=== PATIENT | female | born 1945 | race Asian ===

== ENCOUNTER 2016-12-30 19:46 | Inpatient (IN) | payer MEDICARE, OTHER ==
[~2016-12-30] VITALS: Ht 147.3 cm; Wt 32.0 kg
[~2016-12-30 19:46] MED LIST: AMIT25TA9 PO; DUR100 TD; LORA-444 PO
[2016-12-30] MEDS ORDERED: SOD CHLORIDE 0.9% 1,000 ML IV STA ×2 (19:49→20:47)
[2016-12-30] MEDS ORDERED: DEXTROSE 50% 50 ML SYRINGE ONE (20:06)
[2016-12-30] MEDS ORDERED: DEXTROSE 50% 50 ML SYRINGE IV STA (20:06)
--- NOTE | 2016-12-30 20:06 | ERA ---
ER Documentation Chief Complaint Date/Time DATE: 12/30/16 TIME: 20:02 Chief Complaint HPI This is a 71-year-old female with a trach, TPN who presents to the emergency room with multiple issues. History is provided by the patient's niece. It appears the patient was discharged from [facility] yesterday. She was admitted to rule out sepsis. The patient was discharged around 11 AM yesterday. Since she has been home she has not been acting herself. The niece is explaining that the patient is in and out of consciousness, she normally talks and has not been talking. She denies any fevers or chills. She usually gets morphine for pain but has not received any morphine since discharge from [place] yesterday. Additionally, the patient's Accu-Cheks have been in the 60s and 70s. ROS All systems reviewed and are negative except as per history of present illness. Medications Home Meds Reported Medications Morphine Sulfate* (Morphine* Liq) 10 Mg/5 Ml Solution, 20 MG PO Q2H Y for NEEDED FOR PAIN, ML OR 25MG Q2H FOR MODERATE PAIN OR 30MG Q2H FOR SEVERE PAIN 12/30/16 Sodium/K+/Mag/Ca/Chlor/Acetate (Tpn Electrolytes Vial) Unknown Strength Vial, ML IV DAILY, VIAL 12/30/16 Methocarbamol* (Robaxin*) 100 Mg/Ml Soln, 500 MG IJ DAILY, VIAL 12/30/16 Lorazepam* (Lorazepam*) 0.5 Mg Tablet, 1.5 MG PO HS Y for INSOMN, TAB 12/30/16 Lidocaine (Lidocaine) 1 Each Adh..patch, 1 EACH TP Q12H 12/30/16 Ipratropium-Albuterol (Ipratropium-Albuterol) 0.5-3 Mg/3 Ml Ampul.neb, 2.5 ML INHALATION Q6 Y for NEEDED, #30 VIAL 12/30/16 Fentanyl (Duragesic) 1 Each Patch.td72, 1 EACH TD EVERY THREE DAYS 50 MCG 12/30/16 Fat Emulsions* IV (Intralipid* 20%) 500 Ml Emulsion, 200 ML IV DAILY, BOTTLE 12/30/16 Diphenhydramine Hcl* (Diphenhydramine Hcl*) 25 Mg Capsule, 25 MG PO QHS Y for ITCHING, CAP NEEDED FOR SLEEP 12/30/16 Chlorhexidine Gluconate (Peridex) 473 Ml Mouthwash, 10 ML MM BID, BOTTLE 12/30/16 Albuterol Sulfate* (Albuterol Sulfate* Neb) 20 Ml Nebu, 2.5 MG INHALATION Q6H Y for NEEDED, #1 BOTTLE 12/30/16 Discontinued Reported Medications Fentanyl Patch* (Duragesic Patch*) 100 Mcg/Hr Transdermal Patch, 1 PATCH TD Q72H , PATCH 02/28/16 Lorazepam* (Ativan*) 2 Mg Tablet, 2 MG PO HS Y for SLEEP, #30 TAB 02/28/16 Amitriptyline Hcl* (Amitriptyline Hcl*) 25 Mg Tablet, 25 MG PO QHS, #30 TAB 02/28/16 Allergies Allergies: Coded Allergies: ampicillin (Verified Allergy, Intermediate, chestpain, 12/30/16) PMhx/Soc History of Surgery: Yes (HYSTERECTOMY, SPLEENECTOMY, TUMMY TUCK, UMBILICAL; HERNIA REPAIR) Anesthesia Reaction: No Hx Neurological Disorder: No Hx Respiratory Disorders: No Hx Cardiac Disorders: No Hx Psychiatric Problems: No Hx Miscellaneous Medical Probl: Yes (SLEEP PROBLEM, HIGH CHOLESTEROL, HTN) Hx Alcohol Use: No Hx Substance Use: No Hx Tobacco Use: No FmHx Family History: No diabetes Physical Exam Vitals Vital Signs Date Time Temp Pulse Resp B/P Pulse Ox O2 Delivery O2 Flow Rate FiO2 12/30/16 22:00 87 16 154/75 98 Room Air 12/30/16 20:51 97.5 95 19 102/52 100 12/30/16 20:00 99 22 128/86 99 Room Air Physical Exam General: Thin, cachectic, nonverbal Head: Normocephalic, atraumatic. Eyes: Pupils equally reactive, EOM intact ENT: Dry mucous membranes Neck: Supple, no lymphadenopathy Respiratory: Lungs clear bilaterally, no distress Cardiovascular: Slight tachycardia, no murmurs, rubs, or gallops Abdominal: Soft, non-tender, non-distended, no peritoneal signs, left lower quadrant KATHERIN drain is intact but appears to be a urostomy bag is also draining : Deferred MSK: No edema, no unilateral swelling, generalized weakness diffusely, limited movement of all extremities Neurologic: Alert and oriented but nonverbal, limited movement of all extremities limited exam Skin: No rash Psych: Normal mood Result Diagram: 12/30/16195512/30/161955 Results 24 hrs Laboratory Tests Test 12/30/16 19:49 12/30/16 19:56 12/30/16 20:01 12/30/16 20:31 Blood Gas Specimen Source Blood arterial Arterial Blood Date Drawn 12/30/2016 8:25:11 PM Arterial Blood pH (Temp corrected) 7.386 Arterial Blood pCO2 (Temp correct) 28.6mmhg Arterial Blood pO2 (Temp corrected) 72.7mmHG Arterial Blood HCO3 16.8mmol/L Arterial Blood Base Excess -7.1mmol/L Arterial Blood Oxygen Saturation 94.5mmHG Obed Test ACCEPTAB Arterial Blood Gas Puncture Site Right Radial Arterial Blood Carboxyhemoglobin 0.3% Arterial Blood Methemoglobin 0.3% Blood Gas A-a O2 Differential 42.8mmHg Oxyhemoglobin Percent 93.9% Total Hemoglobin 10.7g/dl Blood Gas Temperature 37.0C Blood Gas Modality ROOM AIR FiO2 21.0% Blood Gas Notified Whom [place] Blood Gas Notified Time 12/30/2016 8:31:58 PM White Blood Count 12.810^3/ul Red Blood Count 3.4010^6/ul Hemoglobin 10.6g/dl Hematocrit 33.0% Mean Corpuscular Volume 97.1fl Mean Corpuscular Hemoglobin 31.2pg Mean Corpuscular Hemoglobin Concent 32.1g/dl Red Cell Distribution Width 14.2% Platelet Count 48211^3/UL Mean Platelet Volume 12.0fl Neutrophils % 81.7% Lymphocytes % 8.5% Monocytes % 6.7% Eosinophils % 0.1% Basophils % 0.3% Nucleated Red Blood Cells % 1.2/100WBC Neutrophils # (Manual) 1010^3/ul Lymphocytes # 1.110^3/ul Monocytes # 0.910^3/ul Eosinophils # 0.010^3/ul Basophils # 0.010^3/ul Nucleated Red Blood Cells # 0.210^3/ul Prothrombin Time 16.6Sec Prothrombin Time Ratio 1.3 INR International Normalized Ratio 1.33 Activated Partial Thromboplast Time 44.6Sec Sodium Level 146mmol/L Potassium Level 4.2mmol/L Chloride Level 112mmol/L Carbon Dioxide Level 20mmol/L Anion Gap 18 Blood Urea Nitrogen 65mg/dl Creatinine 0.52mg/dl Glucose Level 66mg/dl Lactic Acid Level 2.3mmol/L Calcium Level 8.8mg/dl Total Bilirubin 0.3mg/dl Direct Bilirubin 0.00mg/dl Indirect Bilirubin 0.3mg/dl Aspartate Amino Transf (AST/SGOT) 40IU/L Alanine Aminotransferase (ALT/SGPT) 64IU/L Alkaline Phosphatase 180IU/L Troponin I 0.071ng/ml Total Protein 6.7g/dl Albumin 2.4g/dl Globulin 4.30g/dl Albumin/Globulin Ratio 0.55 Free Thyroxine Index 2.21ug/ml Thyroxine (T4) 3.4ug/dl Triiodothyronine (T3) Uptake > 65.0% Bedside Glucose 65mg/dL 194mg/dL Test 12/30/16 21:00 12/30/16 21:40 12/30/16 21:45 Urine Color YELLOW Urine Clarity CLOUDY Urine pH 5.0 Urine Specific [place] 1.012 Urine Ketones NEGATIVEmg/dL Urine Nitrite NEGATIVEmg/dL Urine Bilirubin NEGATIVEmg/dL Urine Urobilinogen NEGATIVEmg/dL Urine Leukocyte Esterase NEGATIVELeu/ul Urine Microscopic RBC 2/HPF Urine Microscopic WBC 0/HPF Urine Amorphous Crystals FEW/HPF Urine Hemoglobin 2+mg/dL Urine Glucose NEGATIVEmg/dL Urine Total Protein NEGATIVEmg/dl Lactic Acid Level 2.1mmol/L Bedside Glucose 119mg/dL Current Medications Medications (Trade) Dose Ordered Sig/Candido Route PRN Reason Start Time Stop Time Status Last Admin Dose Admin Sodium Chloride (NS) 1,000 ml @ 1,000 mls/hr Q1H STAT IV 12/30/16 19:49 12/30/16 20:48 DC 12/30/16 20:11 Dextrose (D50w Syringe) 50 ml ONCE STAT IV 12/30/16 20:06 12/30/16 20:07 DC 12/30/16 20:11 Dextrose 50 ml 50 ml STK-MED ONCE .ROUTE 12/30/16 20:06 12/30/16 20:07 DC Sodium Chloride 1,000 ml @ 1,000 mls/hr Q1H STAT IV 12/30/16 20:47 12/30/16 21:46 DC 12/30/16 21:25 Vancomycin HCl 250 ml @ 125 mls/hr ONCE ONCE IVPB 12/30/16 21:00 8/21/17 22:59 DC 12/30/16 21:26 Levofloxacin/ Dextrose 150 ml @ 100 mls/hr ONCE ONCE IVPB 12/30/16 21:00 12/30/16 22:29 DC 12/30/16 21:26 Aztreonam (Azactam 1gm/NS (Pmx)) 50 ml @ 100 mls/hr ONCE ONCE IVPB 12/30/16 21:00 12/30/16 21:29 DC IV Flush 10 ml 10 ml STK-MED ONCE .ROUTE 12/30/16 21:10 12/30/16 21:11 DC 12/30/16 21:59 Sodium Chloride (NS) 100 ml @ ud STK-MED ONCE .ROUTE 12/30/16 21:10 12/30/16 21:11 DC 12/30/16 21:59 Iohexol (Omnipaque 300mg/ ml) 150 ml STK-MED ONCE .ROUTE 12/30/16 21:10 12/30/16 21:11 DC 12/30/16 21:59 Procedures/MDM EKG, MONITORS, & DIAGNOSTIC IMAGING: EKG: I reviewed and interpreted a 12-lead EKG. Rhythm: Normal sinus rhythm Ectopy: None Intervals: No abnormalities ST segments: No elevations or depressions T waves: No contiguous inversions Chest x-ray: I reviewed and interpreted a 1 view of the chest Mediastinum: No enlargement Cardiac silhouette: No cardiomegaly Airspace: Clear lung green bilaterally without evidence of pneumothorax Bones: No evidence of fracture CT brain: No evidence of acute intracranial process per radiology IMPRESSION: 1. No evidence of acute hemorrhage, infarcts, or acute intracranial pathology. 2. Subacute to chronic right occipital lobe and basal ganglia infarcts. Recommend brain MRI to further evaluate with diffusion. 3. Mild chronic microvascular ischemic disease and diffuse volume loss. 4. Mild atherosclerotic vascular disease CT abdomen and pelvis with IV contrast: Pending at the time of signout LAB INTERPRETATION: Very slight leukocytosis of 12, lactic acid of 2.3. Slight hypoglycemia responsive to dextrose MEDICAL DECISION MAKING: The patient presents with altered mental status. The patient has an extremely broad differential given her age and comorbidities. This includes intracranial hemorrhage, intra-abdominal process such as abscess and bowel obstruction, urinary tract infection, hypothyroidism among others. An extremely broad workup will be initiated including diagnostic imaging, sepsis screening and resuscitation as needed. To be clear, the patient could possibly be having a stroke but she does not meet any criteria for stroke code activation or TPA given the risks dramatically outweighing the benefits given the waxing and waning symptoms and symptoms starting yesterday midday. ER COURSE: The patient does have slight leukocytosis and lactic acid elevation. No clear source at this time but the patient was given 30 cc/kg of saline. The patient was additionally given vancomycin, Levaquin and aztreonam given penicillin allergy. Patient CT of the abdomen and pelvis is pending at this time. The patient did have surgery in outside hospital but unclear when she had the surgery. The patient does have multiple drains in place and it is unclear if she is actively following with her surgeon. The patient will benefit from inpatient hospitalization for further monitoring, culture monitoring. The patient continues to be nonverbal. CT brain is negative. I kept the patient and/or family informed of laboratory and diagnostic imaging results throughout the emergency room course. DISPOSITION PLAN: Telemetry admission for management of altered mental status CONSULTATION: Accepting care team and consultations: I discussed the current laboratory data, diagnostic imaging and emergency care provided. Admitting team: Dr. Butterfield Admitting team indication: Insurance directed CT results signed out to Dr. Vaz for follow-up. Departure Diagnosis: Primary Impression: Altered level of consciousness Additional Impressions: SIRS (systemic inflammatory response syndrome) Hypoglycemia Condition: Stable LOLA CARLOS MD Dec 30, 2016 20:06
[2016-12-30 20:20] LABS: BASOPHILS % 0.3 % (0.0-2.0); EOSINOPHILS % 0.1 % (0.0-7.0); HEMOGLOBIN 10.6 g/dl (12.0-16.0); LYMPHOCYTES # 1.1 10^3/ul (0.8-2.9); LYMPHOCYTES % 8.5 % (15.0-51.0); MEAN CORPUSCULAR HEMOGLOBIN 31.2 pg (29.0-33.0); MEAN CORPUSCULAR HGB CONC 32.1 g/dl (32.0-37.0); MEAN CORPUSCULAR VOLUME 97.1 fl (82.0-101.0); MONOCYTE # 0.9 10^3/ul (0.3-0.9); MONOCYTES % 6.7 % (0.0-11.0); NEUTROPHILS % 81.7 % (39.0-77.0); NUCLEATED RED BLOOD CELLS # 0.2 10^3/ul (0.0-0.0); NUCLEATED RED BLOOD CELLS% 1.2 /100WBC (0.0-0.0); PLATELET COUNT 216 10^3/UL (140-415); RED CELL DISTRIBUTION WIDTH 14.2 % (11.5-14.5); WHITE BLOOD COUNT 12.8 10^3/ul (4.8-10.8)
[2016-12-30 20:32] LABS: AADO2 Arterial 42.8 mmHg (7.0-24.0); Allen Test ACCEPTAB; Arterial Base Excess -7.1 mmol/L (-3.0-3); Arterial COHb 0.3 % (0.0-3.0); Arterial Fraction of Oxyhgb 93.9 % (93.0-99.0); Arterial HCO3 16.8 mmol/L (22.0-26.0); Arterial MetHb 0.3 % (0.0-1.5); Arterial Total Hemglobin 10.7 g/dl (12.0-18.0); MODE ROOM AIR
[2016-12-30 20:43] LABS: ALANINE AMINOTRANSFERASE 64 IU/L (13-69); ALBUMIN 2.4 g/dl (3.3-4.9); ALBUMIN/GLOBULIN RATIO 0.55; ALKALINE PHOSPHATASE 180 IU/L (42-121); ANION GAP 18 (8-16); ASPARTATE AMINO TRANSFERASE 40 IU/L (15-46); BILIRUBIN,INDIRECT 0.3 mg/dl (0-1.1); BILIRUBIN,TOTAL 0.3 mg/dl (0.2-1.3); BLOOD UREA NITROGEN 65 mg/dl (7-20); CALCIUM 8.8 mg/dl (8.4-10.2); CARBON DIOXIDE 20 mmol/L (21-31); CHLORIDE 112 mmol/L (97-110); CREATININE 0.52 mg/dl (0.44-1.00); GLUCOSE 66 mg/dl (70-220); POTASSIUM 4.2 mmol/L (3.5-5.1); SODIUM 146 mmol/L (135-144); TOTAL PROTEIN 6.7 g/dl (6.1-8.1)
[2016-12-30 20:45] LABS: INR 1.33; PROTIME 16.6 Sec (12.2-14.2); PT RATIO 1.3
[2016-12-30 20:46] LABS: PARTIAL THROMBOPLASTIN TIME 44.6 Sec (25.0-35.0)
[2016-12-30 20:53] LABS: TROPONIN-I 0.071 ng/ml (0.00-0.12)
[2016-12-30] MEDS ORDERED: VANCOMYCIN 1 GM (PMX) 250 ML IVPB ONE (21:00)
[2016-12-30] MEDS ORDERED: LEVOFLOXACIN 750MG/D5W (PMX) 150 ML IVPB ONE (21:00)
[2016-12-30] MEDS ORDERED: AZTREONAM 1 GM/NS (PMX) 50 ML IVPB ONE (21:00)
[2016-12-30 21:06] LABS: T3 UPTAKE > 65.0 % (23.5-40.5)
[2016-12-30] MEDS ORDERED: IOHEXOL 300MG/ML 150 ML BTL ONE (21:10)
[2016-12-30] MEDS ORDERED: SOD CHLORIDE 0.9% 100 ML ONE (21:10)
[2016-12-30] MEDS ORDERED: ALB.5NB20 INHALATION (21:13)
[2016-12-30] MEDS ORDERED: CHLO473M4 MM (21:15)
[2016-12-30] MEDS ORDERED: DIPH25CA6 PO (21:18)
[2016-12-30] MEDS ORDERED: [UNRECOGNIZED DRUG - CODE] IV (21:20)
[2016-12-30] MEDS ORDERED: FENT1PAT TD (21:24)
[2016-12-30 21:26] LABS: ADD UMIC YES; UR AMORPHOUS CRYSTAL FEW /HPF (NONE SEEN); UR ASCORBIC ACID NEGATIVE (NEGATIVE); UR BILIRUBIN (Dip) NEGATIVE (NEGATIVE); UR BLOOD (Dip) 2+ mg/dL (NEGATIVE); UR CLARITY CLOUDY (CLEAR); UR COLOR YELLOW (YELLOW); UR GLUCOSE (Dip) NEGATIVE (NEGATIVE); UR KETONES (Dip) NEGATIVE (NEGATIVE); UR LEUKOCYTE ESTERASE (Dip) NEGATIVE Leu/ul (NEGATIVE); UR NITRITE (Dip) NEGATIVE (NEGATIVE); UR RBC 2 /HPF (0-5); UR SPECIFIC GRAVITY (Dip) 1.012 (1.003-1.030); UR TOTAL PROTEIN (Dip) NEGATIVE (NEGATIVE); UR UROBILINOGEN (Dip) NEGATIVE (NEGATIVE)
[2016-12-30] MEDS ORDERED: IPRA3AMP INHALATION (21:30)
[2016-12-30] MEDS ORDERED: LIDO700A45 TP (21:32)
[2016-12-30] MEDS ORDERED: LORA0.5T PO (21:34)
[2016-12-30] MEDS ORDERED: MET1I IJ (21:35)
[2016-12-30] MEDS ORDERED: SODI20VI3 IV (21:43)
[2016-12-30] MEDS ORDERED: MORP10SO4 PO (21:52)
--- NOTE | 2016-12-30 22:47 | RADRPT ---
PROCEDURE: XR Chest. CLINICAL INDICATION: Sepsis TECHNIQUE: Single AP portable chest. COMPARISON: 05/17/2016 Chest x-ray FINDINGS: Cardiomegaly and marked vascular congestion with large bilateral pleural effusions. Dialysis cathet er and tracheostomy tube in place. Atherosclerotic calcification of the aorta. No pneumothorax. T he osseous structures and soft tissues are unremarkable. IMPRESSION: 1. Marked vascular congestion and bilateral pleural effusions most compatible with CHF. Superimpose d pneumonia cannot be excluded. Support devices in place as detailed above. 2. Cardiomegaly. . RPTAT:AAJJ Physician Jim Date Time Electronically viewed and signed by Physician Jim on 12/30/2016 22:47 KATHERIN/
--- NOTE | 2016-12-30 22:50 | RADRPT ---
PROCEDURE: CT Brain without contrast. CLINICAL INDICATION: Headaches and possible sepsis TECHNIQUE: A CT of the brain was performed on a [employer] 64-slice CT scanner utilizing axial imaging from the skull base through the vertex without IV contrast. Multiplanar reformatted images were made. Images were reviewed on a PACS workstation. The CTDIvol is 40.38 mGy and the DLP is 822 .07 mGycm. One of the following 3 dose reduction techniques were used: Automated exposure control; adjustment of the mA and/or kV according to patient size; or use of iterative reconstruction technique. COMPARISON: None FINDINGS: There is no intracranial hemorrhage, mass effect, or midline shift. No extra-axial fluid collection is seen. The ventricles and sulci are age appropriate. Mild diffuse volume loss is present. Decre ased attenuation is present in the bilateral centrum semiovale and periventricular white matter comp atible with mild chronic microvascular ischemic disease. Wedge shaped areas of decreased attenuatio n are noted in the right occipital lobe and the right basal ganglia compatible with subacute to ribber milly infarcts. Moderate vascular calcifications are present of the bilateral intracranial internal c arotid arteries. The visualized scalp and calvarium are normal. The bilateral orbits demonstrate prior lens replacem ent. The bilateral paranasal sinuses, mastoid air cells and middle ear cavities are clear. IMPRESSION: 1. No evidence of acute hemorrhage, infarcts, or acute intracranial pathology. 2. Subacute to chronic right occipital lobe and basal ganglia infarcts. Recommend brain MRI to fur ther evaluate with diffusion. 3. Mild chronic microvascular ischemic disease and diffuse volume loss. 4. Mild atherosclerotic vascular disease RPTAT: HD .Rosana Crowley MD, MD Date Time Electronically viewed and signed by .Rosana Crowley MD, MD on 12/30/2016 22:50 .C/
--- NOTE | 2016-12-30 23:15 | RADRPT ---
PROCEDURE: CT abdomen and pelvis with contrast. CLINICAL INDICATION: Pain and possible sepsis TECHNIQUE: CT scan of the abdomen and pelvis without contrast [facility] imaging from the lung bases through the pubis symphysis. The patient was scanned after the uneventful intravenous administration of 55 cc of Omnipaque-300. Sagittal and coronal re formatted images were made. CTDI vol 7.52 mGy and DLP 342.83 mGy-cm One of the following 3 dose reduction techniques were used during this CT examination: automated exp osure control; adjustment of the mA and /or kV according to patient size; or use of iterative recons truction technique. COMPARISON: CT abdomen pelvis 05/16/2016 FINDINGS: CT abdomen: Again noted are moderate bilateral pleural effusions with bibasilar atelectasis or consolidation. M ild cardiomegaly is present. Vascular calcifications are present of the aorta. No pericardial effu aubree is present. The visualized liver is mildly and diffusely fatty infiltrated with several 2-3 mm hypodense foci in the right lobe of the liver. The visualized spleen and is normal. Linear radio densities are note d in the region of the spleen compatible with postsurgical changes. The visualized pancreas is norm al. The patient is status post cholecystectomy changes. No evidence for intrahepatic or extrahepat ic ductal dilatation is noted. The bilateral adrenal glands are normal. The bilateral kidneys demonstrate no evidence for hydroure teronephrosis or nephroureterolithiasis. The 0.7 cm cyst in the left mid pole of the kidney is less optimally imaged on this study. The aorta demonstrates vascular calcifications without evidence for aneurysmal dilatation. No evide nce for retroperitoneal lymphadenopathy or masses are noted. A large pigtail catheter is present in the right upper quadrant and gallbladder fossa. An anastomot ic sutures are noted in the left anterior mid abdomen. A left lower quadrant pigtail catheter is not ed. Again noted are subcutaneous diffuse edema compatible with anasarca as well as a midline vertica l surgical wound with postsurgical changes present. No drainable fluid collection is present. The visualized bowel again demonstrates diffuse edema with diffuse bowel wall thickening which appea rs improved from prior study. Diffuse mesenteric edema is again noted which has decreased from prio r study. No evidence for pneumoperitoneum is present. CT pelvis: No evidence for bowel obstruction is present. Mild amount of contrast is noted in the right mariam co christiano. The urinary bladder is moderately distended. No definite evidence for masses or pathologic ly mphadenopathy is noted. The surrounding osseous structures are remarkable for generalized osteopenia and degenerative spondy losis. Grade 1 spondylolisthesis without spondylolysis is noted of L4 on L5. No evidence for acute fractures, osteolytic or blastic lesions are noted.. IMPRESSION: 1. No significant interval change in the moderate bilateral pleural effusions and bibasilar consoli dation. 2. Status post cholecystectomy changes. 3. Ventral incision with residual subcutaneous emphysematous changes and no evidence for fluid caren ections. 4. Right and left pigtail catheters as described above which in the right upper quadrant and the le ft mid abdomen. 5. An anastomotic sutures are noted in the bowel in the left mid abdomen without evidence for bowel obstruction. 6. Previously noted fluid collection concerning for abscess is opacified with contrast represents t he cecum. No evidence for fluid collections or abscesses noted. 7. Diffuse anasarca 8. Interval decrease in bowel wall thickening and mesenteric edema. 9. Degenerative changes of the imaged spine as noted above RPTAT: HDC .Rosana Crowley MD, Date Time Electronically viewed and signed by .Rosana Crowley MD, on 12/30/2016 23:14 .C/
[2016-12-30] MEDS ORDERED: ONDANSETRON 4 MG INJ IV PRN (23:30)
[2016-12-30] MEDS ORDERED: ACETAMINOPHEN 325 MG TAB PO PRN (23:30)
[2016-12-31] MEDS ORDERED: VANCOMYCIN IV PER PHARMACY XX SCH
[2016-12-31] MEDS ORDERED: LIDOCAINE 5% PATCH TRANSDERM SCH
[2016-12-31] MEDS ORDERED: ALBUTEROL/IPRATROPIUM (NEB) 3 ML AMP INH SCH
[2016-12-31 01:04] LABS: CK-MB 6.99 ng/ml (0.0-2.4); TROPONIN-I 0.065 ng/ml (0.00-0.12)
--- NOTE | 2016-12-31 05:12 | HP ---
Date/Time of Note Date/Time of Note DATE: 12/30/16 TIME: 23:39 Assessment/Plan VTE Prophylaxis VTE Prophylaxis Intervention: SCD's (recent bleeding) Assessment/Plan Assessment/Plan Unfortunate 71 yo F with extensive med hx and multiple medical problems managed for the following 1. Acute alteration in mental status likely secondary to subacute CVA 2. Acute respiratory distress superimposed on chronic respiratory failure 3. Bilateral pleural effusion with underlying pneumonia and CHF 4. Sepsis with lactic acidosis secondary to #3 5. History of gastric cancer in the past status post gastrectomy as well as chemotherapy 6. Chronic muscle wasting and cachexia 7. 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 Reported history of hypertension 9. Penicillin allergy PLAN: This patient is quite ill and has a poor long-term prognosis. She is going to require close monitoring and telemetry management. Will also have a low threshold for intensive care unit transfer. * Blood cultures / empiric abx / ID consult / IVF hydration / TPN on hold for now * Concurrent Gentle diuresis / echo / ACS r/o / Possible cardio consult * Bilateral thoracentesis and fluid cultures / pulmunology consult / bronchodilator therapy / Supplemental O2 for comfort * Trend lactic acid levels / serial labs / close monitoring and supportive care * Further interventions per clinical course, plan of care has been discussed extensively with niece/ primary caregiver * Patient remains full code Prophylaxis: PPI / SCDs HPI/ROS Admit Date/Time Admit Date/Time 12/30/16 Hx of Present Illness 71-year-old female with a history of gastric cancer back in 2011 for which she underwent extensive resection as well as chemotherapy after which she was told that she was in remission. However back in March 2006 patient developed abdominal pain again and had a prolonged hospitalization at [facility]. Then she became TPN dependent, had to get a tracheostomy which is maintained at room air and has been to multiple hospitals, long-term acute care centers, and nursing homes, until finally she was discharged home to her family with home health. Her primary caregiver is her niece who is providing the history. However a few days ago family noticed that she had some bloody drainage from a KATHERIN drain which is located in her left inguinal area. She was admitted for workup of this in [facility] and the workup did not find much. However bleeding resolved and patient was just discharged home yesterday however post discharge and the patient's family notices that her mentation had worsened. Please note that prior to this patient had suffered multiple strokes in the past , she is also status post colostomy. However she was usually alert and oriented , follow commands consistently, and even though she had extensive muscle wasting did not have any evidence of hemiparesis or hemiplegia. However yesterday post discharge, family notices that patient was going in and out of consciousness, they attributed this to medication versus hypoglycemia which she sometimes had, but symptoms did not improve. Eventually patient was reevaluated by her home health nurse who recommended transfer to the emergency room. She was seen in the emergency room here where a CAT scan of her abdomen and pelvis is concerning for significant bilateral pleural effusions and possible underlying pneumonia, her blood picture is suggestive of sepsis, and a CT of the brain is showing a subacute stroke which may be new. Physical examination is also consistent with a left upper extremity paresis and patient is being admitted for further workup and management. She is also having some respiratory distress. Patient remains a full code per family. ROS 12 point review if systems was done and pertinent findings are as noted. PMH/Family/Social Past Medical History * Chronic respiratory failure tracheostomy to room air * hx of gastric cancer s/p extensive resection * Chronic TPN therapy 2/2 multiple GI strictures and recurrent bowel obstruction * s/p Colostomy * HTN * Dyslipidemia * Chronic Msc wasting and malnutrition * Previous multiple strokes * Right upper quadrant large pigtail catheter and Left lower quadrant pigtail catheter both of which are actively draining. Past Surgical History * EXTENSIVE GASTRECTOMY PER FAMILY , FULL DETAILS UNKNOWN * HYSTERECTOMY * SPLENECTOMY * CHOLECYSTECTOMY * TUMMY TUCK * UMBILICAL HERNIA REPAIR Social History PCP: [facility] [phone] Alcohol Use: none Smoking Status: Unknown if ever smoked Exam/Review of Systems Vital Signs Vitals Vital Signs Date Time Temp Pulse Resp B/P Pulse Ox O2 Delivery O2 Flow Rate FiO2 12/30/16 23:21 89 16 136/93 99 Room Air 12/30/16 20:51 97.5 Exam Exam General: Thin, cachectic, nonverbal, patient in moderate respiratory distress Head: Normocephalic, atraumatic. Eyes: Pupils equally reactive, R pupil medially deviated ENT: Dry mucous membranes Neck: Supple, no lymphadenopathy Respiratory: Patient is having diffuse crackles, coarse rhonchi and wheezing. Very loud respirations suggestive of aspiration and fluid overload Cardiovascular: Slight tachycardia, Cardiac murmur Abdominal: Soft, non-tender, non-distended, no peritoneal signs, left lower quadrant KATHERIN drain is intact, R groin KATHERIN drain ?source (?urostomy) also draining , mid line colostomy also draining : mild vulval edema MSK: chronic msc wasting Neurologic: L UE paresis? Skin: Anasarca Gastrointestinal: other (Right and left pigtail catheters as described above which in the right upper quadrant and the left mid abdomen.) Labs Result Diagram: 12/30/16195512/30/161955 Procedures Procedures Laboratory Tests Test 12/30/16 19:49 12/30/16 19:56 12/30/16 20:01 12/30/16 20:31 Blood Gas Specimen Source Blood arterial Arterial Blood Date Drawn 12/30/2016 8:25:11 PM Arterial Blood pH (Temp corrected) 7.386 Arterial Blood pCO2 (Temp correct) 28.6mmhg Arterial Blood pO2 (Temp corrected) 72.7mmHG Arterial Blood HCO3 16.8mmol/L Arterial Blood Base Excess -7.1mmol/L Arterial Blood Oxygen Saturation 94.5mmHG Obed Test ACCEPTAB Arterial Blood Gas Puncture Site Right Radial Arterial Blood Carboxyhemoglobin 0.3% Arterial Blood Methemoglobin 0.3% Blood Gas A-a O2 Differential 42.8mmHg Oxyhemoglobin Percent 93.9% Total Hemoglobin 10.7g/dl Blood Gas Temperature 37.0C Blood Gas Modality ROOM AIR FiO2 21.0% Blood Gas Notified Whom NZ Blood Gas Notified Time 12/30/2016 8:31:58 PM White Blood Count 12.810^3/ul Red Blood Count 3.4010^6/ul Hemoglobin 10.6g/dl Hematocrit 33.0% Mean Corpuscular Volume 97.1fl Mean Corpuscular Hemoglobin 31.2pg Mean Corpuscular Hemoglobin Concent 32.1g/dl Red Cell Distribution Width 14.2% Platelet Count 31153^3/UL Mean Platelet Volume 12.0fl Neutrophils % 81.7% Lymphocytes % 8.5% Monocytes % 6.7% Eosinophils % 0.1% Basophils % 0.3% Nucleated Red Blood Cells % 1.2/100WBC Neutrophils # (Manual) 1010^3/ul Lymphocytes # 1.110^3/ul Monocytes # 0.910^3/ul Eosinophils # 0.010^3/ul Basophils # 0.010^3/ul Nucleated Red Blood Cells # 0.210^3/ul Prothrombin Time 16.6Sec Prothrombin Time Ratio 1.3 INR International Normalized Ratio 1.33 Activated Partial Thromboplast Time 44.6Sec Sodium Level 146mmol/L Potassium Level 4.2mmol/L Chloride Level 112mmol/L Carbon Dioxide Level 20mmol/L Anion Gap 18 Blood Urea Nitrogen 65mg/dl Creatinine 0.52mg/dl Glucose Level 66mg/dl Lactic Acid Level 2.3mmol/L Calcium Level 8.8mg/dl Total Bilirubin 0.3mg/dl Direct Bilirubin 0.00mg/dl Indirect Bilirubin 0.3mg/dl Aspartate Amino Transf (AST/SGOT) 40IU/L Alanine Aminotransferase (ALT/SGPT) 64IU/L Alkaline Phosphatase 180IU/L Troponin I 0.071ng/ml Total Protein 6.7g/dl Albumin 2.4g/dl Globulin 4.30g/dl Albumin/Globulin Ratio 0.55 Free Thyroxine Index 2.21ug/ml Thyroxine (T4) 3.4ug/dl Triiodothyronine (T3) Uptake > 65.0% Bedside Glucose 65mg/dL 194mg/dL Test 12/30/16 21:00 12/30/16 21:40 12/30/16 21:45 Urine Color YELLOW Urine Clarity CLOUDY Urine pH 5.0 Urine Specific [place] 1.012 Urine Ketones NEGATIVEmg/dL Urine Nitrite NEGATIVEmg/dL Urine Bilirubin NEGATIVEmg/dL Urine Urobilinogen NEGATIVEmg/dL Urine Leukocyte Esterase NEGATIVELeu/ul Urine Microscopic RBC 2/HPF Urine Microscopic WBC 0/HPF Urine Amorphous Crystals FEW/HPF Urine Hemoglobin 2+mg/dL Urine Glucose NEGATIVEmg/dL Urine Total Protein NEGATIVEmg/dl Lactic Acid Level 2.1mmol/L Bedside Glucose 119mg/dL Current Medications Medications (Trade) Dose Ordered Sig/Candido Route PRN Reason Start Time Stop Time Status Last Admin Dose Admin Sodium Chloride (NS) 1,000 ml @ 1,000 mls/hr Q1H STAT IV 12/30/16 19:49 12/30/16 20:48 DC 12/30/16 20:11 1,000 MLS/HR Dextrose (D50w Syringe) 50 ml ONCE STAT IV 12/30/16 20:06 12/30/16 20:07 DC 12/30/16 20:11 50 ML Dextrose 50 ml 50 ml STK-MED ONCE .ROUTE 12/30/16 20:06 12/30/16 20:07 DC Sodium Chloride 1,000 ml @ 1,000 mls/hr Q1H STAT IV 12/30/16 20:47 12/30/16 21:46 DC 12/30/16 21:25 1,000 MLS/HR Vancomycin HCl 250 ml @ 125 mls/hr ONCE ONCE IVPB 12/30/16 21:00 12/30/16 22:59 DC 12/30/16 21:26 125 MLS/HR Levofloxacin/ Dextrose 150 ml @ 100 mls/hr ONCE ONCE IVPB 12/30/16 21:00 12/30/16 22:29 DC 12/30/16 21:26 100 MLS/HR Aztreonam (Azactam 1gm/NS (Pmx)) 50 ml @ 100 mls/hr ONCE ONCE IVPB 12/30/16 21:00 12/30/16 21:29 DC 12/30/16 23:20 100 MLS/HR IV Flush 10 ml 10 ml STK-MED ONCE .ROUTE 12/30/16 21:10 12/30/16 21:11 DC 12/30/16 21:59 10 ML Sodium Chloride (NS) 100 ml @ ud STK-MED ONCE .ROUTE 12/30/16 21:10 12/30/16 21:11 DC 12/30/16 21:59 15 ML/8 S Iohexol (Omnipaque 300mg/ ml) 150 ml STK-MED ONCE .ROUTE 12/30/16 21:10 12/30/16 21:11 DC 12/30/16 21:59 150 ML Ondansetron HCl (Zofran Inj) 4 mg ER BRIDGE PRN IV NAUSEA AND/OR VOMITING 12/30/16 23:30 12/31/16 23:29 Acetaminophen (Tylenol Tab) 650 mg ER BRIDGE PRN PO MILD PAIN/FEVER 12/30/16 23:30 12/31/16 23:29 PROCEDURE: CT abdomen and pelvis with contrast. CLINICAL INDICATION: Pain and possible sepsis TECHNIQUE: CT scan of the abdomen and pelvis without contrast was performed on a 64-slice CT scanner utilizing axial imaging from the lung bases through the pubis symphysis. The patient was scanned after the uneventful intravenous administration of 55 cc of Omnipaque-300. Sagittal and coronal reformatted images were made. CTDI vol 7.52 mGy and DLP 342.83 mGy-cm One of the following 3 dose reduction techniques were used during this CT examination: automated exposure control; adjustment of the mA and /or kV according to patient size; or use of iterative reconstruction technique. COMPARISON: CT abdomen pelvis 05/16/2016 FINDINGS: CT abdomen: Again noted are moderate bilateral pleural effusions with bibasilar atelectasis or consolidation. Mild cardiomegaly is present. Vascular calcifications are present of the aorta. No pericardial effusion is present. The visualized liver is mildly and diffusely fatty infiltrated with several 2-3 mm hypodense foci in the right lobe of the liver. The visualized spleen and is normal. Linear radio densities are noted in the region of the spleen compatible with postsurgical changes. The visualized pancreas is normal. The patient is status post cholecystectomy changes. No evidence for intrahepatic or extrahepatic ductal dilatation is noted. The bilateral adrenal glands are normal. The bilateral kidneys demonstrate no evidence for hydroureteronephrosis or nephroureterolithiasis. The 0.7 cm cyst in the left mid pole of the kidney is less optimally imaged on this study. The aorta demonstrates vascular calcifications without evidence for aneurysmal dilatation. No evidence for retroperitoneal lymphadenopathy or masses are noted. A large pigtail catheter is present in the right upper quadrant and gallbladder fossa. An anastomotic sutures are noted in the left anterior mid abdomen. A left lower quadrant pigtail catheter is noted. Again noted are subcutaneous diffuse edema compatible with anasarca as well as a midline vertical surgical wound with postsurgical changes present. No drainable fluid collection is present. The visualized bowel again demonstrates diffuse edema with diffuse bowel wall thickening which appears improved from prior study. Diffuse mesenteric edema is again noted which has decreased from prior study. No evidence for pneumoperitoneum is present. CT pelvis: No evidence for bowel obstruction is present. Mild amount of contrast is noted in the right mariam colon. The urinary bladder is moderately distended. No definite evidence for masses or pathologic lymphadenopathy is noted. The surrounding osseous structures are remarkable for generalized osteopenia and degenerative spondylosis. Grade 1 spondylolisthesis without spondylolysis is noted of L4 on L5. No evidence for acute fractures, osteolytic or blastic lesions are noted.. IMPRESSION: 1. No significant interval change in the moderate bilateral pleural effusions and bibasilar consolidation. 2. Status post cholecystectomy changes. 3. Ventral incision with residual subcutaneous emphysematous changes and no evidence for fluid collections. 4. Right and left pigtail catheters as described above which in the right upper quadrant and the left mid abdomen. 5. An anastomotic sutures are noted in the bowel in the left mid abdomen without evidence for bowel obstruction. 6. Previously noted fluid collection concerning for abscess is opacified with contrast represents the cecum. No evidence for fluid collections or abscesses noted. 7. Diffuse anasarca 8. Interval decrease in bowel wall thickening and mesenteric edema. 9. Degenerative changes of the imaged spine as noted above RPTAT: HDC .Rosana Crowley MD, MD Date Time Electronically viewed and signed by .Rosana Crowley MD, MD on 12/30/2016 23: 14 .C/ CC: LOLA CARLOS MD PROCEDURE: CT Brain without contrast. CLINICAL INDICATION: Headaches and possible sepsis TECHNIQUE: A CT of the brain was performed on a GE [employer] 64-slice CT scanner utilizing axial imaging from the skull base through the vertex without IV contrast. Multiplanar reformatted images were made. Images were reviewed on a PACS workstation. The CTDIvol is 40.38 mGy and the DLP is 822.07 mGycm. One of the following 3 dose reduction techniques were used: Automated exposure control; adjustment of the mA and/or kV according to patient size; or use of iterative reconstruction technique. COMPARISON: None FINDINGS: There is no intracranial hemorrhage, mass effect, or midline shift. No extra- axial fluid collection is seen. The ventricles and sulci are age appropriate. Mild diffuse volume loss is present. Decreased attenuation is present in the bilateral centrum semiovale and periventricular white matter compatible with mild chronic microvascular ischemic disease. Wedge shaped areas of decreased attenuation are noted in the right occipital lobe and the right basal ganglia compatible with subacute to chronic infarcts. Moderate vascular calcifications are present of the bilateral intracranial internal carotid arteries. The visualized scalp and calvarium are normal. The bilateral orbits demonstrate prior lens replacement. The bilateral paranasal sinuses, mastoid air cells and middle ear cavities are clear. IMPRESSION: 1. No evidence of acute hemorrhage, infarcts, or acute intracranial pathology. 2. Subacute to chronic right occipital lobe and basal ganglia infarcts. Recommend brain MRI to further evaluate with diffusion. 3. Mild chronic microvascular ischemic disease and diffuse volume loss. 4. Mild atherosclerotic vascular disease RPTAT: HDC .Rosana Crowley MD, MD Date Time Electronically viewed and signed by .Rosana Crowley MD, MD on 12/30/2016 22: 50 .C/ CC: LOLA CARLOS MD PROCEDURE: XR Chest. CLINICAL INDICATION: Sepsis TECHNIQUE: Single AP portable chest. COMPARISON: 05/17/2016 Chest x-ray FINDINGS: Cardiomegaly and marked vascular congestion with large bilateral pleural effusions. Dialysis catheter and tracheostomy tube in place. Atherosclerotic calcification of the aorta. No pneumothorax. The osseous structures and soft tissues are unremarkable. IMPRESSION: 1. Marked vascular congestion and bilateral pleural effusions most compatible with CHF. Superimposed pneumonia cannot be excluded. Support devices in place as detailed above. 2. Cardiomegaly. . RPTAT:AAJJ Israel Jamil Physician Date Time Electronically viewed and signed by Israel Jamil Physician on 12/30/2016 22:47 KATHERIN/ CC: LOLA CARLOS MD ABE, BOLATITO M. Dec 30, 2016 23:50
[2016-12-31] MEDS: DEXTROSE 5%-0.45% NACL 1,000 ML IV SCH ×2 (05:54→07:18)
[2016-12-31 06:24] LABS: INR 1.32; PROTIME 16.5 Sec (12.2-14.2); PT RATIO 1.3
[2016-12-31 06:25] LABS: PARTIAL THROMBOPLASTIN TIME 39.5 Sec (25.0-35.0)
[2016-12-31 06:42] LABS: CK-MB 7.91 ng/ml (0.0-2.4); TROPONIN-I 0.077 ng/ml (0.00-0.12)
[2016-12-31 07:04] LABS: THYROID STIMULATING HORMONE 2.55 MIU/L (0.465-4.680)
[2016-12-31] MEDS ORDERED: FUROSEMIDE 40 MG INJ IV STA (07:07)
[2016-12-31] MEDS ORDERED: LIDOCAINE 1% (MPF) 5 ML VIAL ONE (08:57)
[2016-12-31] MEDS: CHLORHEXIDINE GLUCONATE 15 ML UD CUP MM SCH ×2 (09:00→20:54)
--- NOTE | 2016-12-31 10:01 | RADRPT ---
PROCEDURE: US guided right thoracentesis. CLINICAL INDICATION: Shortness of breath. Right pleural effusion. TECHNIQUE: Prior to the procedure, informed consent was obtained. The risks, benefits, and alternatives were e xplained to the patient or the patient's family, including but not limited to bleeding, infection, p ain, visceral or vascular damage, shock, pneumothorax, chest tube placement, air embolism, and . The patient or the patient's family understood the risks and the alternatives and wished to proce ed with the study. Informed written consent was obtained. A procedural pause was performed. The patient's name, date of , and procedure to be performed were verified. Ultrasound of the right hemithorax was performed in the axial and sagittal planes. A right pleural e ffusion is noted. Utilizing ultrasound guidance, optimal location for entry to the pleural cavity wa s ascertained. The overlying skin was prepped and draped in the usual sterile fashion. Approximate ly 10 ml of 1% Xylocaine was injected locally for pain control. Using ultrasound guidance, a 5-Fren Yueh catheter was introduced into the right pleural space without difficulty. Fluid was aspirated . COMPARISON: None. FINDINGS: Initial ultrasound demonstrates fluid in the right pleural space. Approximately 0.750 liters of ser ous fluid was aspirated and sent to the laboratory. IMPRESSION: 1. Satisfactory ultrasound-guided right thoracentesis. RPTAT: QQ .Dandre Franco MD, Date Time Electronically viewed and signed by .Dandre Franco MD, on 12/31/2016 10:01 .R/
--- NOTE | 2016-12-31 10:07 | CONS ---
Date/Time of Note Date/Time of Note DATE: 12/31/16 TIME: 09:57 Assessment/Plan Assessment/Plan Chief Complaint/Hosp Course 71 year old female with extensive medical hx including gastric CA s/p chemo and gastrectomy, gastric surgery in Mar 2016 c/b CVA , respiratory failure admitted with sepsis, lactic acidosis, bilateral pleural effusion pneumonia and CHF. Head CT suggestive of sub-acute to chronic Right [employer] infarct and basal ganglia. Suspect mental status is secondary to metabolic encephalopathy and sepsis unlikely from CVA. Recommend: MRI Brain w/o contrast MRA Head/Neck without contrast if no contraindication aspirin 81 mg or plavix 75 mg per niece not taking antiplatelets at home ECHO with a bubble study optimize risk factors for secondary stroke prevention check FLP HBA1C maintain euglycemia, maintain normotensive and afebrile minimize overly sedating meds DVT ppx Full Code tele monitoring for afib given prior cortical embolic appearing infarcts will follow Problems: Consultation Date/Type/Reason Admit Date/Time 12/30/16 Date of Consultation: Dec 30, 2016 Type of Consultation: Neurology Reason for Consultation CVA Referring Provider: ANA PAULINO Hx of Present Illness 71 year old female with history of gastric CA 2012 underwent extensive resection s/p chemotherapy was in remission and back in March 2016 developed abdominal pain requiring cholecystectomy complicated by CVA was at multiple hospitals from March to this past December s/p tracheostomy for respiratory failure and TPN dependent. A few days ago family noted blood drainage from KATHERIN drain in her inguinal region admitted at [place] and [place], bleeding was resolving and in the past day her niece noticed worsening right sided weakness lethargy and worsening mental status, not speaking. At baseline she is alert and oriented and able to communicate with valve over tracheostomy. Yesterday family also noted hypoglycemia to 56, per niece TPN was recently changed. On arrival to ER, CT abdomen/pelvis concerning for bilateral pleural effusion, pneumonia. CTH with subacute/chronic right occipital lobe infarct and basal ganglia. Subjective hx not possible: pt non-verbal, pt critical Social History Alcohol Use: none Smoking Status: Unknown if ever smoked Exam/Review of Systems Vital Signs Vitals Vital Signs Date Time Temp Pulse Resp B/P Pulse Ox O2 Delivery O2 Flow Rate FiO2 12/31/16 09:19 91 16 96/62 100 5.0 12/31/16 07:15 99.1 12/31/16 06:02 Aerosol 28 T Tube Exam difficult to arouse unable to maintain eyes open tracheostomy in place, non verbal not following commands CN: 1 mm bilaterally, slight right facial asymmetry dolls intact Motor: right arm and leg flaccid, absent withdrawal localizes to pain in right arm and leg, left arm and leg tone with mild withdrawal Reflexes brisk with left toe upgoing Results Result Diagram: 12/30/16195512/30/161955 Results 24 hrs Laboratory Tests Test 12/30/16 19:49 12/30/16 19:56 12/30/16 20:01 12/30/16 20:31 Blood Gas Specimen Source Blood arterial Arterial Blood Date Drawn 12/30/2016 8:25:11 PM Arterial Blood pH (Temp corrected) 7.386 Arterial Blood pCO2 (Temp correct) 28.6 L Arterial Blood pO2 (Temp corrected) 72.7 L Arterial Blood HCO3 16.8 L Arterial Blood Base Excess -7.1 L Arterial Blood Oxygen Saturation 94.5 L Obed Test ACCEPTAB Arterial Blood Gas Puncture Site Right Radial Arterial Blood Carboxyhemoglobin 0.3 Arterial Blood Methemoglobin 0.3 Blood Gas A-a O2 Differential 42.8 H Oxyhemoglobin Percent 93.9 Total Hemoglobin 10.7 L Blood Gas Temperature 37.0 Blood Gas Modality ROOM AIR FiO2 21.0 Blood Gas Notified Whom [place] Blood Gas Notified Time 12/30/2016 8:31:58 PM White Blood Count 12.8 #H Red Blood Count 3.40 #L Hemoglobin 10.6 #L Hematocrit 33.0 #L Mean Corpuscular Volume 97.1 Mean Corpuscular Hemoglobin 31.2 Mean Corpuscular Hemoglobin Concent 32.1 Red Cell Distribution Width 14.2 Platelet Count 216 Mean Platelet Volume 12.0 #H Neutrophils % 81.7 H Lymphocytes % 8.5 L Monocytes % 6.7 Eosinophils % 0.1 Basophils % 0.3 Nucleated Red Blood Cells % 1.2 H Neutrophils # (Manual) 10 H Lymphocytes # 1.1 Monocytes # 0.9 Eosinophils # 0.0 Basophils # 0.0 Nucleated Red Blood Cells # 0.2 H Prothrombin Time 16.6 H Prothrombin Time Ratio 1.3 INR International Normalized Ratio 1.33 Activated Partial Thromboplast Time 44.6 H Sodium Level 146 H Potassium Level 4.2 Chloride Level 112 H Carbon Dioxide Level 20 L Anion Gap 18 H Blood Urea Nitrogen 65 H Creatinine 0.52 Glucose Level 66 L Lactic Acid Level 2.3 *H Calcium Level 8.8 Total Bilirubin 0.3 Direct Bilirubin 0.00 Indirect Bilirubin 0.3 Aspartate Amino Transf (AST/SGOT) 40 Alanine Aminotransferase (ALT/SGPT) 64 Alkaline Phosphatase 180 H Troponin I 0.071 Total Protein 6.7 Albumin 2.4 L Globulin 4.30 H Albumin/Globulin Ratio 0.55 Free Thyroxine Index 2.21 Thyroxine (T4) 3.4 L Triiodothyronine (T3) Uptake > 65.0 H Bedside Glucose 65 L 194 Test 12/30/16 21:00 12/30/16 21:40 12/30/16 21:45 12/30/16 23:50 Urine Color YELLOW Urine Clarity CLOUDY A Urine pH 5.0 Urine Specific [place] 1.012 Urine Ketones NEGATIVE Urine Nitrite NEGATIVE Urine Bilirubin NEGATIVE Urine Urobilinogen NEGATIVE Urine Leukocyte Esterase NEGATIVE Urine Microscopic RBC 2 Urine Microscopic WBC 0 Urine Amorphous Crystals FEW A Urine Hemoglobin 2+ H Urine Glucose NEGATIVE Urine Total Protein NEGATIVE Lactic Acid Level 2.1 H 2.0 Bedside Glucose 119 Test 12/30/16 23:55 12/31/16 05:34 12/31/16 07:29 Creatine Kinase 41 39 Creatine Kinase Index 17.0 20.3 Creatinine Kinase MB (Mass) 6.99 H 7.91 H Troponin I 0.065 0.077 Prothrombin Time 16.5 H Prothrombin Time Ratio 1.3 INR International Normalized Ratio 1.32 Activated Partial Thromboplast Time 39.5 H Hemoglobin A1c 5.3 Magnesium Level 2.0 Thyroid Stimulating Hormone (TSH) 2.550 Bedside Glucose 79 Medications Medications Current Medications Dextrose/Sodium Chloride 1,000 ml @ 125 mls/hr Q8H IV Last administered on t 05:54; Admin Dose 125 MLS/HR; Start 12/31/16 at 00:00; Stop 12/31/16 at 11:59 Levofloxacin/ Dextrose (Levaquin 750 Mg/ D5W 150 ml (Pmx)) 150 ml @ 100 mls/hr Q24H IVPB ; Start 12/31/16 at 21:00 Chlorhexidine Gluconate (Peridex) 10 ml BID MM ; Start 12/31/16 at 09:00 Lidocaine 1 patch 1 patch NOTE TRANSDERM ; Start 12/31/16 at 00:00 Vancomycin HCl (Vancocin) 100 ml @ 100 mls/hr Q24H IVPB ; Start 12/31/16 at 23: 00 COLLIN ERICKSON MD Dec 31, 2016 10:07
[2016-12-31 10:40] LABS: FLD MN% 63.4 %; FLD PMN% 36.6 %; FLD RBC 1 /uL
[2016-12-31 10:41] LABS: FLD CLARITY HAZY; FLD COLOR YELLOW; FLD TYPE THORACENTHESIS
[2016-12-31 10:42] LABS: PATH REVIEW? YES
[2016-12-31 10:43] LABS: FLD WBC 145000 /cmm
--- NOTE | 2016-12-31 10:44 | RADRPT ---
PROCEDURE: XR Chest. CLINICAL INDICATION: Shortness of breath. Post right thoracentesis. TECHNIQUE: Single frontal view. COMPARISON: 12/30/2016. FINDINGS: The tracheostomy tube and right internal jugular vein catheter remain in satisfactory position. The re is marked improved aeration of the right lung. Left mid and lower lung zone atelectasis are unch anged. The heart is enlarged. There is calcification in the aorta consistent with atherosclerosis. Previously noted right pleural effusion is no longer present. There is a moderate left pleural effu aubree. There is no pneumothorax. Surgical clips are present in the upper abdomen. IMPRESSION: 1. Improved aeration of the right lung and right pleural effusion no longer present. 2. No pneumothorax following right thoracentesis. RPTAT: QQ .Dandre Franco MD, Date Time Electronically viewed and signed by .Dandre Franco MD, on 12/31/2016 10:43 .R/
[2016-12-31] MEDS: ALBUTEROL/IPRATROPIUM (NEB) 3 ML AMP INH SCH ×4 (10:50→20:17)
--- NOTE | 2016-12-31 11:41 | CONS ---
Date/Time of Note Date/Time of Note DATE: 12/31/16 TIME: 11:40 Consultation Date/Type/Reason Admit Date/Time 12/30/16 Date of Consultation: Dec 31, 2016 Type of Consultation: ID Reason for Consultation Antibiotic management Social History Alcohol Use: none Smoking Status: Unknown if ever smoked Exam/Review of Systems Vital Signs Vitals Vital Signs Date Time Temp Pulse Resp B/P Pulse Ox O2 Delivery O2 Flow Rate FiO2 12/31/16 10:52 98 23 100 T Tube 5.0 28 12/31/16 10:21 94/48 12/31/16 07:15 99.1 Results Result Diagram: 12/30/16195512/30/161955 Results 24 hrs Laboratory Tests Test 12/30/16 19:49 12/30/16 19:56 12/30/16 20:01 12/30/16 20:31 Blood Gas Specimen Source Blood arterial Arterial Blood Date Drawn 12/30/2016 8:25:11 PM Arterial Blood pH (Temp corrected) 7.386 Arterial Blood pCO2 (Temp correct) 28.6 L Arterial Blood pO2 (Temp corrected) 72.7 L Arterial Blood HCO3 16.8 L Arterial Blood Base Excess -7.1 L Arterial Blood Oxygen Saturation 94.5 L Obed Test ACCEPTAB Arterial Blood Gas Puncture Site Right Radial Arterial Blood Carboxyhemoglobin 0.3 Arterial Blood Methemoglobin 0.3 Blood Gas A-a O2 Differential 42.8 H Oxyhemoglobin Percent 93.9 Total Hemoglobin 10.7 L Blood Gas Temperature 37.0 Blood Gas Modality ROOM AIR FiO2 21.0 Blood Gas Notified Whom NZ Blood Gas Notified Time 12/30/2016 8:31:58 PM White Blood Count 12.8 #H Red Blood Count 3.40 #L Hemoglobin 10.6 #L Hematocrit 33.0 #L Mean Corpuscular Volume 97.1 Mean Corpuscular Hemoglobin 31.2 Mean Corpuscular Hemoglobin Concent 32.1 Red Cell Distribution Width 14.2 Platelet Count 216 Mean Platelet Volume 12.0 #H Neutrophils % 81.7 H Lymphocytes % 8.5 L Monocytes % 6.7 Eosinophils % 0.1 Basophils % 0.3 Nucleated Red Blood Cells % 1.2 H Neutrophils # (Manual) 10 H Lymphocytes # 1.1 Monocytes # 0.9 Eosinophils # 0.0 Basophils # 0.0 Nucleated Red Blood Cells # 0.2 H Prothrombin Time 16.6 H Prothrombin Time Ratio 1.3 INR International Normalized Ratio 1.33 Activated Partial Thromboplast Time 44.6 H Sodium Level 146 H Potassium Level 4.2 Chloride Level 112 H Carbon Dioxide Level 20 L Anion Gap 18 H Blood Urea Nitrogen 65 H Creatinine 0.52 Glucose Level 66 L Lactic Acid Level 2.3 *H Calcium Level 8.8 Total Bilirubin 0.3 Direct Bilirubin 0.00 Indirect Bilirubin 0.3 Aspartate Amino Transf (AST/SGOT) 40 Alanine Aminotransferase (ALT/SGPT) 64 Alkaline Phosphatase 180 H Troponin I 0.071 Total Protein 6.7 Albumin 2.4 L Globulin 4.30 H Albumin/Globulin Ratio 0.55 Free Thyroxine Index 2.21 Thyroxine (T4) 3.4 L Triiodothyronine (T3) Uptake > 65.0 H Bedside Glucose 65 L 194 Test 12/30/16 21:00 12/30/16 21:40 12/30/16 21:45 12/30/16 23:50 Urine Color YELLOW Urine Clarity CLOUDY A Urine pH 5.0 Urine Specific [place] 1.012 Urine Ketones NEGATIVE Urine Nitrite NEGATIVE Urine Bilirubin NEGATIVE Urine Urobilinogen NEGATIVE Urine Leukocyte Esterase NEGATIVE Urine Microscopic RBC 2 Urine Microscopic WBC 0 Urine Amorphous Crystals FEW A Urine Hemoglobin 2+ H Urine Glucose NEGATIVE Urine Total Protein NEGATIVE Lactic Acid Level 2.1 H 2.0 Bedside Glucose 119 Test 12/30/16 23:55 12/31/16 05:34 12/31/16 07:29 12/31/16 08:45 Creatine Kinase 41 39 Creatine Kinase Index 17.0 20.3 Creatinine Kinase MB (Mass) 6.99 H 7.91 H Troponin I 0.065 0.077 Prothrombin Time 16.5 H Prothrombin Time Ratio 1.3 INR International Normalized Ratio 1.32 Activated Partial Thromboplast Time 39.5 H Hemoglobin A1c 5.3 Magnesium Level 2.0 Thyroid Stimulating Hormone (TSH) 2.550 Bedside Glucose 79 Pathologist Review (Hematology) YES Body Fluid Type THORACENTHESIS Body Fluid Volume 750.0 Body Fluid Color YELLOW Body Fluid Appearance HAZY Body Fluid WBC 950638 Body Fluid RBC (Auto) 1 Body Fluid Polynuclear WBCs (%) 36.6 Body Fluid Mononuclear Cells % Auto 63.4 Test 12/31/16 10:34 Lactic Acid Level 2.6 *H Medications Medications Current Medications Dextrose/Sodium Chloride 1,000 ml @ 125 mls/hr Q8H IV Last administered on t 05:54; Admin Dose 125 MLS/HR; Start 12/31/16 at 00:00; Stop 12/31/16 at 11:59 Levofloxacin/ Dextrose (Levaquin 750 Mg/ D5W 150 ml (Pmx)) 150 ml @ 100 mls/hr Q24H IVPB ; Start 12/31/16 at 21:00 Chlorhexidine Gluconate (Peridex) 10 ml BID MM ; Start 12/31/16 at 09:00 Lidocaine 1 patch 1 patch NOTE TRANSDERM ; Start 12/31/16 at 00:00 Vancomycin HCl (Vancocin) 100 ml @ 100 mls/hr Q24H IVPB ; Start 12/31/16 at 23: 00 LUIS DAVIS MD Dec 31, 2016 11:41
--- NOTE | 2016-12-31 12:12 | CONS ---
DATE OF ADMISSION: 12/30/2016 DATE OF CONSULTATION: 12/31/2016 REASON FOR CONSULTATION: Antibiotic management. HISTORY OF PRESENT ILLNESS: Amita Khan is a 71-year-old female with extensive medical history and multiple medical problems, who comes in with recent bleeding. Her past problems include: 1. History of gastric cancer in 2011, for which she underwent extensive resection, as well as chemotherapy. She again developed abdominal pain and had a prolonged hospitalization at [facility]. 2. Status post gastrectomy, as well as chemotherapy. 3. Chronic muscle wasting and cachexia. 4. Multiple esophageal strictures and bowel obstructions for which patient is now on TPN. 5. Hypertension. 6. Allergy to penicillin. 7. Status post tracheostomy, which is maintained at room air. A few days ago, the family noticed that she had some bloody discharge from a KATHERIN drain, which is located in her left inguinal area. She was admitted for workup at [place]. The bleeding resolved. The patient was discharged home. However, post discharge, the family noted that she had acute alteration in mental status, very likely secondary to subacute CVA. As noted, she has acute respiratory distress, superimposed on chronic respiratory failure. Workup shows bilateral pleural effusion with underlying pneumonia and CHF. The patient has suffered multiple strokes in the past and she also is status post colostomy. Yesterday, post discharge, the family noticed that she had altered level of consciousness and brought her to the emergency room. CAT scan of her abdomen and pelvis is significant for bilateral pleural effusions and possible underlying pneumonia. CT scan of the brain is showing subacute stroke, which may be new. She also has consistent left upper extremity paresis and she is being admitted for further workup and management. She is currently in the emergency room. On admission, white count 12.8, H and H of 10.6 and 33, platelet count 216,000. BUN and creatinine 65/0.52. Her glucose random was 66. PAST MEDICAL HISTORY: Essentially as outlined. PAST SURGICAL HISTORY: She has a right upper quadrant large pigtail catheter and left lower quadrant pigtail catheter, both of which are actively draining. She has extensive gastrectomy, hysterectomy, splenectomy, cholecystectomy, tummy tuck, and umbilical hernia repair. Patient is on chronic TPN secondary to multiple GI strictures and recurrent bowel obstruction. PHYSICAL EXAMINATION: GENERAL APPEARANCE: She is a very thin, cachectic, nonverbal patient, who is in moderate respiratory distress. VITAL SIGNS: Stable. Temperature 97.5. SKIN: She has anasarca. HEENT: She has some temporal wasting. NECK: She has a tracheostomy in place. Lymph nodes nonpalpable. CHEST: Decreased breath sounds at the bases with diffuse crackles, rhonchi, or wheezing. HEART: Tachycardic without murmur or gallop. ABDOMEN: Soft, nontender. She has a left lower quadrant KATHERIN drain, right groin KATHERIN drain also. She has a midline colostomy. She has mild vulvar edema. Chronic muscle wasting. EXTREMITIES: Without cyanosis, clubbing, or edema. Muscle wasting is noted. RECTAL AND GENITAL: Vulvar edema. Rectal deferred. NEUROLOGICAL: Left upper extremity paresis. IMPRESSION AND PLAN: This is an extremely ill female. She was started on Levaquin, aztreonam, and vancomycin. For the time being, we will continue her on this regimen. I do not have a problem with putting her on meropenem as well or instead of Levaquin and azithromycin even with a penicillin allergy. Chest x-ray shows improved aeration of the right lung and right pleural effusion no longer present. I will dictate my findings to the hospitalist. Dictated By: Dustin Walkre MD JD/prachi/dot /Document#: [id number]
[2016-12-31 15:42] VITALS: TEMP 98.7
[2016-12-31 16:05] VITALS: BP 110/61; PULSE 85; RESP 18
[2016-12-31 16:33] VITALS: PULSE 95
[2016-12-31 17:03] VITALS: Ht 147.3 cm; Wt 32.0 kg
--- NOTE | 2016-12-31 18:13 | PN ---
Date/Time of Note Date/Time of Note DATE: 12/31/16 TIME: 18:12 Assessment/Plan VTE Prophylaxis VTE Prophylaxis Intervention: SCD's Assessment/Plan Assessment/Plan 71 yo F with previous h/o gastric ca sp treatment, h/o multiple esophageal strictures and bowel obstructions which have rendered the patient TPN dependent , chronic respiratory failure sp trach placement admitted for decreased mental status, suspect either from CVA (less likely as not read as acute on imaging) v toxic/metabolic encephalopathy from pneumonia. sp thora earlier today PLAN #PNA: continue broad spectrum abx, ID on consult blood and thora fluid cultures in process #CVA: neuro on consult, cont tele, await TTE result, MRI pending #TPN dependence: RD cs #chronic pain meds: hold pain meds given AMS Subjective 24 Hr Interval Summary Free Text/Dictation Pt seen in the early evening after transfer from ER to floor. Granddaughter at bedside. Pt has been on TPN for a very long time usually on RA through trach Exam/Review of Systems Vital Signs Vitals Vital Signs Date Time Temp Pulse Resp B/P Pulse Ox O2 Delivery O2 Flow Rate FiO2 12/31/16 17:36 5.0 12/31/16 17:35 88 16 95 Aerosol 28 12/31/16 15:42 98.7 104/60 Exam trach site c/d/i coarse breath sounds no mrg abd soft no rashes labs and imaging reviewed Results Result Diagram: 12/30/16195512/30/161955 Results 24 hrs Laboratory Tests Test 12/30/16 19:49 12/30/16 19:56 12/30/16 20:01 12/30/16 20:31 Blood Gas Specimen Source Blood arterial Arterial Blood Date Drawn 12/30/2016 8:25:11 PM Arterial Blood pH (Temp corrected) 7.386 Arterial Blood pCO2 (Temp correct) 28.6 L Arterial Blood pO2 (Temp corrected) 72.7 L Arterial Blood HCO3 16.8 L Arterial Blood Base Excess -7.1 L Arterial Blood Oxygen Saturation 94.5 L Obed Test ACCEPTAB Arterial Blood Gas Puncture Site Right Radial Arterial Blood Carboxyhemoglobin 0.3 Arterial Blood Methemoglobin 0.3 Blood Gas A-a O2 Differential 42.8 H Oxyhemoglobin Percent 93.9 Total Hemoglobin 10.7 L Blood Gas Temperature 37.0 Blood Gas Modality ROOM AIR FiO2 21.0 Blood Gas Notified Whom NZ Blood Gas Notified Time 12/30/2016 8:31:58 PM White Blood Count 12.8 #H Red Blood Count 3.40 #L Hemoglobin 10.6 #L Hematocrit 33.0 #L Mean Corpuscular Volume 97.1 Mean Corpuscular Hemoglobin 31.2 Mean Corpuscular Hemoglobin Concent 32.1 Red Cell Distribution Width 14.2 Platelet Count 216 Mean Platelet Volume 12.0 #H Neutrophils % 81.7 H Lymphocytes % 8.5 L Monocytes % 6.7 Eosinophils % 0.1 Basophils % 0.3 Nucleated Red Blood Cells % 1.2 H Neutrophils # (Manual) 10 H Lymphocytes # 1.1 Monocytes # 0.9 Eosinophils # 0.0 Basophils # 0.0 Nucleated Red Blood Cells # 0.2 H Prothrombin Time 16.6 H Prothrombin Time Ratio 1.3 INR International Normalized Ratio 1.33 Activated Partial Thromboplast Time 44.6 H Sodium Level 146 H Potassium Level 4.2 Chloride Level 112 H Carbon Dioxide Level 20 L Anion Gap 18 H Blood Urea Nitrogen 65 H Creatinine 0.52 Glucose Level 66 L Lactic Acid Level 2.3 *H Calcium Level 8.8 Total Bilirubin 0.3 Direct Bilirubin 0.00 Indirect Bilirubin 0.3 Aspartate Amino Transf (AST/SGOT) 40 Alanine Aminotransferase (ALT/SGPT) 64 Alkaline Phosphatase 180 H Troponin I 0.071 Total Protein 6.7 Albumin 2.4 L Globulin 4.30 H Albumin/Globulin Ratio 0.55 Free Thyroxine Index 2.21 Thyroxine (T4) 3.4 L Triiodothyronine (T3) Uptake > 65.0 H Bedside Glucose 65 L 194 Test 12/30/16 21:00 12/30/16 21:40 12/30/16 21:45 12/30/16 23:50 Urine Color YELLOW Urine Clarity CLOUDY A Urine pH 5.0 Urine Specific [place] 1.012 Urine Ketones NEGATIVE Urine Nitrite NEGATIVE Urine Bilirubin NEGATIVE Urine Urobilinogen NEGATIVE Urine Leukocyte Esterase NEGATIVE Urine Microscopic RBC 2 Urine Microscopic WBC 0 Urine Amorphous Crystals FEW A Urine Hemoglobin 2+ H Urine Glucose NEGATIVE Urine Total Protein NEGATIVE Lactic Acid Level 2.1 H 2.0 Bedside Glucose 119 Test 12/30/16 23:55 12/31/16 05:34 12/31/16 07:29 12/31/16 08:45 Creatine Kinase 41 39 Creatine Kinase Index 17.0 20.3 Creatinine Kinase MB (Mass) 6.99 H 7.91 H Troponin I 0.065 0.077 Prothrombin Time 16.5 H Prothrombin Time Ratio 1.3 INR International Normalized Ratio 1.32 Activated Partial Thromboplast Time 39.5 H Hemoglobin A1c 5.3 Magnesium Level 2.0 Thyroid Stimulating Hormone (TSH) 2.550 Bedside Glucose 79 Pathologist Review (Hematology) YES Body Fluid Type THORACENTHESIS Body Fluid Volume 750.0 Body Fluid Color YELLOW Body Fluid Appearance HAZY Body Fluid WBC 219845 Body Fluid RBC (Auto) 1 Body Fluid Polynuclear WBCs (%) 36.6 Body Fluid Mononuclear Cells % Auto 63.4 Test 12/31/16 10:34 12/31/16 15:27 Lactic Acid Level 2.6 *H Magnesium Level 2.0 Bedside Glucose 104 Medications Medications Current Medications Levofloxacin/ Dextrose (Levaquin 750 Mg/ D5W 150 ml (Pmx)) 150 ml @ 100 mls/hr Q24H IVPB ; Start 12/31/16 at 21:00 Chlorhexidine Gluconate (Peridex) 10 ml BID MM ; Start 12/31/16 at 09:00 Lidocaine 1 patch 1 patch NOTE TRANSDERM ; Start 12/31/16 at 00:00 Vancomycin HCl (Vancocin) 100 ml @ 100 mls/hr Q24H IVPB ; Start 12/31/16 at 23: 00 MODESTO SANDHU MD Dec 31, 2016 18:13
[2016-12-31] MEDS ORDERED: GLUCOSE GEL 15 GRAM TUBE PO PRN ×2 (18:30)
[2016-12-31] MEDS ORDERED: GLUCAGON 1 MG INJ IM PRN (18:30)
[2016-12-31] MEDS ORDERED: GLUCOSE GEL 15 GRAM TUBE BUCCAL PRN (18:30)
[2016-12-31] MEDS: DEXTROSE 50% 50 ML SYRINGE IV PRN (18:33)
[2016-12-31] MEDS: FUROSEMIDE 20 MG INJ IV SCH (18:36)
[2016-12-31 20:00] VITALS: BP 139/57; RESP 20
[2016-12-31 20:09] VITALS: PULSE 90
[2016-12-31] MEDS: INSULIN ASPART [NOVOLOG] 3 ML PEN SC SCH (20:53)
[2016-12-31] MEDS ORDERED: LEVOFLOXACIN 750MG/D5W (PMX) 150 ML IVPB SCH (21:00)
--- NOTE | 2016-12-31 21:57 | CONS ---
Date/Time of Note Date/Time of Note DATE: 12/31/16 TIME: 21:57 Consultation Date/Type/Reason Admit Date/Time 12/30/16 DUPLICATE NOTE Social History Alcohol Use: none Smoking Status: Never smoker Exam/Review of Systems Vital Signs Vitals Vital Signs Date Time Temp Pulse Resp B/P Pulse Ox O2 Delivery O2 Flow Rate FiO2 12/31/16 20:22 5.0 12/31/16 20:18 28 12/31/16 20:18 86 20 97 Aerosol T Tube 12/31/16 20:00 97.7 139/57 Results Result Diagram: 12/30/16195512/30/161955 Results 24 hrs Laboratory Tests Test 12/30/16 23:50 12/30/16 23:55 12/31/16 05:34 12/31/16 07:29 Lactic Acid Level 2.0 Creatine Kinase 41 39 Creatine Kinase Index 17.0 20.3 Creatinine Kinase MB (Mass) 6.99 H 7.91 H Troponin I 0.065 0.077 Prothrombin Time 16.5 H Prothrombin Time Ratio 1.3 INR International Normalized Ratio 1.32 Activated Partial Thromboplast Time 39.5 H Hemoglobin A1c 5.3 Magnesium Level 2.0 Thyroid Stimulating Hormone (TSH) 2.550 Bedside Glucose 79 Test 12/31/16 08:45 12/31/16 10:34 12/31/16 15:27 12/31/16 18:25 Pathologist Review (Hematology) YES Body Fluid Type THORACENTHESIS Body Fluid Volume 750.0 Body Fluid Color YELLOW Body Fluid Appearance HAZY Body Fluid WBC 308126 Body Fluid RBC (Auto) 1 Body Fluid Polynuclear WBCs (%) 36.6 Body Fluid Mononuclear Cells % Auto 63.4 Lactic Acid Level 2.6 *H Magnesium Level 2.0 Bedside Glucose 104 59 L Test 12/31/16 18:47 12/31/16 20:51 Bedside Glucose 130 95 Medications Medications Current Medications Levofloxacin/ Dextrose (Levaquin 750 Mg/ D5W 150 ml (Pmx)) 150 ml @ 100 mls/hr Q24H IVPB ; Start 12/31/16 at 21:00 Chlorhexidine Gluconate (Peridex) 10 ml BID MM Last administered on 12/31/16t 20:54; Admin Dose 10 ML; Start 12/31/16 at 09:00 Lidocaine 1 patch 1 patch NOTE TRANSDERM ; Start 12/31/16 at 00:00 Vancomycin HCl (Vancocin) 100 ml @ 100 mls/hr Q24H IVPB ; Start 12/31/16 at 23: 00 Diagnostic Test (Pha) (Accu-Chek) 1 ea 02 XX ; Start 01/01/17 at 02:00 Insulin Aspart (Novolog Insulin Pen) NOVOLOG *MILD* ALGORI... Q4 SC ; Start at 21:00 Miscellaneous Information 1 ea NOTE XX ; Start 12/31/16 at 18:30 Glucose (Glutose) 15 gm Q15M PRN PO DECREASED GLUCOSE; Start 12/31/16 at 18:30 Glucose (Glutose) 22.5 gm Q15M PRN PO DECREASED GLUCOSE; Start 12/31/16 at 18: 30 Dextrose (D50w Syringe) 25 ml Q15M PRN IV DECREASED GLUCOSE Last administered on 12/31/16t 18:33; Admin Dose 25 ML; Start 12/31/16 at 18:30 Dextrose (D50w Syringe) 50 ml Q15M PRN IV DECREASED GLUCOSE; Start 12/31/16 at 18:30 Glucagon (Glucagen) 1 mg Q15M PRN IM DECREASED GLUCOSE; Start 12/31/16 at 18:30 Glucose 15 gm 15 gm Q15M PRN BUCCAL DECREASED GLUCOSE; Start 12/31/16 at 18:30 Dextrose (D5W) 1,000 ml @ 50 mls/hr Q20H IV ; Start 12/31/16 at 20:30 RUFINO STEVENSON MD Dec 31, 2016 21:57
--- NOTE | 2016-12-31 21:58 | CONS ---
Date/Time of Note Date/Time of Note DATE: 12/31/16 TIME: 21:57 Assessment/Plan Assessment/Plan Chief Complaint/Hosp Course LEUKOCYTOSIS REACTIVE MONITOR CLOSELY ANEMIA N-CYTIC, N- CHROMIC WITH R RDW MONITOR BLOOD COUNT CLOSELY OBSERVE FOR BLEEDING AND HEMOLYSIS PRBC PRN History of gastric cancer in the past status post gastrectomy as well as chemotherapy PER FAMILY- RAFAT RECENT RESTAGING WITH CT AP- NEG POS SEPSIS Acute alteration in mental status likely secondary to subacute CVA Acute respiratory distress superimposed on chronic respiratory failure Bilateral pleural effusion with underlying pneumonia and CHF Sepsis with lactic acidosis Chronic muscle wasting and cachexia History of multiple esophageal strictures and bowel obstruction 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 History is provided by the patient's niece. It appears the patient was discharged from [facility] yesterday. She was admitted to rule out sepsis. The patient was discharged around 11 AM yesterday. Since she has been home she has not been acting herself. The niece is explaining that the patient is in and out of consciousness, she normally talks and has not been talking. She denies any fevers or chills. She usually gets morphine for pain but has not received any morphine since discharge from [place] yesterday. Additionally, the patient's Accu-Cheks have been in the 60s and 70s. PT WELL KNOWN TO ME AND HAS BEEN SEEN AT [facility] LAST ADMISSION I WAS ASKED TO PROVIDE HEMEONC CONSULT ROS All systems reviewed and are negative except as per history of present illness. Medications Home Meds Reported Medications Morphine Sulfate* (Morphine* Liq) 10 Mg/5 Ml Solution, 20 MG PO Q2H Y for NEEDED FOR PAIN, ML OR 25MG Q2H FOR MODERATE PAIN OR 30MG Q2H FOR SEVERE PAIN 12/30/16 Sodium/K+/Mag/Ca/Chlor/Acetate (Tpn Electrolytes Vial) Unknown Strength Vial, ML IV DAILY, VIAL 12/30/16 Methocarbamol* (Robaxin*) 100 Mg/Ml Soln, 500 MG IJ DAILY, VIAL 12/30/16 Lorazepam* (Lorazepam*) 0.5 Mg Tablet, 1.5 MG PO HS Y for INSOMN, TAB 12/30/16 Lidocaine (Lidocaine) 1 Each Adh..patch, 1 EACH TP Q12H 12/30/16 Ipratropium-Albuterol (Ipratropium-Albuterol) 0.5-3 Mg/3 Ml Ampul.neb, 2.5 ML INHALATION Q6 Y for NEEDED, #30 VIAL 12/30/16 Fentanyl (Duragesic) 1 Each Patch.td72, 1 EACH TD EVERY THREE DAYS 50 MCG 12/30/16 Fat Emulsions* IV (Intralipid* 20%) 500 Ml Emulsion, 200 ML IV DAILY, BOTTLE 12/30/16 Diphenhydramine Hcl* (Diphenhydramine Hcl*) 25 Mg Capsule, 25 MG PO QHS Y for ITCHING, CAP NEEDED FOR SLEEP 12/30/16 Chlorhexidine Gluconate (Peridex) 473 Ml Mouthwash, 10 ML MM BID, BOTTLE 12/30/16 Albuterol Sulfate* (Albuterol Sulfate* Neb) 20 Ml Nebu, 2.5 MG INHALATION Q6H Y for NEEDED, #1 BOTTLE 12/30/16 Discontinued Reported Medications Fentanyl Patch* (Duragesic Patch*) 100 Mcg/Hr Transdermal Patch, 1 PATCH TD Q72H , PATCH 02/28/16 Lorazepam* (Ativan*) 2 Mg Tablet, 2 MG PO HS Y for SLEEP, #30 TAB 02/28/16 Amitriptyline Hcl* (Amitriptyline Hcl*) 25 Mg Tablet, 25 MG PO QHS, #30 TAB 02/28/16 Allergies Allergies: Coded Allergies: ampicillin (Verified Allergy, Intermediate, chestpain, 12/30/16) PMhx/Soc History of Surgery: Yes (HYSTERECTOMY, SPLEENECTOMY, TUMMY TUCK, UMBILICAL; HERNIA REPAIR) Anesthesia Reaction: No Hx Neurological Disorder: No Hx Respiratory Disorders: No Hx Cardiac Disorders: No Hx Psychiatric Problems: No Hx Miscellaneous Medical Probl: Yes (SLEEP PROBLEM, HIGH CHOLESTEROL, HTN) Hx Alcohol Use: No Hx Substance Use: No Hx Tobacco Use: No FmHx Family History: No diabetes Social History Alcohol Use: none Smoking Status: Never smoker Exam/Review of Systems Vital Signs Vitals Vital Signs Date Time Temp Pulse Resp B/P Pulse Ox O2 Delivery O2 Flow Rate FiO2 12/31/16 20:22 5.0 12/31/16 20:18 28 12/31/16 20:18 86 20 97 Aerosol T Tube 12/31/16 20:00 97.7 139/57 Exam GENERAL: 30 yo M obese HEENT:Unremarkable, no thrush NECK: Supple CHEST: Rise symmetrical without dyspnea on observation ABDOMEN: Soft, obese, KATHERIN drain w/dark brown liquid filling bulb EXTREMITIES: Warm, moves extremities SKIN: Tattoos Results Result Diagram: 12/30/16195512/30/161955 Results 24 hrs Laboratory Tests Test 12/30/16 23:50 12/30/16 23:55 12/31/16 05:34 12/31/16 07:29 Lactic Acid Level 2.0 Creatine Kinase 41 39 Creatine Kinase Index 17.0 20.3 Creatinine Kinase MB (Mass) 6.99 H 7.91 H Troponin I 0.065 0.077 Prothrombin Time 16.5 H Prothrombin Time Ratio 1.3 INR International Normalized Ratio 1.32 Activated Partial Thromboplast Time 39.5 H Hemoglobin A1c 5.3 Magnesium Level 2.0 Thyroid Stimulating Hormone (TSH) 2.550 Bedside Glucose 79 Test 12/31/16 08:45 12/31/16 10:34 12/31/16 15:27 12/31/16 18:25 Pathologist Review (Hematology) YES Body Fluid Type THORACENTHESIS Body Fluid Volume 750.0 Body Fluid Color YELLOW Body Fluid Appearance HAZY Body Fluid WBC 439070 Body Fluid RBC (Auto) 1 Body Fluid Polynuclear WBCs (%) 36.6 Body Fluid Mononuclear Cells % Auto 63.4 Lactic Acid Level 2.6 *H Magnesium Level 2.0 Bedside Glucose 104 59 L Test 12/31/16 18:47 12/31/16 20:51 Bedside Glucose 130 95 Medications Medications Current Medications Levofloxacin/ Dextrose (Levaquin 750 Mg/ D5W 150 ml (Pmx)) 150 ml @ 100 mls/hr Q24H IVPB ; Start 12/31/16 at 21:00 Chlorhexidine Gluconate (Peridex) 10 ml BID MM Last administered on 12/31/16t 20:54; Admin Dose 10 ML; Start 12/31/16 at 09:00 Lidocaine 1 patch 1 patch NOTE TRANSDERM ; Start 12/31/16 at 00:00 Vancomycin HCl (Vancocin) 100 ml @ 100 mls/hr Q24H IVPB ; Start 12/31/16 at 23: 00 Diagnostic Test (Pha) (Accu-Chek) 1 ea 02 XX ; Start 01/01/17 at 02:00 Insulin Aspart (Novolog Insulin Pen) NOVOLOG *MILD* ALGORI... Q4 SC ; Start at 21:00 Miscellaneous Information 1 ea NOTE XX ; Start 12/31/16 at 18:30 Glucose (Glutose) 15 gm Q15M PRN PO DECREASED GLUCOSE; Start 12/31/16 at 18:30 Glucose (Glutose) 22.5 gm Q15M PRN PO DECREASED GLUCOSE; Start 12/31/16 at 18: 30 Dextrose (D50w Syringe) 25 ml Q15M PRN IV DECREASED GLUCOSE Last administered on 12/31/16t 18:33; Admin Dose 25 ML; Start 12/31/16 at 18:30 Dextrose (D50w Syringe) 50 ml Q15M PRN IV DECREASED GLUCOSE; Start 12/31/16 at 18:30 Glucagon (Glucagen) 1 mg Q15M PRN IM DECREASED GLUCOSE; Start 12/31/16 at 18:30 Glucose 15 gm 15 gm Q15M PRN BUCCAL DECREASED GLUCOSE; Start 12/31/16 at 18:30 Dextrose (D5W) 1,000 ml @ 50 mls/hr Q20H IV ; Start 12/31/16 at 20:30 RUFINO STEVENSON MD Dec 31, 2016 21:58
--- NOTE | 2016-12-31 22:01 | CONS ---
Date/Time of Note Date/Time of Note DATE: 12/31/16 TIME: 21:58 Assessment/Plan Assessment/Plan Chief Complaint/Hosp Course LEUKOCYTOSIS REACTIVE MONITOR CLOSELY ANEMIA N-CYTIC, N- CHROMIC WITH R RDW MONITOR BLOOD COUNT CLOSELY OBSERVE FOR BLEEDING AND HEMOLYSIS History of gastric cancer in the past status post gastrectomy as well as chemotherapy PER FAMILY- RAFAT Acute alteration in mental status likely secondary to subacute CVA Acute respiratory distress superimposed on chronic respiratory failure Bilateral pleural effusion with underlying pneumonia and CHF Sepsis with lactic acidosis Chronic muscle wasting and cachexia History of multiple esophageal strictures and bowel obstruction 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 Reported history of hypertension Penicillin allergy Problems: Consultation Date/Type/Reason Admit Date/Time Dec 30, 2016 at 23:12 Initial Consult Date 12/31/16 [facility] Referring Provider: ANA PAULINO 24 HR Interval Summary Free Text/Dictation KNOWN FROM OUTSIDE HOSPITAL ALL NOTED RECORD REVIEWED Exam/Review of Systems Vital Signs Vitals Vital Signs Date Time Temp Pulse Resp B/P Pulse Ox O2 Delivery O2 Flow Rate FiO2 12/31/16 20:22 5.0 12/31/16 20:18 28 12/31/16 20:18 86 20 97 Aerosol T Tube 12/31/16 20:00 97.7 139/57 Exam General: Thin, cachectic, nonverbal, patient in moderate respiratory distress Head: Normocephalic, atraumatic. Eyes: Pupils equally reactive, R pupil medially deviated ENT: Dry mucous membranes Neck: Supple, no lymphadenopathy Respiratory: Patient is having diffuse crackles, coarse rhonchi and wheezing. Very loud respirations suggestive of aspiration and fluid overload Cardiovascular: Slight tachycardia, Cardiac murmur Abdominal: Soft, non-tender, non-distended, no peritoneal signs, left lower quadrant KATHERIN drain is intact, R groin KATHERIN drain ?source (?urostomy) also draining , mid line colostomy also draining : mild vulval edema MSK: chronic msc wasting Neurologic: L UE paresis? Skin: Anasarca Results Result Diagram: 12/30/16195512/30/161955 Results 24 hrs Laboratory Tests Test 12/30/16 23:50 12/30/16 23:55 12/31/16 05:34 12/31/16 07:29 Lactic Acid Level 2.0 Creatine Kinase 41 39 Creatine Kinase Index 17.0 20.3 Creatinine Kinase MB (Mass) 6.99 H 7.91 H Troponin I 0.065 0.077 Prothrombin Time 16.5 H Prothrombin Time Ratio 1.3 INR International Normalized Ratio 1.32 Activated Partial Thromboplast Time 39.5 H Hemoglobin A1c 5.3 Magnesium Level 2.0 Thyroid Stimulating Hormone (TSH) 2.550 Bedside Glucose 79 Test 12/31/16 08:45 12/31/16 10:34 12/31/16 15:27 12/31/16 18:25 Pathologist Review (Hematology) YES Body Fluid Type THORACENTHESIS Body Fluid Volume 750.0 Body Fluid Color YELLOW Body Fluid Appearance HAZY Body Fluid WBC 411173 Body Fluid RBC (Auto) 1 Body Fluid Polynuclear WBCs (%) 36.6 Body Fluid Mononuclear Cells % Auto 63.4 Lactic Acid Level 2.6 *H Magnesium Level 2.0 Bedside Glucose 104 59 L Test 12/31/16 18:47 12/31/16 20:51 Bedside Glucose 130 95 Medications Medications Current Medications Levofloxacin/ Dextrose (Levaquin 750 Mg/ D5W 150 ml (Pmx)) 150 ml @ 100 mls/hr Q24H IVPB ; Start 12/31/16 at 21:00 Chlorhexidine Gluconate (Peridex) 10 ml BID MM Last administered on 12/31/16t 20:54; Admin Dose 10 ML; Start 12/31/16 at 09:00 Lidocaine 1 patch 1 patch NOTE TRANSDERM ; Start 12/31/16 at 00:00 Vancomycin HCl (Vancocin) 100 ml @ 100 mls/hr Q24H IVPB ; Start 12/31/16 at 23: 00 Diagnostic Test (Pha) (Accu-Chek) 1 ea 02 XX ; Start 01/01/17 at 02:00 Insulin Aspart (Novolog Insulin Pen) NOVOLOG *MILD* ALGORI... Q4 SC ; Start at 21:00 Miscellaneous Information 1 ea NOTE XX ; Start 12/31/16 at 18:30 Glucose (Glutose) 15 gm Q15M PRN PO DECREASED GLUCOSE; Start 12/31/16 at 18:30 Glucose (Glutose) 22.5 gm Q15M PRN PO DECREASED GLUCOSE; Start 12/31/16 at 18: 30 Dextrose (D50w Syringe) 25 ml Q15M PRN IV DECREASED GLUCOSE Last administered on 12/31/16t 18:33; Admin Dose 25 ML; Start 12/31/16 at 18:30 Dextrose (D50w Syringe) 50 ml Q15M PRN IV DECREASED GLUCOSE; Start 12/31/16 at 18:30 Glucagon (Glucagen) 1 mg Q15M PRN IM DECREASED GLUCOSE; Start 12/31/16 at 18:30 Glucose 15 gm 15 gm Q15M PRN BUCCAL DECREASED GLUCOSE; Start 12/31/16 at 18:30 Dextrose (D5W) 1,000 ml @ 50 mls/hr Q20H IV ; Start 12/31/16 at 20:30 RUFINO STEVENSON MD Dec 31, 2016 22:01
[2016-12-31] MEDS: VANCOMYCIN 500MG/NS (PMX) 100 ML IVPB SCH (23:50)
[2016-12-31] MEDS: DEXTROSE 5% 1,000 ML IV SCH (23:51)
[2017-01-01] VITALS (14 sets, daily range): BP systolic 91–119; BP diastolic 53–59; PULSE 80–102; RESP 15–19
--- NOTE | 2017-01-01 00:26 | RADRPT ---
PROCEDURE: MR Brain without contrast. CLINICAL INDICATION: Focal deficit, stroke TECHNIQUE: An MRI of the brain was performed utilizing the following sequences: Axial T1, axial T 2, axial FLAIR, coronal gradient echo, sagittal T1 FLAIR, diffusion weighted imaging, and ADC map. COMPARISON: CT 12/30/1926 FINDINGS: The examination is partially limited by motion artifact. There is diffusion restriction involving the left temporal lobe, parietal lobe, and insula, consiste nt with a [id number] left middle cerebral artery territory infarct. There is associated T2 a nd FLAIR hyperintensity, with effacement of sulci. There is slight mass effect on the left lateral ventricle, without midline shift. There is mild to moderate diffuse cerebral volume loss. There is encephalomalacia and volume loss i n the right occipital lobe and posterior temporal lobe, consistent with old infarcts. There is no ma ss, mass effect, or midline shift. There is no abnormal intra-axial or extra-axial fluid collection . There are small foci of susceptibility artifact involving the posterior left parietal lobe, and post erior right occipital lobe, likely reflecting punctate old blood products. There is small high T1 s ignal in the medial right temporal lobe. There are scattered areas of high T2 / FLAIR signal in the periventricular white matter, consistent with moderate small vessel ischemic changes. The sella and suprasellar cistern appear within normal limits. The brainstem and posterior fossa ar e normal in configuration. The orbital soft tissue contents display bilateral optic lens thinning. Paranasal sinuses are clear . There is small fluid in the bilateral mastoid air cells. IMPRESSION: 1. Mild to moderate diffuse cerebral volume loss. Moderate small vessel ischemic changes. 2. Acute infarct in the left middle cerebral artery territory, involving the left temporal lobe, pa rietal, and insula. There is associated susceptibility artifact, likely reflecting minimal petechia l/microscopic hemorrhagic changes. 3. Old right occipital and posterior temporal lobe infarct. Associated trace old blood products. 4. Small fluid in the bilateral mastoid air cells. RPTAT: HBST .Isaias Zhou MD, Date Time Electronically viewed and signed by .Isaias Zhou MD, on 01/01/2017 00:26 .T/
--- NOTE | 2017-01-01 00:38 | RADRPT ---
PROCEDURE: MRA Neck. CLINICAL INDICATION: Focal neurologic deficit, stroke TECHNIQUE: 2D TOF SPGR and contrast enhanced TRICKS subtraction MR Angiography of the neck was per formed. 20 ml of intravenous Magnevist was administered. 3-D re-formations were performed. COMPARISON: No prior studies are available for comparison. FINDINGS: The aortic arch and brachioephalic artery appear structurally unremarkable. The right common carotid artery is normally patent. There is mild to moderate appearing narrowing a t the right carotid bifurcation, with approximately 35% stenosis of the proximal right ICA. The rig ht internal carotid artery appears unremarkable, without focal stenosis or dilatation. The left common carotid artery is normally patent. The carotid bulb appears normal. The left inter nal carotid artery appears unremarkable, without focal stenosis or dilatation. The bilateral vertebral arteries appear unremarkable, without focal stenosis or dilatation. The romeo tebral artery origins appear within normal limits.. IMPRESSION: 1. Mild appearing stenosis at the right carotid bifurcation, with up to 15% narrowing of the proxima l right ICA. 2. Normal appearing patency through the left common and internal carotid artery. Normal appearing patency through the bilateral vertebral arteries. Assessment is partially limited by noncontrast te chnique. RPTAT: HBST .Isaias Zhou MD, MD Date Time Electronically viewed and signed by .Isaias Zhou MD, MD on 01/01/2017 00:38 .T/
--- NOTE | 2017-01-01 00:49 | RADRPT ---
PROCEDURE: MR Angiogram of the brain. CLINICAL INDICATION: Altered mental status TECHNIQUE: 3D [id number] MR angiogram was performed without contrast. Multiplanar and 3-D rec onstructions were performed. COMPARISON: No prior studies are available for comparison. FINDINGS: Examination is severely limited by motion artifact. Definite large central lime of Mondragon occlusi on is not identified. There may be occlusion of the left middle cerebral artery M2 branch within the Sylvian fissure. IMPRESSION: 1. Essentially nondiagnostic examination due to extensive motion artifact. There is a possible occ lusion of a left middle cerebral artery M2 branch within the Sylvian fissure, around image [id number]. RPTAT: HBST .Isaias Zhou MD, MD Date Time Electronically viewed and signed by .Isaias Zhou MD, on 01/01/2017 00:49 .T/
[2017-01-01] MEDS: INSULIN ASPART [NOVOLOG] 3 ML PEN SC SCH ×6 (01:00→20:51)
[2017-01-01] MEDS: HYDROmorphONE 1 MG/ML SYG IV PRN (01:26)
[2017-01-01] MEDS: ALBUTEROL/IPRATROPIUM (NEB) 3 ML AMP INH SCH ×6 (01:36→20:21)
[2017-01-01] MEDS: ACCU-CHEK XX SCH (02:00)
[2017-01-01] MEDS ORDERED: PENDING SANTYL ORDER FOR WOUND CARE XX PRN (03:00)
[2017-01-01] MEDS: FUROSEMIDE 20 MG INJ IV SCH (05:53)
[2017-01-01] MEDS: CHLORHEXIDINE GLUCONATE 15 ML UD CUP MM SCH ×2 (09:00→20:56)
--- NOTE | 2017-01-01 09:43 | CONS ---
Date/Time of Note Date/Time of Note DATE: 01/01/17 TIME: 09:39 Assessment/Plan Assessment/Plan Additional Assessment/Plan Chest x-ray and CT scan of abdomen were reviewed. Assessment and recommendations; 1. Patient admitted with shortness of breath discovered to have pleural effusion status post right thoracentesis. 2. Recent history of bilateral abdominal drain placement because of abscess around the hepatic area. Pleural effusion possibly sympathetic in etiology. 3. Multiple CVAs with possibly acute CVA during current admission. 4. Bedridden state. 5. Multiple prior surgeries most notable is gastric cancer surgery in 2011 6. Poor mental status. Continue current supportive care. Obtain follow-up chest x-ray. Consultation Date/Type/Reason Admit Date/Time Dec 30, 2016 at 23:12 Date of Consultation: Jan 01, 2017 Type of Consultation: Pulmonary Reason for Consultation Pulmonary consultation requested for evaluation of shortness of breath. History of present illnes: Patient is a 71-year-old oriental lady who was admitted to the hospital with complaints of not feeling well. Upon further evaluation patient was diagnosed with right pleural effusion status post thoracentesis of 1.7 L of fluid was removed patient feeling better since the procedure the patient has advanced dementia and was unable to give a history by herself history was obtained medical records as well as from patient's niece who is currently in the room. According the patient's need the patient was just discharged from [facility] after a prolonged stay there patient also has had a history of [facility] for abdominal discomfort after which bilateral abdominal drains were placed and the patient discharged to home. Past medical history; 1. Patient with history of gastric cancer status post surgical resection and extensive chemotherapy. 2. History of abdominal abscess status post bilateral drain placement. 3. Colostomy. 4. Splenectomy. 5. History of cholecystectomy. 6. History of hysterectomy. 7. Multiple CVAs. Medications; reviewed. Allergies; ampicillin. Social history; patient never smoked. Family history; patient is with her niece. Review systems; unable to be obtained. General exam; elderly woman, awake but not responsive to any commands. Maintained on cool aerosol via tracheostomy. Social History Alcohol Use: none Smoking Status: Never smoker Exam/Review of Systems Vital Signs Vitals Vital Signs Date Time Temp Pulse Resp B/P Pulse Ox O2 Delivery O2 Flow Rate FiO2 01/01/17 08:53 83 20 98 Aerosol 5.0 28 T Tube 01/01/17 07:32 97.8 99/55 Intake and Output 12/31/16 12/31/16 01/01/17 15:00 23:00 07:00 Output Total 515 ml 710 ml Balance -515 ml -710 ml Exam HEENT exam; supple neck, tracheostomy in place with clean insertion site. Pupils are small bilaterally. No neck masses. No thyromegaly. No neck bruits. Chest exam; diminished breath sounds bilaterally. S1-S2 audible, no murmurs. Regular rhythm. Abdomen exam; soft, colostomy in place. Well-healed department scar is present. There are bilateral abdominal drains in place. Extremities; no peripheral edema. PASS WORKER exam; patient remains minimally responsive. Results Result Diagram: 12/30/16195512/30/161955 Results 24 hrs Laboratory Tests Test 12/31/16 10:34 12/31/16 15:27 12/31/16 18:25 12/31/16 18:47 Lactic Acid Level 2.6 *H Magnesium Level 2.0 Bedside Glucose 104 59 L 130 Test 12/31/16 20:51 01/01/17 02:02 01/01/17 05:56 Bedside Glucose 95 109 82 Medications Medications Current Medications Levofloxacin/ Dextrose (Levaquin 750 Mg/ D5W 150 ml (Pmx)) 150 ml @ 100 mls/hr Q24H IVPB Last administered on 12/31/16 23:49; Admin Dose 100 MLS/HR; Start at 21:00 Chlorhexidine Gluconate (Peridex) 10 ml BID MM Last administered on 12/31/16 20:54; Admin Dose 10 ML; Start 12/31/16 at 09:00 Lidocaine 1 patch 1 patch NOTE TRANSDERM ; Start 12/31/16 at 00:00 Vancomycin HCl (Vancocin) 100 ml @ 100 mls/hr Q24H IVPB Last administered on 23:50; Admin Dose 100 MLS/HR; Start 12/31/16 at 23:00 Diagnostic Test (Pha) (Accu-Chek) 1 ea 02 XX ; Start 01/01/17 at 02:00 Insulin Aspart (Novolog Insulin Pen) NOVOLOG *MILD* ALGORI... Q4 SC ; Start at 21:00 Miscellaneous Information 1 ea NOTE XX ; Start 12/31/16 at 18:30 Glucose (Glutose) 15 gm Q15M PRN PO DECREASED GLUCOSE; Start 12/31/16 at 18:30 Glucose (Glutose) 22.5 gm Q15M PRN PO DECREASED GLUCOSE; Start 12/31/16 at 18: 30 Dextrose (D50w Syringe) 25 ml Q15M PRN IV DECREASED GLUCOSE Last administered on 12/31/16 18:33; Admin Dose 25 ML; Start 12/31/16 at 18:30 Dextrose (D50w Syringe) 50 ml Q15M PRN IV DECREASED GLUCOSE; Start 12/31/16 at 18:30 Glucagon (Glucagen) 1 mg Q15M PRN IM DECREASED GLUCOSE; Start 12/31/16 at 18:30 Glucose 15 gm 15 gm Q15M PRN BUCCAL DECREASED GLUCOSE; Start 12/31/16 at 18:30 Dextrose (D5W) 1,000 ml @ 50 mls/hr Q20H IV ; Start 12/31/16 at 20:30 Hydromorphone HCl (Dilaudid) 0.5 mg Q4H PRN IV PAIN Last administered on 01:26; Admin Dose 0.5 MG; Start 01/01/17 at 01:30 Miscellaneous Information (Pending Santyl Order For Wound Care) This patient obregon... PRN PRN XX WOUND CARE; Start 01/01/17 at 03:00 ROSMERY JUAREZ Jan 01, 2017 09:43
--- NOTE | 2017-01-01 12:45 | RADRPT ---
PROCEDURE: Chest xray. CLINICAL INDICATION: CHF. TECHNIQUE: A portable semi-erect AP view of the chest was obtained. COMPARISON: 05/17/2016. FINDINGS: There is a percutaneous tracheostomy tube with its tip in the mid thoracic trachea. There is a righ t internal jugular approach hemodialysis catheter with its tip projecting in the upper right atrium. There is stable mild enlargement of the cardiac silhouette. Atherosclerotic calcifications are aga in noted in the aorta. The lungs are well expanded and show mild pulmonary vascular congestion. The re is air space disease in the left lung base. No focal airspace disease is identified in the right lung. No pneumothorax is identified. The skeletal structures and soft tissues are unremarkable. IMPRESSION: Left lung base air space disease with possible small left pleural effusion. Mild pulmonary vascular congestion. Stable mild cardiomegaly. Tracheostomy tube in satisfactory position. Right internal jugular approach hemodialysis catheter terminating in the upper right atrium. RPTAT:PP .Janice Sevilla MD, MD Date Time Electronically viewed and signed by .Janice Sevilla MD, on 01/01/2017 12:45 .K/
--- NOTE | 2017-01-01 13:19 | CONS ---
Date/Time of Note Date/Time of Note DATE: 01/01/17 TIME: 13:19 Assessment/Plan Assessment/Plan Chief Complaint/Hosp Course LEUKOCYTOSIS REACTIVE MONITOR CLOSELY ANEMIA N-CYTIC, N- CHROMIC WITH R RDW MONITOR BLOOD COUNT CLOSELY OBSERVE FOR BLEEDING AND HEMOLYSIS History of gastric cancer in the past status post gastrectomy as well as chemotherapy PER FAMILY- RAFAT Acute alteration in mental status likely secondary to subacute CVA Acute respiratory distress superimposed on chronic respiratory failure Bilateral pleural effusion with underlying pneumonia and CHF Sepsis with lactic acidosis Chronic muscle wasting and cachexia History of multiple esophageal strictures and bowel obstruction 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 Reported history of hypertension Penicillin allergy Problems: Consultation Date/Type/Reason Admit Date/Time Dec 30, 2016 at 23:12 Initial Consult Date 12/31/16 Type of Consultation: HEMEON Referring Provider: ANA PAULINO 24 HR Interval Summary Free Text/Dictation ALL NOTED + SOB + AMS Exam/Review of Systems Vital Signs Vitals Vital Signs Date Time Temp Pulse Resp B/P Pulse Ox O2 Delivery O2 Flow Rate FiO2 01/01/17 12:00 87 01/01/17 11:57 97.8 18 119/57 93 01/01/17 08:53 Aerosol 5.0 28 T Tube Intake and Output 12/31/16 12/31/16 01/01/17 15:00 23:00 07:00 Output Total 515 ml 710 ml Balance -515 ml -710 ml Exam GENERAL: 30 yo M obese HEENT:Unremarkable, no thrush NECK: Supple CHEST: Rise symmetrical without dyspnea on observation ABDOMEN: Soft, obese, KATHERIN drain w/dark brown liquid filling bulb EXTREMITIES: Warm, moves extremities SKIN: Tattoos Results Result Diagram: 12/30/16195512/30/161955 Results 24 hrs Laboratory Tests Test 12/31/16 15:27 12/31/16 18:25 12/31/16 18:47 12/31/16 20:51 Bedside Glucose 104 59 L 130 95 Test 01/01/17 02:02 01/01/17 05:56 01/01/17 10:44 Bedside Glucose 109 82 87 Medications Medications Current Medications Levofloxacin/ Dextrose (Levaquin 750 Mg/ D5W 150 ml (Pmx)) 150 ml @ 100 mls/hr Q24H IVPB Last administered on 12/31/16t 23:49; Admin Dose 100 MLS/HR; Start at 21:00 Chlorhexidine Gluconate (Peridex) 10 ml BID MM Last administered on 01/01/17 09:00; Admin Dose 10 ML; Start 12/31/16 at 09:00 Lidocaine 1 patch 1 patch NOTE TRANSDERM ; Start 12/31/16 at 00:00 Vancomycin HCl (Vancocin) 100 ml @ 100 mls/hr Q24H IVPB Last administered on 23:50; Admin Dose 100 MLS/HR; Start 12/31/16 at 23:00 Diagnostic Test (Pha) (Accu-Chek) 1 ea 02 XX ; Start 01/01/17 at 02:00 Insulin Aspart (Novolog Insulin Pen) NOVOLOG *MILD* ALGORI... Q4 SC ; Start at 21:00 Miscellaneous Information 1 ea NOTE XX ; Start 12/31/16 at 18:30 Glucose (Glutose) 15 gm Q15M PRN PO DECREASED GLUCOSE; Start 12/31/16 at 18:30 Glucose (Glutose) 22.5 gm Q15M PRN PO DECREASED GLUCOSE; Start 12/31/16 at 18: 30 Dextrose (D50w Syringe) 25 ml Q15M PRN IV DECREASED GLUCOSE Last administered on 12/31/16 18:33; Admin Dose 25 ML; Start 12/31/16 at 18:30 Dextrose (D50w Syringe) 50 ml Q15M PRN IV DECREASED GLUCOSE; Start 12/31/16 at 18:30 Glucagon (Glucagen) 1 mg Q15M PRN IM DECREASED GLUCOSE; Start 12/31/16 at 18:30 Glucose 15 gm 15 gm Q15M PRN BUCCAL DECREASED GLUCOSE; Start 12/31/16 at 18:30 Dextrose (D5W) 1,000 ml @ 50 mls/hr Q20H IV ; Start 12/31/16 at 20:30 Hydromorphone HCl (Dilaudid) 0.5 mg Q4H PRN IV PAIN Last administered on 01:26; Admin Dose 0.5 MG; Start 01/01/17 at 01:30 Miscellaneous Information (Pending [facility] Order For Wound Care) This patient obregon... PRN PRN XX WOUND CARE; Start 01/01/17 at 03:00 RUFINO STEVENSON MD Jan 01, 2017 13:19
[2017-01-01 13:56] LABS: BASOPHILS % 0.1 % (0.0-2.0); HEMATOCRIT 30.6 % (37.0-47.0); HEMOGLOBIN 10.3 g/dl (12.0-16.0); LYMPHOCYTES # 0.7 10^3/ul (0.8-2.9); LYMPHOCYTES % 6.3 % (15.0-51.0); MEAN CORPUSCULAR HEMOGLOBIN 31.4 pg (29.0-33.0); MEAN CORPUSCULAR HGB CONC 33.7 g/dl (32.0-37.0); MEAN CORPUSCULAR VOLUME 93.3 fl (82.0-101.0); MEAN PLATELET VOLUME 11.3 fl (7.4-10.4); MONOCYTE # 0.7 10^3/ul (0.3-0.9); MONOCYTES % 6.2 % (0.0-11.0); NEUTROPHILS % 86.6 % (39.0-77.0); NUCLEATED RED BLOOD CELLS% 0.2 /100WBC (0.0-0.0); PLATELET COUNT 188 10^3/UL (140-415); RED BLOOD COUNT 3.28 10^6/ul (4.20-5.40); RED CELL DISTRIBUTION WIDTH 14.1 % (11.5-14.5); WHITE BLOOD COUNT 11.6 10^3/ul (4.8-10.8)
--- NOTE | 2017-01-01 14:16 | PN ---
Date/Time of Note Date/Time of Note DATE: 01/01/17 TIME: 13:58 Assessment/Plan VTE Prophylaxis VTE Prophylaxis Intervention: LMWH Lines/Catheters IV [facility]ter [facility]from [facility] Cordis Urinary Cath still in place: No Assessment/Plan Assessment/Plan 71 yo F with previous h/o gastric ca sp treatment, h/o multiple esophageal strictures and bowel obstructions which have rendered the patient TPN dependent , chronic respiratory failure sp trach placement admitted for decreased mental status, 1. Acute metabolic encephalopathy from pneumonia and stroke, 2. Pneumonia with right pleural effusion, s/p US-guided thoracentesis with removal of 750 cc fluid on 12/31/2016, on levaquin and vancomycin 3. Recurrent ischemic stroke, follow up with neurology 4. Gastric cancer in 2011, for which she underwent extensive resection, as well as chemotherapy. She again developed abdominal pain and had a prolonged hospitalization at [facility]. 5. Status post gastrectomy, as well as chemotherapy. 6. Chronic muscle wasting and cachexia. 7. Multiple esophageal strictures and bowel obstructions for which patient is now on TPN. 8. Hypertension. 9. Status post tracheostomy 10. Allergy to penicillin. 11. Normocytic anemia, mild Subjective 24 Hr Interval Summary Free Text/Dictation responds to pain, moves right arm sometimes Exam/Review of Systems Vital Signs Vitals Vital Signs Date Time Temp Pulse Resp B/P Pulse Ox O2 Delivery O2 Flow Rate FiO2 01/01/17 12:00 87 01/01/17 11:57 97.8 18 119/57 93 01/01/17 08:53 Aerosol 5.0 28 T Tube Intake and Output 12/31/16 12/31/16 01/01/17 15:00 23:00 07:00 Output Total 515 ml 710 ml Balance -515 ml -710 ml Exam Constitutional: non-verbal Head: atraumatic, normocephalic Eyes: EOMI, PERRL, nl conjunctiva, nl lids ENMT: mucosa pink and moist, nl external ears & nose, nl lips & teeth, nl nasal mucosa & septum Neck: supple Respiratory: clear to auscultation Cardiovascular: nl pulses, regular rate and rhythm, No S3, No S4, No bruits, No diastolic murmur, No edema, No gallop, No irregular rhythm, No jugular venous distention (JVD), No murmurs/extra sounds, No other, No rub, No systolic murmur Gastrointestinal: nl liver, spleen, soft Musculoskeletal: nl extremities to inspection Extremities: normal pulses, No calf tenderness, No clubbing, No cyanosis, No edema, No other, No palpable cord, No pitting pedal edema Neurological: confused, lethargic Results Result Diagram: 01/01/17 1340 12/30/16 1956 Results 24 hrs Laboratory Tests Test 12/31/16 15:27 12/31/16 18:25 12/31/16 18:47 12/31/16 20:51 Bedside Glucose 104 59 L 130 95 Test 01/01/17 02:02 01/01/17 05:56 01/01/17 10:44 01/01/17 13:40 Bedside Glucose 109 82 87 White Blood Count 11.6 H Red Blood Count 3.28 L Hemoglobin 10.3 L Hematocrit 30.6 L Mean Corpuscular Volume 93.3 Mean Corpuscular Hemoglobin 31.4 Mean Corpuscular Hemoglobin Concent 33.7 Red Cell Distribution Width 14.1 Platelet Count 188 Mean Platelet Volume 11.3 H Neutrophils % 86.6 H Lymphocytes % 6.3 L Monocytes % 6.2 Eosinophils % 0.0 Basophils % 0.1 Nucleated Red Blood Cells % 0.2 H Neutrophils # (Manual) 10 H Lymphocytes # 0.7 L Monocytes # 0.7 Eosinophils # 0.0 Basophils # 0.0 Nucleated Red Blood Cells # 0.0 Medications Medications Current Medications Levofloxacin/ Dextrose (Levaquin 750 Mg/ D5W 150 ml (Pmx)) 150 ml @ 100 mls/hr Q24H IVPB Last administered on 12/31/16 23:49; Admin Dose 100 MLS/HR; Start at 21:00 Chlorhexidine Gluconate (Peridex) 10 ml BID MM Last administered on 01/01/17 09:00; Admin Dose 10 ML; Start 12/31/16 at 09:00 Lidocaine 1 patch 1 patch NOTE TRANSDERM ; Start 12/31/16 at 00:00 Vancomycin HCl (Vancocin) 100 ml @ 100 mls/hr Q24H IVPB Last administered on 23:50; Admin Dose 100 MLS/HR; Start 12/31/16 at 23:00 Diagnostic Test (Pha) (Accu-Chek) 1 ea 02 XX ; Start 01/01/17 at 02:00 Insulin Aspart (Novolog Insulin Pen) NOVOLOG *MILD* ALGORI... Q4 SC ; Start at 21:00 Miscellaneous Information 1 ea NOTE XX ; Start 12/31/16 at 18:30 Glucose (Glutose) 15 gm Q15M PRN PO DECREASED GLUCOSE; Start 12/31/16 at 18:30 Glucose (Glutose) 22.5 gm Q15M PRN PO DECREASED GLUCOSE; Start 12/31/16 at 18: 30 Dextrose (D50w Syringe) 25 ml Q15M PRN IV DECREASED GLUCOSE Last administered on 12/31/16 18:33; Admin Dose 25 ML; Start 12/31/16 at 18:30 Dextrose (D50w Syringe) 50 ml Q15M PRN IV DECREASED GLUCOSE; Start 12/31/16 at 18:30 Glucagon (Glucagen) 1 mg Q15M PRN IM DECREASED GLUCOSE; Start 12/31/16 at 18:30 Glucose 15 gm 15 gm Q15M PRN BUCCAL DECREASED GLUCOSE; Start 12/31/16 at 18:30 Dextrose (D5W) 1,000 ml @ 50 mls/hr Q20H IV ; Start 12/31/16 at 20:30 Hydromorphone HCl (Dilaudid) 0.5 mg Q4H PRN IV PAIN Last administered on 01:26; Admin Dose 0.5 MG; Start 01/01/17 at 01:30 Miscellaneous Information (Pending [facility] Order For Wound Care) This patient obregon... PRN PRN XX WOUND CARE; Start 01/01/17 at 03:00 BERNABE SÁNCHEZ MD Jan 01, 2017 14:12
--- NOTE | 2017-01-01 15:07 | CONS ---
Date/Time of Note Date/Time of Note DATE: 01/01/17 TIME: 15:03 Consult Date/Type/Reason Admit Date/Time Dec 30, 2016 at 23:12 Initial Consult Date 01/01/17 Type of Consultation: Neurology Reason for Consultation CVA Ordering Provider: ANA PAULINO Subjective remains encephalopathic right hemiplegia non-verbal Objective Vital Signs Date Time Temp Pulse Resp B/P Pulse Ox O2 Delivery O2 Flow Rate FiO2 01/01/17 13:14 98 5.0 28 01/01/17 13:14 80 20 Aerosol T Tube 01/01/17 11:57 97.8 119/57 Intake and Output 12/31/16 12/31/16 01/01/17 15:00 23:00 07:00 Output Total 515 ml 710 ml Balance -515 ml -710 ml Exam difficult to arouse unable to maintain eyes open tracheostomy in place, non verbal not following commands CN: 1 mm bilaterally, slight right facial asymmetry dolls intact Motor: right arm and leg flaccid, absent withdrawal localizes to pain in right arm and leg, left arm and leg tone with mild withdrawal Reflexes brisk with left toe upgoing Results/Medications Result Diagram: 01/01/17 1340 12/30/16 1956 Results 24 hrs Laboratory Tests Test 12/31/16 15:27 12/31/16 18:25 12/31/16 18:47 12/31/16 20:51 Bedside Glucose 104 59 L 130 95 Test 01/01/17 02:02 01/01/17 05:56 01/01/17 10:44 01/01/17 13:40 Bedside Glucose 109 82 87 White Blood Count 11.6 H Red Blood Count 3.28 L Hemoglobin 10.3 L Hematocrit 30.6 L Mean Corpuscular Volume 93.3 Mean Corpuscular Hemoglobin 31.4 Mean Corpuscular Hemoglobin Concent 33.7 Red Cell Distribution Width 14.1 Platelet Count 188 Mean Platelet Volume 11.3 H Neutrophils % 86.6 H Lymphocytes % 6.3 L Monocytes % 6.2 Eosinophils % 0.0 Basophils % 0.1 Nucleated Red Blood Cells % 0.2 H Neutrophils # (Manual) 10 H Lymphocytes # 0.7 L Monocytes # 0.7 Eosinophils # 0.0 Basophils # 0.0 Nucleated Red Blood Cells # 0.0 Medications Current Medications Levofloxacin/ Dextrose (Levaquin 750 Mg/ D5W 150 ml (Pmx)) 150 ml @ 100 mls/hr Q24H IVPB Last administered on 12/31/16 23:49; Admin Dose 100 MLS/HR; Start at 21:00 Chlorhexidine Gluconate (Peridex) 10 ml BID MM Last administered on 01/01/17 09:00; Admin Dose 10 ML; Start 12/31/16 at 09:00 Lidocaine 1 patch 1 patch NOTE TRANSDERM ; Start 12/31/16 at 00:00 Vancomycin HCl (Vancocin) 100 ml @ 100 mls/hr Q24H IVPB Last administered on 23:50; Admin Dose 100 MLS/HR; Start 12/31/16 at 23:00 Diagnostic Test (Pha) (Accu-Chek) 1 ea 02 XX ; Start 01/01/17 at 02:00 Insulin Aspart (Novolog Insulin Pen) NOVOLOG *MILD* ALGORI... Q4 SC ; Start at 21:00 Miscellaneous Information 1 ea NOTE XX ; Start 12/31/16 at 18:30 Glucose (Glutose) 15 gm Q15M PRN PO DECREASED GLUCOSE; Start 12/31/16 at 18:30 Glucose (Glutose) 22.5 gm Q15M PRN PO DECREASED GLUCOSE; Start 12/31/16 at 18: 30 Dextrose (D50w Syringe) 25 ml Q15M PRN IV DECREASED GLUCOSE Last administered on 12/31/16 18:33; Admin Dose 25 ML; Start 12/31/16 at 18:30 Dextrose (D50w Syringe) 50 ml Q15M PRN IV DECREASED GLUCOSE; Start 12/31/16 at 18:30 Glucagon (Glucagen) 1 mg Q15M PRN IM DECREASED GLUCOSE; Start 12/31/16 at 18:30 Glucose 15 gm 15 gm Q15M PRN BUCCAL DECREASED GLUCOSE; Start 12/31/16 at 18:30 Dextrose (D5W) 1,000 ml @ 50 mls/hr Q20H IV ; Start 12/31/16 at 20:30 Hydromorphone HCl (Dilaudid) 0.5 mg Q4H PRN IV PAIN Last administered on 01:26; Admin Dose 0.5 MG; Start 01/01/17 at 01:30 Miscellaneous Information (Pending Santyl Order For Wound Care) This patient obregon... PRN PRN XX WOUND CARE; Start 01/01/17 at 03:00 Enoxaparin Sodium (Lovenox) 30 mg DAILY SC ; Start 01/01/17 at 14:00 Miscellaneous Information (*Rx Drug Level Order Reminder*) VANCOMYCIN TROUGH ON 12/11... ONCE ONCE XX ; Start 01/02/17 at 22:00; Stop 01/02/17 at 22:01 Assessment/Plan Chief Complaint/Hosp Course 71 year old female with extensive medical hx including gastric CA s/p chemo and gastrectomy, gastric surgery in Mar 2016 c/b CVA , respiratory failure admitted with sepsis, lactic acidosis, bilateral pleural effusion pneumonia and CHF. 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 MRI confirms acute inferior division Left MCA infarct involving left insular region, parietal and temporal lobe. Left M2 occlusion on MRA. Recommend: if no contraindication aspirin 81 mg or plavix 75 mg per niece not taking antiplatelets at home ECHO with a bubble study pending need to rule out cardiac thrombus or afib optimize risk factors for secondary stroke prevention check FLP HBA1C maintain euglycemia, maintain normotensive and afebrile minimize overly sedating meds DVT ppx tele monitoring for afib would readdress code status with family consider SNF Problems: COLLIN ERICKSON MD Jan 01, 2017 15:07
[2017-01-01] MEDS: DEXTROSE 5% 1,000 ML IV SCH (15:17)
[2017-01-01] MEDS: ENOXAPARIN 30 MG/0.3 ML SYG SC SCH (15:18)
[2017-01-01 16:36] LABS: ALBUMIN 2.2 g/dl (3.3-4.9); CREATININE 0.51 mg/dl (0.44-1.00); PHOSPHORUS 2.2 mg/dl (2.5-4.9)
[2017-01-01 16:42] LABS: POTASSIUM 2.2 mmol/L (3.5-5.1)
[2017-01-01] MEDS: POTASSIUM CHLORIDE 250 ML IVPB SCH ×2 (17:26→20:57)
--- NOTE | 2017-01-01 20:20 | PN ---
DATE: SUBJECTIVE DATA: No events overnight. The patient is lying comfortably in bed. She is noncommunicative. Opens eyes to stimulation. Niece at bedside. OBJECTIVE DATA: Temperature 97.8, pulse 80, respirations 18, blood pressure 119/57, saturation 98 on T-tube. LABORATORY AND DIAGNOSTIC DATA: WBC 11.6, H and H 10.3 and 30.6, platelets 188, neutrophils 86.6. Microbiology blood cultures remain negative. Pleural fluid cultures preliminary negative. Of note, white blood cell count in pleural fluid is 145,000, yellow hazy appearance. DIAGNOSTICS: Chest x-ray this morning revealed left lung base air space disease with possible small left pleural effusion. Mild pulmonary vascular congestion. Stable mild cardiomegaly. Right IJ hemodialysis catheter terminated in the right atrium. Brain CT revealed mild to moderate diffuse cerebral volume loss. Acute infarct in the left middle cerebral artery territory involving the left temporal lobe, parietal and insula. There is an associated susceptibility artifact likely reflecting minimal petechial microscopic hemorrhagic changes. Old right occipital and posterior temporal lobe infarct with associated trace occult blood products. Small fluid in the bilateral mastoid air cells. INDWELLINGS: Trach, PEG, multiple intra-abdominal drainage catheters. PHYSICAL EXAMINATION: GENERAL: This is a well-developed, chronically ill-appearing, cachectic, elderly woman, who is lying comfortably in bed. HEENT: Head atraumatic, normocephalic. Sclerae anicteric. Buccal mucosa dry. NECK: Supple. CHEST: Rise symmetrical. Breath sounds diminished at the bases. HEART: S1, S2. ABDOMEN: Soft, bowel sounds present. EXTREMITIES: Without cyanosis. ASSESSMENT: 1. Possible sepsis with acute encephalopathy, also secondary to acute cerebrovascular accident, as evident by MRI of the brain, neurology follows. 2. Pneumonia, status post thoracentesis, possible empyema with fluid white blood cell count is 145,000. 3. History of gastric cancer, status post multiple resections, chemotherapy. 4. Recent history of bilateral abdominal drain placement secondary to abscess. 5. Cachexia. 6. Anemia. PLAN: The patient is clinically and hemodynamically stable. She is on vancomycin and Levaquin. She is allergic to ampicillin. We are going to change Levaquin to meropenem. Keep her on vancomycin and await for final cultures. Follow recommendations of consultants. Dictated By: Nancy Mccarty NP /prachi/seferino /Document#: [id number] CHRISTOPHE
[2017-01-01] MEDS: MEROPENEM 500MG/50 ML (PMX) 50 ML IVPB SCH (20:59)
[2017-01-01] MEDS: FENTAnyl PATCH 50 MCG/HR TRANSDERM SCH (22:25)
[2017-01-02] VITALS (15 sets, daily range): BP systolic 80–98; BP diastolic 52–65; PULSE 94–112; RESP 15–25
[2017-01-02] MEDS: HYDROmorphONE 1 MG/ML SYG IV PRN (00:01)
[2017-01-02] MEDS: VANCOMYCIN 500MG/NS (PMX) 100 ML IVPB SCH ×2 (00:01→23:46)
[2017-01-02] MEDS: ALBUTEROL/IPRATROPIUM (NEB) 3 ML AMP INH SCH ×6 (00:13→20:03)
[2017-01-02] MEDS: INSULIN ASPART [NOVOLOG] 3 ML PEN SC SCH ×6 (01:00→21:00)
[2017-01-02] MEDS: ACCU-CHEK XX SCH (02:00)
[2017-01-02] MEDS: MEROPENEM 500MG/50 ML (PMX) 50 ML IVPB SCH (06:28)
[2017-01-02 07:43] LABS: ABNORMAL IP MESSAGE 1; BASOPHILS % 0.1 % (0.0-2.0); HEMATOCRIT 28.5 % (37.0-47.0); HEMOGLOBIN 9.6 g/dl (12.0-16.0); LYMPHOCYTES # 0.5 10^3/ul (0.8-2.9); LYMPHOCYTES % 4.7 % (15.0-51.0); MEAN CORPUSCULAR HEMOGLOBIN 31.3 pg (29.0-33.0); MEAN CORPUSCULAR HGB CONC 33.7 g/dl (32.0-37.0); MEAN CORPUSCULAR VOLUME 92.8 fl (82.0-101.0); MEAN PLATELET VOLUME 12.1 fl (7.4-10.4); MONOCYTE # 0.8 10^3/ul (0.3-0.9); MONOCYTES % 7.4 % (0.0-11.0); NEUTROPHILS % 86.9 % (39.0-77.0); NUCLEATED RED BLOOD CELLS% 0.2 /100WBC (0.0-0.0); PLATELET COUNT 195 10^3/UL (140-415); RED BLOOD COUNT 3.07 10^6/ul (4.20-5.40); RED CELL DISTRIBUTION WIDTH 14.4 % (11.5-14.5); WHITE BLOOD COUNT 11.2 10^3/ul (4.8-10.8)
[2017-01-02 07:45] LABS: POSITIVE DIFF @See below
[2017-01-02] MEDS ORDERED: SOD CHLORIDE 0.9% 1,000 ML IV ONE (08:30)
[2017-01-02] MEDS: CHLORHEXIDINE GLUCONATE 15 ML UD CUP MM SCH ×2 (08:59→21:28)
[2017-01-02] MEDS: ENOXAPARIN 30 MG/0.3 ML SYG SC SCH (09:02)
[2017-01-02 10:39] LABS: CALCIUM 7.1 mg/dl (8.4-10.2); CREATININE 0.61 mg/dl (0.44-1.00); PHOSPHORUS 2.4 mg/dl (2.5-4.9); POTASSIUM 4.5 mmol/L (3.5-5.1)
[2017-01-02 11:22] LABS: CREATININE 0.66 mg/dl (0.44-1.00); POTASSIUM 4.3 mmol/L (3.5-5.1)
[2017-01-02 11:23] LABS: CALCIUM 7.1 mg/dl (8.4-10.2)
--- NOTE | 2017-01-02 11:32 | CONS ---
Date/Time of Note Date/Time of Note DATE: 01/02/17 TIME: 11:28 Assessment/Plan Assessment/Plan Additional Assessment/Plan Chest x-ray was reviewed from yesterday evening which is showing a small left pleural effusion. Assessment and recommendations; 1. Patient admitted with sepsis possibly right lower lobe pneumonia status post right thoracentesis without any reaccumulation of pleural effusion. 2. Multiple CVAs. 3. Bedridden state. 4. History of bilateral right upper quadrant abdominal drain placement. 5. Chronic respiratory failure however patient doing very well on tracheal T piece. Continue current treatment. Consultation Date/Type/Reason Admit Date/Time Dec 30, 2016 at 23:12 Initial Consult Date 01/01/17 Type of Consultation: Pulmonary Referring Provider: ANA PAULINO 24 HR Interval Summary Free Text/Dictation Patient condition is improved. Patient is much more awake today. She is however not responding to any commands. General exam; elderly woman, awake, currently in no distress. Exam/Review of Systems Vital Signs Vitals Vital Signs Date Time Temp Pulse Resp B/P Pulse Ox O2 Delivery O2 Flow Rate FiO2 01/02/17 08:43 100 01/02/17 08:34 20 Aerosol 5.0 28 T Tube 01/02/17 07:41 98.4 85/52 94 Intake and Output 01/01/17 01/01/17 01/02/17 15:00 23:00 07:00 Intake Total 600 ml 550 ml Output Total 124 ml 280 ml Balance 476 ml 270 ml Exam HEENT exam; supple neck, no JVD. No lymphadenopathy. Midline trachea. No thyromegaly. Tracheostomy in place attached to T-piece. Chest exam; diminished but clear breath sounds. S1-S2 audible, no murmurs. Regular rhythm. Abdomen exam; soft, bilateral upper quadrant drains are in place. Bowel sounds audible. G-tube in place. No organomegaly. Extremity exam; no edema. 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 Results Result Diagram: 01/02/17 0701 01/02/17 07 Results 24 hrs Laboratory Tests Test 01/01/17 13:40 01/01/17 15:11 01/01/17 16:10 01/01/17 17:52 White Blood Count 11.6 H Red Blood Count 3.28 L Hemoglobin 10.3 L Hematocrit 30.6 L Mean Corpuscular Volume 93.3 Mean Corpuscular Hemoglobin 31.4 Mean Corpuscular Hemoglobin Concent 33.7 Red Cell Distribution Width 14.1 Platelet Count 188 Mean Platelet Volume 11.3 H Neutrophils % 86.6 H Lymphocytes % 6.3 L Monocytes % 6.2 Eosinophils % 0.0 Basophils % 0.1 Nucleated Red Blood Cells % 0.2 H Neutrophils # (Manual) 10 H Lymphocytes # 0.7 L Monocytes # 0.7 Eosinophils # 0.0 Basophils # 0.0 Nucleated Red Blood Cells # 0.0 Bedside Glucose 94 94 Sodium Level 137 Potassium Level 2.2 #*L Chloride Level 103 Carbon Dioxide Level 29 Anion Gap 7 #L Blood Urea Nitrogen 21 #H Creatinine 0.51 Glucose Level 98 Calcium Level 7.0 L Phosphorus Level 2.2 L Albumin 2.2 L Test 01/01/17 20:50 01/02/17 01:36 01/02/17 06:31 01/02/17 07:00 Bedside Glucose 99 78 109 Magnesium Level 1.5 L Test 01/02/17 07:01 01/02/17 09:01 White Blood Count 11.2 H Red Blood Count 3.07 L Hemoglobin 9.6 L Hematocrit 28.5 L Mean Corpuscular Volume 92.8 Mean Corpuscular Hemoglobin 31.3 Mean Corpuscular Hemoglobin Concent 33.7 Red Cell Distribution Width 14.4 Platelet Count 195 Mean Platelet Volume 12.1 H Neutrophils % 86.9 H Lymphocytes % 4.7 L Monocytes % 7.4 Eosinophils % 0.0 Basophils % 0.1 Nucleated Red Blood Cells % 0.2 H Neutrophils # (Manual) 10 H Lymphocytes # 0.5 L Monocytes # 0.8 Eosinophils # 0.0 Basophils # 0.0 Nucleated Red Blood Cells # 0.0 Sodium Level Pending Potassium Level Pending Chloride Level Pending Carbon Dioxide Level Pending Anion Gap Pending Blood Urea Nitrogen Pending Creatinine Pending Glucose Level Pending Calcium Level Pending Phosphorus Level 2.4 L Albumin 2.0 L Bedside Glucose 88 Medications Medications Current Medications Chlorhexidine Gluconate (Peridex) 10 ml BID MM Last administered on 01/02/17t 08:59; Admin Dose 10 ML; Start 12/31/16 at 09:00 Lidocaine 1 patch 1 patch NOTE TRANSDERM ; Start 12/31/16 at 00:00 Vancomycin HCl (Vancocin) 100 ml @ 100 mls/hr Q24H IVPB Last administered on 00:01; Admin Dose 100 MLS/HR; Start 12/31/16 at 23:00 Diagnostic Test (Pha) (Accu-Chek) 1 ea 02 XX ; Start 01/01/17 at 02:00 Insulin Aspart (Novolog Insulin Pen) NOVOLOG *MILD* ALGORI... Q4 SC ; Start at 21:00 Miscellaneous Information 1 ea NOTE XX ; Start 12/31/16 at 18:30 Glucose (Glutose) 15 gm Q15M PRN PO DECREASED GLUCOSE; Start 12/31/16 at 18:30 Glucose (Glutose) 22.5 gm Q15M PRN PO DECREASED GLUCOSE; Start 12/31/16 at 18: 30 Dextrose (D50w Syringe) 25 ml Q15M PRN IV DECREASED GLUCOSE Last administered on 12/31/16 18:33; Admin Dose 25 ML; Start 12/31/16 at 18:30 Dextrose (D50w Syringe) 50 ml Q15M PRN IV DECREASED GLUCOSE; Start 12/31/16 at 18:30 Glucagon (Glucagen) 1 mg Q15M PRN IM DECREASED GLUCOSE; Start 12/31/16 at 18:30 Glucose 15 gm 15 gm Q15M PRN BUCCAL DECREASED GLUCOSE; Start 12/31/16 at 18:30 Dextrose (D5W) 1,000 ml @ 50 mls/hr Q20H IV Last administered on 01/01/17 15: 17; Admin Dose 50 MLS/HR; Start 12/31/16 at 20:30 Hydromorphone HCl (Dilaudid) 0.5 mg Q4H PRN IV PAIN Last administered on 00:01; Admin Dose 0.5 MG; Start 01/01/17 at 01:30 Miscellaneous Information (Pending Santyl Order For Wound Care) This patient obregon... PRN PRN XX WOUND CARE; Start 01/01/17 at 03:00 Enoxaparin Sodium (Lovenox) 30 mg DAILY SC Last administered on 01/02/17 09:02 ; Admin Dose 30 MG; Start 01/01/17 at 14:00 Miscellaneous Information (*Rx Drug Level Order Reminder*) VANCOMYCIN TROUGH ON 12/11... ONCE ONCE XX ; Start 01/02/17 at 22:00; Stop 01/02/17 at 22:01 Fentanyl 1 patch 1 patch Q3D TRANSDERM Last administered on 01/01/17t 22:25; Admin Dose 1 PATCH; Start 01/01/17 at 20:00 Meropenem/Sodium Chloride (Merrem 1 Gm/50 ml (Pmx)) 50 ml @ 100 mls/hr Q12H IVPB ; Start 01/02/17 at 18:00 ROSMERY JUAREZ Jan 02, 2017 11:32
--- NOTE | 2017-01-02 12:06 | RADRPT ---
Echocardiogram Report Patient Name: Amita GROSS Gender: Female Date: 1945 Study Date: 01-Jan-2017 Land Measurer: JORGE GRIJALVA Location: [id number] Ref. Physician: ANA PAULINO Quality: Good Procedures: Transthoracic echocardiogram with complete 2D, M-Mode, and doppler examination. Indications: Congestive Heart Failure. 2D/M Mode Doppler Measurement Value Normal Ranges Measurement Value Normal Ranges LVIDd 2D 4.5 3.5 - 5.6 cm AV Mean Alex 2.4 m/sec LVIDs 2D 3.4 2.1 - 4.1 cm AV Mean PG 26.5 mmHg LVPWd 2D 0.8 0.6 - 1.1 cm AV Peak Alex 3.5 m/sec IVSd 2D 0.8 0.6 - 1.1 cm AV Peak PG 51.7 mmHg AoR Diam 2D 2.6 2.0 - 3.7 cm AV VTI 63.9 cm EDV 2D 92.5 cm3 LVOT Mean Alex 0.5 m/sec ESV 2D 40.8 cm3 LVOT Mean PG 0.9 mmHg LA Dimen 2D 3.8 2.3 - 4.0 cm LVOT Peak Alex 0.6 m/sec LVOT Peak PG 1.6 mmHg LVOT VTI 13.2 cm MV E Peak Alex 1.4 m/sec MV A Peak Alex 1.3 m/sec MV E/A 1.1 MV Decel Time 283 msec MV Decel [place] 5 MV E/A 1.1 TR Peak Alex 2.9 m/sec TR Peak PG 54.3 mmHg Findings Left Ventricle: Normal left ventricular cavity size. Normal left ventricular wall thickness. Moderate left ventricular systolic dysfunction. Ejection fraction is visually estimated at 40 %. Tissue Doppler/Mitral Doppler indices are consistent with pseudonormalization with mildly elevated left atrial pressure (Stage II diastolic dysfunction). Resting Segmental Wall Motion Analysis: Hypokinesis of the septum and anterior cardona. Right Ventricle: Normal right ventricular size. Normal right ventricular systolic function. Left Atrium: There is severe enlargement of left atrium. Right Atrium: The right atrium is normal in size. Mitral Valve: Normal appearance of the mitral valve. Mild mitral annular calcification. Moderate to severe mitral valve regurgitation. The regurgitation jet is eccentrically directed which may underestimate the severity of mitral regurgitation. Aortic Valve: Mild aortic stenosis. Aortic valve Max velocity 2.9 m/sec. Max PG 33 mmHg. Mean PG 16 mmHg. Trace to mild aortic valve regurgitation. Tricuspid Valve: Estimated peak PA systolic pressure 54 mmHg. There is mild tricuspid regurgitation. Pulmonic Valve: There is moderate to severe pulmonic regurgitation. Pericardium: Pleural effusion seen. Aorta: Normal aortic root. IVC: The IVC is not well visualized. Pulmonary Artery: Normal pulmonary artery size. Conclusions Normal left ventricular cavity size. Normal left ventricular wall thickness. Moderate left ventricular systolic dysfunction. Ejection fraction is visually estimated at 40 %. Tissue Doppler/Mitral Doppler indices are consistent with pseudonormalization with mildly elevated left atrial pressure (Stage II diastolic dysfunction). Hypokinesis of the septum and anterior cardona. Moderate to severe mitral valve regurgitation. The regurgitation jet is eccentrically directed which may underestimate the severity of mitral regurgitation. Mild aortic stenosis. Aortic valve Max velocity 2.9 m/sec. Max PG 33 mmHg. Mean PG 16 mmHg. Trace to mild aortic valve regurgitation. Estimated peak PA systolic pressure 54 mmHg plus right atrial pressure. Electronically Signed By: Trev Anderson 02-Jan-2017 12:06:21 0700 Patient Name: Amita GROSS Study Date: 01-Jan-2017 [id number]
--- NOTE | 2017-01-02 12:19 | CONS ---
Date/Time of Note Date/Time of Note DATE: 01/02/17 TIME: 12:13 Consult Date/Type/Reason Admit Date/Time Dec 30, 2016 at 23:12 Initial Consult Date 01/01/17 Type of Consultation: Neurology Reason for Consultation Left MCA CVA Ordering Provider: ANA PAULINO Subjective remains lethargic non-verbal right hemiplegia Objective Vital Signs Date Time Temp Pulse Resp B/P Pulse Ox O2 Delivery O2 Flow Rate FiO2 01/02/17 11:39 97.7 100 18 93/56 100 01/02/17 08:34 Aerosol 5.0 28 T Tube Intake and Output 01/01/17 01/01/17 01/02/17 15:00 23:00 07:00 Intake Total 600 ml 550 ml Output Total 124 ml 280 ml Balance 476 ml 270 ml Exam difficult to arouse unable to maintain eyes open tracheostomy in place, non verbal not following commands CN: 1 mm bilaterally, slight right facial asymmetry dolls intact Motor: right arm and leg flaccid, absent withdrawal localizes to pain in right arm and leg, left arm and leg tone with mild withdrawal Reflexes brisk with left toe upgoing Results/Medications Result Diagram: 01/02/17 0701 01/02/17 0701 Results 24 hrs Laboratory Tests Test 01/01/17 13:40 01/01/17 15:11 01/01/17 16:10 01/01/17 17:52 White Blood Count 11.6 H Red Blood Count 3.28 L Hemoglobin 10.3 L Hematocrit 30.6 L Mean Corpuscular Volume 93.3 Mean Corpuscular Hemoglobin 31.4 Mean Corpuscular Hemoglobin Concent 33.7 Red Cell Distribution Width 14.1 Platelet Count 188 Mean Platelet Volume 11.3 H Neutrophils % 86.6 H Lymphocytes % 6.3 L Monocytes % 6.2 Eosinophils % 0.0 Basophils % 0.1 Nucleated Red Blood Cells % 0.2 H Neutrophils # (Manual) 10 H Lymphocytes # 0.7 L Monocytes # 0.7 Eosinophils # 0.0 Basophils # 0.0 Nucleated Red Blood Cells # 0.0 Bedside Glucose 94 94 Sodium Level 137 Potassium Level 2.2 #*L Chloride Level 103 Carbon Dioxide Level 29 Anion Gap 7 #L Blood Urea Nitrogen 21 #H Creatinine 0.51 Glucose Level 98 Calcium Level 7.0 L Phosphorus Level 2.2 L Albumin 2.2 L Test 01/01/17 20:50 01/02/17 01:36 01/02/17 06:31 01/02/17 07:00 Bedside Glucose 99 78 109 Magnesium Level 1.5 L Test 01/02/17 07:01 01/02/17 09:01 White Blood Count 11.2 H Red Blood Count 3.07 L Hemoglobin 9.6 L Hematocrit 28.5 L Mean Corpuscular Volume 92.8 Mean Corpuscular Hemoglobin 31.3 Mean Corpuscular Hemoglobin Concent 33.7 Red Cell Distribution Width 14.4 Platelet Count 195 Mean Platelet Volume 12.1 H Neutrophils % 86.9 H Lymphocytes % 4.7 L Monocytes % 7.4 Eosinophils % 0.0 Basophils % 0.1 Nucleated Red Blood Cells % 0.2 H Neutrophils # (Manual) 10 H Lymphocytes # 0.5 L Monocytes # 0.8 Eosinophils # 0.0 Basophils # 0.0 Nucleated Red Blood Cells # 0.0 Sodium Level Pending Potassium Level Pending Chloride Level Pending Carbon Dioxide Level Pending Anion Gap Pending Blood Urea Nitrogen Pending Creatinine Pending Glucose Level Pending Calcium Level Pending Phosphorus Level 2.4 L Albumin 2.0 L Bedside Glucose 88 Medications Current Medications Chlorhexidine Gluconate (Peridex) 10 ml BID MM Last administered on 01/02/17 08:59; Admin Dose 10 ML; Start 12/31/16 at 09:00 Lidocaine 1 patch 1 patch NOTE TRANSDERM ; Start 12/31/16 at 00:00 Vancomycin HCl (Vancocin) 100 ml @ 100 mls/hr Q24H IVPB Last administered on 00:01; Admin Dose 100 MLS/HR; Start 12/31/16 at 23:00 Diagnostic Test (Pha) (Accu-Chek) 1 ea 02 XX ; Start 01/01/17 at 02:00 Insulin Aspart (Novolog Insulin Pen) NOVOLOG *MILD* ALGORI... Q4 SC ; Start at 21:00 Miscellaneous Information 1 ea NOTE XX ; Start 12/31/16 at 18:30 Glucose (Glutose) 15 gm Q15M PRN PO DECREASED GLUCOSE; Start 12/31/16 at 18:30 Glucose (Glutose) 22.5 gm Q15M PRN PO DECREASED GLUCOSE; Start 12/31/16 at 18: 30 Dextrose (D50w Syringe) 25 ml Q15M PRN IV DECREASED GLUCOSE Last administered on 12/31/16 18:33; Admin Dose 25 ML; Start 12/31/16 at 18:30 Dextrose (D50w Syringe) 50 ml Q15M PRN IV DECREASED GLUCOSE; Start 12/31/16 at 18:30 Glucagon (Glucagen) 1 mg Q15M PRN IM DECREASED GLUCOSE; Start 12/31/16 at 18:30 Glucose 15 gm 15 gm Q15M PRN BUCCAL DECREASED GLUCOSE; Start 12/31/16 at 18:30 Dextrose (D5W) 1,000 ml @ 50 mls/hr Q20H IV Last administered on 01/01/17 15: 17; Admin Dose 50 MLS/HR; Start 12/31/16 at 20:30 Hydromorphone HCl (Dilaudid) 0.5 mg Q4H PRN IV PAIN Last administered on 00:01; Admin Dose 0.5 MG; Start 01/01/17 at 01:30 Miscellaneous Information (Pending [facility] Order For Wound Care) This patient obregon... PRN PRN XX WOUND CARE; Start 01/01/17 at 03:00 Enoxaparin Sodium (Lovenox) 30 mg DAILY SC Last administered on 01/02/17 09:02 ; Admin Dose 30 MG; Start 01/01/17 at 14:00 Miscellaneous Information (*Rx Drug Level Order Reminder*) VANCOMYCIN TROUGH ON 12/11... ONCE ONCE XX ; Start 01/02/17 at 22:00; Stop 01/02/17 at 22:01 Fentanyl 1 patch 1 patch Q3D TRANSDERM Last administered on 01/01/17 22:25; Admin Dose 1 PATCH; Start 01/01/17 at 20:00 Meropenem/Sodium Chloride (Merrem 1 Gm/50 ml (Pmx)) 50 ml @ 100 mls/hr Q12H IVPB ; Start 01/02/17 at 18:00 Assessment/Plan Chief Complaint/Hosp Course 71 year old female with extensive medical hx including gastric CA s/p chemo and gastrectomy, gastric surgery in Mar 2016 c/b CVA , respiratory failure admitted with sepsis, lactic acidosis, bilateral pleural effusion pneumonia and CHF. Head CT suggestive of sub-acute to chronic Right [employer] infarct and basal ganglia. MRI confirms acute inferior division Left MCA infarct involving left insular region, parietal and temporal lobe. Left M2 occlusion on MRA. ECHO: EF: 40%, hypokinesis of septum and anterior cardona severe left atrial enlargement Recommendations: start antiplatelet Aspirin 81 mg EF if no contraindication highly suspect atrial fibrillation as etiology for embolic Left MCA inferior division may benefit from RYAN to evaluate for potential cardiac thrombus at this time likely too unstable to receive RYAN continue afib monitoring HBA1C at goal, check FLP continue abx for pneumonia maintain euglycemia, maintain normotensive and afebrile correct electrolytes minimize overly sedating meds DVT ppx TPN dependent reviewed imaging findings with niece and discussed recommendation to further address goals of care with family consider SNF, readdress code status Problems: COLLIN ERICKSON MD Jan 02, 2017 12:18
[2017-01-02] MEDS: DEXTROSE 5% 1,000 ML IV SCH (13:51)
[2017-01-02] MEDS ORDERED: MAGNESIUM SULFATE 2 GM/50 ML 50 ML IVPB ONE (15:00)
--- NOTE | 2017-01-02 15:16 | PN ---
Date/Time of Note Date/Time of Note DATE: 01/02/17 TIME: 15:08 Assessment/Plan VTE Prophylaxis VTE Prophylaxis Intervention: SCD's Lines/Catheters IV C[facility]ter Type (from [facility] Central Line Central line still needed: Yes Urinary Cath still in place: No Assessment/Plan Assessment/Plan 71 yo F with previous h/o gastric ca sp treatment, h/o multiple esophageal strictures and bowel obstructions which have rendered the patient TPN dependent , chronic respiratory failure sp trach placement admitted for decreased mental status, 1. Sepsis with septic shock, not responding to IVF, add albumin, transfer to ICU for levopherd prn 2. Likely intraabdominal infection even there are crackles on lungs, send culture from [facility], urine culture, CXR, antibiotics is changed today from levaquin to meropenem, with vancomycin 3. Acute metabolic encephalopathy from pneumonia and stroke, improved 4. Pneumonia with right pleural effusion, s/p US-guided thoracentesis with removal of 750 cc fluid on 12/31/2016, on meropenem and vancomycin 5. Recurrent ischemic stroke, follow up with neurology 6. Gastric cancer in 2011, for which she underwent extensive resection, as well as chemotherapy. She again developed abdominal pain and had a prolonged hospitalization at [facility]. 7. Status post gastrectomy, as well as chemotherapy. 8. Multiple esophageal strictures and bowel obstructions, start on TPN. 9. Status post tracheostomy 10. Allergy to penicillin. 11. Normocytic anemia, mild 12. Chronic muscle wasting and cachexia. 13. DVT prophylaxis: SCD's 14. Hypomagnesemia, Mg supplement 15. Case discussed with staff, talked with the family about code status, full code. Critical care time: 45 minutes Subjective 24 Hr Interval Summary Free Text/Dictation alert without distress Exam/Review of Systems Vital Signs Vitals Vital Signs Date Time Temp Pulse Resp B/P Pulse Ox O2 Delivery O2 Flow Rate FiO2 01/02/17 14:00 80/59 Trach Collar 01/02/17 13:11 100 20 98 5.0 28 01/02/17 11:39 97.7 Intake and Output 01/01/17 01/01/17 01/02/17 15:00 23:00 07:00 Intake Total 600 ml 550 ml Output Total 124 ml 280 ml Balance 476 ml 270 ml Exam Constitutional: alert, frail, non-verbal Head: atraumatic, normocephalic Eyes: EOMI, PERRL, nl conjunctiva, nl lids ENMT: nl external ears & nose, nl lips & teeth, nl nasal mucosa & septum Neck: other (tracheostomy), supple Respiratory: crackles/rales Cardiovascular: nl pulses, regular rate and rhythm, No S3, No S4, No bruits, No diastolic murmur, No edema, No gallop, No irregular rhythm, No jugular venous distention (JVD), No murmurs/extra sounds, No other, No rub, No systolic murmur Gastrointestinal: firm, tender (diffuse tenderness) Musculoskeletal: nl extremities to inspection Extremities: normal pulses, No calf tenderness, No clubbing, No cyanosis, No edema, No other, No palpable cord, No pitting pedal edema, No tenderness Neurological: HHAS II-XII intact, nl mental status Results Result Diagram: 01/02/17 0701 01/02/17 0701 Results 24 hrs Laboratory Tests Test 01/01/17 15:11 01/01/17 16:10 01/01/17 17:52 01/01/17 20:50 Bedside Glucose 94 94 99 Sodium Level 137 Potassium Level 2.2 #*L Chloride Level 103 Carbon Dioxide Level 29 Anion Gap 7 #L Blood Urea Nitrogen 21 #H Creatinine 0.51 Glucose Level 98 Calcium Level 7.0 L Phosphorus Level 2.2 L Albumin 2.2 L Test 01/02/17 01:36 01/02/17 06:31 01/02/17 07:00 01/02/17 07:01 Bedside Glucose 78 109 Magnesium Level 1.5 L White Blood Count 11.2 H Red Blood Count 3.07 L Hemoglobin 9.6 L Hematocrit 28.5 L Mean Corpuscular Volume 92.8 Mean Corpuscular Hemoglobin 31.3 Mean Corpuscular Hemoglobin Concent 33.7 Red Cell Distribution Width 14.4 Platelet Count 195 Mean Platelet Volume 12.1 H Neutrophils % 86.9 H Lymphocytes % 4.7 L Monocytes % 7.4 Eosinophils % 0.0 Basophils % 0.1 Nucleated Red Blood Cells % 0.2 H Neutrophils # (Manual) 10 H Lymphocytes # 0.5 L Monocytes # 0.8 Eosinophils # 0.0 Basophils # 0.0 Nucleated Red Blood Cells # 0.0 Sodium Level 140 Potassium Level 4.3 Chloride Level 103 Carbon Dioxide Level 26 Anion Gap 15 Blood Urea Nitrogen 23 H Creatinine 0.66 Glucose Level 91 Calcium Level 7.1 L Phosphorus Level 2.4 L Albumin 2.0 L Test 01/02/17 09:01 01/02/17 12:45 Bedside Glucose 88 100 Medications Medications Current Medications Chlorhexidine Gluconate (Peridex) 10 ml BID MM Last administered on 01/02/17 08:59; Admin Dose 10 ML; Start 12/31/16 at 09:00 Lidocaine 1 patch 1 patch NOTE TRANSDERM ; Start 12/31/16 at 00:00 Vancomycin HCl (Vancocin) 100 ml @ 100 mls/hr Q24H IVPB Last administered on 00:01; Admin Dose 100 MLS/HR; Start 12/31/16 at 23:00 Diagnostic Test (Pha) (Accu-Chek) 1 ea 02 XX ; Start 01/01/17 at 02:00 Insulin Aspart (Novolog Insulin Pen) NOVOLOG *MILD* ALGORI... Q4 SC ; Start at 21:00 Miscellaneous Information 1 ea NOTE XX ; Start 12/31/16 at 18:30 Glucose (Glutose) 15 gm Q15M PRN PO DECREASED GLUCOSE; Start 12/31/16 at 18:30 Glucose (Glutose) 22.5 gm Q15M PRN PO DECREASED GLUCOSE; Start 12/31/16 at 18: 30 Dextrose (D50w Syringe) 25 ml Q15M PRN IV DECREASED GLUCOSE Last administered on 12/31/16 18:33; Admin Dose 25 ML; Start 12/31/16 at 18:30 Dextrose (D50w Syringe) 50 ml Q15M PRN IV DECREASED GLUCOSE; Start 12/31/16 at 18:30 Glucagon (Glucagen) 1 mg Q15M PRN IM DECREASED GLUCOSE; Start 12/31/16 at 18:30 Glucose 15 gm 15 gm Q15M PRN BUCCAL DECREASED GLUCOSE; Start 12/31/16 at 18:30 Dextrose (D5W) 1,000 ml @ 50 mls/hr Q20H IV Last administered on 01/02/17 13: 51; Admin Dose 50 MLS/HR; Start 12/31/16 at 20:30 Hydromorphone HCl (Dilaudid) 0.5 mg Q4H PRN IV PAIN Last administered on 00:01; Admin Dose 0.5 MG; Start 01/01/17 at 01:30 Miscellaneous Information [facility] This patient ob[place]... PRN PRN XX WOUND CARE; Start 01/01/17 at 03:00 Enoxaparin Sodium (Lovenox) 30 mg DAILY SC Last administered on 01/02/17 09:02 ; Admin Dose 30 MG; Start 01/01/17 at 14:00 Miscellaneous Information (*Rx Drug Level Order Reminder*) VANCOMYCIN TROUGH ON 12/11... ONCE ONCE XX ; Start 01/02/17 at 22:00; Stop 01/02/17 at 22:01 Fentanyl 1 patch 1 patch Q3D TRANSDERM Last administered on 01/01/17 22:25; Admin Dose 1 PATCH; Start 01/01/17 at 20:00 Meropenem/Sodium Chloride 50 ml @ 100 mls/hr Q12H IVPB ; Start 01/02/17 at 18: 00 Magnesium Sulfate 50 ml @ 25 mls/hr ONCE ONCE IVPB ; Start 01/02/17 at 15:00; Stop 01/02/17 at 16:59 Albumin Human (Albumin Human 25%) 100 ml @ 100 mls/hr ONCE ONCE IV ; Start at 16:00; Stop 01/02/17 at 16:59 BERNABE SÁNCHEZ MD Jan 02, 2017 15:16
--- NOTE | 2017-01-02 15:44 | PN ---
DATE: 01/02/2017 SUBJECTIVE DATA: No events overnight. The patient is more awake today. Looks comfortable and afebrile. OBJECTIVE DATA: Temperature 97.7, pulse 100, respirations 18, blood pressure 93/56, saturation 98 on OCPs. LABORATORY AND DIAGNOSTIC DATA: WBC 11.2, H and H 9.6 and 28.5, platelets 195, neutrophils 86.9, BUN 24, creatinine 0.61. MICROBIOLOGY: Blood urine cultures remain negative. Pleural fluid cultures negative. INDWELLING: Trach, PEG, multiple intra-abdominal drainage catheters. ANTIMICROBIALS: Meropenem, vancomycin. PHYSICAL EXAMINATION: This is a chronically ill-appearing, elderly woman, who is in no distress. HEENT: Head atraumatic, normocephalic. Sclerae anicteric. Buccal mucosa dry. NECK: Supple. CHEST: Rise symmetrical. Breath sounds diminished at the bases. HEART: S1, S2. ABDOMEN: Soft, bowel sounds present. EXTREMITIES: Without cyanosis. ASSESSMENT: 1. Resolving sepsis. 2. Acute encephalopathy, improving. 3. Acute cerebral vascular accident, neurology follows. 4. Cardiomyopathy with ejection fraction of 40 percent. 5. Pneumonia with parapneumonic effusions status post thoracentesis, cultures being negative. 6. History of gastric CA, status post multiple resection and chemotherapy. 7. History of recent bilateral abdominal drain placement secondary to abscess. 8. Cachexia. 9. Anemia. ALLERGIES: AMPICILLIN. PLAN: The patient remains stable, clinically improving, continue present care. Antibiotics, follow recommendations of consultants. Dictated By: Nancy Mccarty NP /prachi/maria del carmen /Document#: [id number]
[2017-01-02] MEDS ORDERED: ALBUMIN HUMAN 25% 100 ML IV ONE (16:00)
[2017-01-02] MEDS: MEROPENEM 1 GM/50ML(PMX) 50 ML IVPB SCH (18:03)
--- NOTE | 2017-01-02 21:57 | RADRPT ---
PROCEDURE: XR Chest. CLINICAL INDICATION: Shortness of breath. TECHNIQUE: Single frontal view. COMPARISON: 01/01/2017. FINDINGS: The tracheostomy tube and right internal jugular vein catheter remain in satisfactory position. Mod erate pulmonary edema is slightly worse than seen previously. There is left basilar atelectasis, un changed. The lungs are otherwise clear. The heart is enlarged. There is calcification in the aorta consistent with atherosclerosis. There are small bilateral pleural effusions. There is no pneumothorax. IMPRESSION: 1. Worsening pulmonary edema. 2. Otherwise no change from 01/01/2017. RPTAT: QQ .Dandre Franco MD, MD Date Time Electronically viewed and signed by .Dandre Franco MD, MD on 01/02/2017 21:56 .R/
--- NOTE | 2017-01-02 23:30 | CONS ---
Date/Time of Note Date/Time of Note DATE: 01/02/17 TIME: 23:29 Assessment/Plan Assessment/Plan Chief Complaint/Hosp Course LEUKOCYTOSIS REACTIVE MONITOR CLOSELY ANEMIA N-CYTIC, N- CHROMIC WITH R RDW MONITOR BLOOD COUNT CLOSELY OBSERVE FOR BLEEDING AND HEMOLYSIS History of gastric cancer in the past status post gastrectomy as well as chemotherapy PER FAMILY- RAFAT Acute alteration in mental status likely secondary to subacute CVA Acute respiratory distress superimposed on chronic respiratory failure Bilateral pleural effusion with underlying pneumonia and CHF Sepsis with lactic acidosis Chronic muscle wasting and cachexia History of multiple esophageal strictures and bowel obstruction 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 Reported history of hypertension Penicillin allergy Problems: Consultation Date/Type/Reason Admit Date/Time Dec 30, 2016 at 23:12 Initial Consult Date 12/31/16 Type of Consultation: hemeon Referring Provider: ANA PAULINO 24 HR Interval Summary Free Text/Dictation ALL NOTED MIN IMPROVEMENT - OK FAMILY Exam/Review of Systems Vital Signs Vitals Vital Signs Date Time Temp Pulse Resp B/P Pulse Ox O2 Delivery O2 Flow Rate FiO2 01/02/17 22:25 102 26 97 Aerosol 5.0 28 T Tube 01/02/17 21:00 86/56 01/02/17 20:00 97.6 Intake and Output 01/01/17 01/01/17 01/02/17 15:00 23:00 07:00 Intake Total 600 ml 550 ml Output Total 124 ml 280 ml Balance 476 ml 270 ml Exam GENERAL: 30 yo M obese HEENT:Unremarkable, no thrush NECK: Supple CHEST: Rise symmetrical without dyspnea on observation ABDOMEN: Soft, obese, KATHERIN drain w/dark brown liquid filling bulb EXTREMITIES: Warm, moves extremities SKIN: Tattoos Results Result Diagram: 01/02/17 0701 01/02/17 07 Results 24 hrs Laboratory Tests Test 01/02/17 01:36 01/02/17 06:31 01/02/17 07:00 01/02/17 07:01 Bedside Glucose 78 109 Magnesium Level 1.5 L White Blood Count 11.2 H Red Blood Count 3.07 L Hemoglobin 9.6 L Hematocrit 28.5 L Mean Corpuscular Volume 92.8 Mean Corpuscular Hemoglobin 31.3 Mean Corpuscular Hemoglobin Concent 33.7 Red Cell Distribution Width 14.4 Platelet Count 195 Mean Platelet Volume 12.1 H Neutrophils % 86.9 H Lymphocytes % 4.7 L Monocytes % 7.4 Eosinophils % 0.0 Basophils % 0.1 Nucleated Red Blood Cells % 0.2 H Neutrophils # (Manual) 10 H Lymphocytes # 0.5 L Monocytes # 0.8 Eosinophils # 0.0 Basophils # 0.0 Nucleated Red Blood Cells # 0.0 Sodium Level 140 Potassium Level 4.3 Chloride Level 103 Carbon Dioxide Level 26 Anion Gap 15 Blood Urea Nitrogen 23 H Creatinine 0.66 Glucose Level 91 Calcium Level 7.1 L Phosphorus Level 2.4 L Albumin 2.0 L Test 01/02/17 09:01 01/02/17 12:45 01/02/17 18:26 01/02/17 22:31 Bedside Glucose 88 100 92 Vancomycin Level Trough 17.1 Medications Medications Current Medications Chlorhexidine Gluconate (Peridex) 10 ml BID MM Last administered on 01/02/17 21:28; Admin Dose 10 ML; Start 12/31/16 at 09:00 Lidocaine 1 patch 1 patch NOTE TRANSDERM ; Start 12/31/16 at 00:00 Vancomycin HCl (Vancocin) 100 ml @ 100 mls/hr Q24H IVPB Last administered on 00:01; Admin Dose 100 MLS/HR; Start 12/31/16 at 23:00 Diagnostic Test (Pha) (Accu-Chek) 1 ea 02 XX ; Start 01/01/17 at 02:00 Insulin Aspart (Novolog Insulin Pen) NOVOLOG *MILD* ALGORI... Q4 SC ; Start at 21:00 Miscellaneous Information 1 ea NOTE XX ; Start 12/31/16 at 18:30 Glucose (Glutose) 15 gm Q15M PRN PO DECREASED GLUCOSE; Start 12/31/16 at 18:30 Glucose (Glutose) 22.5 gm Q15M PRN PO DECREASED GLUCOSE; Start 12/31/16 at 18: 30 Dextrose (D50w Syringe) 25 ml Q15M PRN IV DECREASED GLUCOSE Last administered on 12/31/16 18:33; Admin Dose 25 ML; Start 12/31/16 at 18:30 Dextrose (D50w Syringe) 50 ml Q15M PRN IV DECREASED GLUCOSE; Start 12/31/16 at 18:30 Glucagon (Glucagen) 1 mg Q15M PRN IM DECREASED GLUCOSE; Start 12/31/16 at 18:30 Glucose 15 gm 15 gm Q15M PRN BUCCAL DECREASED GLUCOSE; Start 12/31/16 at 18:30 Dextrose (D5W) 1,000 ml @ 50 mls/hr Q20H IV Last administered on 01/02/17 13: 51; Admin Dose 50 MLS/HR; Start 12/31/16 at 20:30 Hydromorphone HCl (Dilaudid) 0.5 mg Q4H PRN IV PAIN Last administered on 00:01; Admin Dose 0.5 MG; Start 01/01/17 at 01:30 Miscellaneous Information (Pending [facility] Order For Wound Care) This patient obregon... PRN PRN XX WOUND CARE; Start 01/01/17 at 03:00 Enoxaparin Sodium (Lovenox) 30 mg DAILY SC Last administered on 01/02/17 09:02 ; Admin Dose 30 MG; Start 01/01/17 at 14:00 Fentanyl 1 patch 1 patch Q3D TRANSDERM Last administered on 01/01/17 22:25; Admin Dose 1 PATCH; Start 01/01/17 at 20:00 Meropenem/Sodium Chloride 50 ml @ 100 mls/hr Q12H IVPB Last administered on 18:03; Admin Dose 100 MLS/HR; Start 01/02/17 at 18:00 Total Parenteral Nutrition 1,000 ml @ 40 mls/hr Q24H IV ; Start 01/02/17 at 21: 00 Fat Emulsion Intravenous (Liposyn Ii 20%) 500 ml @ 21 mls/hr [id number] IV ; Start 01/02/17 at 21:00 RUFINO STEVENSON MD Jan 02, 2017 23:30
[2017-01-02] MEDS: FAT EMULSION 20% 500 ML IV SCH (23:44)
[2017-01-02] MEDS: TPN 1,000 ML IV SCH (23:44)
[2017-01-03] VITALS (39 sets, daily range): BP systolic 91–134; BP diastolic 58–87; PULSE 93–118; RESP 15–33
[2017-01-03] MEDS: HYDROmorphONE 1 MG/ML SYG IV PRN ×5 (00:09→22:30)
[2017-01-03] MEDS: ALBUTEROL/IPRATROPIUM (NEB) 3 ML AMP INH SCH ×6 (00:53→20:29)
[2017-01-03] MEDS: INSULIN ASPART [NOVOLOG] 3 ML PEN SC SCH ×6 (01:00→20:44)
[2017-01-03 05:25] LABS: BASOPHILS % 0.1 % (0.0-2.0); EOSINOPHILS % 0.3 % (0.0-7.0); HEMOGLOBIN 9.5 g/dl (12.0-16.0); LYMPHOCYTES # 1.1 10^3/ul (0.8-2.9); MEAN CORPUSCULAR HEMOGLOBIN 32.2 pg (29.0-33.0); MEAN CORPUSCULAR HGB CONC 33.9 g/dl (32.0-37.0); MEAN CORPUSCULAR VOLUME 94.9 fl (82.0-101.0); MEAN PLATELET VOLUME 12.9 fl (7.4-10.4); MONOCYTE # 0.6 10^3/ul (0.3-0.9); MONOCYTES % 5.4 % (0.0-11.0); NEUTROPHILS % 84.3 % (39.0-77.0); PLATELET COUNT 181 10^3/UL (140-415); RED BLOOD COUNT 2.95 10^6/ul (4.20-5.40); RED CELL DISTRIBUTION WIDTH 14.4 % (11.5-14.5); WHITE BLOOD COUNT 11.8 10^3/ul (4.8-10.8)
[2017-01-03 05:44] LABS: ALBUMIN 2.3 g/dl (3.3-4.9); CALCIUM 7.5 mg/dl (8.4-10.2); CREATININE 0.68 mg/dl (0.44-1.00); PHOSPHORUS 2.8 mg/dl (2.5-4.9); POTASSIUM 4.2 mmol/L (3.5-5.1)
[2017-01-03] MEDS: MEROPENEM 1 GM/50ML(PMX) 50 ML IVPB SCH ×2 (05:45→18:38)
[2017-01-03] MEDS: CHLORHEXIDINE GLUCONATE 15 ML UD CUP MM SCH ×2 (08:55→20:38)
[2017-01-03] MEDS: ENOXAPARIN 30 MG/0.3 ML SYG SC SCH (08:57)
--- NOTE | 2017-01-03 09:04 | CONS ---
Date/Time of Note Date/Time of Note DATE: 01/03/17 TIME: 09:00 Assessment/Plan Assessment/Plan Additional Assessment/Plan Chest x-ray was reviewed from yesterday evening which is again showing minimal pulmonary vascular congestion with small bilateral pleural effusions. Assessment and recommendations; 1. Patient admitted with right lower lobe pneumonia status post thoracentesis without any evidence of reaccumulation of pleural effusion to an extent requiring thoracentesis. 2. History of significant ascites requiring bilateral abdominal drains in place which are continually draining serous fluid. 3. Open epigastric wound. 4. History of multiple CVAs. 5. Mild anemia and thrombocytopenia. 6. Prior history of gastric cancer status post surgery. 7. History of CABG. Continue current treatment. Patient is hemodynamically stable and can be transferred back to the medical floor. Etiology of episode of hypotension from yesterday is unclear at this point. Consultation Date/Type/Reason Admit Date/Time Dec 30, 2016 at 23:12 Initial Consult Date 01/01/17 Type of Consultation: Pulmonary/critical care Referring Provider: ANA PAULINO 24 HR Interval Summary Free Text/Dictation Patient became hypotensive last evening and had to be moved to ICU. However did not require any pressor administration. The patient has remained hemodynamically stable overnight. She is completely awake however because of underlying history of severe CVA is unresponsive to any commands. General exam; elderly woman, on T piece via tracheostomy, currently in no distress. Awake and alert. Exam/Review of Systems Vital Signs Vitals Vital Signs Date Time Temp Pulse Resp B/P Pulse Ox O2 Delivery O2 Flow Rate FiO2 01/03/17 08:08 101 16 98 Aerosol 5.0 28 T Tube 01/03/17 06:00 98/73 01/03/17 04:00 98.0 Intake and Output 01/02/17 01/02/17 01/03/17 15:00 23:00 07:00 Intake Total 0 ml 1177 ml Output Total 280 ml 0 ml 225 ml Balance -280 ml 0 ml 952 ml Exam HEENT exam; supple neck, no JVD. No lymphadenopathy. Midline trachea. No thyromegaly. Patient has fair dentition. Tracheostomy in place at S2 T-piece. Insertion site is clean. Chest exam; diminished breath sounds on bases bilaterally. Upper lobes are fairly clear. S1-S2 audible, no murmurs. Regular rhythm. Abdomen exam; soft, there are bilateral upper quadrant drains in place. There is an open wound in the epigastrium with a collection bag applied over it. Bowel sounds are audible. Abdomen is nontender. Extremity exam; no peripheral edema. MEDICAL ASST exam; patient is awake but unresponsive to any commands. Results Result Diagram: 01/03/17 0330 01/03/17 0330 Results 24 hrs Laboratory Tests Test 01/02/17 09:01 01/02/17 12:45 01/02/17 18:26 01/02/17 22:31 Bedside Glucose 88 100 92 Vancomycin Level Trough 17.1 Test 01/03/17 01:27 01/03/17 03:30 01/03/17 05:46 01/03/17 07:51 Bedside Glucose 98 175 133 White Blood Count 11.8 H Red Blood Count 2.95 L Hemoglobin 9.5 L Hematocrit 28.0 L Mean Corpuscular Volume 94.9 Mean Corpuscular Hemoglobin 32.2 Mean Corpuscular Hemoglobin Concent 33.9 Red Cell Distribution Width 14.4 Platelet Count 181 Mean Platelet Volume 12.9 H Neutrophils % 84.3 H Lymphocytes % 9.0 L Monocytes % 5.4 Eosinophils % 0.3 Basophils % 0.1 Nucleated Red Blood Cells % 0.0 Neutrophils # (Manual) 10.0 H Lymphocytes # 1.1 Monocytes # 0.6 Eosinophils # 0.0 Basophils # 0.0 Nucleated Red Blood Cells # 0.0 Sodium Level 132 L Potassium Level 4.2 Chloride Level 100 Carbon Dioxide Level 23 Anion Gap 13 Blood Urea Nitrogen 26 H Creatinine 0.68 Glucose Level 124 Calcium Level 7.5 L Phosphorus Level 2.8 Magnesium Level 2.8 #H Albumin 2.3 L Medications Medications Current Medications Chlorhexidine Gluconate (Peridex) 10 ml BID MM Last administered on 01/03/17 08:55; Admin Dose 10 ML; Start 12/31/16 at 09:00 Lidocaine 1 patch 1 patch NOTE TRANSDERM ; Start 12/31/16 at 00:00 Vancomycin HCl (Vancocin) 100 ml @ 100 mls/hr Q24H IVPB Last administered on 23:46; Admin Dose 100 MLS/HR; Start 12/31/16 at 23:00 Insulin Aspart (Novolog Insulin Pen) NOVOLOG *MILD* ALGORI... Q4 SC Last administered on 01/03/17 05:50; Admin Dose 1 UNIT; Start 12/31/16 at 21:00 Miscellaneous Information 1 ea NOTE XX ; Start 12/31/16 at 18:30 Glucose (Glutose) 15 gm Q15M PRN PO DECREASED GLUCOSE; Start 12/31/16 at 18:30 Glucose (Glutose) 22.5 gm Q15M PRN PO DECREASED GLUCOSE; Start 12/31/16 at 18: 30 Dextrose (D50w Syringe) 25 ml Q15M PRN IV DECREASED GLUCOSE Last administered on 12/31/16 18:33; Admin Dose 25 ML; Start 12/31/16 at 18:30 Dextrose (D50w Syringe) 50 ml Q15M PRN IV DECREASED GLUCOSE; Start 12/31/16 at 18:30 Glucagon (Glucagen) 1 mg Q15M PRN IM DECREASED GLUCOSE; Start 12/31/16 at 18:30 Glucose (Glutose) 15 gm Q15M PRN BUCCAL DECREASED GLUCOSE; Start 12/31/16 at 18 :30 Hydromorphone HCl (Dilaudid) 0.5 mg Q4H PRN IV PAIN Last administered on 08:56; Admin Dose 0.5 MG; Start 01/01/17 at 01:30 Miscellaneous Information ([facility] This patient obregon... PRN PRN XX WOUND CARE; Start 01/01/17 at 03:00 Enoxaparin Sodium (Lovenox) 30 mg DAILY SC Last administered on 01/03/17 08:57 ; Admin Dose 30 MG; Start 01/01/17 at 14:00 Fentanyl 1 patch 1 patch Q3D TRANSDERM Last administered on 01/01/17 22:25; Admin Dose 1 PATCH; Start 01/01/17 at 20:00 Meropenem/Sodium Chloride 50 ml @ 100 mls/hr Q12H IVPB Last administered on 05:45; Admin Dose 100 MLS/HR; Start 01/02/17 at 18:00 Total Parenteral Nutrition 1,000 ml @ 40 mls/hr Q24H IV Last administered on 23:44; Admin Dose 40 MLS/HR; Start 01/02/17 at 21:00 Fat Emulsion Intravenous (Liposyn Ii 20%) 500 ml @ 21 mls/hr [id number] IV Last administered on 01/02/17t 23:44; Admin Dose 21 MLS/HR; Start 01/02/17 at 21:00 ROSMERY JUAREZ Jan 03, 2017 09:04
--- NOTE | 2017-01-03 13:22 | PN ---
Date/Time of Note Date/Time of Note DATE: 01/03/17 TIME: 13:15 Assessment/Plan VTE Prophylaxis VTE Prophylaxis Intervention: SCD's Lines/Catheters IV [facility]from [facility] Central Line Central line still needed: Yes Urinary Cath still in place: No Assessment/Plan Assessment/Plan 1. Sepsis with septic shock, improved 3. Aspiration pneumonia/pneumonitis, on antibiotics, neb 3. r/o intraabdominal infection, follow up with cultures 4. Right pleural effusion, s/p US-guided thoracentesis with removal of 750 cc fluid on 12/31/2016 5. Recurrent ischemic stroke, follow up with neurology 6. Gastric cancer in 2011, for which she underwent extensive resection, as well as chemotherapy. She again developed abdominal pain and had a prolonged hospitalization at [facility]. 7. Status post gastrectomy, as well as chemotherapy. 8. Multiple esophageal strictures and bowel obstructions, start on TPN. 9. Status post tracheostomy 10. Allergy to penicillin. 11. Normocytic anemia, mild 12. Chronic muscle wasting and cachexia. 13. DVT prophylaxis: SCD's 14. s/p acute metabolic encephalopathy, resolved 15. Case discussed with staff, and family, gave updates, doing better, out of ICU. Critical care time 45 minutes Subjective 24 Hr Interval Summary Free Text/Dictation full alert, n o distress BP has been stable Exam/Review of Systems Vital Signs Vitals Vital Signs Date Time Temp Pulse Resp B/P Pulse Ox O2 Delivery O2 Flow Rate FiO2 01/03/17 13:12 98 5.0 28 01/03/17 13:12 110 29 Aerosol T Tube 01/03/17 11:00 105/76 01/03/17 07:00 97.8 Intake and Output 01/02/17 01/02/17 01/03/17 15:00 23:00 07:00 Intake Total 0 ml 1177 ml Output Total 280 ml 0 ml 225 ml Balance -280 ml 0 ml 952 ml Exam Constitutional: alert, frail, non-verbal Head: atraumatic, normocephalic Eyes: EOMI, PERRL, nl conjunctiva, nl lids ENMT: nl external ears & nose, nl lips & teeth, nl nasal mucosa & septum Neck: non-tender, supple Respiratory: other (much less crackles on lungs today) Cardiovascular: nl pulses, regular rate and rhythm, No S3, No S4, No bruits, No diastolic murmur, No edema, No gallop, No irregular rhythm, No jugular venous distention (JVD), No murmurs/extra sounds, No other, No rub, No systolic murmur Gastrointestinal: soft, tender (diffuse) Musculoskeletal: nl extremities to inspection Extremities: normal pulses, No calf tenderness, No clubbing, No cyanosis, No edema, No other, No palpable cord, No pitting pedal edema, No tenderness Neurological: DIE ENGRAVER II-XII intact, nl mental status Skin: nl turgor Lymph: nl lymph nodes Results Result Diagram: 01/03/17 0330 01/03/17 0330 Results 24 hrs Laboratory Tests Test 01/02/17 18:26 01/02/17 22:31 01/03/17 01:27 01/03/17 03:30 Bedside Glucose 92 98 Vancomycin Level Trough 17.1 White Blood Count 11.8 H Red Blood Count 2.95 L Hemoglobin 9.5 L Hematocrit 28.0 L Mean Corpuscular Volume 94.9 Mean Corpuscular Hemoglobin 32.2 Mean Corpuscular Hemoglobin Concent 33.9 Red Cell Distribution Width 14.4 Platelet Count 181 Mean Platelet Volume 12.9 H Neutrophils % 84.3 H Lymphocytes % 9.0 L Monocytes % 5.4 Eosinophils % 0.3 Basophils % 0.1 Nucleated Red Blood Cells % 0.0 Neutrophils # (Manual) 10.0 H Lymphocytes # 1.1 Monocytes # 0.6 Eosinophils # 0.0 Basophils # 0.0 Nucleated Red Blood Cells # 0.0 Sodium Level 132 L Potassium Level 4.2 Chloride Level 100 Carbon Dioxide Level 23 Anion Gap 13 Blood Urea Nitrogen 26 H Creatinine 0.68 Glucose Level 124 Calcium Level 7.5 L Phosphorus Level 2.8 Magnesium Level 2.8 #H Albumin 2.3 L Test 01/03/17 05:46 01/03/17 07:51 01/03/17 12:35 Bedside Glucose 175 133 160 Medications Medications Current Medications Chlorhexidine Gluconate (Peridex) 10 ml BID MM Last administered on 01/03/17t 08:55; Admin Dose 10 ML; Start 12/31/16 at 09:00 Lidocaine 1 patch 1 patch NOTE TRANSDERM ; Start 12/31/16 at 00:00 Vancomycin HCl (Vancocin) 100 ml @ 100 mls/hr Q24H IVPB Last administered on 23:46; Admin Dose 100 MLS/HR; Start 12/31/16 at 23:00 Insulin Aspart (Novolog Insulin Pen) NOVOLOG *MILD* ALGORI... Q4 SC Last administered on 01/03/17 05:50; Admin Dose 1 UNIT; Start 12/31/16 at 21:00 Miscellaneous Information 1 ea NOTE XX ; Start 12/31/16 at 18:30 Glucose (Glutose) 15 gm Q15M PRN PO DECREASED GLUCOSE; Start 12/31/16 at 18:30 Glucose (Glutose) 22.5 gm Q15M PRN PO DECREASED GLUCOSE; Start 12/31/16 at 18: 30 Dextrose (D50w Syringe) 25 ml Q15M PRN IV DECREASED GLUCOSE Last administered on 12/31/16 18:33; Admin Dose 25 ML; Start 12/31/16 at 18:30 Dextrose (D50w Syringe) 50 ml Q15M PRN IV DECREASED GLUCOSE; Start 12/31/16 at 18:30 Glucagon (Glucagen) 1 mg Q15M PRN IM DECREASED GLUCOSE; Start 12/31/16 at 18:30 Glucose (Glutose) 15 gm Q15M PRN BUCCAL DECREASED GLUCOSE; Start 12/31/16 at 18 :30 Hydromorphone HCl (Dilaudid) 0.5 mg Q4H PRN IV PAIN Last administered on 08:56; Admin Dose 0.5 MG; Start 01/01/17 at 01:30 Miscellaneous Information (Pending [facility] Order For Wound Care) This patient obregon... PRN PRN XX WOUND CARE; Start 01/01/17 at 03:00 Enoxaparin Sodium (Lovenox) 30 mg DAILY SC Last administered on 01/03/17 08:57 ; Admin Dose 30 MG; Start 01/01/17 at 14:00 Fentanyl 1 patch 1 patch Q3D TRANSDERM Last administered on 01/01/17 22:25; Admin Dose 1 PATCH; Start 01/01/17 at 20:00 Meropenem/Sodium Chloride 50 ml @ 100 mls/hr Q12H IVPB Last administered on 05:45; Admin Dose 100 MLS/HR; Start 01/02/17 at 18:00 Total Parenteral Nutrition 1,000 ml @ 40 mls/hr Q24H IV Last administered on 23:44; Admin Dose 40 MLS/HR; Start 01/02/17 at 21:00 Fat Emulsion Intravenous (Liposyn Ii 20%) 500 ml @ 21 mls/hr [id number] IV Last administered on 01/02/17 23:44; Admin Dose 21 MLS/HR; Start 01/02/17 at 21:00 BERNABE SÁNCHEZ MD Jan 03, 2017 13:22
[2017-01-03] MEDS: BALSAM PERU/CASTOR OIL 60 GM TUBE TOP SCH (15:00)
[2017-01-03] MEDS: ONDANSETRON 4 MG INJ IV PRN (17:46)
--- NOTE | 2017-01-03 20:08 | CONS ---
Date/Time of Note Date/Time of Note DATE: 01/03/17 TIME: 20:08 Assessment/Plan Assessment/Plan Chief Complaint/Hosp Course LEUKOCYTOSIS REACTIVE MONITOR CLOSELY ANEMIA N-CYTIC, N- CHROMIC WITH R RDW MONITOR BLOOD COUNT CLOSELY OBSERVE FOR BLEEDING AND HEMOLYSIS History of gastric cancer in the past status post gastrectomy as well as chemotherapy PER FAMILY- RAFAT Acute alteration in mental status likely secondary to subacute CVA Acute respiratory distress superimposed on chronic respiratory failure Bilateral pleural effusion with underlying pneumonia and CHF Sepsis with lactic acidosis Chronic muscle wasting and cachexia History of multiple esophageal strictures and bowel obstruction 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 Reported history of hypertension Penicillin allergy Problems: Consultation Date/Type/Reason Admit Date/Time Dec 30, 2016 at 23:12 Initial Consult Date 12/31/16 Type of Consultation: hemeon Referring Provider: ANA PAULINO 24 HR Interval Summary Free Text/Dictation ALL NOTED NO NEW EVENTS Exam/Review of Systems Vital Signs Vitals Vital Signs Date Time Temp Pulse Resp B/P Pulse Ox O2 Delivery O2 Flow Rate FiO2 01/03/17 20:02 101 01/03/17 16:30 100 01/03/17 16:12 28 Aerosol 5.0 28 T Tube 01/03/17 16:00 109/71 01/03/17 07:00 97.8 Intake and Output 01/02/17 01/02/17 01/03/17 15:00 23:00 07:00 Intake Total 0 ml 1177 ml Output Total 280 ml 0 ml 225 ml Balance -280 ml 0 ml 952 ml Exam GENERAL: 30 yo M obese HEENT:Unremarkable, no thrush NECK: Supple CHEST: Rise symmetrical without dyspnea on observation ABDOMEN: Soft, obese, KATHERIN drain w/dark brown liquid filling bulb EXTREMITIES: Warm, moves extremities SKIN: Tattoos Results Result Diagram: 01/03/17 0330 01/03/17 0330 Results 24 hrs Laboratory Tests Test 01/02/17 22:31 01/03/17 01:27 01/03/17 03:30 01/03/17 05:46 Vancomycin Level Trough 17.1 Bedside Glucose 98 175 White Blood Count 11.8 H Red Blood Count 2.95 L Hemoglobin 9.5 L Hematocrit 28.0 L Mean Corpuscular Volume 94.9 Mean Corpuscular Hemoglobin 32.2 Mean Corpuscular Hemoglobin Concent 33.9 Red Cell Distribution Width 14.4 Platelet Count 181 Mean Platelet Volume 12.9 H Neutrophils % 84.3 H Lymphocytes % 9.0 L Monocytes % 5.4 Eosinophils % 0.3 Basophils % 0.1 Nucleated Red Blood Cells % 0.0 Neutrophils # (Manual) 10.0 H Lymphocytes # 1.1 Monocytes # 0.6 Eosinophils # 0.0 Basophils # 0.0 Nucleated Red Blood Cells # 0.0 Sodium Level 132 L Potassium Level 4.2 Chloride Level 100 Carbon Dioxide Level 23 Anion Gap 13 Blood Urea Nitrogen 26 H Creatinine 0.68 Glucose Level 124 Calcium Level 7.5 L Phosphorus Level 2.8 Magnesium Level 2.8 #H Albumin 2.3 L Test 01/03/17 07:51 01/03/17 12:35 Bedside Glucose 133 160 Medications Medications Current Medications Chlorhexidine Gluconate (Peridex) 10 ml BID MM Last administered on 01/03/17 08:55; Admin Dose 10 ML; Start 12/31/16 at 09:00 Lidocaine (Lidoderm) 1 patch NOTE TRANSDERM ; Start 12/31/16 at 00:00 Insulin Aspart (Novolog Insulin Pen) NOVOLOG *MILD* ALGORI... Q4 SC Last administered on 01/03/17 05:50; Admin Dose 1 UNIT; Start 12/31/16 at 21:00 Miscellaneous Information 1 ea NOTE XX ; Start 12/31/16 at 18:30 Glucose (Glutose) 15 gm Q15M PRN PO DECREASED GLUCOSE; Start 12/31/16 at 18:30 Glucose (Glutose) 22.5 gm Q15M PRN PO DECREASED GLUCOSE; Start 12/31/16 at 18: 30 Dextrose (D50w Syringe) 25 ml Q15M PRN IV DECREASED GLUCOSE Last administered on 12/31/16 18:33; Admin Dose 25 ML; Start 12/31/16 at 18:30 Dextrose (D50w Syringe) 50 ml Q15M PRN IV DECREASED GLUCOSE; Start 12/31/16 at 18:30 Glucagon (Glucagen) 1 mg Q15M PRN IM DECREASED GLUCOSE; Start 12/31/16 at 18:30 Glucose (Glutose) 15 gm Q15M PRN BUCCAL DECREASED GLUCOSE; Start 12/31/16 at 18 :30 Hydromorphone HCl (Dilaudid) 0.5 mg Q4H PRN IV PAIN Last administered on 17:45; Admin Dose 0.5 MG; Start 01/01/17 at 01:30 Miscellaneous Information (Pending [facility] Order For Wound Care) This patient obregon... PRN PRN XX WOUND CARE; Start 01/01/17 at 03:00 Enoxaparin Sodium (Lovenox) 30 mg DAILY SC Last administered on 01/03/17 08:57 ; Admin Dose 30 MG; Start 01/01/17 at 14:00 Fentanyl 1 patch 1 patch Q3D TRANSDERM Last administered on 01/01/17 22:25; Admin Dose 1 PATCH; Start 01/01/17 at 20:00 Meropenem/Sodium Chloride 50 ml @ 100 mls/hr Q12H IVPB Last administered on 18:38; Admin Dose 100 MLS/HR; Start 01/02/17 at 18:00 Total Parenteral Nutrition 1,000 ml @ 40 mls/hr Q24H IV Last administered on 23:44; Admin Dose 40 MLS/HR; Start 01/02/17 at 21:00 Fat Emulsion Intravenous 500 ml @ 21 mls/hr [id number] IV Last administered on 23:44; Admin Dose 21 MLS/HR; Start 01/02/17 at 21:00 Vancomycin HCl/ Sodium Chloride (Vancocin/NS) 150 ml @ 75 mls/hr Q36H IVPB ; Start 01/04/17 at 11:00 Ondansetron HCl (Zofran Inj) 4 mg Q4H PRN IV NAUSEA AND/OR VOMITING Last administered on 01/03/17 17:46; Admin Dose 4 MG; Start 01/03/17 at 17:30 RUFINO STEVENSON MD Jan 03, 2017 20:08
[2017-01-03] MEDS: TPN 1,000 ML IV SCH (20:38)
[2017-01-03] MEDS: FAT EMULSION 20% 500 ML IV SCH (20:38)
--- NOTE | 2017-01-03 21:20 | PN ---
DATE: 01/03/2017 SUBJECTIVE DATA: The patient was transferred to ICU secondary to low blood pressure. She is awake, looks comfortable. The family at bedside. OBJECTIVE DATA: VITAL SIGNS: Temperature 97.8, pulse 101, respirations 19, blood pressure 105/76, and saturation 97 on T-tube. LABORATORY AND DIAGNOSTIC DATA: WBC 11.8, H and H 9.5 and 28, platelets 181, neutrophils 84.3, BUN 26, and creatinine 0.68. MICROBIOLOGY: Ass cultures remain negative. INDWELLINGS: Trach, PEG, and intra-abdominal tubes. ANTIMICROBIALS: Meropenem and vancomycin. ALLERGIES: AMPICILLIN. PHYSICAL EXAMINATION: GENERAL: This is a fragile, chronically ill-appearing, elderly woman, who is in no distress. HEENT: Head atraumatic, normocephalic. Sclerae anicteric. Buccal mucosa dry. NECK: Supple. Tracheostomy present. CHEST: Chest rise symmetrical. Breath sounds diminished at the bases. HEART: S1, S2. ABDOMEN: Soft, bowel sounds present. EXTREMITIES: Without cyanosis. ASSESSMENT: 1. Sepsis with symptomatic hypotension requiring transfer to ICU, improved. 2. Resolving encephalopathy. 3. Pneumonia with parapneumonic effusions status post thoracentesis on admission. 4. Acute cerebrovascular accident (CVA). 5. Cardiomyopathy with ejection fraction of 40 percent. 6. History of gastric carcinoma (CA), status post multiple resection with a chemotherapy. 7. History of recent bilateral abdominal drain placement secondary to abscess. 8. Anemia. 9. Cachexia. PLAN: 1. The patient remains hemodynamically stable. She is awake, in no distress. 2. She is on appropriate antibiotics. 3. We will follow recommendations of consultants. Dictated By: Nancy Mccarty NP /prachi/paige /Document#: [id number]
[2017-01-04] VITALS (10 sets, daily range): BP systolic 90–114; BP diastolic 52–70; PULSE 64–109; RESP 15–20
[2017-01-04] MEDS: ALBUTEROL/IPRATROPIUM (NEB) 3 ML AMP INH SCH ×5 (00:33→16:41)
[2017-01-04] MEDS: INSULIN ASPART [NOVOLOG] 3 ML PEN SC SCH ×6 (01:00→21:00)
[2017-01-04] MEDS: HYDROmorphONE 1 MG/ML SYG IV PRN ×5 (06:19→23:50)
[2017-01-04] MEDS: MEROPENEM 1 GM/50ML(PMX) 50 ML IVPB SCH ×2 (06:19→17:34)
[2017-01-04 06:26] LABS: BASOPHILS % 0.1 % (0.0-2.0); EOSINOPHILS # 0.1 10^3/ul (0.0-0.5); EOSINOPHILS % 0.6 % (0.0-7.0); HEMATOCRIT 31.6 % (37.0-47.0); HEMOGLOBIN 9.9 g/dl (12.0-16.0); LYMPHOCYTES % 6.9 % (15.0-51.0); MEAN CORPUSCULAR HEMOGLOBIN 29.7 pg (29.0-33.0); MEAN CORPUSCULAR HGB CONC 31.3 g/dl (32.0-37.0); MEAN CORPUSCULAR VOLUME 94.9 fl (82.0-101.0); MONOCYTE # 0.7 10^3/ul (0.3-0.9); MONOCYTES % 4.7 % (0.0-11.0); NEUTROPHILS % 86.7 % (39.0-77.0); NUCLEATED RED BLOOD CELLS # 0.1 10^3/ul (0.0-0.0); NUCLEATED RED BLOOD CELLS% 0.7 /100WBC (0.0-0.0); PLATELET COUNT 182 10^3/UL (140-415); RED BLOOD COUNT 3.33 10^6/ul (4.20-5.40); RED CELL DISTRIBUTION WIDTH 14.5 % (11.5-14.5); WHITE BLOOD COUNT 14.1 10^3/ul (4.8-10.8)
[2017-01-04 06:59] LABS: MAGNESIUM 2.5 mg/dl (1.7-2.5); PHOSPHORUS 3.8 mg/dl (2.5-4.9)
[2017-01-04 07:05] LABS: CREATININE 0.81 mg/dl (0.44-1.00); POTASSIUM 4.8 mmol/L (3.5-5.1)
[2017-01-04] MEDS: ENOXAPARIN 30 MG/0.3 ML SYG SC SCH (09:54)
[2017-01-04] MEDS: CHLORHEXIDINE GLUCONATE 15 ML UD CUP MM SCH ×2 (09:56→21:24)
[2017-01-04] MEDS ORDERED: VANCOMYCIN 600 MG in SOD CHLORIDE 0.9% 150 ML IVPB SCH (11:00)
[2017-01-04 11:49] LABS: CHOL/HDL RATIO 4.3 RATIO
--- NOTE | 2017-01-04 12:43 | CONS ---
Date/Time of Note Date/Time of Note DATE: 01/04/17 TIME: 12:30 Assessment/Plan Assessment/Plan Chief Complaint/Hosp Course LEUKOCYTOSIS REACTIVE MONITOR CLOSELY ANEMIA N-CYTIC, N- CHROMIC WITH R RDW MONITOR BLOOD COUNT CLOSELY OBSERVE FOR BLEEDING AND HEMOLYSIS History of gastric cancer in the past status post gastrectomy as well as chemotherapy PER FAMILY- RAFAT DECREASED URINE OUTPUT PER [facility] Acute alteration in mental status likely secondary to subacute CVA Acute respiratory distress superimposed on chronic respiratory failure Bilateral pleural effusion with underlying pneumonia and CHF Sepsis with lactic acidosis Chronic muscle wasting and cachexia History of multiple esophageal strictures and bowel obstruction 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 Reported history of hypertension Penicillin allergy Problems: Consultation Date/Type/Reason Admit Date/Time Dec 30, 2016 at 23:12 Initial Consult Date 12/31/16 Type of Consultation: hemeon Referring Provider: ANA PAULINO 24 HR Interval Summary Free Text/Dictation ALL NOTED PATIENT HAS DECREASED URINE OUTPUT Exam/Review of Systems Vital Signs Vitals Vital Signs Date Time Temp Pulse Resp B/P Pulse Ox O2 Delivery O2 Flow Rate FiO2 01/04/17 12:06 97.9 99 19 112/60 89 01/04/17 09:24 Aerosol 5.0 28 Intake and Output 01/03/17 01/03/17 01/04/17 15:00 23:00 07:00 Intake Total 240 ml 0 ml Output Total 350 ml Balance 240 ml -350 ml Exam GENERAL: This is a fragile, chronically ill-appearing, elderly woman, who is in no distress. HEENT: Head atraumatic, normocephalic. Sclerae anicteric. Buccal mucosa dry. NECK: Supple. Tracheostomy present. CHEST: Chest rise symmetrical. Breath sounds diminished at the bases. HEART: S1, S2. ABDOMEN: Soft, bowel sounds present. EXTREMITIES: Without cyanosis. Results Result Diagram: 01/04/17 0530 01/04/17 0530 Results 24 hrs Laboratory Tests Test 01/03/17 12:35 01/03/17 20:42 01/04/17 05:30 01/04/17 09:51 Bedside Glucose 160 142 120 White Blood Count 14.1 H Red Blood Count 3.33 L Hemoglobin 9.9 L Hematocrit 31.6 L Mean Corpuscular Volume 94.9 Mean Corpuscular Hemoglobin 29.7 Mean Corpuscular Hemoglobin Concent 31.3 L Red Cell Distribution Width 14.5 Platelet Count 182 Mean Platelet Volume 13.0 H Neutrophils % 86.7 H Lymphocytes % 6.9 L Monocytes % 4.7 Eosinophils % 0.6 Basophils % 0.1 Nucleated Red Blood Cells % 0.7 H Neutrophils # (Manual) 12.2 H Lymphocytes # 1.0 Monocytes # 0.7 Eosinophils # 0.1 Basophils # 0.0 Nucleated Red Blood Cells # 0.1 H Sodium Level 129 L Potassium Level 4.8 Chloride Level 99 Carbon Dioxide Level 21 Anion Gap 14 Blood Urea Nitrogen 38 #H Creatinine 0.81 Glucose Level 128 Calcium Level 8.0 L Phosphorus Level 3.8 Magnesium Level 2.5 Triglycerides Level 200 H Cholesterol Level 79 L LDL Cholesterol, Calculated 21 HDL Cholesterol 18 L Cholesterol/HDL Ratio 4.3 Medications Medications Current Medications Chlorhexidine Gluconate (Peridex) 10 ml BID MM Last administered on 01/04/17 09:56; Admin Dose 10 ML; Start 12/31/16 at 09:00 Lidocaine (Lidoderm) 1 patch NOTE TRANSDERM ; Start 12/31/16 at 00:00 Insulin Aspart (Novolog Insulin Pen) NOVOLOG *MILD* ALGORI... Q4 SC Last administered on 01/03/17 20:44; Admin Dose 1 UNIT; Start 12/31/16 at 21:00 Miscellaneous Information 1 ea NOTE XX ; Start 12/31/16 at 18:30 Glucose (Glutose) 15 gm Q15M PRN PO DECREASED GLUCOSE; Start 12/31/16 at 18:30 Glucose (Glutose) 22.5 gm Q15M PRN PO DECREASED GLUCOSE; Start 12/31/16 at 18: 30 Dextrose (D50w Syringe) 25 ml Q15M PRN IV DECREASED GLUCOSE Last administered on 12/31/16 18:33; Admin Dose 25 ML; Start 12/31/16 at 18:30 Dextrose (D50w Syringe) 50 ml Q15M PRN IV DECREASED GLUCOSE; Start 12/31/16 at 18:30 Glucagon (Glucagen) 1 mg Q15M PRN IM DECREASED GLUCOSE; Start 12/31/16 at 18:30 Glucose (Glutose) 15 gm Q15M PRN BUCCAL DECREASED GLUCOSE; Start 12/31/16 at 18 :30 Hydromorphone HCl (Dilaudid) 0.5 mg Q4H PRN IV PAIN Last administered on 22:30; Admin Dose 0.5 MG; Start 01/01/17 at 01:30 Miscellaneous Information (Pending [facility] Order For Wound Care) This patient obregon... PRN PRN XX WOUND CARE; Start 01/01/17 at 03:00 Enoxaparin Sodium (Lovenox) 30 mg DAILY SC Last administered on 01/04/17 09:54 ; Admin Dose 30 MG; Start 01/01/17 at 14:00 Fentanyl 1 patch 1 patch Q3D TRANSDERM Last administered on 01/01/17 22:25; Admin Dose 1 PATCH; Start 01/01/17 at 20:00 Meropenem/Sodium Chloride 50 ml @ 100 mls/hr Q12H IVPB Last administered on 06:19; Admin Dose 100 MLS/HR; Start 01/02/17 at 18:00 Total Parenteral Nutrition 1,000 ml @ 40 mls/hr Q24H IV Last administered on 20:38; Admin Dose 40 MLS/HR; Start 01/02/17 at 21:00 Fat Emulsion Intravenous 500 ml @ 21 mls/hr [id number] IV Last administered on 20:38; Admin Dose 21 MLS/HR; Start 01/02/17 at 21:00 Vancomycin HCl/ Sodium Chloride (Vancocin/NS) 150 ml @ 75 mls/hr Q36H IVPB ; Start 01/04/17 at 11:00 Ondansetron HCl (Zofran Inj) 4 mg Q4H PRN IV NAUSEA AND/OR VOMITING Last administered on 01/03/17 17:46; Admin Dose 4 MG; Start 01/03/17 at 17:30 RUFINO STEVENSON MD Jan 04, 2017 12:43
--- NOTE | 2017-01-04 15:42 | PN ---
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 sp thora, hospitalization c/b septic shock with hypotension warranting overnight ICU stay, transferred back to floor 8.25. aggressive pulm hygiene # Aspiration pneumonia/pneumonitis, on antibiotics: ID helping with abx #. Right pleural effusion, s/p US-guided thoracentesis with removal of 750 cc fluid on 12/31/2016 #. Recurrent ischemic stroke, follow up with neurology # Gastric cancer in 2011, for which she underwent extensive resection, as well as chemotherapy. #Multiple esophageal strictures and bowel obstructions,cont TPN. #Status post tracheostomy: wean O2 as tolerated Subjective 24 Hr Interval Summary Free Text/Dictation Pt with some thick secretions from her trach Exam/Review of Systems Vital Signs Vitals Vital Signs Date Time Temp Pulse Resp B/P Pulse Ox O2 Delivery O2 Flow Rate FiO2 01/04/17 12:46 92 20 95 Aerosol 5.0 28 01/04/17 12:06 97.9 112/60 Intake and Output 01/03/17 01/03/17 01/04/17 15:00 23:00 07:00 Intake Total 240 ml 0 ml Output Total 350 ml Balance 240 ml -350 ml Exam nad, sitting up in bed, on 5L (on RA at home) lung clear no mrg abd soft no rashes Results Result Diagram: 01/04/17 0530 01/04/17 0530 Results 24 hrs Laboratory Tests Test 01/03/17 20:42 01/04/17 02:59 01/04/17 05:30 01/04/17 05:35 Bedside Glucose 142 136 131 White Blood Count 14.1 H Red Blood Count 3.33 L Hemoglobin 9.9 L Hematocrit 31.6 L Mean Corpuscular Volume 94.9 Mean Corpuscular Hemoglobin 29.7 Mean Corpuscular Hemoglobin Concent 31.3 L Red Cell Distribution Width 14.5 Platelet Count 182 Mean Platelet Volume 13.0 H Neutrophils % 86.7 H Lymphocytes % 6.9 L Monocytes % 4.7 Eosinophils % 0.6 Basophils % 0.1 Nucleated Red Blood Cells % 0.7 H Neutrophils # (Manual) 12.2 H Lymphocytes # 1.0 Monocytes # 0.7 Eosinophils # 0.1 Basophils # 0.0 Nucleated Red Blood Cells # 0.1 H Sodium Level 129 L Potassium Level 4.8 Chloride Level 99 Carbon Dioxide Level 21 Anion Gap 14 Blood Urea Nitrogen 38 #H Creatinine 0.81 Glucose Level 128 Calcium Level 8.0 L Phosphorus Level 3.8 Magnesium Level 2.5 Triglycerides Level 200 H Cholesterol Level 79 L LDL Cholesterol, Calculated 21 HDL Cholesterol 18 L Cholesterol/HDL Ratio 4.3 Test 01/04/17 09:51 01/04/17 13:12 Bedside Glucose 120 138 Medications Medications Current Medications Chlorhexidine Gluconate (Peridex) 10 ml BID MM Last administered on 01/04/17 09:56; Admin Dose 10 ML; Start 12/31/16 at 09:00 Lidocaine (Lidoderm) 1 patch NOTE TRANSDERM ; Start 12/31/16 at 00:00 Insulin Aspart (Novolog Insulin Pen) NOVOLOG *MILD* ALGORI... Q4 SC Last administered on 01/03/17 20:44; Admin Dose 1 UNIT; Start 12/31/16 at 21:00 Miscellaneous Information 1 ea NOTE XX ; Start 12/31/16 at 18:30 Glucose (Glutose) 15 gm Q15M PRN PO DECREASED GLUCOSE; Start 12/31/16 at 18:30 Glucose (Glutose) 22.5 gm Q15M PRN PO DECREASED GLUCOSE; Start 12/31/16 at 18: 30 Dextrose (D50w Syringe) 25 ml Q15M PRN IV DECREASED GLUCOSE Last administered on 12/31/16 18:33; Admin Dose 25 ML; Start 12/31/16 at 18:30 Dextrose (D50w Syringe) 50 ml Q15M PRN IV DECREASED GLUCOSE; Start 12/31/16 at 18:30 Glucagon (Glucagen) 1 mg Q15M PRN IM DECREASED GLUCOSE; Start 12/31/16 at 18:30 Glucose (Glutose) 15 gm Q15M PRN BUCCAL DECREASED GLUCOSE; Start 12/31/16 at 18 :30 Hydromorphone HCl (Dilaudid) 0.5 mg Q4H PRN IV PAIN Last administered on 13:16; Admin Dose 0.5 MG; Start 01/01/17 at 01:30 Miscellaneous Information (Pending [facility] Order For Wound Care) This patient ob[place]... PRN PRN XX WOUND CARE; Start 01/01/17 at 03:00 Enoxaparin Sodium (Lovenox) 30 mg DAILY SC Last administered on 01/04/17 09:54 ; Admin Dose 30 MG; Start 01/01/17 at 14:00 Fentanyl 1 patch 1 patch Q3D TRANSDERM Last administered on 01/01/17 22:25; Admin Dose 1 PATCH; Start 01/01/17 at 20:00 Meropenem/Sodium Chloride 50 ml @ 100 mls/hr Q12H IVPB Last administered on 06:19; Admin Dose 100 MLS/HR; Start 01/02/17 at 18:00 Total Parenteral Nutrition 1,000 ml @ 40 mls/hr Q24H IV Last administered on 20:38; Admin Dose 40 MLS/HR; Start 01/02/17 at 21:00 Fat Emulsion Intravenous 500 ml @ 21 mls/hr [id number] IV Last administered on 20:38; Admin Dose 21 MLS/HR; Start 01/02/17 at 21:00 Vancomycin HCl/ Sodium Chloride (Vancocin/NS) 150 ml @ 75 mls/hr Q36H IVPB Last administered on 01/04/17 11:16; Admin Dose 75 MLS/HR; Start 01/04/17 at 11 :00 Ondansetron HCl (Zofran Inj) 4 mg Q4H PRN IV NAUSEA AND/OR VOMITING Last administered on 01/03/17 17:46; Admin Dose 4 MG; Start 01/03/17 at 17:30 MODESTO SANDHU MD Jan 04, 2017 15:42
--- NOTE | 2017-01-04 15:50 | CONS ---
Date/Time of Note Date/Time of Note DATE: 01/04/17 TIME: 15:48 Consult Date/Type/Reason Admit Date/Time Dec 30, 2016 at 23:12 Initial Consult Date 01/01/17 Type of Consultation: Pulm Ordering Provider: ANA PAULINO Subjective No events. Thick secretions from trach noted. Objective Vital Signs Date Time Temp Pulse Resp B/P Pulse Ox O2 Delivery O2 Flow Rate FiO2 01/04/17 15:39 98.6 99 20 114/68 96 01/04/17 12:46 Aerosol 5.0 28 Intake and Output 01/03/17 01/03/17 01/04/17 15:00 23:00 07:00 Intake Total 240 ml 0 ml Output Total 350 ml Balance 240 ml -350 ml Exam HEENT: Neck supple; no JVD; no LAD; trach site clear CVS: RRR, S1 and S2 CHEST: Coarse BS b/l ABD: Soft, NT, + BS EXT: No c/c/e Results/Medications Result Diagram: 01/04/17 0530 01/04/17 0530 Results 24 hrs Laboratory Tests Test 01/03/17 20:42 01/04/17 02:59 01/04/17 05:30 01/04/17 05:35 Bedside Glucose 142 136 131 White Blood Count 14.1 H Red Blood Count 3.33 L Hemoglobin 9.9 L Hematocrit 31.6 L Mean Corpuscular Volume 94.9 Mean Corpuscular Hemoglobin 29.7 Mean Corpuscular Hemoglobin Concent 31.3 L Red Cell Distribution Width 14.5 Platelet Count 182 Mean Platelet Volume 13.0 H Neutrophils % 86.7 H Lymphocytes % 6.9 L Monocytes % 4.7 Eosinophils % 0.6 Basophils % 0.1 Nucleated Red Blood Cells % 0.7 H Neutrophils # (Manual) 12.2 H Lymphocytes # 1.0 Monocytes # 0.7 Eosinophils # 0.1 Basophils # 0.0 Nucleated Red Blood Cells # 0.1 H Sodium Level 129 L Potassium Level 4.8 Chloride Level 99 Carbon Dioxide Level 21 Anion Gap 14 Blood Urea Nitrogen 38 #H Creatinine 0.81 Glucose Level 128 Calcium Level 8.0 L Phosphorus Level 3.8 Magnesium Level 2.5 Triglycerides Level 200 H Cholesterol Level 79 L LDL Cholesterol, Calculated 21 HDL Cholesterol 18 L Cholesterol/HDL Ratio 4.3 Test 01/04/17 09:51 01/04/17 13:12 Bedside Glucose 120 138 Medications Current Medications Chlorhexidine Gluconate (Peridex) 10 ml BID MM Last administered on 01/04/17 09:56; Admin Dose 10 ML; Start 12/31/16 at 09:00 Lidocaine (Lidoderm) 1 patch NOTE TRANSDERM ; Start 12/31/16 at 00:00 Insulin Aspart (Novolog Insulin Pen) NOVOLOG *MILD* ALGORI... Q4 SC Last administered on 01/03/17 20:44; Admin Dose 1 UNIT; Start 12/31/16 at 21:00 Miscellaneous Information 1 ea NOTE XX ; Start 12/31/16 at 18:30 Glucose (Glutose) 15 gm Q15M PRN PO DECREASED GLUCOSE; Start 12/31/16 at 18:30 Glucose (Glutose) 22.5 gm Q15M PRN PO DECREASED GLUCOSE; Start 12/31/16 at 18: 30 Dextrose (D50w Syringe) 25 ml Q15M PRN IV DECREASED GLUCOSE Last administered on 12/31/16 18:33; Admin Dose 25 ML; Start 12/31/16 at 18:30 Dextrose (D50w Syringe) 50 ml Q15M PRN IV DECREASED GLUCOSE; Start 12/31/16 at 18:30 Glucagon (Glucagen) 1 mg Q15M PRN IM DECREASED GLUCOSE; Start 12/31/16 at 18:30 Glucose (Glutose) 15 gm Q15M PRN BUCCAL DECREASED GLUCOSE; Start 12/31/16 at 18 :30 Hydromorphone HCl (Dilaudid) 0.5 mg Q4H PRN IV PAIN Last administered on 13:16; Admin Dose 0.5 MG; Start 01/01/17 at 01:30 [facility] This patient ob[place]... PRN PRN XX WOUND CARE; Start 01/01/17 at 03:00 Enoxaparin Sodium (Lovenox) 30 mg DAILY SC Last administered on 01/04/17 09:54 ; Admin Dose 30 MG; Start 01/01/17 at 14:00 Fentanyl 1 patch 1 patch Q3D TRANSDERM Last administered on 01/01/17 22:25; Admin Dose 1 PATCH; Start 01/01/17 at 20:00 Meropenem/Sodium Chloride 50 ml @ 100 mls/hr Q12H IVPB Last administered on 06:19; Admin Dose 100 MLS/HR; Start 01/02/17 at 18:00 Total Parenteral Nutrition 1,000 ml @ 40 mls/hr Q24H IV Last administered on 20:38; Admin Dose 40 MLS/HR; Start 01/02/17 at 21:00 Fat Emulsion Intravenous 500 ml @ 21 mls/hr [id number] IV Last administered on 20:38; Admin Dose 21 MLS/HR; Start 01/02/17 at 21:00 Vancomycin HCl/ Sodium Chloride (Vancocin/NS) 150 ml @ 75 mls/hr Q36H IVPB Last administered on 01/04/17 11:16; Admin Dose 75 MLS/HR; Start 01/04/17 at 11 :00 Ondansetron HCl (Zofran Inj) 4 mg Q4H PRN IV NAUSEA AND/OR VOMITING Last administered on 01/03/17 17:46; Admin Dose 4 MG; Start 01/03/17 at 17:30 Assessment/Plan Additional Assessment/Plan IMP: 1. RLL pna with possible parapneumonic effusion 2. History of significant ascites requiring bilateral abdominal drains in place which are continually draining serous fluid. 3. Open epigastric wound. 4. History of multiple CVAs. 5. Mild anemia and thrombocytopenia. 6. Prior history of gastric cancer status post surgery. 7. History of CABG. RECS: 1. Continue abx 2. BD's 3. CPT SAYDA MARTINEZ MD Jan 04, 2017 15:50
--- NOTE | 2017-01-04 16:21 | CONS ---
Date/Time of Note Date/Time of Note DATE: 01/04/17 TIME: 16:16 Consult Date/Type/Reason Admit Date/Time Dec 30, 2016 at 23:12 Initial Consult Date 01/01/17 Type of Consultation: neurology Ordering Provider: ANA PAULINO Subjective out of ICU, no acute events Objective Vital Signs Date Time Temp Pulse Resp B/P Pulse Ox O2 Delivery O2 Flow Rate FiO2 01/04/17 15:39 98.6 99 20 114/68 96 01/04/17 12:46 Aerosol 5.0 28 Intake and Output 01/03/17 01/03/17 01/04/17 15:00 23:00 07:00 Intake Total 240 ml 0 ml Output Total 350 ml Balance 240 ml -350 ml Results/Medications Result Diagram: 01/04/1730 01/04/17 0530 Results 24 hrs Laboratory Tests Test 01/03/17 20:42 01/04/17 02:59 01/04/17 05:30 01/04/17 05:35 Bedside Glucose 142 136 131 White Blood Count 14.1 H Red Blood Count 3.33 L Hemoglobin 9.9 L Hematocrit 31.6 L Mean Corpuscular Volume 94.9 Mean Corpuscular Hemoglobin 29.7 Mean Corpuscular Hemoglobin Concent 31.3 L Red Cell Distribution Width 14.5 Platelet Count 182 Mean Platelet Volume 13.0 H Neutrophils % 86.7 H Lymphocytes % 6.9 L Monocytes % 4.7 Eosinophils % 0.6 Basophils % 0.1 Nucleated Red Blood Cells % 0.7 H Neutrophils # (Manual) 12.2 H Lymphocytes # 1.0 Monocytes # 0.7 Eosinophils # 0.1 Basophils # 0.0 Nucleated Red Blood Cells # 0.1 H Sodium Level 129 L Potassium Level 4.8 Chloride Level 99 Carbon Dioxide Level 21 Anion Gap 14 Blood Urea Nitrogen 38 #H Creatinine 0.81 Glucose Level 128 Calcium Level 8.0 L Phosphorus Level 3.8 Magnesium Level 2.5 Triglycerides Level 200 H Cholesterol Level 79 L LDL Cholesterol, Calculated 21 HDL Cholesterol 18 L Cholesterol/HDL Ratio 4.3 Test 01/04/17 09:51 01/04/17 13:12 Bedside Glucose 120 138 Medications Current Medications Chlorhexidine Gluconate (Peridex) 10 ml BID MM Last administered on 01/04/17t 09:56; Admin Dose 10 ML; Start 12/31/16 at 09:00 Lidocaine (Lidoderm) 1 patch NOTE TRANSDERM ; Start 12/31/16 at 00:00 Insulin Aspart (Novolog Insulin Pen) NOVOLOG *MILD* ALGORI... Q4 SC Last administered on 01/03/17 20:44; Admin Dose 1 UNIT; Start 12/31/16 at 21:00 Miscellaneous Information 1 ea NOTE XX ; Start 12/31/16 at 18:30 Glucose (Glutose) 15 gm Q15M PRN PO DECREASED GLUCOSE; Start 12/31/16 at 18:30 Glucose (Glutose) 22.5 gm Q15M PRN PO DECREASED GLUCOSE; Start 12/31/16 at 18: 30 Dextrose (D50w Syringe) 25 ml Q15M PRN IV DECREASED GLUCOSE Last administered on 12/31/16 18:33; Admin Dose 25 ML; Start 12/31/16 at 18:30 Dextrose (D50w Syringe) 50 ml Q15M PRN IV DECREASED GLUCOSE; Start 12/31/16 at 18:30 Glucagon (Glucagen) 1 mg Q15M PRN IM DECREASED GLUCOSE; Start 12/31/16 at 18:30 Glucose (Glutose) 15 gm Q15M PRN BUCCAL DECREASED GLUCOSE; Start 12/31/16 at 18 :30 Hydromorphone HCl (Dilaudid) 0.5 mg Q4H PRN IV PAIN Last administered on 13:16; Admin Dose 0.5 MG; Start 01/01/17 at 01:30 Miscellaneous Information (Pending [facility] Order For Wound Care) This patient ob[place]... PRN PRN XX WOUND CARE; Start 01/01/17 at 03:00 Enoxaparin Sodium (Lovenox) 30 mg DAILY SC Last administered on 01/04/17 09:54 ; Admin Dose 30 MG; Start 01/01/17 at 14:00 Fentanyl 1 patch 1 patch Q3D TRANSDERM Last administered on 01/01/17 22:25; Admin Dose 1 PATCH; Start 01/01/17 at 20:00 Meropenem/Sodium Chloride 50 ml @ 100 mls/hr Q12H IVPB Last administered on 06:19; Admin Dose 100 MLS/HR; Start 01/02/17 at 18:00 Total Parenteral Nutrition 1,000 ml @ 40 mls/hr Q24H IV Last administered on 20:38; Admin Dose 40 MLS/HR; Start 01/02/17 at 21:00 Fat Emulsion Intravenous 500 ml @ 21 mls/hr [id number] IV Last administered on 20:38; Admin Dose 21 MLS/HR; Start 01/02/17 at 21:00 Vancomycin HCl/ Sodium Chloride (Vancocin/NS) 150 ml @ 75 mls/hr Q36H IVPB Last administered on 01/04/17 11:16; Admin Dose 75 MLS/HR; Start 01/04/17 at 11 :00 Ondansetron HCl (Zofran Inj) 4 mg Q4H PRN IV NAUSEA AND/OR VOMITING Last administered on 01/03/17 17:46; Admin Dose 4 MG; Start 01/03/17 at 17:30 Assessment/Plan Chief Complaint/Hosp Course Neuroexam: Awake, follows simple commands with visual and multiple propmpting tracheostomy in place, non verbal CN: No response to threat from the right, pupils sluggish 2 mm bilaterally, slight right facial asymmetry, EOMI, corneals and gag presentls intact Right arm and leg flaccid, absent withdrawal, Min withdrawal LLE to pain, moves LUE spontaneously A/P: Acute CVA, sepsis, resp failure, renal failure Continue current treatment Problems: STAN TAYLOR MD Jan 04, 2017 16:21
[2017-01-04] MEDS: BALSAM PERU/CASTOR OIL 60 GM TUBE TOP SCH (17:34)
--- NOTE | 2017-01-04 17:58 | CONS ---
Date/Time of Note Date/Time of Note DATE: 01/04/17 TIME: 17:50 Assessment/Plan Assessment/Plan Chief Complaint/Hosp Course ID PROGRESS NOTE 24H INTERVAL SUMMARY * Awake, alert, non-verbal, eyes tracking, Trach - T-piece supplemental O2, VSS , NAD< no fevers * Chart reviewed -- was in ICU yesterday for transient hypotension * s/p ABD Drain placement 01/03: (+) GNR pending * s/p THORA 12/31 (-) Micro EXAM HEENT: Unremarkable NECK: trach site clear CVS: RRR, S1 and S2 CHEST: Coarse BS b/l ABD: Soft, NT, + BS EXT: No c/c/e ID ASSESSMENT 1. Sepsis s/p symptomatic hypotension requiring transfer to ICU, improved. 2. Resolving encephalopathy. 3. Pneumonia with parapneumonic effusions status post thoracentesis on admission. 4. Acute cerebrovascular accident (CVA). 5. Cardiomyopathy with ejection fraction of 40 percent. 6. History of gastric carcinoma (CA), status post multiple resection with a chemotherapy. 7. History of recent bilateral abdominal drain placement secondary to abscess. * s/p ABD Drain placement 01/03: (+) GNR pending 8. Anemia. 9. Cachexia. (-) MRSA Nares CURRENT ABX: Vanco IV + Merrem ID RECOMMENDATIONS 1. Continue current broad spectrum IV ABX -- await GNR ABD Abscess drainage pending final . Problems: Consultation Date/Type/Reason Admit Date/Time Dec 30, 2016 at 23:12 Initial Consult Date 01/01/17 Type of Consultation: ID Referring Provider: ANA PAULINO Exam/Review of Systems Vital Signs Vitals Vital Signs Date Time Temp Pulse Resp B/P Pulse Ox O2 Delivery O2 Flow Rate FiO2 01/04/17 16:40 82 20 98 Aerosol 5.0 28 01/04/17 15:39 98.6 114/68 Intake and Output 01/03/17 01/03/17 01/04/17 15:00 23:00 07:00 Intake Total 240 ml 0 ml Output Total 350 ml Balance 240 ml -350 ml Results Result Diagram: 01/04/17 0530 01/04/17 0530 Results 24 hrs Laboratory Tests Test 01/03/17 20:42 01/04/17 02:59 01/04/17 05:30 01/04/17 05:35 Bedside Glucose 142 136 131 White Blood Count 14.1 H Red Blood Count 3.33 L Hemoglobin 9.9 L Hematocrit 31.6 L Mean Corpuscular Volume 94.9 Mean Corpuscular Hemoglobin 29.7 Mean Corpuscular Hemoglobin Concent 31.3 L Red Cell Distribution Width 14.5 Platelet Count 182 Mean Platelet Volume 13.0 H Neutrophils % 86.7 H Lymphocytes % 6.9 L Monocytes % 4.7 Eosinophils % 0.6 Basophils % 0.1 Nucleated Red Blood Cells % 0.7 H Neutrophils # (Manual) 12.2 H Lymphocytes # 1.0 Monocytes # 0.7 Eosinophils # 0.1 Basophils # 0.0 Nucleated Red Blood Cells # 0.1 H Sodium Level 129 L Potassium Level 4.8 Chloride Level 99 Carbon Dioxide Level 21 Anion Gap 14 Blood Urea Nitrogen 38 #H Creatinine 0.81 Glucose Level 128 Calcium Level 8.0 L Phosphorus Level 3.8 Magnesium Level 2.5 Triglycerides Level 200 H Cholesterol Level 79 L LDL Cholesterol, Calculated 21 HDL Cholesterol 18 L Cholesterol/HDL Ratio 4.3 Test 01/04/17 09:51 01/04/17 13:12 01/04/17 17:38 Bedside Glucose 120 138 129 Medications Medications Current Medications Chlorhexidine Gluconate (Peridex) 10 ml BID MM Last administered on 01/04/17 09:56; Admin Dose 10 ML; Start 12/31/16 at 09:00 Lidocaine (Lidoderm) 1 patch NOTE TRANSDERM ; Start 12/31/16 at 00:00 Insulin Aspart (Novolog Insulin Pen) NOVOLOG *MILD* ALGORI... Q4 SC Last administered on 01/03/17 20:44; Admin Dose 1 UNIT; Start 12/31/16 at 21:00 Miscellaneous Information 1 ea NOTE XX ; Start 12/31/16 at 18:30 Glucose (Glutose) 15 gm Q15M PRN PO DECREASED GLUCOSE; Start 12/31/16 at 18:30 Glucose (Glutose) 22.5 gm Q15M PRN PO DECREASED GLUCOSE; Start 12/31/16 at 18: 30 Dextrose (D50w Syringe) 25 ml Q15M PRN IV DECREASED GLUCOSE Last administered on 12/31/16 18:33; Admin Dose 25 ML; Start 12/31/16 at 18:30 Dextrose (D50w Syringe) 50 ml Q15M PRN IV DECREASED GLUCOSE; Start 12/31/16 at 18:30 Glucagon (Glucagen) 1 mg Q15M PRN IM DECREASED GLUCOSE; Start 12/31/16 at 18:30 Glucose (Glutose) 15 gm Q15M PRN BUCCAL DECREASED GLUCOSE; Start 12/31/16 at 18 :30 Hydromorphone HCl (Dilaudid) 0.5 mg Q4H PRN IV PAIN Last administered on 17:31; Admin Dose 0.5 MG; Start 01/01/17 at 01:30 Miscellaneous Information (Pending [facility] Order For Wound Care) This patient ob[place]... PRN PRN XX WOUND CARE; Start 01/01/17 at 03:00 Enoxaparin Sodium (Lovenox) 30 mg DAILY SC Last administered on 01/04/17 09:54 ; Admin Dose 30 MG; Start 01/01/17 at 14:00 Fentanyl 1 patch 1 patch Q3D TRANSDERM Last administered on 01/01/17 22:25; Admin Dose 1 PATCH; Start 01/01/17 at 20:00 Meropenem/Sodium Chloride 50 ml @ 100 mls/hr Q12H IVPB Last administered on 17:34; Admin Dose 100 MLS/HR; Start 01/02/17 at 18:00 Total Parenteral Nutrition 1,000 ml @ 40 mls/hr Q24H IV Last administered on 20:38; Admin Dose 40 MLS/HR; Start 01/02/17 at 21:00 Fat Emulsion Intravenous 500 ml @ 21 mls/hr [id number] IV Last administered on 20:38; Admin Dose 21 MLS/HR; Start 01/02/17 at 21:00 Vancomycin HCl/ Sodium Chloride (Vancocin/NS) 150 ml @ 75 mls/hr Q36H IVPB Last administered on 01/04/17 11:16; Admin Dose 75 MLS/HR; Start 01/04/17 at 11 :00 Ondansetron HCl (Zofran Inj) 4 mg Q4H PRN IV NAUSEA AND/OR VOMITING Last administered on 01/03/17 17:46; Admin Dose 4 MG; Start 01/03/17 at 17:30 KIMBERLYN WHITNEY NP Jan 04, 2017 17:58
[2017-01-04] MEDS: ACETYLCYSTEINE 20% 4 ML VIAL NEB SCH (20:00)
[2017-01-04] MEDS: TPN 1,000 ML IV SCH (21:24)
[2017-01-04] MEDS: FAT EMULSION 20% 500 ML IV SCH (23:19)
[2017-01-04] MEDS: FENTAnyl PATCH 50 MCG/HR TRANSDERM SCH (23:20)
[2017-01-05] VITALS (12 sets, daily range): BP systolic 110–121; BP diastolic 62–73; PULSE 95–106; RESP 15–21
[2017-01-05] MEDS: ALBUTEROL/IPRATROPIUM (NEB) 3 ML AMP INH SCH ×6 (00:48→20:43)
[2017-01-05] MEDS: ACETYLCYSTEINE 20% 4 ML VIAL NEB SCH ×4 (01:04→20:43)
[2017-01-05] MEDS: INSULIN ASPART [NOVOLOG] 3 ML PEN SC SCH ×6 (02:00→21:00)
[2017-01-05] MEDS: HYDROmorphONE 1 MG/ML SYG IV PRN ×4 (04:04→18:04)
[2017-01-05] MEDS: MEROPENEM 1 GM/50ML(PMX) 50 ML IVPB SCH (06:02)
[2017-01-05 09:18] LABS: CALCIUM 7.6 mg/dl (8.4-10.2); CREATININE 0.72 mg/dl (0.44-1.00); MAGNESIUM 2.2 mg/dl (1.7-2.5); PHOSPHORUS 3.7 mg/dl (2.5-4.9); POTASSIUM 5.3 mmol/L (3.5-5.1)
[2017-01-05] MEDS: ONDANSETRON 4 MG INJ IV PRN ×3 (09:30→18:04)
[2017-01-05] MEDS: ENOXAPARIN 30 MG/0.3 ML SYG SC SCH (09:30)
[2017-01-05] MEDS: CHLORHEXIDINE GLUCONATE 15 ML UD CUP MM SCH ×2 (09:30→21:51)
[2017-01-05] MEDS: BALSAM PERU/CASTOR OIL 60 GM TUBE TOP SCH (09:42)
--- NOTE | 2017-01-05 13:04 | CONS ---
Date/Time of Note Date/Time of Note DATE: 01/05/17 TIME: 13:02 Consult Date/Type/Reason Admit Date/Time Dec 30, 2016 at 23:12 Initial Consult Date 01/01/17 Type of Consultation: neurology Ordering Provider: ANA PAULINO Subjective awake but less responsive per family Objective Vital Signs Date Time Temp Pulse Resp B/P Pulse Ox O2 Delivery O2 Flow Rate FiO2 01/05/17 12:53 108 18 99 Aerosol 40 01/05/17 12:22 10.0 01/05/17 11:58 98.0 116/67 Intake and Output 01/04/17 01/04/17 01/05/17 15:00 23:00 07:00 Intake Total 1300 ml 671 ml Output Total 530 ml 700 ml Balance 770 ml -29 ml Results/Medications Result Diagram: 01/04/17 0530 01/05/17 0600 Results 24 hrs Laboratory Tests Test 01/04/17 13:12 01/04/17 17:38 01/04/17 21:21 01/05/17 01:51 Bedside Glucose 138 129 122 118 Test 01/05/17 06:00 01/05/17 06:01 01/05/17 08:24 01/05/17 12:18 Sodium Level 134 L Potassium Level 5.3 H Chloride Level 100 Carbon Dioxide Level 24 Anion Gap 15 Blood Urea Nitrogen 46 H Creatinine 0.72 Glucose Level 105 Calcium Level 7.6 L Phosphorus Level 3.7 Magnesium Level 2.2 Bedside Glucose 109 109 118 Medications Current Medications Chlorhexidine Gluconate (Peridex) 10 ml BID MM Last administered on 01/05/17 09:30; Admin Dose 10 ML; Start 12/31/16 at 09:00 Lidocaine (Lidoderm) 1 patch NOTE TRANSDERM ; Start 12/31/16 at 00:00 Insulin Aspart (Novolog Insulin Pen) NOVOLOG *MILD* ALGORI... Q4 SC Last administered on 01/03/17 20:44; Admin Dose 1 UNIT; Start 12/31/16 at 21:00 Miscellaneous Information 1 ea NOTE XX ; Start 12/31/16 at 18:30 Glucose (Glutose) 15 gm Q15M PRN PO DECREASED GLUCOSE; Start 12/31/16 at 18:30 Glucose (Glutose) 22.5 gm Q15M PRN PO DECREASED GLUCOSE; Start 12/31/16 at 18: 30 Dextrose (D50w Syringe) 25 ml Q15M PRN IV DECREASED GLUCOSE Last administered on 12/31/16 18:33; Admin Dose 25 ML; Start 12/31/16 at 18:30 Dextrose (D50w Syringe) 50 ml Q15M PRN IV DECREASED GLUCOSE; Start 12/31/16 at 18:30 Glucagon (Glucagen) 1 mg Q15M PRN IM DECREASED GLUCOSE; Start 12/31/16 at 18:30 Glucose (Glutose) 15 gm Q15M PRN BUCCAL DECREASED GLUCOSE; Start 12/31/16 at 18 :30 Hydromorphone HCl (Dilaudid) 0.5 mg Q4H PRN IV PAIN Last administered on 09:32; Admin Dose 0.5 MG; Start 01/01/17 at 01:30 [facility] This patient ob[place]... PRN PRN XX WOUND CARE; Start 01/01/17 at 03:00 Enoxaparin Sodium (Lovenox) 30 mg DAILY SC Last administered on 01/05/17 09:30 ; Admin Dose 30 MG; Start 01/01/17 at 14:00 Fentanyl 1 patch 1 patch Q3D TRANSDERM Last administered on 01/04/17 23:20; Admin Dose 1 PATCH; Start 01/01/17 at 20:00 Meropenem/Sodium Chloride 50 ml @ 100 mls/hr Q12H IVPB Last administered on 06:02; Admin Dose 100 MLS/HR; Start 01/02/17 at 18:00 Total Parenteral Nutrition 1,000 ml @ 40 mls/hr Q24H IV Last administered on 21:24; Admin Dose 40 MLS/HR; Start 01/02/17 at 21:00 Fat Emulsion Intravenous 500 ml @ 21 mls/hr [id number] IV Last administered on 23:19; Admin Dose 21 MLS/HR; Start 01/02/17 at 21:00 Vancomycin HCl/ Sodium Chloride (Vancocin/NS) 150 ml @ 75 mls/hr Q36H IVPB Last administered on 01/04/17 11:16; Admin Dose 75 MLS/HR; Start 01/04/17 at 11 :00 Ondansetron HCl (Zofran Inj) 4 mg Q4H PRN IV NAUSEA AND/OR VOMITING Last administered on 01/05/17t 09:30; Admin Dose 4 MG; Start 01/03/17 at 17:30 Assessment/Plan Chief Complaint/Hosp Course Neuroexam: Awake,does not follow simple commands even with visual and multiple propmpting tracheostomy in place, non verbal CN: No response to threat from the right, pupils sluggish 2 mm bilaterally, slight right facial asymmetry, EOMI, corneals and gag presentls intact Right arm and leg flaccid, absent withdrawal, Min withdrawal LLE to pain, moves LUE spontaneously A/P: Acute CVA, sepsis, resp failure, renal failure Continue current treatment Problems: STAN TAYLOR MD Jan 05, 2017 13:04
--- NOTE | 2017-01-05 13:35 | CONS ---
Date/Time of Note Date/Time of Note DATE: 01/05/17 TIME: 13:34 Consult Date/Type/Reason Admit Date/Time Dec 30, 2016 at 23:12 Initial Consult Date 01/01/17 Type of Consultation: Pulm Ordering Provider: ANA PAULINO Subjective No events. Objective Vital Signs Date Time Temp Pulse Resp B/P Pulse Ox O2 Delivery O2 Flow Rate FiO2 01/05/17 12:53 108 18 99 Aerosol 40 01/05/17 12:22 10.0 01/05/17 11:58 98.0 116/67 Intake and Output 01/04/17 01/04/17 01/05/17 15:00 23:00 07:00 Intake Total 1300 ml 671 ml Output Total 530 ml 700 ml Balance 770 ml -29 ml Exam HEENT: Neck supple; no JVD; no LAD; trach site clear CVS: RRR, S1 and S2 CHEST: Coarse BS b/l ABD: Soft, NT, + BS EXT: No c/c/e Results/Medications Result Diagram: 01/04/17 0530 01/05/17 0600 Results 24 hrs Laboratory Tests Test 01/04/17 17:38 01/04/17 21:21 01/05/17 01:51 01/05/17 06:00 Bedside Glucose 129 122 118 Sodium Level 134 L Potassium Level 5.3 H Chloride Level 100 Carbon Dioxide Level 24 Anion Gap 15 Blood Urea Nitrogen 46 H Creatinine 0.72 Glucose Level 105 Calcium Level 7.6 L Phosphorus Level 3.7 Magnesium Level 2.2 Test 01/05/17 06:01 01/05/17 08:24 01/05/17 12:18 Bedside Glucose 109 109 118 Medications Current Medications Chlorhexidine Gluconate (Peridex) 10 ml BID MM Last administered on 01/05/17 09:30; Admin Dose 10 ML; Start 12/31/16 at 09:00 Lidocaine (Lidoderm) 1 patch NOTE TRANSDERM ; Start 12/31/16 at 00:00 Insulin Aspart (Novolog Insulin Pen) NOVOLOG *MILD* ALGORI... Q4 SC Last administered on 01/03/17 20:44; Admin Dose 1 UNIT; Start 12/31/16 at 21:00 Miscellaneous Information 1 ea NOTE XX ; Start 12/31/16 at 18:30 Glucose (Glutose) 15 gm Q15M PRN PO DECREASED GLUCOSE; Start 12/31/16 at 18:30 Glucose (Glutose) 22.5 gm Q15M PRN PO DECREASED GLUCOSE; Start 12/31/16 at 18: 30 Dextrose (D50w Syringe) 25 ml Q15M PRN IV DECREASED GLUCOSE Last administered on 12/31/16 18:33; Admin Dose 25 ML; Start 12/31/16 at 18:30 Dextrose (D50w Syringe) 50 ml Q15M PRN IV DECREASED GLUCOSE; Start 12/31/16 at 18:30 Glucagon (Glucagen) 1 mg Q15M PRN IM DECREASED GLUCOSE; Start 12/31/16 at 18:30 Glucose (Glutose) 15 gm Q15M PRN BUCCAL DECREASED GLUCOSE; Start 12/31/16 at 18 :30 Hydromorphone HCl (Dilaudid) 0.5 mg Q4H PRN IV PAIN Last administered on 09:32; Admin Dose 0.5 MG; Start 01/01/17 at 01:30 Miscellaneous Information ([facility] This patient obregon... PRN PRN XX WOUND CARE; Start 01/01/17 at 03:00 Enoxaparin Sodium (Lovenox) 30 mg DAILY SC Last administered on 01/05/17 09:30 ; Admin Dose 30 MG; Start 01/01/17 at 14:00 Fentanyl 1 patch 1 patch Q3D TRANSDERM Last administered on 01/04/17 23:20; Admin Dose 1 PATCH; Start 01/01/17 at 20:00 Meropenem/Sodium Chloride 50 ml @ 100 mls/hr Q12H IVPB Last administered on 06:02; Admin Dose 100 MLS/HR; Start 01/02/17 at 18:00 Total Parenteral Nutrition 1,000 ml @ 40 mls/hr Q24H IV Last administered on 21:24; Admin Dose 40 MLS/HR; Start 01/02/17 at 21:00 Fat Emulsion Intravenous 500 ml @ 21 mls/hr [id number] IV Last administered on 23:19; Admin Dose 21 MLS/HR; Start 01/02/17 at 21:00 Vancomycin HCl/ Sodium Chloride (Vancocin/NS) 150 ml @ 75 mls/hr Q36H IVPB Last administered on 01/04/17 11:16; Admin Dose 75 MLS/HR; Start 01/04/17 at 11 :00 Ondansetron HCl (Zofran Inj) 4 mg Q4H PRN IV NAUSEA AND/OR VOMITING Last administered on 01/05/17 09:30; Admin Dose 4 MG; Start 01/03/17 at 17:30 Assessment/Plan Additional Assessment/Plan IMP: 1. RLL pna with possible parapneumonic effusion 2. History of significant ascites requiring bilateral abdominal drains in place which are continually draining serous fluid. 3. Open epigastric wound. 4. History of multiple CVAs. 5. Mild anemia and thrombocytopenia. 6. Prior history of gastric cancer status post surgery. 7. History of CABG. RECS: 1. Continue abx 2. BD's 3. CPT 4. Follow Na+ SAYDA MARTINEZ MD Jan 05, 2017 13:35
--- NOTE | 2017-01-05 14:00 | PN ---
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 sp thora, hospitalization c/b septic shock with hypotension warranting overnight ICU stay, transferred back to floor 8.25. # Aspiration pneumonia/pneumonitis, on antibiotics: ID helping with abx #. Right pleural effusion, s/p US-guided thoracentesis with removal of 750 cc fluid on 12/31/2016 #. Recurrent ischemic stroke: neuro on consult # Gastric cancer in 2011, for which she underwent extensive resection, as well as chemotherapy. #Multiple esophageal strictures and bowel obstructions,cont TPN. #Status post tracheostomy: wean O2 as tolerated Subjective 24 Hr Interval Summary Free Text/Dictation Less interactive per family Exam/Review of Systems Vital Signs Vitals Vital Signs Date Time Temp Pulse Resp B/P Pulse Ox O2 Delivery O2 Flow Rate FiO2 01/05/17 12:53 108 18 99 Aerosol 40 01/05/17 12:22 10.0 01/05/17 11:58 98.0 116/67 Intake and Output 01/04/17 01/04/17 01/05/17 15:00 23:00 07:00 Intake Total 1300 ml 671 ml Output Total 530 ml 700 ml Balance 770 ml -29 ml Exam nad trach secretions possibly less thick no mrg abd drain with dark output no rashes Results Result Diagram: 01/04/17 0530 01/05/17 0600 Results 24 hrs Laboratory Tests Test 01/04/17 17:38 01/04/17 21:21 01/05/17 01:51 01/05/17 06:00 Bedside Glucose 129 122 118 Sodium Level 134 L Potassium Level 5.3 H Chloride Level 100 Carbon Dioxide Level 24 Anion Gap 15 Blood Urea Nitrogen 46 H Creatinine 0.72 Glucose Level 105 Calcium Level 7.6 L Phosphorus Level 3.7 Magnesium Level 2.2 Test 01/05/17 06:01 01/05/17 08:24 01/05/17 12:18 Bedside Glucose 109 109 118 Medications Medications Current Medications Chlorhexidine Gluconate (Peridex) 10 ml BID MM Last administered on 01/05/17 09:30; Admin Dose 10 ML; Start 12/31/16 at 09:00 Lidocaine (Lidoderm) 1 patch NOTE TRANSDERM ; Start 12/31/16 at 00:00 Insulin Aspart (Novolog Insulin Pen) NOVOLOG *MILD* ALGORI... Q4 SC Last administered on 01/03/17 20:44; Admin Dose 1 UNIT; Start 12/31/16 at 21:00 Miscellaneous Information 1 ea NOTE XX ; Start 12/31/16 at 18:30 Glucose (Glutose) 15 gm Q15M PRN PO DECREASED GLUCOSE; Start 12/31/16 at 18:30 Glucose (Glutose) 22.5 gm Q15M PRN PO DECREASED GLUCOSE; Start 12/31/16 at 18: 30 Dextrose (D50w Syringe) 25 ml Q15M PRN IV DECREASED GLUCOSE Last administered on 12/31/16 18:33; Admin Dose 25 ML; Start 12/31/16 at 18:30 Dextrose (D50w Syringe) 50 ml Q15M PRN IV DECREASED GLUCOSE; Start 12/31/16 at 18:30 Glucagon (Glucagen) 1 mg Q15M PRN IM DECREASED GLUCOSE; Start 12/31/16 at 18:30 Glucose (Glutose) 15 gm Q15M PRN BUCCAL DECREASED GLUCOSE; Start 12/31/16 at 18 :30 Hydromorphone HCl (Dilaudid) 0.5 mg Q4H PRN IV PAIN Last administered on 13:39; Admin Dose 0.5 MG; Start 01/01/17 at 01:30 Miscellaneous Information (Pending [facility] Order For Wound Care) This patient obregon... PRN PRN XX WOUND CARE; Start 01/01/17 at 03:00 Enoxaparin Sodium (Lovenox) 30 mg DAILY SC Last administered on 01/05/17 09:30 ; Admin Dose 30 MG; Start 01/01/17 at 14:00 Fentanyl 1 patch 1 patch Q3D TRANSDERM Last administered on 01/04/17 23:20; Admin Dose 1 PATCH; Start 01/01/17 at 20:00 Meropenem/Sodium Chloride 50 ml @ 100 mls/hr Q12H IVPB Last administered on 06:02; Admin Dose 100 MLS/HR; Start 01/02/17 at 18:00 Total Parenteral Nutrition 1,000 ml @ 40 mls/hr Q24H IV Last administered on 21:24; Admin Dose 40 MLS/HR; Start 01/02/17 at 21:00 Fat Emulsion Intravenous 500 ml @ 21 mls/hr [id number] IV Last administered on 23:19; Admin Dose 21 MLS/HR; Start 01/02/17 at 21:00 Vancomycin HCl/ Sodium Chloride (Vancocin/NS) 150 ml @ 75 mls/hr Q36H IVPB Last administered on 01/04/17 11:16; Admin Dose 75 MLS/HR; Start 01/04/17 at 11 :00 Ondansetron HCl (Zofran Inj) 4 mg Q4H PRN IV NAUSEA AND/OR VOMITING Last administered on 01/05/17 13:37; Admin Dose 4 MG; Start 01/03/17 at 17:30 MODESTO SANDHU MD Jan 05, 2017 14:00
--- NOTE | 2017-01-05 15:12 | CONS ---
Date/Time of Note Date/Time of Note DATE: 01/05/17 TIME: 15:05 Assessment/Plan Assessment/Plan Chief Complaint/Hosp Course ID PROGRESS NOTE 24H INTERVAL SUMMARY * Awake, alert, non-verbal, eyes tracking, Trach - T-piece supplemental O2, VSS , NAD< no fevers * Chart reviewed -- was in ICU yesterday for transient hypotension * s/p ABD Drain placement 01/03: BODY FLUID CULTURE Preliminary Organism 1 KLEB PNEUMONIAE CARBAPENEMASE = MDRO = CRE QUANTITY 2+ . MULTI DRUG RESISTANT ORGANISM Organism 2 GRAM NEGATIVE JO ANN (+) GNR pending QUANTITY 1+ Organism 3 ENTEROCOCCUS SPECIES QUERY VRE? QUANTITY ISOLATED FROM BROTH ONLY KLEB PNEUM M.I.C. RX --------- --- CEFAZOLIN R CEFEPIME >=64 R CEFOTAXIME R CIPROFLOXACIN >=4 R IMIPENEM >=16 R LEVOFLOXACIN >=8 R TOBRAMYCIN >=16 R TRIMETHOPRIM/SULFAMETHOXAZOLE <=20 S PIPERACILLIN/TAZOBACTAM >=128 R * s/p THORA 12/31 (-) Micro EXAM HEENT: Unremarkable NECK: trach site clear CVS: RRR, S1 and S2 CHEST: Coarse BS b/l ABD: Soft, NT, + BS EXT: No c/c/e ID ASSESSMENT 1. Sepsis s/p symptomatic hypotension requiring transfer to ICU, improved. 2. Resolving encephalopathy. 3. Pneumonia with parapneumonic effusions status post thoracentesis on admission. 4. Acute cerebrovascular accident (CVA). 5. Cardiomyopathy with ejection fraction of 40 percent. 6. History of gastric carcinoma (CA), status post multiple resection with a chemotherapy. 7. History of recent bilateral abdominal drain placement secondary to abscess. * s/p ABD Drain placement 01/03: (+) GNR = CRKP + Enterococcus + GNR #2 pending 8. Anemia. 9. Cachexia. (-) MRSA Nares CURRENT ABX: Tygacil #1 Vanco IV + Merrem -> DC 01/05 ID RECOMMENDATIONS 1. DC Vanco IV & DC Merrem -> KP == CRKP resistant to ABX 2. Start Tygacil will cover CRE, VRE, MRSA -- the only pathogen it will not cover is PSAR 3. Follow up on final 2nd GNR ABD Abscess drainage pending final * s/p ABD Drain placement 01/03: BODY FLUID CULTURE Preliminary Organism 1 KLEB PNEUMONIAE CARBAPENEMASE = MDRO = CRE QUANTITY 2+ . MULTI DRUG RESISTANT ORGANISM Organism 2 GRAM NEGATIVE JO ANN (+) GNR pending QUANTITY 1+ Organism 3 ENTEROCOCCUS SPECIES QUERY VRE? QUANTITY ISOLATED FROM BROTH ONLY . Problems: Consultation Date/Type/Reason Admit Date/Time Dec 30, 2016 at 23:12 Initial Consult Date 01/01/17 Type of Consultation: ID Referring Provider: ANA PAULINO Exam/Review of Systems Vital Signs Vitals Vital Signs Date Time Temp Pulse Resp B/P Pulse Ox O2 Delivery O2 Flow Rate FiO2 01/05/17 12:53 108 18 99 Aerosol 40 01/05/17 12:22 10.0 01/05/17 11:58 98.0 116/67 Intake and Output 01/04/17 01/04/17 01/05/17 15:00 23:00 07:00 Intake Total 1300 ml 671 ml Output Total 530 ml 700 ml Balance 770 ml -29 ml Results Result Diagram: 01/04/17 0530 01/05/17 0600 Results 24 hrs Laboratory Tests Test 01/04/17 17:38 01/04/17 21:21 01/05/17 01:51 01/05/17 06:00 Bedside Glucose 129 122 118 Sodium Level 134 L Potassium Level 5.3 H Chloride Level 100 Carbon Dioxide Level 24 Anion Gap 15 Blood Urea Nitrogen 46 H Creatinine 0.72 Glucose Level 105 Calcium Level 7.6 L Phosphorus Level 3.7 Magnesium Level 2.2 Test 01/05/17 06:01 01/05/17 08:24 01/05/17 12:18 Bedside Glucose 109 109 118 Medications Medications Current Medications Chlorhexidine Gluconate (Peridex) 10 ml BID MM Last administered on 01/05/17 09:30; Admin Dose 10 ML; Start 12/31/16 at 09:00 Lidocaine (Lidoderm) 1 patch NOTE TRANSDERM ; Start 12/31/16 at 00:00 Insulin Aspart (Novolog Insulin Pen) NOVOLOG *MILD* ALGORI... Q4 SC Last administered on 01/03/17 20:44; Admin Dose 1 UNIT; Start 12/31/16 at 21:00 Miscellaneous Information 1 ea NOTE XX ; Start 12/31/16 at 18:30 Glucose (Glutose) 15 gm Q15M PRN PO DECREASED GLUCOSE; Start 12/31/16 at 18:30 Glucose (Glutose) 22.5 gm Q15M PRN PO DECREASED GLUCOSE; Start 12/31/16 at 18: 30 Dextrose (D50w Syringe) 25 ml Q15M PRN IV DECREASED GLUCOSE Last administered on 12/31/16 18:33; Admin Dose 25 ML; Start 12/31/16 at 18:30 Dextrose (D50w Syringe) 50 ml Q15M PRN IV DECREASED GLUCOSE; Start 12/31/16 at 18:30 Glucagon (Glucagen) 1 mg Q15M PRN IM DECREASED GLUCOSE; Start 12/31/16 at 18:30 Glucose (Glutose) 15 gm Q15M PRN BUCCAL DECREASED GLUCOSE; Start 12/31/16 at 18 :30 Hydromorphone HCl (Dilaudid) 0.5 mg Q4H PRN IV PAIN Last administered on 13:39; Admin Dose 0.5 MG; Start 01/01/17 at 01:30 Miscellaneous Information (Pending [facility] Order For Wound Care) This patient obregon... PRN PRN XX WOUND CARE; Start 01/01/17 at 03:00 Enoxaparin Sodium (Lovenox) 30 mg DAILY SC Last administered on 01/05/17 09:30 ; Admin Dose 30 MG; Start 01/01/17 at 14:00 Fentanyl 1 patch 1 patch Q3D TRANSDERM Last administered on 01/04/17 23:20; Admin Dose 1 PATCH; Start 01/01/17 at 20:00 Meropenem/Sodium Chloride 50 ml @ 100 mls/hr Q12H IVPB Last administered on 06:02; Admin Dose 100 MLS/HR; Start 01/02/17 at 18:00 Total Parenteral Nutrition 1,000 ml @ 40 mls/hr Q24H IV Last administered on 21:24; Admin Dose 40 MLS/HR; Start 01/02/17 at 21:00 Fat Emulsion Intravenous 500 ml @ 21 mls/hr [id number] IV Last administered on 23:19; Admin Dose 21 MLS/HR; Start 01/02/17 at 21:00 Vancomycin HCl/ Sodium Chloride (Vancocin/NS) 150 ml @ 75 mls/hr Q36H IVPB Last administered on 01/04/17 11:16; Admin Dose 75 MLS/HR; Start 01/04/17 at 11 :00 Ondansetron HCl (Zofran Inj) 4 mg Q4H PRN IV NAUSEA AND/OR VOMITING Last administered on 01/05/17 13:37; Admin Dose 4 MG; Start 01/03/17 at 17:30 KIMBERLYN WHITNEY NP Jan 05, 2017 15:12
[2017-01-05] MEDS ORDERED: TIGECYCLINE 100 MG in SOD CHLORIDE 0.9% 100 ML IVPB ONE (17:00)
--- NOTE | 2017-01-05 21:06 | CONS ---
Date/Time of Note Date/Time of Note DATE: 01/05/17 TIME: 21:06 Assessment/Plan Assessment/Plan Chief Complaint/Hosp Course LEUKOCYTOSIS REACTIVE MONITOR CLOSELY ANEMIA N-CYTIC, N- CHROMIC WITH R RDW MONITOR BLOOD COUNT CLOSELY OBSERVE FOR BLEEDING AND HEMOLYSIS History of gastric cancer in the past status post gastrectomy as well as chemotherapy PER FAMILY- RAFAT DECREASED URINE OUTPUT PER [facility]MARY Acute alteration in mental status likely secondary to subacute CVA Acute respiratory distress superimposed on chronic respiratory failure Bilateral pleural effusion with underlying pneumonia and CHF Sepsis with lactic acidosis Chronic muscle wasting and cachexia History of multiple esophageal strictures and bowel obstruction 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 Reported history of hypertension Penicillin allergy Problems: Consultation Date/Type/Reason Admit Date/Time Dec 30, 2016 at 23:12 Initial Consult Date 12/31/16 Type of Consultation: [employer] Referring Provider: ANA PAULINO 24 HR Interval Summary Free Text/Dictation ALL NOTED D/W RN Exam/Review of Systems Vital Signs Vitals Vital Signs Date Time Temp Pulse Resp B/P Pulse Ox O2 Delivery O2 Flow Rate FiO2 01/05/17 20:56 94 5.0 28 01/05/17 20:45 55 20 T Tube 01/05/17 19:36 98.1 115/73 Intake and Output 01/04/17 01/04/17 01/05/17 15:00 23:00 07:00 Intake Total 1300 ml 671 ml Output Total 530 ml 700 ml Balance 770 ml -29 ml Exam GENERAL: This is a fragile, chronically ill-appearing, elderly woman, who is in no distress. HEENT: Head atraumatic, normocephalic. Sclerae anicteric. Buccal mucosa dry. NECK: Supple. Tracheostomy present. CHEST: Chest rise symmetrical. Breath sounds diminished at the bases. HEART: S1, S2. ABDOMEN: Soft, bowel sounds present. EXTREMITIES: Without cyanosis. Results Result Diagram: 01/04/17 0530 01/05/17 0600 Results 24 hrs Laboratory Tests Test 01/04/17 21:21 01/05/17 01:51 01/05/17 06:00 01/05/17 06:01 Bedside Glucose 122 118 109 Sodium Level 134 L Potassium Level 5.3 H Chloride Level 100 Carbon Dioxide Level 24 Anion Gap 15 Blood Urea Nitrogen 46 H Creatinine 0.72 Glucose Level 105 Calcium Level 7.6 L Phosphorus Level 3.7 Magnesium Level 2.2 Test 01/05/17 08:24 01/05/17 12:18 01/05/17 17:25 Bedside Glucose 109 118 109 Medications Medications Current Medications Chlorhexidine Gluconate (Peridex) 10 ml BID MM Last administered on 01/05/17 09:30; Admin Dose 10 ML; Start 12/31/16 at 09:00 Lidocaine (Lidoderm) 1 patch NOTE TRANSDERM ; Start 12/31/16 at 00:00 Insulin Aspart (Novolog Insulin Pen) NOVOLOG *MILD* ALGORI... Q4 SC Last administered on 01/03/17 20:44; Admin Dose 1 UNIT; Start 12/31/16 at 21:00 Miscellaneous Information 1 ea NOTE XX ; Start 12/31/16 at 18:30 Glucose (Glutose) 15 gm Q15M PRN PO DECREASED GLUCOSE; Start 12/31/16 at 18:30 Glucose (Glutose) 22.5 gm Q15M PRN PO DECREASED GLUCOSE; Start 12/31/16 at 18: 30 Dextrose (D50w Syringe) 25 ml Q15M PRN IV DECREASED GLUCOSE Last administered on 12/31/16 18:33; Admin Dose 25 ML; Start 12/31/16 at 18:30 Dextrose (D50w Syringe) 50 ml Q15M PRN IV DECREASED GLUCOSE; Start 12/31/16 at 18:30 Glucagon (Glucagen) 1 mg Q15M PRN IM DECREASED GLUCOSE; Start 12/31/16 at 18:30 Glucose (Glutose) 15 gm Q15M PRN BUCCAL DECREASED GLUCOSE; Start 12/31/16 at 18 :30 Hydromorphone HCl (Dilaudid) 0.5 mg Q4H PRN IV PAIN Last administered on 18:04; Admin Dose 0.5 MG; Start 01/01/17 at 01:30 Miscellaneous Information (Pending [facility] Order For Wound Care) This patient obregon... PRN PRN XX WOUND CARE; Start 01/01/17 at 03:00 Enoxaparin Sodium (Lovenox) 30 mg DAILY SC Last administered on 01/05/17 09:30 ; Admin Dose 30 MG; Start 01/01/17 at 14:00 Fentanyl 1 patch 1 patch Q3D TRANSDERM Last administered on 01/04/17 23:20; Admin Dose 1 PATCH; Start 01/01/17 at 20:00 Total Parenteral Nutrition 1,000 ml @ 40 mls/hr Q24H IV Last administered on 21:24; Admin Dose 40 MLS/HR; Start 01/02/17 at 21:00 Fat Emulsion Intravenous (Liposyn Ii 20%) 500 ml @ 21 mls/hr [id number] IV Last administered on 01/04/17 23:19; Admin Dose 21 MLS/HR; Start 01/02/17 at 21:00 Ondansetron HCl 4 mg 4 mg Q4H PRN IV NAUSEA AND/OR VOMITING Last administered on 01/05/17 18:04; Admin Dose 4 MG; Start 01/03/17 at 17:30 Tigecycline/ Sodium Chloride (Tygacil/NS) 100 ml @ 200 mls/hr Q12H IVPB ; Start 01/06/17 at 05:00 RUFINO STEVENSON MD Jan 05, 2017 21:06
--- NOTE | 2017-01-05 21:09 | CONS ---
Date/Time of Note Date/Time of Note DATE: 01/05/17 TIME: 21:08 Assessment/Plan Assessment/Plan Chief Complaint/Hosp Course LEUKOCYTOSIS REACTIVE MONITOR CLOSELY ANEMIA N-CYTIC, N- CHROMIC WITH R RDW MONITOR BLOOD COUNT CLOSELY OBSERVE FOR BLEEDING AND HEMOLYSIS History of gastric cancer in the past status post gastrectomy as well as chemotherapy PER FAMILY- RAFAT DECREASED URINE OUTPUT PER [facility] Acute alteration in mental status likely secondary to subacute CVA Acute respiratory distress superimposed on chronic respiratory failure Bilateral pleural effusion with underlying pneumonia and CHF Sepsis with lactic acidosis Chronic muscle wasting and cachexia History of multiple esophageal strictures and bowel obstruction 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 Reported history of hypertension Penicillin allergy Problems: Consultation Date/Type/Reason Admit Date/Time Dec 30, 2016 at 23:12 Initial Consult Date 12/31/16 Type of Consultation: [facility] Referring Provider: ANA PAULINO 24 HR Interval Summary Free Text/Dictation ALL NOTED NO NEW EVENTS Exam/Review of Systems Vital Signs Vitals Vital Signs Date Time Temp Pulse Resp B/P Pulse Ox O2 Delivery O2 Flow Rate FiO2 01/05/17 20:56 94 5.0 28 01/05/17 20:45 55 20 T Tube 01/05/17 19:36 98.1 115/73 Intake and Output 01/04/17 01/04/17 01/05/17 15:00 23:00 07:00 Intake Total 1300 ml 671 ml Output Total 530 ml 700 ml Balance 770 ml -29 ml Exam GENERAL: This is a fragile, chronically ill-appearing, elderly woman, who is in no distress. HEENT: Head atraumatic, normocephalic. Sclerae anicteric. Buccal mucosa dry. NECK: Supple. Tracheostomy present. CHEST: Chest rise symmetrical. Breath sounds diminished at the bases. HEART: S1, S2. ABDOMEN: Soft, bowel sounds present. EXTREMITIES: Without cyanosis. Results Result Diagram: 01/04/17 0530 01/05/17 0600 Results 24 hrs Laboratory Tests Test 01/04/17 21:21 01/05/17 01:51 01/05/17 06:00 01/05/17 06:01 Bedside Glucose 122 118 109 Sodium Level 134 L Potassium Level 5.3 H Chloride Level 100 Carbon Dioxide Level 24 Anion Gap 15 Blood Urea Nitrogen 46 H Creatinine 0.72 Glucose Level 105 Calcium Level 7.6 L Phosphorus Level 3.7 Magnesium Level 2.2 Test 01/05/17 08:24 01/05/17 12:18 01/05/17 17:25 Bedside Glucose 109 118 109 Medications Medications Current Medications Chlorhexidine Gluconate (Peridex) 10 ml BID MM Last administered on 01/05/17 09:30; Admin Dose 10 ML; Start 12/31/16 at 09:00 Lidocaine (Lidoderm) 1 patch NOTE TRANSDERM ; Start 12/31/16 at 00:00 Insulin Aspart (Novolog Insulin Pen) NOVOLOG *MILD* ALGORI... Q4 SC Last administered on 01/03/17 20:44; Admin Dose 1 UNIT; Start 12/31/16 at 21:00 Miscellaneous Information 1 ea NOTE XX ; Start 12/31/16 at 18:30 Glucose (Glutose) 15 gm Q15M PRN PO DECREASED GLUCOSE; Start 12/31/16 at 18:30 Glucose (Glutose) 22.5 gm Q15M PRN PO DECREASED GLUCOSE; Start 12/31/16 at 18: 30 Dextrose (D50w Syringe) 25 ml Q15M PRN IV DECREASED GLUCOSE Last administered on 12/31/16 18:33; Admin Dose 25 ML; Start 12/31/16 at 18:30 Dextrose (D50w Syringe) 50 ml Q15M PRN IV DECREASED GLUCOSE; Start 12/31/16 at 18:30 Glucagon (Glucagen) 1 mg Q15M PRN IM DECREASED GLUCOSE; Start 12/31/16 at 18:30 Glucose (Glutose) 15 gm Q15M PRN BUCCAL DECREASED GLUCOSE; Start 12/31/16 at 18 :30 Hydromorphone HCl (Dilaudid) 0.5 mg Q4H PRN IV PAIN Last administered on 18:04; Admin Dose 0.5 MG; Start 01/01/17 at 01:30 Miscellaneous Information (Pending [facility] Order For Wound Care) This patient ob[place]... PRN PRN XX WOUND CARE; Start 01/01/17 at 03:00 Enoxaparin Sodium (Lovenox) 30 mg DAILY SC Last administered on 01/05/17 09:30 ; Admin Dose 30 MG; Start 01/01/17 at 14:00 Fentanyl 1 patch 1 patch Q3D TRANSDERM Last administered on 01/04/17 23:20; Admin Dose 1 PATCH; Start 01/01/17 at 20:00 Total Parenteral Nutrition 1,000 ml @ 40 mls/hr Q24H IV Last administered on 21:24; Admin Dose 40 MLS/HR; Start 01/02/17 at 21:00 Fat Emulsion Intravenous (Liposyn Ii 20%) 500 ml @ 21 mls/hr [id number] IV Last administered on 01/04/17 23:19; Admin Dose 21 MLS/HR; Start 01/02/17 at 21:00 Ondansetron HCl 4 mg 4 mg Q4H PRN IV NAUSEA AND/OR VOMITING Last administered on 01/05/17 18:04; Admin Dose 4 MG; Start 01/03/17 at 17:30 Tigecycline/ Sodium Chloride (Tygacil/NS) 100 ml @ 200 mls/hr Q12H IVPB ; Start 01/06/17 at 05:00 RUFINO STEVENSON MD Jan 05, 2017 21:09
[2017-01-05] MEDS: FAT EMULSION 20% 500 ML IV SCH (21:51)
[2017-01-05] MEDS: TPN 1,000 ML IV SCH (21:51)
[2017-01-06] VITALS (12 sets, daily range): BP systolic 93–130; BP diastolic 20–77; PULSE 84–101; RESP 20–21
[2017-01-06] MEDS: INSULIN ASPART [NOVOLOG] 3 ML PEN SC SCH ×6 (01:00→20:46)
[2017-01-06] MEDS: ALBUTEROL/IPRATROPIUM (NEB) 3 ML AMP INH SCH ×6 (01:14→20:32)
[2017-01-06] MEDS: ACETYLCYSTEINE 20% 4 ML VIAL NEB SCH ×4 (01:15→20:32)
[2017-01-06] MEDS: HYDROmorphONE 1 MG/ML SYG IV PRN ×5 (01:45→23:59)
[2017-01-06] MEDS: TIGECYCLINE 50 MG in SOD CHLORIDE 0.9% 100 ML IVPB SCH ×2 (06:00→16:05)
[2017-01-06] MEDS: ENOXAPARIN 30 MG/0.3 ML SYG SC SCH (08:25)
[2017-01-06] MEDS: CHLORHEXIDINE GLUCONATE 15 ML UD CUP MM SCH ×2 (08:25→20:47)
[2017-01-06 11:09] LABS: CALCIUM 7.7 mg/dl (8.4-10.2); CREATININE 0.8 mg/dl (0.44-1.00); MAGNESIUM 1.9 mg/dl (1.7-2.5)
--- NOTE | 2017-01-06 11:17 | CONS ---
Date/Time of Note Date/Time of Note DATE: 01/06/17 TIME: 11:14 Assessment/Plan Assessment/Plan Additional Assessment/Plan Assessment and recommendations; 1. P patient admitted with right upper lobe pneumonia status post thoracentesis. 2. Prior history of gastric cancer. 3. History of CABG. 4. Recent episode of hypotension requiring brief ICU stay. Interval resolution. 5. Recurrent ascites, requiring bilateral abdominal drains. 6. History of multiple CVAs. Continue current supportive care. Consider discharge to a rehab center. Consultation Date/Type/Reason Admit Date/Time Dec 30, 2016 at 23:12 Initial Consult Date 01/01/17 Type of Consultation: Pulmonary/critical care Referring Provider: ANA PAULINO 24 HR Interval Summary Free Text/Dictation Patient condition stable. Has remained hemodynamically stable. Has been transferred out of ICU to the medical floor. General exam; elderly woman, on T piece via trach ostomy, awake but unresponsive to any commands. In no distress. Exam/Review of Systems Vital Signs Vitals Vital Signs Date Time Temp Pulse Resp B/P Pulse Ox O2 Delivery O2 Flow Rate FiO2 01/06/17 08:35 92 5.0 28 01/06/17 08:35 40 20 Aerosol T Tube 01/06/17 07:46 98.1 93/55 Intake and Output 01/05/17 01/05/17 01/06/17 15:00 23:00 07:00 Intake Total 785 ml 1562 ml Output Total 350 ml 1105 ml 600 ml Balance -350 ml -320 ml 962 ml Exam HEENT exam; supple neck, no JVD. No lymphadenopathy. Midline trachea. No thyromegaly. Patient has multiple carious teeth. Tracheostomy in place. Chest exam; diminished but clear breath sounds. S1-S2 audible, no murmurs. Regular rhythm. There is a well-healed sternal scar. Abdomen exam; soft, G-tube in place. Bilateral upper quadrant drains are in place. Draining serous fluid. Bowel sounds are sluggish. Extremity exam; trace edema. OPERATIONS SUPPORT ANALYST exam; patient is awake but does not follow any commands. Results Result Diagram: 01/04/17 0530 01/06/17 0707 Results 24 hrs Laboratory Tests Test 01/05/17 12:18 01/05/17 17:25 01/05/17 21:55 01/06/17 01:42 Bedside Glucose 118 109 100 109 Test 01/06/17 05:54 01/06/17 07:07 01/06/17 09:53 Bedside Glucose 104 105 Sodium Level 136 Potassium Level 5.0 Chloride Level 101 Carbon Dioxide Level 25 Anion Gap 15 Blood Urea Nitrogen 52 H Creatinine 0.80 Glucose Level 95 Calcium Level 7.7 L Phosphorus Level 4.0 Magnesium Level 1.9 Medications Medications Current Medications Chlorhexidine Gluconate (Peridex) 10 ml BID MM Last administered on 01/06/17 08:25; Admin Dose 10 ML; Start 12/31/16 at 09:00 Lidocaine (Lidoderm) 1 patch NOTE TRANSDERM ; Start 12/31/16 at 00:00 Insulin Aspart (Novolog Insulin Pen) NOVOLOG *MILD* ALGORI... Q4 SC Last administered on 01/03/17 20:44; Admin Dose 1 UNIT; Start 12/31/16 at 21:00 Miscellaneous Information 1 ea NOTE XX ; Start 12/31/16 at 18:30 Glucose (Glutose) 15 gm Q15M PRN PO DECREASED GLUCOSE; Start 12/31/16 at 18:30 Glucose (Glutose) 22.5 gm Q15M PRN PO DECREASED GLUCOSE; Start 12/31/16 at 18: 30 Dextrose (D50w Syringe) 25 ml Q15M PRN IV DECREASED GLUCOSE Last administered on 12/31/16 18:33; Admin Dose 25 ML; Start 12/31/16 at 18:30 Dextrose (D50w Syringe) 50 ml Q15M PRN IV DECREASED GLUCOSE; Start 12/31/16 at 18:30 Glucagon (Glucagen) 1 mg Q15M PRN IM DECREASED GLUCOSE; Start 12/31/16 at 18:30 Glucose (Glutose) 15 gm Q15M PRN BUCCAL DECREASED GLUCOSE; Start 12/31/16 at 18 :30 Hydromorphone HCl (Dilaudid) 0.5 mg Q4H PRN IV PAIN Last administered on 08:23; Admin Dose 0.5 MG; Start 01/01/17 at 01:30 Miscellaneous Information (Pending Santyl Order For Wound Care) This patient obregon... PRN PRN XX WOUND CARE; Start 01/01/17 at 03:00 Enoxaparin Sodium (Lovenox) 30 mg DAILY SC Last administered on 01/06/17 08:25 ; Admin Dose 30 MG; Start 01/01/17 at 14:00 Fentanyl 1 patch 1 patch Q3D TRANSDERM Last administered on 01/04/17 23:20; Admin Dose 1 PATCH; Start 01/01/17 at 20:00 Total Parenteral Nutrition 1,000 ml @ 40 mls/hr Q24H IV Last administered on 21:51; Admin Dose 40 MLS/HR; Start 01/02/17 at 21:00 Fat Emulsion Intravenous (Liposyn Ii 20%) 500 ml @ 21 mls/hr [id number] IV Last administered on 01/05/17 21:51; Admin Dose 21 MLS/HR; Start 01/02/17 at 21:00 Ondansetron HCl 4 mg 4 mg Q4H PRN IV NAUSEA AND/OR VOMITING Last administered on 01/05/17 18:04; Admin Dose 4 MG; Start 01/03/17 at 17:30 Tigecycline/ Sodium Chloride (Tygacil/NS) 100 ml @ 200 mls/hr Q12H IVPB Last administered on 01/06/17 06:00; Admin Dose 200 MLS/HR; Start 01/06/17 at 05:00 ROSMERY JUAREZ Jan 06, 2017 11:17
--- NOTE | 2017-01-06 14:18 | CONS ---
Date/Time of Note Date/Time of Note DATE: 01/06/17 TIME: 14:17 Assessment/Plan Assessment/Plan Chief Complaint/Hosp Course LEUKOCYTOSIS REACTIVE MONITOR CLOSELY ANEMIA N-CYTIC, N- CHROMIC WITH R RDW MONITOR BLOOD COUNT CLOSELY OBSERVE FOR BLEEDING AND HEMOLYSIS History of gastric cancer in the past status post gastrectomy as well as chemotherapy PER FAMILY- RAFAT DECREASED URINE OUTPUT PER PRMARY Acute alteration in mental status likely secondary to subacute CVA Acute respiratory distress superimposed on chronic respiratory failure Bilateral pleural effusion with underlying pneumonia and CHF Sepsis with lactic acidosis Chronic muscle wasting and cachexia History of multiple esophageal strictures and bowel obstruction 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 Reported history of hypertension Penicillin allergy Problems: Consultation Date/Type/Reason Admit Date/Time Dec 30, 2016 at 23:12 Initial Consult Date 12/31/16 [facility] Referring Provider: ANA PAULINO 24 HR Interval Summary Free Text/Dictation all noted d/w daughter MS- FLUCTUATING Exam/Review of Systems Vital Signs Vitals Vital Signs Date Time Temp Pulse Resp B/P Pulse Ox O2 Delivery O2 Flow Rate FiO2 01/06/17 12:36 101 01/06/17 11:46 97.7 20 130/74 99 01/06/17 08:35 5.0 28 01/06/17 08:35 Aerosol T Tube Intake and Output 01/05/17 01/05/17 01/06/17 15:00 23:00 07:00 Intake Total 785 ml 1562 ml Output Total 350 ml 1105 ml 600 ml Balance -350 ml -320 ml 962 ml Exam Exam GENERAL: This is a fragile, chronically ill-appearing, elderly woman, who is in no distress. HEENT: Head atraumatic, normocephalic. Sclerae anicteric. Buccal mucosa dry. NECK: Supple. Tracheostomy present. CHEST: Chest rise symmetrical. Breath sounds diminished at the bases. HEART: S1, S2. ABDOMEN: Soft, bowel sounds present. EXTREMITIES: Without cyanosis. Results Result Diagram: 01/04/17 0530 01/06/17 0707 Results 24 hrs Laboratory Tests Test 01/05/17 17:25 01/05/17 21:55 01/06/17 01:42 01/06/17 05:54 Bedside Glucose 109 100 109 104 Test 01/06/17 07:07 01/06/17 09:53 01/06/17 13:03 Sodium Level 136 Potassium Level 5.0 Chloride Level 101 Carbon Dioxide Level 25 Anion Gap 15 Blood Urea Nitrogen 52 H Creatinine 0.80 Glucose Level 95 Calcium Level 7.7 L Phosphorus Level 4.0 Magnesium Level 1.9 Bedside Glucose 105 104 Medications Medications Current Medications Chlorhexidine Gluconate (Peridex) 10 ml BID MM Last administered on 01/06/17 08:25; Admin Dose 10 ML; Start 12/31/16 at 09:00 Lidocaine (Lidoderm) 1 patch NOTE TRANSDERM ; Start 12/31/16 at 00:00 Insulin Aspart (Novolog Insulin Pen) NOVOLOG *MILD* ALGORI... Q4 SC Last administered on 01/03/17 20:44; Admin Dose 1 UNIT; Start 12/31/16 at 21:00 Miscellaneous Information 1 ea NOTE XX ; Start 12/31/16 at 18:30 Glucose (Glutose) 15 gm Q15M PRN PO DECREASED GLUCOSE; Start 12/31/16 at 18:30 Glucose (Glutose) 22.5 gm Q15M PRN PO DECREASED GLUCOSE; Start 12/31/16 at 18: 30 Dextrose (D50w Syringe) 25 ml Q15M PRN IV DECREASED GLUCOSE Last administered on 12/31/16 18:33; Admin Dose 25 ML; Start 12/31/16 at 18:30 Dextrose (D50w Syringe) 50 ml Q15M PRN IV DECREASED GLUCOSE; Start 12/31/16 at 18:30 Glucagon (Glucagen) 1 mg Q15M PRN IM DECREASED GLUCOSE; Start 12/31/16 at 18:30 Glucose (Glutose) 15 gm Q15M PRN BUCCAL DECREASED GLUCOSE; Start 12/31/16 at 18 :30 Hydromorphone HCl (Dilaudid) 0.5 mg Q4H PRN IV PAIN Last administered on 08:23; Admin Dose 0.5 MG; Start 01/01/17 at 01:30 Miscellaneous Information [facility] This patient obregon... PRN PRN XX WOUND CARE; Start 01/01/17 at 03:00 Enoxaparin Sodium (Lovenox) 30 mg DAILY SC Last administered on 01/06/17 08:25 ; Admin Dose 30 MG; Start 01/01/17 at 14:00 Fentanyl 1 patch 1 patch Q3D TRANSDERM Last administered on 01/04/17 23:20; Admin Dose 1 PATCH; Start 01/01/17 at 20:00 Total Parenteral Nutrition 1,000 ml @ 40 mls/hr Q24H IV Last administered on 21:51; Admin Dose 40 MLS/HR; Start 01/02/17 at 21:00 Fat Emulsion Intravenous (Liposyn Ii 20%) 500 ml @ 21 mls/hr [id number] IV Last administered on 01/05/17 21:51; Admin Dose 21 MLS/HR; Start 01/02/17 at 21:00 Ondansetron HCl 4 mg 4 mg Q4H PRN IV NAUSEA AND/OR VOMITING Last administered on 01/05/17 18:04; Admin Dose 4 MG; Start 01/03/17 at 17:30 Tigecycline/ Sodium Chloride (Tygacil/NS) 100 ml @ 200 mls/hr Q12H IVPB Last administered on 01/06/17 06:00; Admin Dose 200 MLS/HR; Start 01/06/17 at 05:00 RUFINO STEVENSON MD Jan 06, 2017 14:18
--- NOTE | 2017-01-06 15:15 | PN ---
Date/Time of Note Date/Time of Note DATE: 01/06/17 TIME: 15:09 Assessment/Plan VTE Prophylaxis VTE Prophylaxis Intervention: LMWH Lines/Catheters IV Catheter Type (from Nrs): Central Line Central line still needed: Yes Urinary Cath still in place: Yes Reason Cath still needed: urinary retention Assessment/Plan Chief Complaint/Hosp Course Assessment/Plan: 71 yo F with previous h/o gastric ca sp treatment, h/o multiple esophageal strictures and bowel obstructions which have rendered the patient TPN dependent, chronic respiratory failure sp trach placement admitted for decreased mental status, suspect from acute CVA vs toxic/metabolic encephalopathy from pneumonia. sp thora, hospitalization c/b septic shock with hypotension warranting overnight ICU stay, transferred back to floor 8.25. # Aspiration pneumonia/pneumonitis, on antibiotics: ID helping with abx, continue tigecycline per their recommendations, discuss with him about length of treatment #. Right pleural effusion, s/p US-guided thoracentesis with removal of 750 cc fluid on 12/31/2016 -follow final fluid studies, continue antibiotics #. Recurrent ischemic stroke: neuro on consult, MRI brain from December 31 shows: Acute infarct in the left middle cerebral artery territory, involving the left temporal lobe, parietal, and insula -Follow-up neurology recommendations, consider aspirin 300 mg per rectal daily # Gastric cancer in 2011, for which she underwent extensive resection, as well as chemotherapy. -Monitor for now, including drainage from abdominal tubes -On TPN as well #Multiple esophageal strictures and bowel obstructions,cont TPN. #Status post tracheostomy: wean O2 as tolerated -Also get physical therapy consult Problems: Subjective 24 Hr Interval Summary Free Text/Dictation Seen by pulmonary team on team today. Slightly more alert than yesterday. Exam/Review of Systems Vital Signs Vitals Vital Signs Date Time Temp Pulse Resp B/P Pulse Ox O2 Delivery O2 Flow Rate FiO2 01/06/17 14:00 66 18 94 Aerosol Mask 5.0 28 T Tube 01/06/17 11:46 97.7 130/74 Intake and Output 01/05/17 01/05/17 01/06/17 15:00 23:00 07:00 Intake Total 785 ml 1562 ml Output Total 350 ml 1105 ml 600 ml Balance -350 ml -320 ml 962 ml Exam nad, but still quite lethargic trach secretions somewhat less thick Slightly decreased breath sounds bilaterally no mrg abd drain with dark output no rashes Results Result Diagram: 01/04/17 0530 01/06/17 0707 Results 24 hrs Laboratory Tests Test 01/05/17 17:25 01/05/17 21:55 01/06/17 01:42 01/06/17 05:54 Bedside Glucose 109 100 109 104 Test 01/06/17 07:07 01/06/17 09:53 01/06/17 13:03 Sodium Level 136 Potassium Level 5.0 Chloride Level 101 Carbon Dioxide Level 25 Anion Gap 15 Blood Urea Nitrogen 52 H Creatinine 0.80 Glucose Level 95 Calcium Level 7.7 L Phosphorus Level 4.0 Magnesium Level 1.9 Bedside Glucose 105 104 Medications Medications Current Medications Chlorhexidine Gluconate (Peridex) 10 ml BID MM Last administered on 01/06/17 08:25; Admin Dose 10 ML; Start 12/31/16 at 09:00 Lidocaine (Lidoderm) 1 patch NOTE TRANSDERM ; Start 12/31/16 at 00:00 Insulin Aspart (Novolog Insulin Pen) NOVOLOG *MILD* ALGORI... Q4 SC Last administered on 01/03/17 20:44; Admin Dose 1 UNIT; Start 12/31/16 at 21:00 Miscellaneous Information 1 ea NOTE XX ; Start 12/31/16 at 18:30 Glucose (Glutose) 15 gm Q15M PRN PO DECREASED GLUCOSE; Start 12/31/16 at 18:30 Glucose (Glutose) 22.5 gm Q15M PRN PO DECREASED GLUCOSE; Start 12/31/16 at 18: 30 Dextrose (D50w Syringe) 25 ml Q15M PRN IV DECREASED GLUCOSE Last administered on 12/31/16 18:33; Admin Dose 25 ML; Start 12/31/16 at 18:30 Dextrose (D50w Syringe) 50 ml Q15M PRN IV DECREASED GLUCOSE; Start 12/31/16 at 18:30 Glucagon (Glucagen) 1 mg Q15M PRN IM DECREASED GLUCOSE; Start 12/31/16 at 18:30 Glucose (Glutose) 15 gm Q15M PRN BUCCAL DECREASED GLUCOSE; Start 12/31/16 at 18 :30 Hydromorphone HCl (Dilaudid) 0.5 mg Q4H PRN IV PAIN Last administered on 08:23; Admin Dose 0.5 MG; Start 01/01/17 at 01:30 Miscellaneous Information (Pending Santyl Order For Wound Care) This patient obregon... PRN PRN XX WOUND CARE; Start 01/01/17 at 03:00 Enoxaparin Sodium (Lovenox) 30 mg DAILY SC Last administered on 01/06/17 08:25 ; Admin Dose 30 MG; Start 01/01/17 at 14:00 Fentanyl 1 patch 1 patch Q3D TRANSDERM Last administered on 01/04/17 23:20; Admin Dose 1 PATCH; Start 01/01/17 at 20:00 Total Parenteral Nutrition 1,000 ml @ 40 mls/hr Q24H IV Last administered on 21:51; Admin Dose 40 MLS/HR; Start 01/02/17 at 21:00 Fat Emulsion Intravenous (Liposyn Ii 20%) 500 ml @ 21 mls/hr [id number] IV Last administered on 01/05/17 21:51; Admin Dose 21 MLS/HR; Start 01/02/17 at 21:00 Ondansetron HCl 4 mg 4 mg Q4H PRN IV NAUSEA AND/OR VOMITING Last administered on 01/05/17 18:04; Admin Dose 4 MG; Start 01/03/17 at 17:30 Tigecycline/ Sodium Chloride (Tygacil/NS) 100 ml @ 200 mls/hr Q12H IVPB Last administered on 01/06/17 06:00; Admin Dose 200 MLS/HR; Start 01/06/17 at 05:00 LUIS JUAN Jan 06, 2017 15:15
[2017-01-06] MEDS: BALSAM PERU/CASTOR OIL 60 GM TUBE TOP SCH (15:28)
[2017-01-06] MEDS: ASPIRIN 300 MG SUPP PR SCH (16:05)
[2017-01-06] MEDS: TPN 1,000 ML IV SCH (20:47)
[2017-01-06] MEDS: MEROPENEM 500MG/50 ML (PMX) 50 ML IVPB SCH (23:49)
[2017-01-06] MEDS: FAT EMULSION 20% 500 ML IV SCH (23:59)
[2017-01-07] VITALS (10 sets, daily range): BP systolic 109–132; BP diastolic 59–91; PULSE 84–96; RESP 17–20
[2017-01-07] MEDS: INSULIN ASPART [NOVOLOG] 3 ML PEN SC SCH ×6 (01:00→20:34)
[2017-01-07] MEDS: ALBUTEROL/IPRATROPIUM (NEB) 3 ML AMP INH SCH ×6 (01:04→20:11)
[2017-01-07] MEDS: ACETYLCYSTEINE 20% 4 ML VIAL NEB SCH ×4 (01:05→20:12)
[2017-01-07] MEDS: TPN 1,000 ML IV SCH ×2 (01:43→21:00)
--- NOTE | 2017-01-07 02:23 | PN ---
DATE: 01/06/2017 INFECTIOUS DISEASE PROGRESS NOTE ADDENDUM: This is a continuation of the report. ASSESSMENT: 1. Sepsis, resolving. 2. Healthcare-acquired pneumonia with parapneumonic effusion. Status post thoracentesis on with pleural fluid cultures being negative. 3. History of gastric cancer. Status post multiple resections and chemotherapy. 4. History of bilateral abdominal drainage catheter placement secondary to abscess. 5. Cachexia. 6. Anemia. PLAN: We are going to restart meropenem, continue Tygacil, continue supportive care, follow chest x-ray in a.m., follow Oncology and pulmonary recommendations. Dictated By: Nancy Mccarty NP /prachi/teodoro /Document#: [id number] CHRISTOPHE
--- NOTE | 2017-01-07 02:23 | PN ---
DATE: 01/06/2017 SUBJECTIVE: No events overnight. No fevers. The patient is lying comfortably in bed. No labs this morning. Microbiology intra-abdominal fluid culture growing Klebsiella pneumoniae, carbapenem S resistant, Acinetobacter baumannii enterococcus species. ANTIMICROBIALS: The patient was started on Tygacil. ALLERGIES: AMPICILLIN. INDWELLINGS: Multiple intra-abdominal drains and ileostomy or colostomy. PHYSICAL EXAMINATION: GENERAL: This is a fragile, chronically ill-appearing, elderly woman, who is in no distress. HEENT: Head is atraumatic, normocephalic. Sclerae are anicteric. Buccal mucosa is dry. NECK: Supple. LUNGS: Chest rise is symmetrical. Breath sounds are diminished at the bases. HEART: S1, S2. ABDOMEN: Soft. Bowel sounds are present. EXTREMITIES: Without cyanosis. ASSESSMENT: 1. Sepsis, status post shock. 2. Pneumonia with parapneumonic effusion status post thoracentesis. 3. Cerebrovascular accident. 4. History of gastric cancer, status post multiple resection, status post chemotherapy. 5. History of recent bilateral abdominal drainage catheter placement secondary to abscess. 6. Cachexia. 7. Anemia. PLAN: The patient is on Tygacil. Dictated By: Nancy Mccarty NP /prachi/ofe /Document#: [id number]
[2017-01-07] MEDS: TIGECYCLINE 50 MG in SOD CHLORIDE 0.9% 100 ML IVPB SCH ×2 (05:57→17:52)
[2017-01-07] MEDS: MEROPENEM 500MG/50 ML (PMX) 50 ML IVPB SCH ×3 (06:54→22:07)
[2017-01-07] MEDS: ONDANSETRON 4 MG INJ IV PRN (07:03)
[2017-01-07] MEDS: HYDROmorphONE 1 MG/ML SYG IV PRN ×2 (07:04→12:33)
[2017-01-07] MEDS: BALSAM PERU/CASTOR OIL 60 GM TUBE TOP SCH (09:00)
[2017-01-07] MEDS: ASPIRIN 300 MG SUPP PR SCH ×2 (09:00→12:15)
--- NOTE | 2017-01-07 09:19 | CONS ---
Date/Time of Note Date/Time of Note DATE: 01/07/17 TIME: 09:16 Assessment/Plan Assessment/Plan Additional Assessment/Plan Assessment and recommendations; 1. Patient admitted with a right lower lobe pneumonia status post thoracentesis for pleural effusion. 2. History of multiple CVAs. 3. Recurrent ascites, status post bilateral abdominal drain placement. 4. Prior care. 5. 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 6. Prior history of gastric cancer. 7. Episode of hypotension with interval resolution. Continue current supportive care. Consultation Date/Type/Reason Admit Date/Time Dec 30, 2016 at 23:12 Initial Consult Date 01/01/17 Type of Consultation: Pulmonary Referring Provider: ANA PAULINO 24 HR Interval Summary Free Text/Dictation Patient condition stable. Remains awake but unresponsive to any commands. Has remained hemodynamically stable. General exam; elderly woman, in no distress. Unresponsive to any commands. Exam/Review of Systems Vital Signs Vitals Vital Signs Date Time Temp Pulse Resp B/P Pulse Ox O2 Delivery O2 Flow Rate FiO2 01/07/17 08:15 68 22 99 Aerosol 5.0 28 T Tube 01/07/17 08:10 97.7 129/65 Intake and Output 01/06/17 01/06/17 01/07/17 15:00 23:00 07:00 Intake Total 700 ml 795 ml Output Total 530 ml 550 ml Balance 170 ml 245 ml Exam HEENT exam; supple neck, no JVD. No lymphadenopathy. Midline trachea. No thyromegaly. Patient has fair dentition. Tracheostomy in place attached to T- piece. Chest exam; diminished but clear breath sounds. S1-S2 audible, there is a well- healed sternal scar. Abdomen exam; soft, no organomegaly. Bilateral upper quadrant drains are in place. Draining serous fluid. G-tube in place. Extremity exam; no peripheral edema. DIRECTOR LONG TERM CARE exam; patient remains awake but unresponsive to any commands. Results Result Diagram: 01/04/17 0530 01/06/17 0707 Results 24 hrs Laboratory Tests Test 01/06/17 09:53 01/06/17 13:03 01/06/17 17:20 01/06/17 20:45 Bedside Glucose 105 104 104 103 Test 01/07/17 01:36 01/07/17 05:59 Bedside Glucose 105 98 Medications Medications Current Medications Chlorhexidine Gluconate (Peridex) 10 ml BID MM Last administered on 01/06/17 20:47; Admin Dose 10 ML; Start 12/31/16 at 09:00 Lidocaine (Lidoderm) 1 patch NOTE TRANSDERM ; Start 12/31/16 at 00:00 Insulin Aspart (Novolog Insulin Pen) NOVOLOG *MILD* ALGORI... Q4 SC Last administered on 01/03/17 20:44; Admin Dose 1 UNIT; Start 12/31/16 at 21:00 Miscellaneous Information 1 ea NOTE XX ; Start 12/31/16 at 18:30 Glucose (Glutose) 15 gm Q15M PRN PO DECREASED GLUCOSE; Start 12/31/16 at 18:30 Glucose (Glutose) 22.5 gm Q15M PRN PO DECREASED GLUCOSE; Start 12/31/16 at 18: 30 Dextrose (D50w Syringe) 25 ml Q15M PRN IV DECREASED GLUCOSE Last administered on 12/31/16 18:33; Admin Dose 25 ML; Start 12/31/16 at 18:30 Dextrose (D50w Syringe) 50 ml Q15M PRN IV DECREASED GLUCOSE; Start 12/31/16 at 18:30 Glucagon (Glucagen) 1 mg Q15M PRN IM DECREASED GLUCOSE; Start 12/31/16 at 18:30 Glucose (Glutose) 15 gm Q15M PRN BUCCAL DECREASED GLUCOSE; Start 12/31/16 at 18 :30 Hydromorphone HCl (Dilaudid) 0.5 mg Q4H PRN IV PAIN Last administered on 07:04; Admin Dose 0.5 MG; Start 01/01/17 at 01:30 Miscellaneous Information (Pending [facility] Order For Wound Care) This patient obregon... PRN PRN XX WOUND CARE; Start 01/01/17 at 03:00 Enoxaparin Sodium (Lovenox) 30 mg DAILY SC Last administered on 01/06/17 08:25 ; Admin Dose 30 MG; Start 01/01/17 at 14:00 Fentanyl 1 patch 1 patch Q3D TRANSDERM Last administered on 01/04/17 23:20; Admin Dose 1 PATCH; Start 01/01/17 at 20:00 Total Parenteral Nutrition 1,000 ml @ 40 mls/hr Q24H IV Last administered on 01:43; Admin Dose 40 MLS/HR; Start 01/02/17 at 21:00 Fat Emulsion Intravenous (Liposyn Ii 20%) 500 ml @ 21 mls/hr [id number] IV Last administered on 01/06/17 23:59; Admin Dose 21 MLS/HR; Start 01/02/17 at 21:00 Ondansetron HCl 4 mg 4 mg Q4H PRN IV NAUSEA AND/OR VOMITING Last administered on 01/07/17 07:03; Admin Dose 4 MG; Start 01/03/17 at 17:30 Tigecycline/ Sodium Chloride (Tygacil/NS) 100 ml @ 200 mls/hr Q12H IVPB Last administered on 01/07/17 05:57; Admin Dose 200 MLS/HR; Start 01/06/17 at 05:00 Aspirin 300 mg 300 mg DAILY MN Last administered on 01/06/17 16:05; Admin Dose 300 MG; Start 01/06/17 at 15:30 Meropenem/Sodium Chloride (Merrem 500mg/50 ml(Pmx)) 50 ml @ 200 mls/hr Q8 IVPB Last administered on 01/07/17 06:54; Admin Dose 200 MLS/HR; Start 01/06/17 at 22:00 ROSMERY JUAREZ Jan 07, 2017 09:19
[2017-01-07] MEDS: CHLORHEXIDINE GLUCONATE 15 ML UD CUP MM SCH ×2 (10:02→22:09)
[2017-01-07 10:21] LABS: BASOPHILS % 0.2 % (0.0-2.0); EOSINOPHILS # 0.1 10^3/ul (0.0-0.5); EOSINOPHILS % 0.7 % (0.0-7.0); HEMOGLOBIN 10.4 g/dl (12.0-16.0); LYMPHOCYTES % 5.3 % (15.0-51.0); MEAN CORPUSCULAR HEMOGLOBIN 31.3 pg (29.0-33.0); MEAN CORPUSCULAR HGB CONC 32.5 g/dl (32.0-37.0); MEAN CORPUSCULAR VOLUME 96.4 fl (82.0-101.0); MEAN PLATELET VOLUME 12.1 fl (7.4-10.4); MONOCYTE # 1.3 10^3/ul (0.3-0.9); MONOCYTES % 7.2 % (0.0-11.0); NEUTROPHILS % 83.8 % (39.0-77.0); NUCLEATED RED BLOOD CELLS # 0.1 10^3/ul (0.0-0.0); NUCLEATED RED BLOOD CELLS% 0.3 /100WBC (0.0-0.0); PLATELET COUNT 199 10^3/UL (140-415); RED BLOOD COUNT 3.32 10^6/ul (4.20-5.40); RED CELL DISTRIBUTION WIDTH 14.6 % (11.5-14.5); WHITE BLOOD COUNT 18.1 10^3/ul (4.8-10.8)
[2017-01-07 10:57] LABS: CALCIUM 7.7 mg/dl (8.4-10.2); CREATININE 0.62 mg/dl (0.44-1.00); MAGNESIUM 1.7 mg/dl (1.7-2.5); PHOSPHORUS 4.8 mg/dl (2.5-4.9); POTASSIUM 4.9 mmol/L (3.5-5.1)
[2017-01-07] MEDS: ENOXAPARIN 30 MG/0.3 ML SYG SC SCH (11:02)
--- NOTE | 2017-01-07 13:31 | CONS ---
Date/Time of Note Date/Time of Note DATE: 01/07/17 TIME: 13:27 Assessment/Plan Assessment/Plan Chief Complaint/Hosp Course No acute changes overnight patient is awake looks comfortable family at bedside. Temperature 98.2 pulse 89 respirations 17 blood pressure 132/72 saturation 97% WBC 18.1 H&H 10.4 and 32 platelets 199 neutrophils 83.8 BUN 56 creatinine 0.62 Abdominal fluid culture grew multidrug-resistant Klebsiella Acinetobacter and enterococcus species Antibiotics: Tygacil, meropenem ALLERGIES: AMPICILLIN. INDWELLINGS: Multiple intra-abdominal drains and ileostomy or colostomy. PHYSICAL EXAMINATION: GENERAL: This is a fragile, chronically ill-appearing, elderly woman, who is in no distress. HEENT: Head is atraumatic, normocephalic. Sclerae are anicteric. Buccal mucosa is dry. NECK: Supple. LUNGS: Chest rise is symmetrical. Breath sounds are diminished at the bases. HEART: S1, S2. ABDOMEN: Soft. Bowel sounds are present. EXTREMITIES: Without cyanosis. ASSESSMENT: 1. Sepsis, status post shock. 2. Pneumonia with parapneumonic effusion status post thoracentesis. 3. Cerebrovascular accident. 4. History of gastric cancer, status post multiple resection, status post chemotherapy. 5. History of recent bilateral abdominal drainage catheter placement secondary to abscess. 6. Cachexia. 7. Anemia. Plan: Patient remains stable, more awake today. She is being followed by pulmonary and oncology team she is also being seen by neurology. We will keep her on current antibiotics, consider surgical evaluation given persistent leukocytosis and multidrug-resistant organisms that she is growing from drainage catheter, ?repeat CT abdomen DW staff/family at bedside Problems: Consultation Date/Type/Reason Admit Date/Time Dec 30, 2016 at 23:12 Initial Consult Date 01/01/17 Type of Consultation: ID Referring Provider: ANA PAULINO Exam/Review of Systems Vital Signs Vitals Vital Signs Date Time Temp Pulse Resp B/P Pulse Ox O2 Delivery O2 Flow Rate FiO2 01/07/17 13:16 93 18 99 Aerosol 5.0 28 T Tube 01/07/17 12:05 98.2 132/72 Intake and Output 01/06/17 01/06/17 01/07/17 15:00 23:00 07:00 Intake Total 700 ml 795 ml Output Total 530 ml 550 ml Balance 170 ml 245 ml Results Result Diagram: 01/07/17 1000 01/07/17 1000 Results 24 hrs Laboratory Tests Test 01/06/17 17:20 01/06/17 20:45 01/07/17 01:36 01/07/17 05:59 Bedside Glucose 104 103 105 98 Test 01/07/17 10:00 01/07/17 10:06 01/07/17 12:12 White Blood Count 18.1 #H Red Blood Count 3.32 L Hemoglobin 10.4 L Hematocrit 32.0 L Mean Corpuscular Volume 96.4 Mean Corpuscular Hemoglobin 31.3 Mean Corpuscular Hemoglobin Concent 32.5 Red Cell Distribution Width 14.6 H Platelet Count 199 Mean Platelet Volume 12.1 H Neutrophils % 83.8 H Lymphocytes % 5.3 L Monocytes % 7.2 Eosinophils % 0.7 Basophils % 0.2 Nucleated Red Blood Cells % 0.3 H Neutrophils # (Manual) 15.2 H Lymphocytes # 1.0 Monocytes # 1.3 H Eosinophils # 0.1 Basophils # 0.0 Nucleated Red Blood Cells # 0.1 H Sodium Level 136 Potassium Level 4.9 Chloride Level 102 Carbon Dioxide Level 25 Anion Gap 14 Blood Urea Nitrogen 56 H Creatinine 0.62 Glucose Level 85 Calcium Level 7.7 L Phosphorus Level 4.8 Magnesium Level 1.7 Bedside Glucose 148 100 Medications Medications Current Medications Chlorhexidine Gluconate (Peridex) 10 ml BID MM Last administered on 01/07/17 10:02; Admin Dose 10 ML; Start 12/31/16 at 09:00 Lidocaine (Lidoderm) 1 patch NOTE TRANSDERM ; Start 12/31/16 at 00:00 Insulin Aspart (Novolog Insulin Pen) NOVOLOG *MILD* ALGORI... Q4 SC Last administered on 01/03/17 20:44; Admin Dose 1 UNIT; Start 12/31/16 at 21:00 Miscellaneous Information 1 ea NOTE XX ; Start 12/31/16 at 18:30 Glucose (Glutose) 15 gm Q15M PRN PO DECREASED GLUCOSE; Start 12/31/16 at 18:30 Glucose (Glutose) 22.5 gm Q15M PRN PO DECREASED GLUCOSE; Start 12/31/16 at 18: 30 Dextrose (D50w Syringe) 25 ml Q15M PRN IV DECREASED GLUCOSE Last administered on 12/31/16 18:33; Admin Dose 25 ML; Start 12/31/16 at 18:30 Dextrose (D50w Syringe) 50 ml Q15M PRN IV DECREASED GLUCOSE; Start 12/31/16 at 18:30 Glucagon (Glucagen) 1 mg Q15M PRN IM DECREASED GLUCOSE; Start 12/31/16 at 18:30 Glucose (Glutose) 15 gm Q15M PRN BUCCAL DECREASED GLUCOSE; Start 12/31/16 at 18 :30 Hydromorphone HCl (Dilaudid) 0.5 mg Q4H PRN IV PAIN Last administered on 12:33; Admin Dose 0.5 MG; Start 01/01/17 at 01:30 Miscellaneous Information (Pending [facility]yl Order For Wound Care) This patient obregon... PRN PRN XX WOUND CARE; Start 01/01/17 at 03:00 Enoxaparin Sodium (Lovenox) 30 mg DAILY SC Last administered on 01/07/17 11:02 ; Admin Dose 30 MG; Start 01/01/17 at 14:00 Fentanyl 1 patch 1 patch Q3D TRANSDERM Last administered on 01/04/17 23:20; Admin Dose 1 PATCH; Start 01/01/17 at 20:00 Total Parenteral Nutrition 1,000 ml @ 40 mls/hr Q24H IV Last administered on 01:43; Admin Dose 40 MLS/HR; Start 01/02/17 at 21:00 Fat Emulsion Intravenous (Liposyn Ii 20%) 500 ml @ 21 mls/hr [id number] IV Last administered on 01/06/17 23:59; Admin Dose 21 MLS/HR; Start 01/02/17 at 21:00 Ondansetron HCl 4 mg 4 mg Q4H PRN IV NAUSEA AND/OR VOMITING Last administered on 01/07/17 07:03; Admin Dose 4 MG; Start 01/03/17 at 17:30 Tigecycline/ Sodium Chloride (Tygacil/NS) 100 ml @ 200 mls/hr Q12H IVPB Last administered on 01/07/17 05:57; Admin Dose 200 MLS/HR; Start 01/06/17 at 05:00 Aspirin 300 mg 300 mg DAILY PA Last administered on 01/07/17 12:15; Admin Dose 300 MG; Start 01/06/17 at 15:30 Meropenem/Sodium Chloride (Merrem 500mg/50 ml(Pmx)) 50 ml @ 200 mls/hr Q8 IVPB Last administered on 01/07/17t 06:54; Admin Dose 200 MLS/HR; Start 01/06/17 at 22:00 AYESHA DE PAZ NP Jan 07, 2017 13:31
--- NOTE | 2017-01-07 15:10 | PN ---
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 sp thora, hospitalization c/b septic shock with hypotension warranting overnight ICU stay, transferred back to floor 8. # Aspiration pneumonia/pneumonitis, on antibiotics. Patient also with Klebsiella, Actinobacteria, enterococcus, and yeast wound abdominal infections. No fevers, white blood cell count higher than yesterday. -Per infectious disease continue tigecycline and meropenem per their recommendations, discuss with him about length of treatment. We will also add fluconazole. #. Right pleural effusion, s/p US-guided thoracentesis with removal of 750 cc fluid on 12/31/2016 -follow final fluid studies, continue antibiotics #. Recurrent ischemic stroke: neuro on consult, MRI brain from December 31 shows: Acute infarct in the left middle cerebral artery territory, involving the left temporal lobe, parietal, and insula -Follow-up neurology recommendations, continue aspirin 300 mg per rectal daily # Gastric cancer in 2011, for which she underwent extensive resection, as well as chemotherapy. -Monitor for now, including drainage from abdominal tubes -On TPN as well #Multiple esophageal strictures and bowel obstructions,cont TPN. #Status post tracheostomy: wean O2 as tolerated -Continue physical therapy consult Problems: Subjective 24 Hr Interval Summary Free Text/Dictation Patient worked with physical therapy today, appears more alert today. Seen by infectious disease team as well. Exam/Review of Systems Vital Signs Vitals Vital Signs Date Time Temp Pulse Resp B/P Pulse Ox O2 Delivery O2 Flow Rate FiO2 01/07/17 13:16 93 18 99 Aerosol 5.0 28 T Tube 01/07/17 12:05 98.2 132/72 Intake and Output 01/06/17 01/06/17 01/07/17 15:00 23:00 07:00 Intake Total 700 ml 795 ml Output Total 530 ml 550 ml Balance 170 ml 245 ml Exam nad, more alert today trach secretions somewhat less thick Slightly decreased breath sounds bilaterally no mrg abd drain with dark output no rashes Results Result Diagram: 01/07/17 1000 01/07/17 1000 Results 24 hrs Laboratory Tests Test 01/06/17 17:20 01/06/17 20:45 01/07/17 01:36 01/07/17 05:59 Bedside Glucose 104 103 105 98 Test 01/07/17 10:00 01/07/17 10:06 01/07/17 12:12 White Blood Count 18.1 #H Red Blood Count 3.32 L Hemoglobin 10.4 L Hematocrit 32.0 L Mean Corpuscular Volume 96.4 Mean Corpuscular Hemoglobin 31.3 Mean Corpuscular Hemoglobin Concent 32.5 Red Cell Distribution Width 14.6 H Platelet Count 199 Mean Platelet Volume 12.1 H Neutrophils % 83.8 H Lymphocytes % 5.3 L Monocytes % 7.2 Eosinophils % 0.7 Basophils % 0.2 Nucleated Red Blood Cells % 0.3 H Neutrophils # (Manual) 15.2 H Lymphocytes # 1.0 Monocytes # 1.3 H Eosinophils # 0.1 Basophils # 0.0 Nucleated Red Blood Cells # 0.1 H Sodium Level 136 Potassium Level 4.9 Chloride Level 102 Carbon Dioxide Level 25 Anion Gap 14 Blood Urea Nitrogen 56 H Creatinine 0.62 Glucose Level 85 Calcium Level 7.7 L Phosphorus Level 4.8 Magnesium Level 1.7 Bedside Glucose 148 100 Medications Medications Current Medications Chlorhexidine Gluconate (Peridex) 10 ml BID MM Last administered on 01/07/17 10:02; Admin Dose 10 ML; Start 12/31/16 at 09:00 Lidocaine (Lidoderm) 1 patch NOTE TRANSDERM ; Start 12/31/16 at 00:00 Insulin Aspart (Novolog Insulin Pen) NOVOLOG *MILD* ALGORI... Q4 SC Last administered on 01/03/17 20:44; Admin Dose 1 UNIT; Start 12/31/16 at 21:00 Miscellaneous Information 1 ea NOTE XX ; Start 12/31/16 at 18:30 Glucose (Glutose) 15 gm Q15M PRN PO DECREASED GLUCOSE; Start 12/31/16 at 18:30 Glucose (Glutose) 22.5 gm Q15M PRN PO DECREASED GLUCOSE; Start 12/31/16 at 18: 30 Dextrose (D50w Syringe) 25 ml Q15M PRN IV DECREASED GLUCOSE Last administered on 12/31/16 18:33; Admin Dose 25 ML; Start 12/31/16 at 18:30 Dextrose (D50w Syringe) 50 ml Q15M PRN IV DECREASED GLUCOSE; Start 12/31/16 at 18:30 Glucagon (Glucagen) 1 mg Q15M PRN IM DECREASED GLUCOSE; Start 12/31/16 at 18:30 Glucose (Glutose) 15 gm Q15M PRN BUCCAL DECREASED GLUCOSE; Start 12/31/16 at 18 :30 Hydromorphone HCl (Dilaudid) 0.5 mg Q4H PRN IV PAIN Last administered on 12:33; Admin Dose 0.5 MG; Start 01/01/17 at 01:30 Miscellaneous Information (Pending [facility] Order For Wound Care) This patient obregon... PRN PRN XX WOUND CARE; Start 01/01/17 at 03:00 Enoxaparin Sodium (Lovenox) 30 mg DAILY SC Last administered on 01/07/17 11:02 ; Admin Dose 30 MG; Start 01/01/17 at 14:00 Fentanyl 1 patch 1 patch Q3D TRANSDERM Last administered on 01/04/17 23:20; Admin Dose 1 PATCH; Start 01/01/17 at 20:00 Total Parenteral Nutrition 1,000 ml @ 40 mls/hr Q24H IV Last administered on 01:43; Admin Dose 40 MLS/HR; Start 01/02/17 at 21:00 Fat Emulsion Intravenous (Liposyn Ii 20%) 500 ml @ 21 mls/hr [id number] IV Last administered on 01/06/17 23:59; Admin Dose 21 MLS/HR; Start 01/02/17 at 21:00 Ondansetron HCl 4 mg 4 mg Q4H PRN IV NAUSEA AND/OR VOMITING Last administered on 01/07/17 07:03; Admin Dose 4 MG; Start 01/03/17 at 17:30 Tigecycline/ Sodium Chloride (Tygacil/NS) 100 ml @ 200 mls/hr Q12H IVPB Last administered on 01/07/17 05:57; Admin Dose 200 MLS/HR; Start 01/06/17 at 05:00 Aspirin 300 mg 300 mg DAILY DE Last administered on 01/07/17 12:15; Admin Dose 300 MG; Start 01/06/17 at 15:30 Meropenem/Sodium Chloride (Merrem 500mg/50 ml(Pmx)) 50 ml @ 200 mls/hr Q8 IVPB Last administered on 01/07/17 14:48; Admin Dose 200 MLS/HR; Start 01/06/17 at 22:00 LUIS JUAN Jan 07, 2017 15:10
[2017-01-07] MEDS: FLUCONAZOLE 100 MG/NS (PMX) 50 ML IVPB SCH (15:30)
[2017-01-07] MEDS ORDERED: SOD CHLORIDE 0.45% 1,000 ML IV SCH (15:30)
[2017-01-07] MEDS: FAT EMULSION 20% 500 ML IV SCH (20:05)
[2017-01-07] MEDS ORDERED: DIPHENHYDRAMINE 50 MG INJ IV ONE (21:00)
--- NOTE | 2017-01-07 21:31 | RADRPT ---
PROCEDURE: XR Chest. CLINICAL INDICATION: Shortness of breath. TECHNIQUE: Single frontal view. COMPARISON: 01/02/2017. FINDINGS: The tracheostomy tube and tunneled right internal jugular vein dual-lumen catheter remain in satisfa ctory position. Moderate pulmonary edema is unchanged. Bibasilar atelectasis is worse than seen pr eviously due to larger pleural effusions. Pleural effusions are now moderate in size. The heart is enlarged. There is calcification in the aorta consistent with atherosclerosis. There is no pneumothorax. IMPRESSION: 1. Larger bilateral pleural effusions and worse appearance of the lung bases. RPTAT: QQ .Dandre Franco MD, MD Date Time Electronically viewed and signed by .Dandre Franco MD, on 01/07/2017 21:31 .R/
[2017-01-07] MEDS: FENTAnyl PATCH 50 MCG/HR TRANSDERM SCH (22:09)
--- NOTE | 2017-01-07 22:11 | CONS ---
Date/Time of Note Date/Time of Note DATE: 01/07/17 TIME: 22:10 Assessment/Plan Assessment/Plan Chief Complaint/Hosp Course LEUKOCYTOSIS REACTIVE MONITOR CLOSELY ANEMIA N-CYTIC, N- CHROMIC WITH R RDW MONITOR BLOOD COUNT CLOSELY OBSERVE FOR BLEEDING AND HEMOLYSIS History of gastric cancer in the past status post gastrectomy as well as chemotherapy PER FAMILY- RAFAT DECREASED URINE OUTPUT PER [facility]MARY Acute alteration in mental status likely secondary to subacute CVA Acute respiratory distress superimposed on chronic respiratory failure Bilateral pleural effusion with underlying pneumonia and CHF Sepsis with lactic acidosis Chronic muscle wasting and cachexia History of multiple esophageal strictures and bowel obstruction 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 Reported history of hypertension Penicillin allergy Problems: Consultation Date/Type/Reason Admit Date/Time Dec 30, 2016 at 23:12 Initial Consult Date 12/31/16 Type of Consultation: HEMEON Referring Provider: ANA PAULINO 24 HR Interval Summary Free Text/Dictation ALL NOTED D/W DAUGHTER stable. Remains awake but unresponsive to any commands. Has remained hemodynamically stable. Exam/Review of Systems Vital Signs Vitals Vital Signs Date Time Temp Pulse Resp B/P Pulse Ox O2 Delivery O2 Flow Rate FiO2 01/07/17 20:14 5.0 28 01/07/17 20:14 90 22 99 Aerosol T Tube 01/07/17 20:00 98.2 112/63 Intake and Output 01/06/17 01/06/17 01/07/17 15:00 23:00 07:00 Intake Total 700 ml 795 ml Output Total 530 ml 550 ml Balance 170 ml 245 ml Exam GENERAL: This is a fragile, chronically ill-appearing, elderly woman, who is in no distress. HEENT: Head atraumatic, normocephalic. Sclerae anicteric. Buccal mucosa dry. NECK: Supple. Tracheostomy present. CHEST: Chest rise symmetrical. Breath sounds diminished at the bases. HEART: S1, S2. ABDOMEN: Soft, bowel sounds present. EXTREMITIES: Without cyanosis. Results Result Diagram: 01/07/17 1000 01/07/17 1000 Results 24 hrs Laboratory Tests Test 01/07/17 01:36 01/07/17 05:59 01/07/17 10:00 01/07/17 10:06 Bedside Glucose 105 98 148 White Blood Count 18.1 #H Red Blood Count 3.32 L Hemoglobin 10.4 L Hematocrit 32.0 L Mean Corpuscular Volume 96.4 Mean Corpuscular Hemoglobin 31.3 Mean Corpuscular Hemoglobin Concent 32.5 Red Cell Distribution Width 14.6 H Platelet Count 199 Mean Platelet Volume 12.1 H Neutrophils % 83.8 H Lymphocytes % 5.3 L Monocytes % 7.2 Eosinophils % 0.7 Basophils % 0.2 Nucleated Red Blood Cells % 0.3 H Neutrophils # (Manual) 15.2 H Lymphocytes # 1.0 Monocytes # 1.3 H Eosinophils # 0.1 Basophils # 0.0 Nucleated Red Blood Cells # 0.1 H Sodium Level 136 Potassium Level 4.9 Chloride Level 102 Carbon Dioxide Level 25 Anion Gap 14 Blood Urea Nitrogen 56 H Creatinine 0.62 Glucose Level 85 Calcium Level 7.7 L Phosphorus Level 4.8 Magnesium Level 1.7 Test 01/07/17 12:12 01/07/17 17:55 01/07/17 20:32 01/07/17 20:33 Bedside Glucose 100 103 91 92 Medications Medications Current Medications Chlorhexidine Gluconate (Peridex) 10 ml BID MM Last administered on 01/07/17 10:02; Admin Dose 10 ML; Start 12/31/16 at 09:00 Lidocaine (Lidoderm) 1 patch NOTE TRANSDERM ; Start 12/31/16 at 00:00 Insulin Aspart (Novolog Insulin Pen) NOVOLOG *MILD* ALGORI... Q4 SC Last administered on 01/03/17 20:44; Admin Dose 1 UNIT; Start 12/31/16 at 21:00 Miscellaneous Information 1 ea NOTE XX ; Start 12/31/16 at 18:30 Glucose (Glutose) 15 gm Q15M PRN PO DECREASED GLUCOSE; Start 12/31/16 at 18:30 Glucose (Glutose) 22.5 gm Q15M PRN PO DECREASED GLUCOSE; Start 12/31/16 at 18: 30 Dextrose (D50w Syringe) 25 ml Q15M PRN IV DECREASED GLUCOSE Last administered on 12/31/16 18:33; Admin Dose 25 ML; Start 12/31/16 at 18:30 Dextrose (D50w Syringe) 50 ml Q15M PRN IV DECREASED GLUCOSE; Start 12/31/16 at 18:30 Glucagon (Glucagen) 1 mg Q15M PRN IM DECREASED GLUCOSE; Start 12/31/16 at 18:30 Glucose (Glutose) 15 gm Q15M PRN BUCCAL DECREASED GLUCOSE; Start 12/31/16 at 18 :30 Hydromorphone HCl (Dilaudid) 0.5 mg Q4H PRN IV PAIN Last administered on 12:33; Admin Dose 0.5 MG; Start 01/01/17 at 01:30 Miscellaneous Information (Pending [facility]yl Order For Wound Care) This patient obregon... PRN PRN XX WOUND CARE; Start 01/01/17 at 03:00 Enoxaparin Sodium (Lovenox) 30 mg DAILY SC Last administered on 01/07/17 11:02 ; Admin Dose 30 MG; Start 01/01/17 at 14:00 Fentanyl 1 patch 1 patch Q3D TRANSDERM Last administered on 01/04/17 23:20; Admin Dose 1 PATCH; Start 01/01/17 at 20:00 Total Parenteral Nutrition 1,000 ml @ 40 mls/hr Q24H IV Last administered on 01:43; Admin Dose 40 MLS/HR; Start 01/02/17 at 21:00 Fat Emulsion Intravenous (Liposyn Ii 20%) 500 ml @ 21 mls/hr [id number] IV Last administered on 01/06/17 23:59; Admin Dose 21 MLS/HR; Start 01/02/17 at 21:00 Ondansetron HCl 4 mg 4 mg Q4H PRN IV NAUSEA AND/OR VOMITING Last administered on 01/07/17 07:03; Admin Dose 4 MG; Start 01/03/17 at 17:30 Tigecycline/ Sodium Chloride (Tygacil/NS) 100 ml @ 200 mls/hr Q12H IVPB Last administered on 01/07/17 17:52; Admin Dose 200 MLS/HR; Start 01/06/17 at 05:00 Aspirin 300 mg 300 mg DAILY GA Last administered on 01/07/17 12:15; Admin Dose 300 MG; Start 01/06/17 at 15:30 Meropenem/Sodium Chloride 50 ml @ 200 mls/hr Q8 IVPB Last administered on 01/07 14:48; Admin Dose 200 MLS/HR; Start 01/06/17 at 22:00 Fluconazole/ Sodium Chloride 50 ml @ 50 mls/hr Q24H IVPB Last administered on 15:30; Admin Dose 50 MLS/HR; Start 01/07/17 at 15:30 Sodium Chloride (1/2 NS) 1,000 ml @ 75 mls/hr [id number] IV Last administered on 01/07/17 15:30; Admin Dose 75 MLS/HR; Start 01/07/17 at 15:30; Stop 01/08/17 at 03:30 RUFINO STEVENSON MD Jan 07, 2017 22:11
[2017-01-08] VITALS (13 sets, daily range): BP systolic 92–110; BP diastolic 54–63; PULSE 83–170; RESP 16–18
[2017-01-08] MEDS: FAT EMULSION 20% 500 ML IV SCH ×2 (00:30→20:39)
[2017-01-08] MEDS: ALBUTEROL/IPRATROPIUM (NEB) 3 ML AMP INH SCH ×6 (00:48→21:30)
[2017-01-08] MEDS: ACETYLCYSTEINE 20% 4 ML VIAL NEB SCH ×4 (01:00→21:30)
[2017-01-08] MEDS: INSULIN ASPART [NOVOLOG] 3 ML PEN SC SCH ×6 (02:00→21:00)
[2017-01-08] MEDS: TPN 1,000 ML IV SCH ×2 (02:32→20:39)
[2017-01-08] MEDS: TIGECYCLINE 50 MG in SOD CHLORIDE 0.9% 100 ML IVPB SCH ×2 (05:54→17:35)
[2017-01-08] MEDS: MEROPENEM 500MG/50 ML (PMX) 50 ML IVPB SCH ×3 (06:52→21:17)
[2017-01-08] MEDS: HYDROmorphONE 1 MG/ML SYG IV PRN ×3 (07:14→17:35)
[2017-01-08 08:10] LABS: ABNORMAL IP MESSAGE 1; BASOPHILS % 0.3 % (0.0-2.0); EOSINOPHILS # 0.1 10^3/ul (0.0-0.5); HEMATOCRIT 31.5 % (37.0-47.0); HEMOGLOBIN 9.9 g/dl (12.0-16.0); LYMPHOCYTES # 1.3 10^3/ul (0.8-2.9); LYMPHOCYTES % 8.6 % (15.0-51.0); MEAN CORPUSCULAR HEMOGLOBIN 30.3 pg (29.0-33.0); MEAN CORPUSCULAR HGB CONC 31.4 g/dl (32.0-37.0); MEAN CORPUSCULAR VOLUME 96.3 fl (82.0-101.0); MEAN PLATELET VOLUME 13.3 fl (7.4-10.4); MONOCYTE # 1.3 10^3/ul (0.3-0.9); MONOCYTES % 8.7 % (0.0-11.0); NEUTROPHILS % 79.8 % (39.0-77.0); NUCLEATED RED BLOOD CELLS% 0.2 /100WBC (0.0-0.0); PLATELET COUNT 171 10^3/UL (140-415); RED BLOOD COUNT 3.27 10^6/ul (4.20-5.40); RED CELL DISTRIBUTION WIDTH 14.6 % (11.5-14.5); WHITE BLOOD COUNT 14.5 10^3/ul (4.8-10.8)
[2017-01-08 08:13] LABS: POSITIVE DIFF @See below
[2017-01-08 08:38] LABS: MAGNESIUM 1.6 mg/dl (1.7-2.5); PHOSPHORUS 4.5 mg/dl (2.5-4.9)
[2017-01-08 08:49] LABS: CALCIUM 7.4 mg/dl (8.4-10.2); CREATININE 0.61 mg/dl (0.44-1.00); POTASSIUM 4.3 mmol/L (3.5-5.1)
[2017-01-08] MEDS: CHLORHEXIDINE GLUCONATE 15 ML UD CUP MM SCH ×2 (09:11→20:40)
[2017-01-08] MEDS: ASPIRIN 300 MG SUPP PR SCH (09:11)
[2017-01-08] MEDS: ENOXAPARIN 30 MG/0.3 ML SYG SC SCH (09:12)
[2017-01-08] MEDS: BALSAM PERU/CASTOR OIL 60 GM TUBE TOP SCH (09:25)
--- NOTE | 2017-01-08 13:25 | CONS ---
Date/Time of Note Date/Time of Note DATE: 01/08/17 TIME: 13:22 Assessment/Plan Assessment/Plan Additional Assessment/Plan Chest x-ray was reviewed from yesterday which is now again showing bilateral pleural effusions. Cardiomegaly is present as well. Assessment and recommendations; 1. Patient admitted with right lower lobe pneumonia. 2. Advanced dementia. 3. Chronic respiratory failure patient maintained on tracheal T piece. 4. End-stage renal disease, on hemodialysis. 5. Recurrent ascites, status post bilateral abdominal drain placement. 6. Recurrent pleural effusions which likely are tracking of ascites fluid into pleural space. 7. Prior history of gastric cancer. Continue current supportive care. Patient will not benefit from repeated thoracentesis as the likelihood of rapid pleural fluid accumulation is quite high going to advanced liver disease causing severe ascites. Aggressive hemodialysis as tolerated. TPN. Prognosis is poor. Consultation Date/Type/Reason Admit Date/Time Dec 30, 2016 at 23:12 Initial Consult Date 01/01/17 Type of Consultation: Pulmonary/critical care Referring Provider: ANA PAULINO 24 HR Interval Summary Free Text/Dictation Patient condition stable. Appears much more awake today. Patient however does not interact due to advanced dementia. General exam; elderly woman, maintained on tracheal T piece. Currently in no distress. Awake. Exam/Review of Systems Vital Signs Vitals Vital Signs Date Time Temp Pulse Resp B/P Pulse Ox O2 Delivery O2 Flow Rate FiO2 01/08/17 12:13 91 01/08/17 12:07 97.8 18 107/59 97 01/08/17 08:46 5.0 28 01/08/17 08:46 Aerosol Intake and Output 01/07/17 01/07/17 01/08/17 15:00 23:00 07:00 Intake Total 730 ml 761 ml Output Total 875 ml 550 ml Balance -145 ml 211 ml Exam HEENT exam; supple neck, positive JVD. No lymphadenopathy. Midline trachea. No thyromegaly. Patient has fair dentition. Tracheostomy in place attached to T-piece. Chest exam; diminished breath sounds bilaterally. S1-S2 audible, no murmurs. Regular rhythm. Abdomen exam; soft, bilateral upper quadrant drains are in place. G-tube in place. Bowel sounds are audible. Extremity exam; trace generalized edema. FOOD MIXER exam; patient is awake but does not follow any commands. Results Result Diagram: 01/08/17 0701 01/08/17 0701 Results 24 hrs Laboratory Tests Test 01/07/17 17:55 01/07/17 20:32 01/07/17 20:33 01/08/17 02:30 Bedside Glucose 103 91 92 83 Test 01/08/17 05:52 01/08/17 07:01 01/08/17 09:17 01/08/17 13:15 Bedside Glucose 75 85 87 White Blood Count 14.5 H Red Blood Count 3.27 L Hemoglobin 9.9 L Hematocrit 31.5 L Mean Corpuscular Volume 96.3 Mean Corpuscular Hemoglobin 30.3 Mean Corpuscular Hemoglobin Concent 31.4 L Red Cell Distribution Width 14.6 H Platelet Count 171 Mean Platelet Volume 13.3 H Neutrophils % 79.8 H Lymphocytes % 8.6 L Monocytes % 8.7 Eosinophils % 1.0 Basophils % 0.3 Nucleated Red Blood Cells % 0.2 H Neutrophils # (Manual) 11.6 H Lymphocytes # 1.3 Monocytes # 1.3 H Eosinophils # 0.1 Basophils # 0.0 Nucleated Red Blood Cells # 0.0 Sodium Level 140 Potassium Level 4.3 Chloride Level 105 Carbon Dioxide Level 25 Anion Gap 14 Blood Urea Nitrogen 54 H Creatinine 0.61 Glucose Level 63 #L Calcium Level 7.4 L Phosphorus Level 4.5 Magnesium Level 1.6 L Medications Medications Current Medications Chlorhexidine Gluconate (Peridex) 10 ml BID MM Last administered on 01/08/17 09:11; Admin Dose 10 ML; Start 12/31/16 at 09:00 Lidocaine (Lidoderm) 1 patch NOTE TRANSDERM ; Start 12/31/16 at 00:00 Insulin Aspart (Novolog Insulin Pen) NOVOLOG *MILD* ALGORI... Q4 SC Last administered on 01/03/17 20:44; Admin Dose 1 UNIT; Start 12/31/16 at 21:00 Miscellaneous Information 1 ea NOTE XX ; Start 12/31/16 at 18:30 Glucose (Glutose) 15 gm Q15M PRN PO DECREASED GLUCOSE; Start 12/31/16 at 18:30 Glucose (Glutose) 22.5 gm Q15M PRN PO DECREASED GLUCOSE; Start 12/31/16 at 18: 30 Dextrose (D50w Syringe) 25 ml Q15M PRN IV DECREASED GLUCOSE Last administered on 12/31/16 18:33; Admin Dose 25 ML; Start 12/31/16 at 18:30 Dextrose (D50w Syringe) 50 ml Q15M PRN IV DECREASED GLUCOSE; Start 12/31/16 at 18:30 Glucagon (Glucagen) 1 mg Q15M PRN IM DECREASED GLUCOSE; Start 12/31/16 at 18:30 Glucose (Glutose) 15 gm Q15M PRN BUCCAL DECREASED GLUCOSE; Start 12/31/16 at 18 :30 Hydromorphone HCl (Dilaudid) 0.5 mg Q4H PRN IV PAIN Last administered on 12:37; Admin Dose 0.5 MG; Start 01/01/17 at 01:30 Miscellaneous Information (Pending [facility] Order For Wound Care) This patient obregon... PRN PRN XX WOUND CARE; Start 01/01/17 at 03:00 Enoxaparin Sodium (Lovenox) 30 mg DAILY SC Last administered on 01/08/17 09:12 ; Admin Dose 30 MG; Start 01/01/17 at 14:00 Fentanyl 1 patch 1 patch Q3D TRANSDERM Last administered on 01/07/17 22:09; Admin Dose 1 PATCH; Start 01/01/17 at 20:00 Total Parenteral Nutrition 1,000 ml @ 40 mls/hr Q24H IV Last administered on 02:32; Admin Dose 40 MLS/HR; Start 01/02/17 at 21:00 Fat Emulsion Intravenous (Liposyn Ii 20%) 500 ml @ 21 mls/hr [id number] IV Last administered on 01/08/17 00:30; Admin Dose 21 MLS/HR; Start 01/02/17 at 21:00 Ondansetron HCl 4 mg 4 mg Q4H PRN IV NAUSEA AND/OR VOMITING Last administered on 01/07/17 07:03; Admin Dose 4 MG; Start 01/03/17 at 17:30 Tigecycline/ Sodium Chloride (Tygacil/NS) 100 ml @ 200 mls/hr Q12H IVPB Last administered on 01/08/17 05:54; Admin Dose 200 MLS/HR; Start 01/06/17 at 05:00 Aspirin 300 mg 300 mg DAILY DC Last administered on 01/08/17 09:11; Admin Dose 300 MG; Start 01/06/17 at 15:30 Meropenem/Sodium Chloride 50 ml @ 200 mls/hr Q8 IVPB Last administered on 01/08 06:52; Admin Dose 200 MLS/HR; Start 01/06/17 at 22:00 Fluconazole/ Sodium Chloride (Diflucan 100 Mg/ NS (Pmx)) 50 ml @ 50 mls/hr Q24H IVPB Last administered on 01/07/17 15:30; Admin Dose 50 MLS/HR; Start at 15:30 ROSMERY JUAREZ Jan 08, 2017 13:25
[2017-01-08] MEDS ORDERED: MAGNESIUM SULFATE 2 GM/50 ML 50 ML IVPB ONE (15:00)
--- NOTE | 2017-01-08 15:35 | PN ---
Date/Time of Note Date/Time of Note DATE: 01/08/17 TIME: 15:14 Assessment/Plan VTE Prophylaxis VTE Prophylaxis Intervention: LMWH Lines/Catheters IV [facility]from [facility] Central Line Central line still needed: Yes Urinary Cath still in place: Yes Reason Cath still needed: urinary retention Assessment/Plan Chief Complaint/Hosp Course Assessment/Plan: 71 yo F with previous h/o gastric ca sp treatment, h/o multiple esophageal strictures and bowel obstructions which have rendered the patient TPN dependent, chronic respiratory failure sp trach placement admitted for decreased mental status, suspect from acute CVA vs toxic/metabolic encephalopathy from pneumonia. sp thora, hospitalization c/b septic shock with hypotension warranting an overnight ICU stay, transferred back to floor on 01.03. # Aspiration pneumonia/pneumonitis, on antibiotics. Patient also with Klebsiella, Actinobacteria, enterococcus, and yeast wound abdominal infections. No fevers. -Per infectious disease continue tigecycline and meropenem per their recommendations, discuss with him about length of treatment. -Continue fluconazole. #. Right pleural effusion, s/p US-guided thoracentesis with removal of 750 cc fluid on 12/31/2016. Chest x-ray last 24 hours however shows more bilateral pleural effusions. --follow final fluid studies, continue antibiotics. -Monitor breathing status for now, follow pulmonary recommendations. For now not recommending thoracentesis to be performed secondary to high chance of fast reaccumulation. #. Recurrent ischemic stroke: neuro on consult, MRI brain from December 31 shows: There is acute infarct in the left middle cerebral artery territory, involving the left temporal lobe, parietal, and insula. -Follow-up neurology recommendations, continue aspirin 300 mg per rectal daily. # Gastric cancer in 2011, for which she underwent extensive resection in the past, as well as chemotherapy. -Monitor for now, including drainage from abdominal tubes -On TPN as well #Multiple esophageal strictures and bowel obstructions,cont TPN. #Status post tracheostomy: wean O2 as tolerated -Continue physical therapy consult Problems: Subjective 24 Hr Interval Summary Free Text/Dictation Patient more awake and alert today, still on oxygen supplementation, chest x- ray was performed as well. Exam/Review of Systems Vital Signs Vitals Vital Signs Date Time Temp Pulse Resp B/P Pulse Ox O2 Delivery O2 Flow Rate FiO2 01/08/17 14:06 86 18 100 Aerosol 5.0 28 01/08/17 12:07 97.8 107/59 Intake and Output 01/07/17 01/07/17 01/08/17 15:00 23:00 07:00 Intake Total 730 ml 761 ml Output Total 875 ml 550 ml Balance -145 ml 211 ml Exam nad, more alert trach secretions somewhat less thick Slightly decreased breath sounds bilaterally no mrg abd drain with dark output no rashes Results Result Diagram: 01/08/17 0701/08/17 0701 Results 24 hrs Laboratory Tests Test 01/07/17 17:55 01/07/17 20:32 01/07/17 20:33 01/08/17 02:30 Bedside Glucose 103 91 92 83 Test 01/08/17 05:52 01/08/17 07:01 01/08/17 09:17 01/08/17 13:15 Bedside Glucose 75 85 87 White Blood Count 14.5 H Red Blood Count 3.27 L Hemoglobin 9.9 L Hematocrit 31.5 L Mean Corpuscular Volume 96.3 Mean Corpuscular Hemoglobin 30.3 Mean Corpuscular Hemoglobin Concent 31.4 L Red Cell Distribution Width 14.6 H Platelet Count 171 Mean Platelet Volume 13.3 H Neutrophils % 79.8 H Lymphocytes % 8.6 L Monocytes % 8.7 Eosinophils % 1.0 Basophils % 0.3 Nucleated Red Blood Cells % 0.2 H Neutrophils # (Manual) 11.6 H Lymphocytes # 1.3 Monocytes # 1.3 H Eosinophils # 0.1 Basophils # 0.0 Nucleated Red Blood Cells # 0.0 Sodium Level 140 Potassium Level 4.3 Chloride Level 105 Carbon Dioxide Level 25 Anion Gap 14 Blood Urea Nitrogen 54 H Creatinine 0.61 Glucose Level 63 #L Calcium Level 7.4 L Phosphorus Level 4.5 Magnesium Level 1.6 L Medications Medications Current Medications Chlorhexidine Gluconate (Peridex) 10 ml BID MM Last administered on 01/08/17 09:11; Admin Dose 10 ML; Start 12/31/16 at 09:00 Lidocaine (Lidoderm) 1 patch NOTE TRANSDERM ; Start 12/31/16 at 00:00 Insulin Aspart (Novolog Insulin Pen) NOVOLOG *MILD* ALGORI... Q4 SC Last administered on 01/03/17 20:44; Admin Dose 1 UNIT; Start 12/31/16 at 21:00 Miscellaneous Information 1 ea NOTE XX ; Start 12/31/16 at 18:30 Glucose (Glutose) 15 gm Q15M PRN PO DECREASED GLUCOSE; Start 12/31/16 at 18:30 Glucose (Glutose) 22.5 gm Q15M PRN PO DECREASED GLUCOSE; Start 12/31/16 at 18: 30 Dextrose (D50w Syringe) 25 ml Q15M PRN IV DECREASED GLUCOSE Last administered on 12/31/16 18:33; Admin Dose 25 ML; Start 12/31/16 at 18:30 Dextrose (D50w Syringe) 50 ml Q15M PRN IV DECREASED GLUCOSE; Start 12/31/16 at 18:30 Glucagon (Glucagen) 1 mg Q15M PRN IM DECREASED GLUCOSE; Start 12/31/16 at 18:30 Glucose (Glutose) 15 gm Q15M PRN BUCCAL DECREASED GLUCOSE; Start 12/31/16 at 18 :30 Hydromorphone HCl (Dilaudid) 0.5 mg Q4H PRN IV PAIN Last administered on 12:37; Admin Dose 0.5 MG; Start 01/01/17 at 01:30 Miscellaneous Information (Pending Santyl Order For Wound Care) This patient obregon... PRN PRN XX WOUND CARE; Start 01/01/17 at 03:00 Enoxaparin Sodium (Lovenox) 30 mg DAILY SC Last administered on 01/08/17 09:12 ; Admin Dose 30 MG; Start 01/01/17 at 14:00 Fentanyl 1 patch 1 patch Q3D TRANSDERM Last administered on 01/07/17 22:09; Admin Dose 1 PATCH; Start 01/01/17 at 20:00 Total Parenteral Nutrition 1,000 ml @ 40 mls/hr Q24H IV Last administered on 02:32; Admin Dose 40 MLS/HR; Start 01/02/17 at 21:00 Fat Emulsion Intravenous (Liposyn Ii 20%) 500 ml @ 21 mls/hr [id number] IV Last administered on 01/08/17 00:30; Admin Dose 21 MLS/HR; Start 01/02/17 at 21:00 Ondansetron HCl 4 mg 4 mg Q4H PRN IV NAUSEA AND/OR VOMITING Last administered on 01/07/17 07:03; Admin Dose 4 MG; Start 01/03/17 at 17:30 Tigecycline/ Sodium Chloride (Tygacil/NS) 100 ml @ 200 mls/hr Q12H IVPB Last administered on 01/08/17 05:54; Admin Dose 200 MLS/HR; Start 01/06/17 at 05:00 Aspirin 300 mg 300 mg DAILY [place] Last administered on 01/08/17 09:11; Admin Dose 300 MG; Start 01/06/17 at 15:30 Meropenem/Sodium Chloride 50 ml @ 200 mls/hr Q8 IVPB Last administered on 01/08 14:56; Admin Dose 200 MLS/HR; Start 01/06/17 at 22:00 Fluconazole/ Sodium Chloride 50 ml @ 50 mls/hr Q24H IVPB Last administered on 15:30; Admin Dose 50 MLS/HR; Start 01/07/17 at 15:30 Magnesium Sulfate (Magnesium Sulfate 2 Gm/50 ml) 50 ml @ 25 mls/hr ONCE ONCE IVPB ; Start 01/08/17 at 15:00; Stop 01/08/17 at 16:59 LUIS JUAN Jan 08, 2017 15:24
[2017-01-08] MEDS: FLUCONAZOLE 100 MG/NS (PMX) 50 ML IVPB SCH (16:36)
--- NOTE | 2017-01-08 21:35 | CONS ---
Date/Time of Note Date/Time of Note DATE: 01/08/17 TIME: 21:33 Assessment/Plan Assessment/Plan Chief Complaint/Hosp Course LEUKOCYTOSIS REACTIVE MONITOR CLOSELY ANEMIA N-CYTIC, N- CHROMIC WITH R RDW MONITOR BLOOD COUNT CLOSELY OBSERVE FOR BLEEDING AND HEMOLYSIS History of gastric cancer in the past status post gastrectomy as well as chemotherapy PER FAMILY- RAFAT RECENT RESTAGING WITH CT AP- NEG DECREASED URINE OUTPUT PER [facility] Acute alteration in mental status likely secondary to subacute CVA Acute respiratory distress superimposed on chronic respiratory failure Bilateral pleural effusion with underlying pneumonia and CHF Sepsis with lactic acidosis Chronic muscle wasting and cachexia History of multiple esophageal strictures and bowel obstruction 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 Reported history of hypertension Penicillin allergy Problems: Consultation Date/Type/Reason Admit Date/Time Dec 30, 2016 at 23:12 Initial Consult Date 12/31/16 [facility] Provider: ANA PAULINO 24 HR Interval Summary Free Text/Dictation all noted on TPN Patient more awake and alert today, still on oxygen supplementation, Exam/Review of Systems Vital Signs Vitals Vital Signs Date Time Temp Pulse Resp B/P Pulse Ox O2 Delivery O2 Flow Rate FiO2 01/08/17 20:27 98.2 88 16 94/58 100 01/08/17 17:00 Aerosol 5.0 28 Intake and Output 01/07/17 01/07/17 01/08/17 15:00 23:00 07:00 Intake Total 730 ml 761 ml Output Total 875 ml 550 ml Balance -145 ml 211 ml Exam GENERAL: This is a fragile, chronically ill-appearing, elderly woman, who is in no distress. HEENT: Head atraumatic, normocephalic. Sclerae anicteric. Buccal mucosa dry. NECK: Supple. Tracheostomy present. CHEST: Chest rise symmetrical. Breath sounds diminished at the bases. HEART: S1, S2. ABDOMEN: Soft, bowel sounds present. EXTREMITIES: Without cyanosis. Results Result Diagram: 01/08/17 0701 01/08/17 07 Results 24 hrs Laboratory Tests Test 01/08/17 02:30 01/08/17 05:52 01/08/17 07:01 01/08/17 09:17 Bedside Glucose 83 75 85 White Blood Count 14.5 H Red Blood Count 3.27 L Hemoglobin 9.9 L Hematocrit 31.5 L Mean Corpuscular Volume 96.3 Mean Corpuscular Hemoglobin 30.3 Mean Corpuscular Hemoglobin Concent 31.4 L Red Cell Distribution Width 14.6 H Platelet Count 171 Mean Platelet Volume 13.3 H Neutrophils % 79.8 H Lymphocytes % 8.6 L Monocytes % 8.7 Eosinophils % 1.0 Basophils % 0.3 Nucleated Red Blood Cells % 0.2 H Neutrophils # (Manual) 11.6 H Lymphocytes # 1.3 Monocytes # 1.3 H Eosinophils # 0.1 Basophils # 0.0 Nucleated Red Blood Cells # 0.0 Sodium Level 140 Potassium Level 4.3 Chloride Level 105 Carbon Dioxide Level 25 Anion Gap 14 Blood Urea Nitrogen 54 H Creatinine 0.61 Glucose Level 63 #L Calcium Level 7.4 L Phosphorus Level 4.5 Magnesium Level 1.6 L Test 01/08/17 13:15 01/08/17 17:40 01/08/17 21:05 Bedside Glucose 87 83 79 Medications Medications Current Medications Chlorhexidine Gluconate (Peridex) 10 ml BID MM Last administered on 01/08/17 20:40; Admin Dose 10 ML; Start 12/31/16 at 09:00 Lidocaine (Lidoderm) 1 patch NOTE TRANSDERM ; Start 12/31/16 at 00:00 Insulin Aspart (Novolog Insulin Pen) NOVOLOG *MILD* ALGORI... Q4 SC Last administered on 01/03/17 20:44; Admin Dose 1 UNIT; Start 12/31/16 at 21:00 Miscellaneous Information 1 ea NOTE XX ; Start 12/31/16 at 18:30 Glucose (Glutose) 15 gm Q15M PRN PO DECREASED GLUCOSE; Start 12/31/16 at 18:30 Glucose (Glutose) 22.5 gm Q15M PRN PO DECREASED GLUCOSE; Start 12/31/16 at 18: 30 Dextrose (D50w Syringe) 25 ml Q15M PRN IV DECREASED GLUCOSE Last administered on 12/31/16 18:33; Admin Dose 25 ML; Start 12/31/16 at 18:30 Dextrose (D50w Syringe) 50 ml Q15M PRN IV DECREASED GLUCOSE; Start 12/31/16 at 18:30 Glucagon (Glucagen) 1 mg Q15M PRN IM DECREASED GLUCOSE; Start 12/31/16 at 18:30 Glucose (Glutose) 15 gm Q15M PRN BUCCAL DECREASED GLUCOSE; Start 12/31/16 at 18 :30 Hydromorphone HCl (Dilaudid) 0.5 mg Q4H PRN IV PAIN Last administered on 17:35; Admin Dose 0.5 MG; Start 01/01/17 at 01:30 Miscellaneous Information (Pending Santyl Order For Wound Care) This patient obregon... PRN PRN XX WOUND CARE; Start 01/01/17 at 03:00 Enoxaparin Sodium (Lovenox) 30 mg DAILY SC Last administered on 01/08/17 09:12 ; Admin Dose 30 MG; Start 01/01/17 at 14:00 Fentanyl 1 patch 1 patch Q3D TRANSDERM Last administered on 01/07/17 22:09; Admin Dose 1 PATCH; Start 01/01/17 at 20:00 Total Parenteral Nutrition 1,000 ml @ 40 mls/hr Q24H IV Last administered on 20:39; Admin Dose 40 MLS/HR; Start 01/02/17 at 21:00 Fat Emulsion Intravenous (Liposyn Ii 20%) 500 ml @ 21 mls/hr [id number] IV Last administered on 01/08/17 20:39; Admin Dose 21 MLS/HR; Start 01/02/17 at 21:00 Ondansetron HCl 4 mg 4 mg Q4H PRN IV NAUSEA AND/OR VOMITING Last administered on 01/07/17 07:03; Admin Dose 4 MG; Start 01/03/17 at 17:30 Tigecycline/ Sodium Chloride (Tygacil/NS) 100 ml @ 200 mls/hr Q12H IVPB Last administered on 01/08/17 17:35; Admin Dose 200 MLS/HR; Start 01/06/17 at 05:00 Aspirin 300 mg 300 mg DAILY MN Last administered on 01/08/17 09:11; Admin Dose 300 MG; Start 01/06/17 at 15:30 Meropenem/Sodium Chloride 50 ml @ 200 mls/hr Q8 IVPB Last administered on 01/08 21:17; Admin Dose 200 MLS/HR; Start 01/06/17 at 22:00 Fluconazole/ Sodium Chloride (Diflucan 100 Mg/ NS (Pmx)) 50 ml @ 50 mls/hr Q24H IVPB Last administered on 01/08/17t 16:36; Admin Dose 50 MLS/HR; Start at 15:30 RUFINO STEVENSON MD Jan 08, 2017 21:35
[2017-01-09] VITALS (12 sets, daily range): BP systolic 92–129; BP diastolic 59–89; PULSE 87–103; RESP 18–19
[2017-01-09] MEDS: INSULIN ASPART [NOVOLOG] 3 ML PEN SC SCH ×6 (01:00→21:00)
[2017-01-09] MEDS: ACETYLCYSTEINE 20% 4 ML VIAL NEB SCH ×4 (02:01→21:05)
[2017-01-09] MEDS: ALBUTEROL/IPRATROPIUM (NEB) 3 ML AMP INH SCH ×6 (02:01→20:53)
--- NOTE | 2017-01-09 03:12 | PN ---
DATE: 01/08/2017 SUBJECTIVE DATA: No events overnight per report. The patient is awake, looks comfortable. Family at bedside. LABORATORY AND DIAGNOSTIC DATA: WBC 14.5, H and H 9.9 and 31.5, platelets 171. Neutrophils 79.8, no bands. BUN 54, creatinine 0.61. INDWELLINGS: Trach, PEG, multiple intra-abdominal drainage catheter, and right chest triple lumen catheter. MICROBIOLOGY: Blood and urine cultures since admission negative. Abdominal fluid culture grew multidrug resistant organisms including yeast, carbapenem resistant cleared pneumonia, Acinetobacter baumannii enterococcus species. ANTIMICROBIALS: The patient is on fluconazole, meropenem, and Tygacil. PHYSICAL EXAMINATION: VITALS: Temperature 97.8, pulse 90, respirations 18, blood pressure 107/59, saturation 97 on trach mask. GENERAL: This is a chronically ill-appearing, elderly woman who is awake in no distress. HEENT: Head is atraumatic and normocephalic. Sclerae are anicteric. Buccal mucosa is dry. NECK: Supple. LUNGS: Chest rise is symmetrical. Breath sounds are diminished at the bases. HEART: S1, S2. ABDOMEN: Soft. Bowel sounds are present. EXTREMITIES: Without cyanosis. ASSESSMENT: 1. Status post septic shock. 2. Pneumonia with parapneumonic effusion status post thoracentesis. 3. History of gastric cancer, status post multiple resection with chemotherapy. 4. History of recent bilateral abdominal abscess drainage with catheter placement. Abdominal fluid cultures growing multi-drug resistant organisms and yeast. 5. Cachexia. 6. Anemia. 7. Right chest triple lumen catheter. PLAN: The patient remains stable. Continue present care. Continue on current antimicrobials. Consider surgical evaluation. Dictated By: Nancy Mccarty NP /prachi/ofe /Document#: [id number]
[2017-01-09] MEDS: TIGECYCLINE 50 MG in SOD CHLORIDE 0.9% 100 ML IVPB SCH ×2 (05:08→17:27)
[2017-01-09] MEDS: MEROPENEM 500MG/50 ML (PMX) 50 ML IVPB SCH ×2 (06:19→13:46)
[2017-01-09] MEDS: HYDROmorphONE 1 MG/ML SYG IV PRN (06:24)
[2017-01-09 07:48] LABS: BASOPHILS % 0.2 % (0.0-2.0); EOSINOPHILS # 0.1 10^3/ul (0.0-0.5); EOSINOPHILS % 0.6 % (0.0-7.0); HEMATOCRIT 31.5 % (37.0-47.0); HEMOGLOBIN 10.5 g/dl (12.0-16.0); LYMPHOCYTES # 0.8 10^3/ul (0.8-2.9); LYMPHOCYTES % 5.5 % (15.0-51.0); MEAN CORPUSCULAR HEMOGLOBIN 32.6 pg (29.0-33.0); MEAN CORPUSCULAR HGB CONC 33.3 g/dl (32.0-37.0); MEAN CORPUSCULAR VOLUME 97.8 fl (82.0-101.0); MEAN PLATELET VOLUME 13.2 fl (7.4-10.4); MONOCYTES % 7.1 % (0.0-11.0); NEUTROPHILS % 85.4 % (39.0-77.0); NUCLEATED RED BLOOD CELLS # 0.1 10^3/ul (0.0-0.0); NUCLEATED RED BLOOD CELLS% 0.3 /100WBC (0.0-0.0); PLATELET COUNT 158 10^3/UL (140-415); RED BLOOD COUNT 3.22 10^6/ul (4.20-5.40); RED CELL DISTRIBUTION WIDTH 14.6 % (11.5-14.5); WHITE BLOOD COUNT 14.5 10^3/ul (4.8-10.8)
[2017-01-09 08:18] LABS: CALCIUM 7.2 mg/dl (8.4-10.2); CREATININE 0.53 mg/dl (0.44-1.00); POTASSIUM 4.1 mmol/L (3.5-5.1)
[2017-01-09] MEDS: CHLORHEXIDINE GLUCONATE 15 ML UD CUP MM SCH ×2 (09:57→21:01)
[2017-01-09] MEDS: BALSAM PERU/CASTOR OIL 60 GM TUBE TOP SCH (09:57)
[2017-01-09] MEDS: ENOXAPARIN 30 MG/0.3 ML SYG SC SCH (09:58)
[2017-01-09 10:24] LABS: MAGNESIUM 2.1 mg/dl (1.7-2.5); PHOSPHORUS 4.2 mg/dl (2.5-4.9)
--- NOTE | 2017-01-09 10:57 | CONS ---
Date/Time of Note Date/Time of Note DATE: 01/09/17 TIME: 10:53 Assessment/Plan Assessment/Plan Additional Assessment/Plan Assessment and recommendations; 1. Patient admitted with right lower lobe pneumonia status post thoracentesis with rapid reaccumulation of pleural effusions due to ascites fluid tracking into the pleural space. 2. History of bilateral upper quadrant abdominal drain placement which is also draining copious amounts of serous fluid on a daily basis. 3. End-stage renal disease. 4. Anemia. 5. Sacral decubitus ulcers, growing multiple organisms, patient currently on appropriate antibiotic regimen. 6. History of gastric cancer in the past. 7. Dementia. Multi-infarct. Continue current treatment. I would not recommend any further thoracentesis unless and until the patient becomes symptomatic as the likelihood of rapid recommendation of pleural effusions is very high. Prognosis is poor, CODE STATUS needs to be discussed with the family. Consultation Date/Type/Reason Admit Date/Time Dec 30, 2016 at 23:12 Initial Consult Date 01/01/17 Type of Consultation: Pulmonary Referring Provider: ANA PAULINO 24 HR Interval Summary Free Text/Dictation Patient's condition is stable. Remains awake and alert. Patient however remains non-communicative due to dementia due to multiple CVAs. General exam; elderly woman, awake. Currently in no distress. On t piece via tracheostomy. Exam/Review of Systems Vital Signs Vitals Vital Signs Date Time Temp Pulse Resp B/P Pulse Ox O2 Delivery O2 Flow Rate FiO2 01/09/17 08:24 102 21 98 5.0 28 01/09/17 07:49 97.6 115/89 01/09/17 05:14 Aerosol T Tube Intake and Output 01/08/17 01/08/17 01/09/17 15:00 23:00 07:00 Intake Total 0 ml 0 ml Output Total 725 ml 280 ml Balance -725 ml -280 ml Exam HEENT exam; supple neck, positive JVD. No lymphadenopathy. Patient has fair dentition. Tracheostomy in place. Insertion site is clean. Attached to T- piece. Chest exam; diminished breath sounds in lower lobes bilaterally. S1-S2 audible , no murmurs. Regular rhythm. Abdomen exam; soft, bilateral upper quadrant drains are in place. G-tube in place. Extremity exam; trace edema. 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 Results Result Diagram: 01/09/17 0701 01/09/17 0701 Results 24 hrs Laboratory Tests Test 01/08/17 13:15 01/08/17 17:40 01/08/17 21:05 01/09/17 00:44 Bedside Glucose 87 83 79 87 Test 01/09/17 05:07 01/09/17 07:01 01/09/17 08:21 Bedside Glucose 95 85 White Blood Count 14.5 H Red Blood Count 3.22 L Hemoglobin 10.5 L Hematocrit 31.5 L Mean Corpuscular Volume 97.8 Mean Corpuscular Hemoglobin 32.6 Mean Corpuscular Hemoglobin Concent 33.3 Red Cell Distribution Width 14.6 H Platelet Count 158 Mean Platelet Volume 13.2 H Neutrophils % 85.4 H Lymphocytes % 5.5 L Monocytes % 7.1 Eosinophils % 0.6 Basophils % 0.2 Nucleated Red Blood Cells % 0.3 H Neutrophils # (Manual) 12.4 H Lymphocytes # 0.8 Monocytes # 1.0 H Eosinophils # 0.1 Basophils # 0.0 Nucleated Red Blood Cells # 0.1 H Sodium Level 142 Potassium Level 4.1 Chloride Level 106 Carbon Dioxide Level 25 Anion Gap 15 Blood Urea Nitrogen 48 H Creatinine 0.53 Glucose Level 91 Calcium Level 7.2 L Phosphorus Level 4.2 Magnesium Level 2.1 Medications Medications Current Medications Chlorhexidine Gluconate (Peridex) 10 ml BID MM Last administered on 01/09/17 09:57; Admin Dose 10 ML; Start 12/31/16 at 09:00 Lidocaine (Lidoderm) 1 patch NOTE TRANSDERM ; Start 12/31/16 at 00:00 Insulin Aspart (Novolog Insulin Pen) NOVOLOG *MILD* ALGORI... Q4 SC Last administered on 01/03/17 20:44; Admin Dose 1 UNIT; Start 12/31/16 at 21:00 Miscellaneous Information 1 ea NOTE XX ; Start 12/31/16 at 18:30 Glucose (Glutose) 15 gm Q15M PRN PO DECREASED GLUCOSE; Start 12/31/16 at 18:30 Glucose (Glutose) 22.5 gm Q15M PRN PO DECREASED GLUCOSE; Start 12/31/16 at 18: 30 Dextrose (D50w Syringe) 25 ml Q15M PRN IV DECREASED GLUCOSE Last administered on 12/31/16 18:33; Admin Dose 25 ML; Start 12/31/16 at 18:30 Dextrose (D50w Syringe) 50 ml Q15M PRN IV DECREASED GLUCOSE; Start 12/31/16 at 18:30 Glucagon (Glucagen) 1 mg Q15M PRN IM DECREASED GLUCOSE; Start 12/31/16 at 18:30 Glucose (Glutose) 15 gm Q15M PRN BUCCAL DECREASED GLUCOSE; Start 12/31/16 at 18 :30 Hydromorphone HCl (Dilaudid) 0.5 mg Q4H PRN IV PAIN Last administered on 06:24; Admin Dose 0.5 MG; Start 01/01/17 at 01:30 [facility] This patient obregon... PRN PRN XX WOUND CARE; Start 01/01/17 at 03:00 Enoxaparin Sodium (Lovenox) 30 mg DAILY SC Last administered on 01/09/17 09:58 ; Admin Dose 30 MG; Start 01/01/17 at 14:00 Fentanyl 1 patch 1 patch Q3D TRANSDERM Last administered on 01/07/17 22:09; Admin Dose 1 PATCH; Start 01/01/17 at 20:00 Total Parenteral Nutrition 1,000 ml @ 40 mls/hr Q24H IV Last administered on 20:39; Admin Dose 40 MLS/HR; Start 01/02/17 at 21:00 Fat Emulsion Intravenous (Liposyn Ii 20%) 500 ml @ 21 mls/hr [id number] IV Last administered on 01/08/17 20:39; Admin Dose 21 MLS/HR; Start 01/02/17 at 21:00 Ondansetron HCl 4 mg 4 mg Q4H PRN IV NAUSEA AND/OR VOMITING Last administered on 01/07/17 07:03; Admin Dose 4 MG; Start 01/03/17 at 17:30 Tigecycline/ Sodium Chloride (Tygacil/NS) 100 ml @ 200 mls/hr Q12H IVPB Last administered on 01/09/17 05:08; Admin Dose 200 MLS/HR; Start 01/06/17 at 05:00 Aspirin 300 mg 300 mg DAILY [place] Last administered on 01/08/17 09:11; Admin Dose 300 MG; Start 01/06/17 at 15:30 Meropenem/Sodium Chloride 50 ml @ 200 mls/hr Q8 IVPB Last administered on 01/09 06:19; Admin Dose 200 MLS/HR; Start 01/06/17 at 22:00 Fluconazole/ Sodium Chloride (Diflucan 100 Mg/ NS (Pmx)) 50 ml @ 50 mls/hr Q24H IVPB Last administered on 01/08/17 16:36; Admin Dose 50 MLS/HR; Start at 15:30 ROSMERY JUAREZ Jan 09, 2017 10:57
[2017-01-09] MEDS: ASPIRIN 300 MG SUPP PR SCH (13:43)
--- NOTE | 2017-01-09 15:40 | PN ---
DATE: 01/09/2017 SUBJECTIVE DATA: No events overnight. The patient is awake, looks comfortable. No fevers. WBC 14.5, platelets 158, neutrophils 85.4, BUN 48, creatinine 0.53. INDWELLINGS: Patient has trach, PEG, and Crow. Right subclavian triple lumen catheter. Multiple intra-abdominal drainage catheters. ANTIMICROBIALS: Meropenem, Tygacil and fluconazole. PHYSICAL EXAMINATION: GENERAL: This is a fragile, chronically ill-appearing, elderly woman, who is in no distress. HEENT: Head atraumatic, normocephalic. Sclerae anicteric. Buccal mucosa dry. NECK: Supple. Tracheostomy present. CHEST: Chest rise symmetrical. Breath sounds diminished at the bases. HEART: S1, S2. ABDOMEN: Soft, bowel sounds present. EXTREMITIES: Without cyanosis. ASSESSMENT: 1. Resolving sepsis. 2. Right lower lobe pneumonia, status post-thoracentesis with re-accumulation of pleural fluid, secondary to ascitic fluid tracking into the pleural space. 3. History of gastric cancer. Status post-resection with chemotherapy. 4. History of abdominal abscess drainage with a catheter placement and culture growing multidrug resistant organisms and yeast. 5. Anemia. 6. Cachexia. PLAN: The patient remains unchanged. She is being followed by multiple consultants. She is full code. We will change Meropenem to colistin to cover multidrug resistant organisms that she is growing from abdominal fluid. Continue Tygacil for Enterococcal coverage. Dictated By: Nancy Mccarty NP /prachi/sonido /Document#: [id number]
[2017-01-09] MEDS: FLUCONAZOLE 100 MG/NS (PMX) 50 ML IVPB SCH (15:48)
--- NOTE | 2017-01-09 16:10 | PN ---
Date/Time of Note Date/Time of Note DATE: 01/09/17 TIME: 16:08 Assessment/Plan VTE Prophylaxis VTE Prophylaxis Intervention: LMWH Lines/Catheters IV Catheter Type (from Nrs): PICC Line Central line still needed: Yes Urinary Cath still in place: Yes Reason Cath still needed: urinary retention Assessment/Plan Chief Complaint/Hosp Course Assessment/Plan: 71 yo F with previous h/o gastric ca sp treatment, h/o multiple esophageal strictures and bowel obstructions which have rendered the patient TPN dependent, chronic respiratory failure sp trach placement admitted for decreased mental status, suspect from acute CVA vs toxic/metabolic encephalopathy from pneumonia. sp thora, hospitalization c/b septic shock with hypotension warranting an overnight ICU stay, transferred back to floor on 01.03. # Aspiration pneumonia/pneumonitis, on antibiotics. Patient also with Klebsiella, Actinobacteria, enterococcus, and yeast wound abdominal infections. No fevers. -Per infectious disease continue tigecycline and meropenem per their recommendations, discuss with him about length of treatment. -Continue fluconazole. #. Right pleural effusion, s/p US-guided thoracentesis with removal of 750 cc fluid on 12/31/2016. Chest x-ray last 48 hours however shows more bilateral pleural effusions. --follow final fluid studies, continue antibiotics. -Monitor breathing status for now, follow pulmonary recommendations. For now not recommending thoracentesis to be performed secondary to high chance of fast reaccumulation. #. Recurrent ischemic stroke: neuro on consult, MRI brain from December 31 shows: There is acute infarct in the left middle cerebral artery territory, involving the left temporal lobe, parietal, and insula. -Follow-up neurology recommendations, continue aspirin 300 mg per rectal daily. # Gastric cancer in 2011, for which she underwent extensive resection in the past, as well as chemotherapy. -Monitor for now, including drainage from abdominal tubes -On TPN as well #Multiple esophageal strictures and bowel obstructions,cont TPN. #Status post tracheostomy: wean O2 as tolerated -Continue physical therapy consult Problems: Subjective 24 Hr Interval Summary Free Text/Dictation No fevers overnight, tolerating TPN. Seen by infectious disease team and pulmonary team today. Exam/Review of Systems Vital Signs Vitals Vital Signs Date Time Temp Pulse Resp B/P Pulse Ox O2 Delivery O2 Flow Rate FiO2 01/09/17 16:05 87 01/09/17 15:55 98.3 19 112/63 98 01/09/17 15:33 Aerosol 5.0 28 Intake and Output 01/08/17 01/08/17 01/09/17 15:00 23:00 07:00 Intake Total 0 ml 0 ml Output Total 725 ml 280 ml Balance -725 ml -280 ml Exam nad, more alert trach secretions somewhat less Slightly decreased breath sounds bilaterally no mrg abd drain with dark output no rashes Results Result Diagram: 01/09/1770001/09/17 07 Results 24 hrs Laboratory Tests Test 01/08/17 17:40 01/08/17 21:05 01/09/17 00:44 01/09/17 05:07 Bedside Glucose 83 79 87 95 Test 01/09/17 07:01 01/09/17 08:21 01/09/17 13:42 White Blood Count 14.5 H Red Blood Count 3.22 L Hemoglobin 10.5 L Hematocrit 31.5 L Mean Corpuscular Volume 97.8 Mean Corpuscular Hemoglobin 32.6 Mean Corpuscular Hemoglobin Concent 33.3 Red Cell Distribution Width 14.6 H Platelet Count 158 Mean Platelet Volume 13.2 H Neutrophils % 85.4 H Lymphocytes % 5.5 L Monocytes % 7.1 Eosinophils % 0.6 Basophils % 0.2 Nucleated Red Blood Cells % 0.3 H Neutrophils # (Manual) 12.4 H Lymphocytes # 0.8 Monocytes # 1.0 H Eosinophils # 0.1 Basophils # 0.0 Nucleated Red Blood Cells # 0.1 H Sodium Level 142 Potassium Level 4.1 Chloride Level 106 Carbon Dioxide Level 25 Anion Gap 15 Blood Urea Nitrogen 48 H Creatinine 0.53 Glucose Level 91 Calcium Level 7.2 L Phosphorus Level 4.2 Magnesium Level 2.1 Bedside Glucose 85 94 Medications Medications Current Medications Chlorhexidine Gluconate (Peridex) 10 ml BID MM Last administered on 01/09/17 09:57; Admin Dose 10 ML; Start 12/31/16 at 09:00 Lidocaine (Lidoderm) 1 patch NOTE TRANSDERM ; Start 12/31/16 at 00:00 Insulin Aspart (Novolog Insulin Pen) NOVOLOG *MILD* ALGORI... Q4 SC Last administered on 01/03/17 20:44; Admin Dose 1 UNIT; Start 12/31/16 at 21:00 Miscellaneous Information 1 ea NOTE XX ; Start 12/31/16 at 18:30 Glucose (Glutose) 15 gm Q15M PRN PO DECREASED GLUCOSE; Start 12/31/16 at 18:30 Glucose (Glutose) 22.5 gm Q15M PRN PO DECREASED GLUCOSE; Start 12/31/16 at 18: 30 Dextrose (D50w Syringe) 25 ml Q15M PRN IV DECREASED GLUCOSE Last administered on 12/31/16 18:33; Admin Dose 25 ML; Start 12/31/16 at 18:30 Dextrose (D50w Syringe) 50 ml Q15M PRN IV DECREASED GLUCOSE; Start 12/31/16 at 18:30 Glucagon (Glucagen) 1 mg Q15M PRN IM DECREASED GLUCOSE; Start 12/31/16 at 18:30 Glucose (Glutose) 15 gm Q15M PRN BUCCAL DECREASED GLUCOSE; Start 12/31/16 at 18 :30 Hydromorphone HCl (Dilaudid) 0.5 mg Q4H PRN IV PAIN Last administered on 06:24; Admin Dose 0.5 MG; Start 01/01/17 at 01:30 Miscellaneous Information ([facility] This patient obregon... PRN PRN XX WOUND CARE; Start 01/01/17 at 03:00 Enoxaparin Sodium (Lovenox) 30 mg DAILY [place] Last administered on 01/09/17 09:58 ; Admin Dose 30 MG; Start 01/01/17 at 14:00 Fentanyl 1 patch 1 patch Q3D TRANSDERM Last administered on 01/07/17 22:09; Admin Dose 1 PATCH; Start 01/01/17 at 20:00 Total Parenteral Nutrition 1,000 ml @ 40 mls/hr Q24H IV Last administered on 20:39; Admin Dose 40 MLS/HR; Start 01/02/17 at 21:00 Fat Emulsion Intravenous (Liposyn Ii 20%) 500 ml @ 21 mls/hr [id number] IV Last administered on 01/08/17 20:39; Admin Dose 21 MLS/HR; Start 01/02/17 at 21:00 Ondansetron HCl 4 mg 4 mg Q4H PRN IV NAUSEA AND/OR VOMITING Last administered on 01/07/17 07:03; Admin Dose 4 MG; Start 01/03/17 at 17:30 Tigecycline/ Sodium Chloride (Tygacil/NS) 100 ml @ 200 mls/hr Q12H IVPB Last administered on 01/09/17 05:08; Admin Dose 200 MLS/HR; Start 01/06/17 at 05:00 Aspirin 300 mg 300 mg DAILY [place] Last administered on 01/09/17 13:43; Admin Dose 300 MG; Start 01/06/17 at 15:30 Fluconazole/ Sodium Chloride 50 ml @ 50 mls/hr Q24H IVPB Last administered on 15:48; Admin Dose 50 MLS/HR; Start 01/07/17 at 15:30 Colistimethate Sodium 75 mg/ Sodium Chloride 100 ml @ 200 mls/hr Q12 IVPB ; Start 01/09/17 at 21:00; Stop 01/10/17 at 00:00 Colistimethate Sodium/Sodium Chloride (Coly-Mycin/NS) 100 ml @ 200 mls/hr Q24H IVPB ; Start 01/10/17 at 21:00 LUIS JUAN Jan 09, 2017 16:10
[2017-01-09] MEDS: FAT EMULSION 20% 500 ML IV SCH ×2 (18:32→21:01)
--- NOTE | 2017-01-09 20:44 | CONS ---
Date/Time of Note Date/Time of Note DATE: 01/09/17 TIME: 20:43 Assessment/Plan Assessment/Plan Chief Complaint/Hosp Course LEUKOCYTOSIS REACTIVE MONITOR CLOSELY ANEMIA N-CYTIC, N- CHROMIC WITH R RDW MONITOR BLOOD COUNT CLOSELY OBSERVE FOR BLEEDING AND HEMOLYSIS History of gastric cancer in the past status post gastrectomy as well as chemotherapy PER FAMILY- RAFAT RECENT RESTAGING WITH CT AP- NEG DECREASED URINE OUTPUT PER [facility] Acute alteration in mental status likely secondary to subacute CVA Acute respiratory distress superimposed on chronic respiratory failure Bilateral pleural effusion with underlying pneumonia and CHF Sepsis with lactic acidosis Chronic muscle wasting and cachexia History of multiple esophageal strictures and bowel obstruction 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 Reported history of hypertension Penicillin allergy Problems: Consultation Date/Type/Reason Admit Date/Time Dec 30, 2016 at 23:12 Initial Consult Date 12/31/16 Type of Consultation: HEMEON Referring Provider: ANA PAULINO 24 HR Interval Summary Free Text/Dictation ALL NOTED Exam/Review of Systems Vital Signs Vitals Vital Signs Date Time Temp Pulse Resp B/P Pulse Ox O2 Delivery O2 Flow Rate FiO2 01/09/17 20:17 98.2 86 18 108/59 96 01/09/17 18:20 5.0 28 01/09/17 15:33 Aerosol Intake and Output 01/08/17 01/08/17 01/09/17 14:59 22:59 06:59 Intake Total 100 ml 0 ml Output Total 550 ml 725 ml Balance -450 ml -725 ml Exam GENERAL: This is a fragile, chronically ill-appearing, elderly woman, who is in no distress. HEENT: Head atraumatic, normocephalic. Sclerae anicteric. Buccal mucosa dry. NECK: Supple. Tracheostomy present. CHEST: Chest rise symmetrical. Breath sounds diminished at the bases. HEART: S1, S2. ABDOMEN: Soft, bowel sounds present. EXTREMITIES: Without cyanosis. Results Result Diagram: 01/09/17 0701 01/09/17 07 Results 24 hrs Laboratory Tests Test 01/08/17 21:05 01/09/17 00:44 01/09/17 05:07 01/09/17 07:01 Bedside Glucose 79 87 95 White Blood Count 14.5 H Red Blood Count 3.22 L Hemoglobin 10.5 L Hematocrit 31.5 L Mean Corpuscular Volume 97.8 Mean Corpuscular Hemoglobin 32.6 Mean Corpuscular Hemoglobin Concent 33.3 Red Cell Distribution Width 14.6 H Platelet Count 158 Mean Platelet Volume 13.2 H Neutrophils % 85.4 H Lymphocytes % 5.5 L Monocytes % 7.1 Eosinophils % 0.6 Basophils % 0.2 Nucleated Red Blood Cells % 0.3 H Neutrophils # (Manual) 12.4 H Lymphocytes # 0.8 Monocytes # 1.0 H Eosinophils # 0.1 Basophils # 0.0 Nucleated Red Blood Cells # 0.1 H Sodium Level 142 Potassium Level 4.1 Chloride Level 106 Carbon Dioxide Level 25 Anion Gap 15 Blood Urea Nitrogen 48 H Creatinine 0.53 Glucose Level 91 Calcium Level 7.2 L Phosphorus Level 4.2 Magnesium Level 2.1 Test 01/09/17 08:21 01/09/17 13:42 01/09/17 17:13 Bedside Glucose 85 94 92 Medications Medications Current Medications Chlorhexidine Gluconate (Peridex) 10 ml BID MM Last administered on 01/09/17 09:57; Admin Dose 10 ML; Start 12/31/16 at 09:00 Lidocaine (Lidoderm) 1 patch NOTE TRANSDERM ; Start 12/31/16 at 00:00 Insulin Aspart (Novolog Insulin Pen) NOVOLOG *MILD* ALGORI... Q4 SC Last administered on 01/03/17 20:44; Admin Dose 1 UNIT; Start 12/31/16 at 21:00 Miscellaneous Information 1 ea NOTE XX ; Start 12/31/16 at 18:30 Glucose (Glutose) 15 gm Q15M PRN PO DECREASED GLUCOSE; Start 12/31/16 at 18:30 Glucose (Glutose) 22.5 gm Q15M PRN PO DECREASED GLUCOSE; Start 12/31/16 at 18: 30 Dextrose (D50w Syringe) 25 ml Q15M PRN IV DECREASED GLUCOSE Last administered on 12/31/16 18:33; Admin Dose 25 ML; Start 12/31/16 at 18:30 Dextrose (D50w Syringe) 50 ml Q15M PRN IV DECREASED GLUCOSE; Start 12/31/16 at 18:30 Glucagon (Glucagen) 1 mg Q15M PRN IM DECREASED GLUCOSE; Start 12/31/16 at 18:30 Glucose (Glutose) 15 gm Q15M PRN BUCCAL DECREASED GLUCOSE; Start 12/31/16 at 18 :30 Hydromorphone HCl (Dilaudid) 0.5 mg Q4H PRN IV PAIN Last administered on 06:24; Admin Dose 0.5 MG; Start 01/01/17 at 01:30 Miscellaneous Information (Pending [facility] Order For Wound Care) This patient obregon... PRN PRN XX WOUND CARE; Start 01/01/17 at 03:00 Enoxaparin Sodium (Lovenox) 30 mg DAILY [place] Last administered on 01/09/17 09:58 ; Admin Dose 30 MG; Start 01/01/17 at 14:00 Fentanyl 1 patch 1 patch Q3D TRANSDERM Last administered on 01/07/17 22:09; Admin Dose 1 PATCH; Start 01/01/17 at 20:00 Total Parenteral Nutrition 1,000 ml @ 40 mls/hr Q24H IV Last administered on 20:39; Admin Dose 40 MLS/HR; Start 01/02/17 at 21:00 Fat Emulsion Intravenous (Liposyn Ii 20%) 500 ml @ 21 mls/hr [id number] IV Last administered on 01/09/17 18:32; Admin Dose 21 MLS/HR; Start 01/02/17 at 21:00 Ondansetron HCl 4 mg 4 mg Q4H PRN IV NAUSEA AND/OR VOMITING Last administered on 01/07/17 07:03; Admin Dose 4 MG; Start 01/03/17 at 17:30 Tigecycline/ Sodium Chloride (Tygacil/NS) 100 ml @ 200 mls/hr Q12H IVPB Last administered on 01/09/17 17:27; Admin Dose 200 MLS/HR; Start 01/06/17 at 05:00 Aspirin 300 mg 300 mg DAILY [place] Last administered on 01/09/17 13:43; Admin Dose 300 MG; Start 01/06/17 at 15:30 Fluconazole/ Sodium Chloride 50 ml @ 50 mls/hr Q24H IVPB Last administered on 15:48; Admin Dose 50 MLS/HR; Start 01/07/17 at 15:30 Colistimethate Sodium 75 mg/ Sodium Chloride 100 ml @ 200 mls/hr Q12 IVPB ; Start 01/09/17 at 21:00; Stop 01/10/17 at 00:00 Colistimethate Sodium/Sodium Chloride (Coly-Mycin/NS) 100 ml @ 200 mls/hr Q24H IVPB ; Start 01/10/17 at 21:00 RUFINO STEVENSON MD Jan 09, 2017 20:43
[2017-01-09] MEDS ORDERED: COLISTIMETHATE 75 MG in SOD CHLORIDE 0.9% 100 ML IVPB SCH (21:00)
[2017-01-09] MEDS: TPN 1,000 ML IV SCH (21:01)
[2017-01-10] VITALS (46 sets, daily range): BP systolic 75–116; BP diastolic 51–78; PULSE 67–98; RESP 14–26
[2017-01-10] MEDS: HYDROmorphONE 1 MG/ML SYG IV PRN ×2 (00:18→04:36)
[2017-01-10] MEDS: INSULIN ASPART [NOVOLOG] 3 ML PEN SC SCH ×6 (01:00→21:00)
[2017-01-10] MEDS: ALBUTEROL/IPRATROPIUM (NEB) 3 ML AMP INH SCH ×4 (02:22→12:13)
[2017-01-10] MEDS: ACETYLCYSTEINE 20% 4 ML VIAL NEB SCH ×2 (02:22→08:15)
[2017-01-10] MEDS: TIGECYCLINE 50 MG in SOD CHLORIDE 0.9% 100 ML IVPB SCH ×3 (04:31→20:49)
[2017-01-10 08:27] LABS: ABNORMAL IP MESSAGE 1; BASOPHIL # 0.1 10^3/ul (0.0-0.1); BASOPHILS % 0.3 % (0.0-2.0); EOSINOPHILS # 0.1 10^3/ul (0.0-0.5); EOSINOPHILS % 0.6 % (0.0-7.0); HEMATOCRIT 32.4 % (37.0-47.0); HEMOGLOBIN 10.5 g/dl (12.0-16.0); LYMPHOCYTES # 0.9 10^3/ul (0.8-2.9); LYMPHOCYTES % 4.8 % (15.0-51.0); MEAN CORPUSCULAR HEMOGLOBIN 32.4 pg (29.0-33.0); MEAN CORPUSCULAR HGB CONC 32.4 g/dl (32.0-37.0); MEAN PLATELET VOLUME 13.7 fl (7.4-10.4); MONOCYTE # 1.1 10^3/ul (0.3-0.9); MONOCYTES % 6.1 % (0.0-11.0); NEUTROPHILS % 87.1 % (39.0-77.0); NUCLEATED RED BLOOD CELLS # 0.1 10^3/ul (0.0-0.0); NUCLEATED RED BLOOD CELLS% 0.4 /100WBC (0.0-0.0); PLATELET COUNT 106 10^3/UL (140-415); RED BLOOD COUNT 3.24 10^6/ul (4.20-5.40); RED CELL DISTRIBUTION WIDTH 14.4 % (11.5-14.5); WHITE BLOOD COUNT 18.1 10^3/ul (4.8-10.8)
[2017-01-10 08:29] LABS: POSITIVE DIFF @See below
[2017-01-10 08:46] LABS: CALCIUM 7.2 mg/dl (8.4-10.2); CREATININE 0.49 mg/dl (0.44-1.00); POTASSIUM 3.6 mmol/L (3.5-5.1)
[2017-01-10 08:52] LABS: PHOSPHORUS 3.9 mg/dl (2.5-4.9)
[2017-01-10 08:59] LABS: PREALBUMIN 13.8 mg/dl (17.6-36.0)
[2017-01-10] MEDS: CHLORHEXIDINE GLUCONATE 15 ML UD CUP MM SCH ×2 (09:11→21:07)
[2017-01-10] MEDS: ENOXAPARIN 30 MG/0.3 ML SYG SC SCH (09:16)
[2017-01-10] MEDS: BALSAM PERU/CASTOR OIL 60 GM TUBE TOP SCH (09:17)
[2017-01-10] MEDS: ASPIRIN 300 MG SUPP PR SCH (11:29)
[2017-01-10 12:27] LABS: AADO2 Arterial 131.1 mmHg (7.0-24.0); Allen Test ACCEPTAB; Arterial COHb 0.3 % (0.0-3.0); Arterial Fraction of Oxyhgb 90.8 % (93.0-99.0); Arterial HCO3 31.6 mmol/L (22.0-26.0); Arterial MetHb 0.4 % (0.0-1.5); Arterial Total Hemglobin 11.1 g/dl (12.0-18.0); MODE TRACH COLLAR
--- NOTE | 2017-01-10 12:36 | CONS ---
Date/Time of Note Date/Time of Note DATE: 01/10/17 TIME: 12:32 Assessment/Plan Assessment/Plan Additional Assessment/Plan Assessment and recommendations; 1. Patient admitted with right upper lobe pneumonia as well as decubitus ulcers , currently on appropriate broad-spectrum antibiotic coverage. 2. Ascites, with bilateral abdominal drain in place draining serous fluid on a daily basis. Next 3. Bilateral pleural effusions, with recurrence. This is likely a ascites fluid tracking into pleural space. 4. Thrombocytopenia. 5. chronic ileus, patient on long-term TPN. 6. 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 7. Prior history of gastric cancer. Continue current treatment. Obtain an ABG. Once ABG is done, I will review it and make further recommendations. Prognosis is poor code status needs to be discussed with the family. Consultation Date/Type/Reason Admit Date/Time Dec 30, 2016 at 23:12 Initial Consult Date 01/01/17 Type of Consultation: Pulmonary Referring Provider: ANA PAULINO 24 HR Interval Summary Free Text/Dictation Patient condition is stable however she is appearing more lethargic. Patient however has remained hemodynamically stable. General exam; elderly woman, on tracheostomy, awake but unresponsive to any commands. This is her underlying mental status. She does not appear to be in any distress. Exam/Review of Systems Vital Signs Vitals Vital Signs Date Time Temp Pulse Resp B/P Pulse Ox O2 Delivery O2 Flow Rate FiO2 01/10/17 12:03 86 01/10/17 11:48 97.9 19 103/57 98 01/10/17 08:26 Aerosol 10.0 40 T Tube Intake and Output 01/09/17 01/09/17 01/10/17 15:00 23:00 07:00 Intake Total 0 ml 650 ml Output Total 455 ml 1150 ml Balance -455 ml -500 ml Exam HEENT exam; supple neck, positive JVD. No lymphadenopathy. Midline trachea. No thyromegaly. Tracheostomy in place. Patient has fair dentition. Chest exam; diminished breath on lung bases bilaterally. S1-S2 audible, no murmurs. Abdomen exam; soft, G-tube in place. Bilateral upper quadrant drains are in place. Bowel sounds are audible. Extremity exam; trace edema. 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 Results Result Diagram: 01/10/17 0718 01/10/17 0718 Results 24 hrs Laboratory Tests Test 01/09/17 13:42 01/09/17 17:13 01/09/17 21:05 01/10/17 00:24 Bedside Glucose 94 92 92 98 Test 01/10/17 04:29 01/10/17 07:18 01/10/17 09:13 01/10/17 12:05 Bedside Glucose 71 78 White Blood Count 18.1 #H Red Blood Count 3.24 L Hemoglobin 10.5 L Hematocrit 32.4 L Mean Corpuscular Volume 100.0 Mean Corpuscular Hemoglobin 32.4 Mean Corpuscular Hemoglobin Concent 32.4 Red Cell Distribution Width 14.4 Platelet Count 106 #L Mean Platelet Volume 13.7 H Neutrophils % 87.1 H Lymphocytes % 4.8 L Monocytes % 6.1 Eosinophils % 0.6 Basophils % 0.3 Nucleated Red Blood Cells % 0.4 H Neutrophils # (Manual) 15.8 H Lymphocytes # 0.9 Monocytes # 1.1 H Eosinophils # 0.1 Basophils # 0.1 Nucleated Red Blood Cells # 0.1 H Sodium Level 138 Potassium Level 3.6 Chloride Level 106 Carbon Dioxide Level 28 Anion Gap 8 Blood Urea Nitrogen 49 H Creatinine 0.49 Glucose Level 79 Calcium Level 7.2 L Phosphorus Level 3.9 Magnesium Level 2.0 Prealbumin 13.8 L Blood Gas Specimen Source Blood arterial Arterial Blood Date Drawn 01/10/2017 12:15:57 PM Arterial Blood pH (Temp corrected) 7.265 *L Arterial Blood pCO2 (Temp correct) 71.1 H Arterial Blood pO2 (Temp corrected) 72.3 L Arterial Blood HCO3 31.6 H Arterial Blood Base Excess 3.0 Arterial Blood Oxygen Saturation 91.4 L Obed Test ACCEPTAB Arterial Blood Gas Puncture Site Right Radial Arterial Blood Carboxyhemoglobin 0.3 Arterial Blood Methemoglobin 0.4 Blood Gas A-a O2 Differential 131.1 H Oxyhemoglobin Percent 90.8 L Total Hemoglobin 11.1 L Blood Gas Temperature 37.0 Blood Gas Modality TRACH COLLAR FiO2 40.0 Blood Gas Critical Value Read Back Israel KESSLER RN Blood Gas Notified Whom YOANDY Blood Gas Notified Time 01/10/2017 12:25:35 PM Medications Medications Current Medications Chlorhexidine Gluconate (Peridex) 10 ml BID MM Last administered on 01/10/17t 09 :11; Admin Dose 10 ML; Start 12/31/16 at 09:00 Lidocaine (Lidoderm) 1 patch NOTE TRANSDERM ; Start 12/31/16 at 00:00 Insulin Aspart (Novolog Insulin Pen) NOVOLOG *MILD* ALGORI... Q4 SC Last administered on 01/03/17 20:44; Admin Dose 1 UNIT; Start 12/31/16 at 21:00 Miscellaneous Information 1 ea NOTE XX ; Start 12/31/16 at 18:30 Glucose (Glutose) 15 gm Q15M PRN PO DECREASED GLUCOSE; Start 12/31/16 at 18:30 Glucose (Glutose) 22.5 gm Q15M PRN PO DECREASED GLUCOSE; Start 12/31/16 at 18: 30 Dextrose (D50w Syringe) 25 ml Q15M PRN IV DECREASED GLUCOSE Last administered on 12/31/16 18:33; Admin Dose 25 ML; Start 12/31/16 at 18:30 Dextrose (D50w Syringe) 50 ml Q15M PRN IV DECREASED GLUCOSE; Start 12/31/16 at 18:30 Glucagon (Glucagen) 1 mg Q15M PRN IM DECREASED GLUCOSE; Start 12/31/16 at 18:30 Glucose (Glutose) 15 gm Q15M PRN BUCCAL DECREASED GLUCOSE; Start 12/31/16 at 18 :30 Hydromorphone HCl (Dilaudid) 0.5 mg Q4H PRN IV PAIN Last administered on 04:36; Admin Dose 0.5 MG; Start 01/01/17 at 01:30 Miscellaneous Information (Pending [facility] Order For Wound Care) This patient obregon... PRN PRN XX WOUND CARE; Start 01/01/17 at 03:00 Enoxaparin Sodium (Lovenox) 30 mg DAILY SC Last administered on 01/10/17 09:16 ; Admin Dose 30 MG; Start 01/01/17 at 14:00 Fentanyl 1 patch 1 patch Q3D TRANSDERM Last administered on 01/07/17 22:09; Admin Dose 1 PATCH; Start 01/01/17 at 20:00 Total Parenteral Nutrition 1,000 ml @ 40 mls/hr Q24H IV Last administered on 21:01; Admin Dose 40 MLS/HR; Start 01/02/17 at 21:00 Fat Emulsion Intravenous (Liposyn Ii 20%) 500 ml @ 21 mls/hr [id number] IV Last administered on 01/09/17 21:01; Admin Dose 21 MLS/HR; Start 01/02/17 at 21:00 Ondansetron HCl 4 mg 4 mg Q4H PRN IV NAUSEA AND/OR VOMITING Last administered on 01/07/17 07:03; Admin Dose 4 MG; Start 01/03/17 at 17:30 Tigecycline/ Sodium Chloride (Tygacil/NS) 100 ml @ 200 mls/hr Q12H IVPB Last administered on 01/10/17 04:31; Admin Dose 200 MLS/HR; Start 01/06/17 at 05:00 Aspirin 300 mg 300 mg DAILY [place] Last administered on 01/10/17 11:29; Admin Dose 300 MG; Start 01/06/17 at 15:30 Fluconazole/ Sodium Chloride 50 ml @ 50 mls/hr Q24H IVPB Last administered on 15:48; Admin Dose 50 MLS/HR; Start 01/07/17 at 15:30 Colistimethate Sodium/Sodium Chloride (Coly-Mycin/NS) 100 ml @ 200 mls/hr Q24H IVPB ; Start 01/10/17 at 21:00 ROSMERY JUAREZ Jan 10, 2017 12:36
--- NOTE | 2017-01-10 13:54 | PN ---
DATE: 01/10/2017 SUBJECTIVE DATA: No events overnight. The patient remains unchanged, looks comfortable. No shortness of breath at rest. Temperature 97.9, pulse 85, respirations 18, blood pressure 103/57, saturation 98 on 40 FiO2. LABORATORY AND DIAGNOSTIC DATA: WBC 18.1, platelets 106,000; neutrophils 87.1. BUN 49, creatinine 0.49. ANTIMICROBIALS: Colistin, fluconazole, Tygacil. INDWELLING: Intra-abdominal catheters, Crow catheter, trach, PEG. OBJECTIVE DATA: GENERAL: Well-developed, chronically ill-appearing, elderly woman, who is in no distress. HEENT: Head atraumatic, normocephalic. Sclerae anicteric. Buccal mucosa dry. NECK: Supple. CHEST: Rise symmetrical. Breath sounds diminished at the bases. HEART: S1, S2. ABDOMEN: Soft, bowel sounds present. EXTREMITIES: Without cyanosis. ASSESSMENT: 1. Status post sepsis with shock. 2. Persistent leukocytosis, multifactorial. 3. Right lower lobe pneumonia, status post thoracentesis with fluid reaccumulation secondary to a ascitic fluid tracking into the pleural space, per Pulmonary note. 4. Gastric cancer status post resection and chemotherapy. 5. Status post abdominal abscess drainage with catheter placement, fluid culture growing multidrug resistant organisms and yeast. 6. Cachexia. 7. Anemia. PLAN: The patient remains clinically unchanged, again with persistent leukocytosis that could be secondary to fluid reaccumulation. She is being followed by multiple consultants. We will continue her on current regimen. Recommend repeat CT of the abdomen and pelvis. The patient is full code. Consider palliative care evaluation. Dictated By: Nancy Mccarty NP /prachi/ec /Document#: [id number]
[2017-01-10] MEDS ORDERED: NORepinephrine 8MG/250 ML (PMX 250 ML IV SCH (16:30)
--- NOTE | 2017-01-10 16:50 | PN ---
Date/Time of Note Date/Time of Note DATE: 01/10/17 TIME: 16:48 Assessment/Plan VTE Prophylaxis VTE Prophylaxis Intervention: LMWH Lines/Catheters IV Catheter Type (from Nrs): PICC Line Central line still needed: Yes Urinary Cath still in place: Yes Reason Cath still needed: urinary retention Assessment/Plan Chief Complaint/Hosp Course Assessment/Plan: 71 yo F with previous h/o gastric ca sp treatment, h/o multiple esophageal strictures and bowel obstructions which have rendered the patient TPN dependent, chronic respiratory failure sp trach placement admitted for decreased mental status, suspect from acute CVA vs toxic/metabolic encephalopathy from pneumonia. sp thora, hospitalization c/b septic shock with hypotension warranting an overnight ICU stay, transferred back to floor on 01.03. # Aspiration pneumonia/pneumonitis, on antibiotics. Patient also with Klebsiella, Actinobacteria, enterococcus, and yeast wound abdominal infections. No fevers. Now with worsening respiratory distress. -Per infectious disease continue tigecycline and meropenem per their recommendations, discuss with him about length of treatment. -Continue fluconazole. #. Right pleural effusion, s/p US-guided thoracentesis with removal of 750 cc fluid on 12/31/2016. Chest x-ray last 48 hours however shows more bilateral pleural effusions. Worsening respiratory distress today. --follow final fluid studies, continue antibiotics. -Monitor breathing status for now, follow pulmonary recommendations. For now not recommending thoracentesis to be performed secondary to high chance of fast reaccumulation. -Follow-up pulmonary recommendations. We will also get palliative care consult. #. Recurrent ischemic stroke: neuro on consult, MRI brain from December 31 shows: There is acute infarct in the left middle cerebral artery territory, involving the left temporal lobe, parietal, and insula. -Follow-up neurology recommendations, continue aspirin 300 mg per rectal daily. # Gastric cancer in 2011, for which she underwent extensive resection in the past, as well as chemotherapy. -Monitor for now, including drainage from abdominal tubes -On TPN as well #Multiple esophageal strictures and bowel obstructions,cont TPN. #Status post tracheostomy: Oxygen supplementation, follow-up pulmonary recommendation -Continue physical therapy consult Problems: Subjective 24 Hr Interval Summary Free Text/Dictation Patient had some slightly worsening respiratory distress today, ABG showed signs of acidosis, now transferred to telemetry. Exam/Review of Systems Vital Signs Vitals Vital Signs Date Time Temp Pulse Resp B/P Pulse Ox O2 Delivery O2 Flow Rate FiO2 01/10/17 16:05 74 16 96/72 98 Trach Collar 01/10/17 15:37 97.9 01/10/17 15:10 40 01/10/17 12:13 10.0 Intake and Output 01/09/17 01/09/17 01/10/17 15:00 23:00 07:00 Intake Total 0 ml 650 ml Output Total 455 ml 1150 ml Balance -455 ml -500 ml Exam Lying in bed trach secretions somewhat present Slightly decreased breath sounds bilaterally no mrg abd drain with dark output no rashes Results Result Diagram: 01/10/17 0718 01/10/17 0718 Results 24 hrs Laboratory Tests Test 01/09/17 17:13 01/09/17 21:05 01/10/17 00:24 01/10/17 04:29 Bedside Glucose 92 92 98 71 Test 01/10/17 07:18 01/10/17 09:13 01/10/17 12:05 01/10/17 12:55 White Blood Count 18.1 #H Red Blood Count 3.24 L Hemoglobin 10.5 L Hematocrit 32.4 L Mean Corpuscular Volume 100.0 Mean Corpuscular Hemoglobin 32.4 Mean Corpuscular Hemoglobin Concent 32.4 Red Cell Distribution Width 14.4 Platelet Count 106 #L Mean Platelet Volume 13.7 H Neutrophils % 87.1 H Lymphocytes % 4.8 L Monocytes % 6.1 Eosinophils % 0.6 Basophils % 0.3 Nucleated Red Blood Cells % 0.4 H Neutrophils # (Manual) 15.8 H Lymphocytes # 0.9 Monocytes # 1.1 H Eosinophils # 0.1 Basophils # 0.1 Nucleated Red Blood Cells # 0.1 H Sodium Level 138 Potassium Level 3.6 Chloride Level 106 Carbon Dioxide Level 28 Anion Gap 8 Blood Urea Nitrogen 49 H Creatinine 0.49 Glucose Level 79 Calcium Level 7.2 L Phosphorus Level 3.9 Magnesium Level 2.0 Prealbumin 13.8 L Bedside Glucose 78 90 Blood Gas Specimen Source Blood arterial Arterial Blood Date Drawn 01/10/2017 12:15:57 PM Arterial Blood pH (Temp corrected) 7.265 *L Arterial Blood pCO2 (Temp correct) 71.1 H Arterial Blood pO2 (Temp corrected) 72.3 L Arterial Blood HCO3 31.6 H Arterial Blood Base Excess 3.0 Arterial Blood Oxygen Saturation 91.4 L Obed Test ACCEPTAB Arterial Blood Gas Puncture Site Right Radial Arterial Blood Carboxyhemoglobin 0.3 Arterial Blood Methemoglobin 0.4 Blood Gas A-a O2 Differential 131.1 H Oxyhemoglobin Percent 90.8 L Total Hemoglobin 11.1 L Blood Gas Temperature 37.0 Blood Gas Modality TRACH COLLAR FiO2 40.0 Blood Gas Critical Value Read Back Israel KESSLER RN Blood Gas Notified Whom DEVIKAD Blood Gas Notified Time 01/10/2017 12:25:35 PM Medications Medications Current Medications Chlorhexidine Gluconate (Peridex) 10 ml BID MM Last administered on 01/10/17 09 :11; Admin Dose 10 ML; Start 12/31/16 at 09:00 Lidocaine (Lidoderm) 1 patch NOTE TRANSDERM ; Start 12/31/16 at 00:00 Insulin Aspart (Novolog Insulin Pen) NOVOLOG *MILD* ALGORI... Q4 SC Last administered on 01/03/17 20:44; Admin Dose 1 UNIT; Start 12/31/16 at 21:00 Miscellaneous Information 1 ea NOTE XX ; Start 12/31/16 at 18:30 Glucose (Glutose) 15 gm Q15M PRN PO DECREASED GLUCOSE; Start 12/31/16 at 18:30 Glucose (Glutose) 22.5 gm Q15M PRN PO DECREASED GLUCOSE; Start 12/31/16 at 18: 30 Dextrose (D50w Syringe) 25 ml Q15M PRN IV DECREASED GLUCOSE Last administered on 12/31/16 18:33; Admin Dose 25 ML; Start 12/31/16 at 18:30 Dextrose (D50w Syringe) 50 ml Q15M PRN IV DECREASED GLUCOSE; Start 12/31/16 at 18:30 Glucagon (Glucagen) 1 mg Q15M PRN IM DECREASED GLUCOSE; Start 12/31/16 at 18:30 Glucose (Glutose) 15 gm Q15M PRN BUCCAL DECREASED GLUCOSE; Start 12/31/16 at 18 :30 Hydromorphone HCl (Dilaudid) 0.5 mg Q4H PRN IV PAIN Last administered on 04:36; Admin Dose 0.5 MG; Start 01/01/17 at 01:30 Miscellaneous Information (Pending [facility] Order For Wound Care) This patient obregon... PRN PRN XX WOUND CARE; Start 01/01/17 at 03:00 Enoxaparin Sodium (Lovenox) 30 mg DAILY SC Last administered on 01/10/17 09:16 ; Admin Dose 30 MG; Start 01/01/17 at 14:00 Fentanyl 1 patch 1 patch Q3D TRANSDERM Last administered on 01/07/17 22:09; Admin Dose 1 PATCH; Start 01/01/17 at 20:00 Total Parenteral Nutrition 1,000 ml @ 40 mls/hr Q24H IV Last administered on 21:01; Admin Dose 40 MLS/HR; Start 01/02/17 at 21:00 Fat Emulsion Intravenous (Liposyn Ii 20%) 500 ml @ 21 mls/hr [id number] IV Last administered on 01/09/17 21:01; Admin Dose 21 MLS/HR; Start 01/02/17 at 21:00 Ondansetron HCl 4 mg 4 mg Q4H PRN IV NAUSEA AND/OR VOMITING Last administered on 01/07/17 07:03; Admin Dose 4 MG; Start 01/03/17 at 17:30 Tigecycline/ Sodium Chloride (Tygacil/NS) 100 ml @ 200 mls/hr Q12H IVPB Last administered on 01/10/17 04:31; Admin Dose 200 MLS/HR; Start 01/06/17 at 05:00 Aspirin 300 mg 300 mg DAILY [place] Last administered on 01/10/17 11:29; Admin Dose 300 MG; Start 01/06/17 at 15:30 Fluconazole/ Sodium Chloride 50 ml @ 50 mls/hr Q24H IVPB Last administered on 15:48; Admin Dose 50 MLS/HR; Start 01/07/17 at 15:30 Colistimethate Sodium 75 mg/ Sodium Chloride 100 ml @ 200 mls/hr Q24H IVPB ; Start 01/10/17 at 21:00 Norepinephrine (Levophed) 250 ml @ 1.875 mls/ hr TITRATE IV ; Start 01/10/17 at 16:30 LUIS JUAN Jan 10, 2017 16:50
[2017-01-10] MEDS: FLUCONAZOLE 100 MG/NS (PMX) 50 ML IVPB SCH (16:55)
[2017-01-10] MEDS: DEXTROSE 50% 50 ML SYRINGE IV PRN (17:40)
[2017-01-10 18:21] LABS: Allen Test ACCEPTAB; Arterial Base Excess 2.4 mmol/L (-3.0-3); Arterial COHb 0.2 % (0.0-3.0); Arterial Fraction of Oxyhgb 98.1 % (93.0-99.0); Arterial HCO3 25.6 mmol/L (22.0-26.0); Arterial MetHb 0.5 % (0.0-1.5); Arterial Total Hemglobin 9.7 g/dl (12.0-18.0); MODE VENT - AC
--- NOTE | 2017-01-10 18:30 | CONS ---
Date/Time of Note Date/Time of Note DATE: 01/10/17 TIME: 18:29 Assessment/Plan Assessment/Plan Chief Complaint/Hosp Course LEUKOCYTOSIS REACTIVE MONITOR CLOSELY ANEMIA N-CYTIC, N- CHROMIC WITH R RDW MONITOR BLOOD COUNT CLOSELY OBSERVE FOR BLEEDING AND HEMOLYSIS THROMBOCYTOPENIA MONITOR CLOSELY AVOID MYELOSUPPRESSIVE MEDS History of gastric cancer in the past status post gastrectomy as well as chemotherapy PER FAMILY- RAFAT RECENT RESTAGING WITH CT AP- NEG DECREASED URINE OUTPUT PER [facility] Acute alteration in mental status likely secondary to subacute CVA Acute respiratory distress superimposed on chronic respiratory failure Bilateral pleural effusion with underlying pneumonia and CHF Sepsis with lactic acidosis Chronic muscle wasting and cachexia History of multiple esophageal strictures and bowel obstruction 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 Reported history of hypertension Penicillin allergy Problems: Consultation Date/Type/Reason Admit Date/Time Dec 30, 2016 at 23:12 Initial Consult Date 12/31/16 [facility]erring Provider: ANA PAULINO 24 HR Interval Summary Free Text/Dictation all noted worsening platelet count - coming down Exam/Review of Systems Vital Signs Vitals Vital Signs Date Time Temp Pulse Resp B/P Pulse Ox O2 Delivery O2 Flow Rate FiO2 01/10/17 18:15 69 16 100 01/10/17 18:00 91/66 01/10/17 17:10 50 01/10/17 17:00 97.8 01/10/17 16:05 Trach Collar 01/10/17 12:13 10.0 Intake and Output 01/09/17 01/09/17 01/10/17 15:00 23:00 07:00 Intake Total 0 ml 650 ml Output Total 455 ml 1150 ml Balance -455 ml -500 ml Exam GENERAL: This is a fragile, chronically ill-appearing, elderly woman, who is in no distress. HEENT: Head atraumatic, normocephalic. Sclerae anicteric. Buccal mucosa dry. NECK: Supple. Tracheostomy present. CHEST: Chest rise symmetrical. Breath sounds diminished at the bases. HEART: S1, S2. ABDOMEN: Soft, bowel sounds present. EXTREMITIES: Without cyanosis. Results Result Diagram: 01/10/17 0718 01/10/17 0718 Results 24 hrs Laboratory Tests Test 01/09/17 21:05 01/10/17 00:24 01/10/17 04:29 01/10/17 07:18 Bedside Glucose 92 98 71 White Blood Count 18.1 #H Red Blood Count 3.24 L Hemoglobin 10.5 L Hematocrit 32.4 L Mean Corpuscular Volume 100.0 Mean Corpuscular Hemoglobin 32.4 Mean Corpuscular Hemoglobin Concent 32.4 Red Cell Distribution Width 14.4 Platelet Count 106 #L Mean Platelet Volume 13.7 H Neutrophils % 87.1 H Lymphocytes % 4.8 L Monocytes % 6.1 Eosinophils % 0.6 Basophils % 0.3 Nucleated Red Blood Cells % 0.4 H Neutrophils # (Manual) 15.8 H Lymphocytes # 0.9 Monocytes # 1.1 H Eosinophils # 0.1 Basophils # 0.1 Nucleated Red Blood Cells # 0.1 H Sodium Level 138 Potassium Level 3.6 Chloride Level 106 Carbon Dioxide Level 28 Anion Gap 8 Blood Urea Nitrogen 49 H Creatinine 0.49 Glucose Level 79 Calcium Level 7.2 L Phosphorus Level 3.9 Magnesium Level 2.0 Prealbumin 13.8 L Test 01/10/17 09:13 01/10/17 12:05 01/10/17 12:55 01/10/17 17:30 Bedside Glucose 78 90 Blood Gas Specimen Source Blood arterial Blood arterial Arterial Blood Date Drawn 01/10/2017 12:15:57 PM 01/10/2017 6:00:00 PM Arterial Blood pH (Temp corrected) 7.265 *L 7.494 H Arterial Blood pCO2 (Temp correct) 71.1 H 34.0 L Arterial Blood pO2 (Temp corrected) 72.3 L 196.4 H Arterial Blood HCO3 31.6 H 25.6 Arterial Blood Base Excess 3.0 2.4 Arterial Blood Oxygen Saturation 91.4 L 98.8 Obed Test ACCEPTAB ACCEPTAB Arterial Blood Gas Puncture Site Right Radial Right Radial Arterial Blood Carboxyhemoglobin 0.3 0.2 Arterial Blood Methemoglobin 0.4 0.5 Blood Gas A-a O2 Differential 131.1 H Oxyhemoglobin Percent 90.8 L 98.1 Total Hemoglobin 11.1 L 9.7 L Blood Gas Temperature 37.0 37.0 Blood Gas Modality TRACH COLLAR VENT - AC FiO2 40.0 30.0 Blood Gas Critical Value Read Back Israel KESSLER RN L SUNIL RN Blood Gas Notified Whom YOANDY DT Blood Gas Notified Time 01/10/2017 12:25:35 PM 01/10/2017 6:19:00 PM Blood Gas Respiration Rate 16.0 Blood Gas Actual Respiration Rate 16 Blood Gas Tidal Volume 450.0 Blood Gas Low PEEP Setting 5.0 Test 01/10/17 17:37 01/10/17 18:02 Bedside Glucose 67 L 246 H Medications Medications Current Medications Chlorhexidine Gluconate (Peridex) 10 ml BID MM Last administered on 01/10/17 09 :11; Admin Dose 10 ML; Start 12/31/16 at 09:00 Lidocaine (Lidoderm) 1 patch NOTE TRANSDERM ; Start 12/31/16 at 00:00 Insulin Aspart (Novolog Insulin Pen) NOVOLOG *MILD* ALGORI... Q4 SC Last administered on 01/03/17 20:44; Admin Dose 1 UNIT; Start 12/31/16 at 21:00 Miscellaneous Information 1 ea NOTE XX ; Start 12/31/16 at 18:30 Glucose (Glutose) 15 gm Q15M PRN PO DECREASED GLUCOSE; Start 12/31/16 at 18:30 Glucose (Glutose) 22.5 gm Q15M PRN PO DECREASED GLUCOSE; Start 12/31/16 at 18: 30 Dextrose (D50w Syringe) 25 ml Q15M PRN IV DECREASED GLUCOSE Last administered on 01/10/17 17:40; Admin Dose 25 ML; Start 12/31/16 at 18:30 Dextrose (D50w Syringe) 50 ml Q15M PRN IV DECREASED GLUCOSE; Start 12/31/16 at 18:30 Glucagon (Glucagen) 1 mg Q15M PRN IM DECREASED GLUCOSE; Start 12/31/16 at 18:30 Glucose (Glutose) 15 gm Q15M PRN BUCCAL DECREASED GLUCOSE; Start 12/31/16 at 18 :30 Hydromorphone HCl (Dilaudid) 0.5 mg Q4H PRN IV PAIN Last administered on 04:36; Admin Dose 0.5 MG; Start 01/01/17 at 01:30 Miscellaneous Information (Pending [facility] Order For Wound Care) This patient obregon... PRN PRN XX WOUND CARE; Start 01/01/17 at 03:00 Enoxaparin Sodium (Lovenox) 30 mg DAILY SC Last administered on 01/10/17 09:16 ; Admin Dose 30 MG; Start 01/01/17 at 14:00 Fentanyl 1 patch 1 patch Q3D TRANSDERM Last administered on 01/07/17 22:09; Admin Dose 1 PATCH; Start 01/01/17 at 20:00 Total Parenteral Nutrition 1,000 ml @ 40 mls/hr Q24H IV Last administered on 21:01; Admin Dose 40 MLS/HR; Start 01/02/17 at 21:00 Fat Emulsion Intravenous (Liposyn Ii 20%) 500 ml @ 21 mls/hr [id number] IV Last administered on 01/09/17 21:01; Admin Dose 21 MLS/HR; Start 01/02/17 at 21:00 Ondansetron HCl 4 mg 4 mg Q4H PRN IV NAUSEA AND/OR VOMITING Last administered on 01/07/17 07:03; Admin Dose 4 MG; Start 01/03/17 at 17:30 Tigecycline/ Sodium Chloride (Tygacil/NS) 100 ml @ 200 mls/hr Q12H IVPB Last administered on 01/10/17 16:56; Admin Dose 200 MLS/HR; Start 01/06/17 at 05:00 Aspirin 300 mg 300 mg DAILY [place] Last administered on 01/10/17 11:29; Admin Dose 300 MG; Start 01/06/17 at 15:30 Fluconazole/ Sodium Chloride 50 ml @ 50 mls/hr Q24H IVPB Last administered on 16:55; Admin Dose 50 MLS/HR; Start 01/07/17 at 15:30 Colistimethate Sodium 75 mg/ Sodium Chloride 100 ml @ 200 mls/hr Q24H IVPB ; Start 01/10/17 at 21:00 Norepinephrine 250 ml @ 1.875 mls/ hr TITRATE IV Last administered on 17:11; Admin Dose 7.5 MLS/HR; Start 01/10/17 at 16:30; Stop 01/10/17 at 23:00 Norepinephrine/ Dextrose (Levophed/D5W) 500 ml @ 0 mls/hr TITRATE IV ; Start 01/10/17 at 17:30 RUFINO STEVENSON MD Jan 10, 2017 18:30
[2017-01-10] MEDS: FAT EMULSION 20% 500 ML IV SCH (19:42)
[2017-01-10] MEDS: COLISTIMETHATE 75 MG in SOD CHLORIDE 0.9% 100 ML IVPB SCH (20:44)
[2017-01-10] MEDS: FENTAnyl PATCH 50 MCG/HR TRANSDERM SCH (21:05)
[2017-01-10] MEDS: IPRATROPIUM (HFA) 12.9 GM INHALER INH SCH (21:21)
[2017-01-10] MEDS: ALBUTEROL 18 GM INHALER INH SCH (21:21)
[2017-01-10] MEDS: TPN 1,000 ML IV SCH (22:31)
[2017-01-11] VITALS (92 sets, daily range): BP systolic 72–124; BP diastolic 45–87; PULSE 74–101; RESP 14–23
[2017-01-11] MEDS: INSULIN ASPART [NOVOLOG] 3 ML PEN SC SCH ×6 (01:00→21:00)
[2017-01-11] MEDS: ALBUTEROL 18 GM INHALER INH SCH ×6 (01:30→21:03)
[2017-01-11] MEDS: IPRATROPIUM (HFA) 12.9 GM INHALER INH SCH ×6 (01:30→21:03)
[2017-01-11 05:42] LABS: ABNORMAL IP MESSAGE 1; BASOPHIL # 0.1 10^3/ul (0.0-0.1); BASOPHILS % 0.2 % (0.0-2.0); EOSINOPHILS # 0.1 10^3/ul (0.0-0.5); EOSINOPHILS % 0.3 % (0.0-7.0); HEMATOCRIT 32.7 % (37.0-47.0); HEMOGLOBIN 11.3 g/dl (12.0-16.0); LYMPHOCYTES # 0.9 10^3/ul (0.8-2.9); MEAN CORPUSCULAR HEMOGLOBIN 32.8 pg (29.0-33.0); MEAN CORPUSCULAR HGB CONC 34.6 g/dl (32.0-37.0); MEAN CORPUSCULAR VOLUME 95.1 fl (82.0-101.0); MONOCYTES % 4.6 % (0.0-11.0); NEUTROPHILS % 89.8 % (39.0-77.0); NUCLEATED RED BLOOD CELLS # 0.2 10^3/ul (0.0-0.0); NUCLEATED RED BLOOD CELLS% 0.8 /100WBC (0.0-0.0); PLATELET COUNT 66 10^3/UL (140-415); RED BLOOD COUNT 3.44 10^6/ul (4.20-5.40); RED CELL DISTRIBUTION WIDTH 14.1 % (11.5-14.5); WHITE BLOOD COUNT 21.7 10^3/ul (4.8-10.8)
[2017-01-11 06:05] LABS: POSITIVE DIFF @See below
[2017-01-11 06:40] LABS: CALCIUM 7.2 mg/dl (8.4-10.2); CREATININE 0.56 mg/dl (0.44-1.00); POTASSIUM 3.5 mmol/L (3.5-5.1)
[2017-01-11 07:06] LABS: MAGNESIUM 2.1 mg/dl (1.7-2.5); PHOSPHORUS 2.4 mg/dl (2.5-4.9)
[2017-01-11] MEDS: CHLORHEXIDINE GLUCONATE 15 ML UD CUP MM SCH ×2 (08:36→21:22)
[2017-01-11] MEDS: ENOXAPARIN 30 MG/0.3 ML SYG SC SCH (08:45)
[2017-01-11] MEDS: HYDROmorphONE 1 MG/ML SYG IV PRN (09:58)
--- NOTE | 2017-01-11 10:08 | CONS ---
Date/Time of Note Date/Time of Note DATE: 01/11/17 TIME: 10:05 Consult Date/Type/Reason Admit Date/Time Dec 30, 2016 at 23:12 Initial Consult Date 01/01/17 Type of Consultation: Pulmonary Ordering Provider: ANA PAULINO Transferred to intensive care yesterday for low blood pressure. Commenced on vasopressor support. Remains at baseline in terms of neurological status. Continues TPN. Objective Vital Signs Date Time Temp Pulse Resp B/P Pulse Ox O2 Delivery O2 Flow Rate FiO2 01/11/17 09:15 83 16 86/66 98 01/11/17 07:30 99.2 01/11/17 05:07 30 01/10/17 16:05 Trach Collar 01/10/17 12:13 10.0 Intake and Output 01/10/17 01/10/17 01/11/17 15:00 23:00 07:00 Intake Total 480 ml 564.06 ml 305 ml Output Total 510 ml 385 ml 160 ml Balance -30 ml 179.06 ml 145 ml Exam GENERAL: Chronically ill-appearing lady on mechanical vent not consistently following commands. VITAL SIGNS: per chart NECK: Supple. No JVD or lymphadenopathy. Tracheostomy site clean and intact. CARDIAC EXAM: S1, S2. No added sounds or murmurs. CHEST: Diminished air entry bilaterally ABDOMEN: Soft, nontender. No guarding or rebound. EXTREMITIES: No cyanosis, clubbing or edema. NEUROLOGIC: Significant weakness. Results/Medications Result Diagram: 01/11/17 0503 01/11/17 0503 Results 24 hrs Laboratory Tests Test 01/10/17 12:05 01/10/17 12:55 01/10/17 17:30 01/10/17 17:37 Blood Gas Specimen Source Blood arterial Blood arterial Arterial Blood Date Drawn 01/10/2017 12:15:57 PM 01/10/2017 6:00:00 PM Arterial Blood pH (Temp corrected) 7.265 *L 7.494 H Arterial Blood pCO2 (Temp correct) 71.1 H 34.0 L Arterial Blood pO2 (Temp corrected) 72.3 L 196.4 H Arterial Blood HCO3 31.6 H 25.6 Arterial Blood Base Excess 3.0 2.4 Arterial Blood Oxygen Saturation 91.4 L 98.8 Obed Test ACCEPTAB ACCEPTAB Arterial Blood Gas Puncture Site Right Radial Right Radial Arterial Blood Carboxyhemoglobin 0.3 0.2 Arterial Blood Methemoglobin 0.4 0.5 Blood Gas A-a O2 Differential 131.1 H Oxyhemoglobin Percent 90.8 L 98.1 Total Hemoglobin 11.1 L 9.7 L Blood Gas Temperature 37.0 37.0 Blood Gas Modality TRACH COLLAR VENT - AC FiO2 40.0 30.0 Blood Gas Critical Value Read Back J VICTORIA RN L SUNIL RN Blood Gas Notified Whom JLD DT Blood Gas Notified Time 01/10/2017 12:25:35 PM 01/10/2017 6:19:00 PM Bedside Glucose 90 67 L Blood Gas Respiration Rate 16.0 Blood Gas Actual Respiration Rate 16 Blood Gas Tidal Volume 450.0 Blood Gas Low PEEP Setting 5.0 Test 01/10/17 18:02 01/10/17 20:55 01/11/17 01:02 01/11/17 04:47 Bedside Glucose 246 H 88 74 78 Test 01/11/17 05:03 01/11/17 07:46 01/11/17 08:52 White Blood Count 21.7 H Red Blood Count 3.44 L Hemoglobin 11.3 L Hematocrit 32.7 L Mean Corpuscular Volume 95.1 Mean Corpuscular Hemoglobin 32.8 Mean Corpuscular Hemoglobin Concent 34.6 Red Cell Distribution Width 14.1 Platelet Count 66 #L Mean Platelet Volume Neutrophils % 89.8 H Lymphocytes % 4.0 L Monocytes % 4.6 Eosinophils % 0.3 Basophils % 0.2 Nucleated Red Blood Cells % 0.8 H Neutrophils # (Manual) 19.5 H Lymphocytes # 0.9 Monocytes # 1.0 H Eosinophils # 0.1 Basophils # 0.1 Nucleated Red Blood Cells # 0.2 H Sodium Level 139 Potassium Level 3.5 Chloride Level 110 Carbon Dioxide Level 22 Anion Gap 11 Blood Urea Nitrogen 45 H Creatinine 0.56 Glucose Level 65 #L Calcium Level 7.2 L Phosphorus Level 2.4 #L Magnesium Level 2.1 Bedside Glucose 75 79 Medications Current Medications Chlorhexidine Gluconate (Peridex) 10 ml BID MM Last administered on 01/11/17t 08 :36; Admin Dose 10 ML; Start 12/31/16 at 09:00 Lidocaine (Lidoderm) 1 patch NOTE TRANSDERM ; Start 12/31/16 at 00:00 Insulin Aspart (Novolog Insulin Pen) NOVOLOG *MILD* ALGORI... Q4 SC Last administered on 01/03/17 20:44; Admin Dose 1 UNIT; Start 12/31/16 at 21:00 Miscellaneous Information 1 ea NOTE XX ; Start 12/31/16 at 18:30 Glucose (Glutose) 15 gm Q15M PRN PO DECREASED GLUCOSE; Start 12/31/16 at 18:30 Glucose (Glutose) 22.5 gm Q15M PRN PO DECREASED GLUCOSE; Start 12/31/16 at 18: 30 Dextrose (D50w Syringe) 25 ml Q15M PRN IV DECREASED GLUCOSE Last administered on 01/10/17 17:40; Admin Dose 25 ML; Start 12/31/16 at 18:30 Dextrose (D50w Syringe) 50 ml Q15M PRN IV DECREASED GLUCOSE; Start 12/31/16 at 18:30 Glucagon (Glucagen) 1 mg Q15M PRN IM DECREASED GLUCOSE; Start 12/31/16 at 18:30 Glucose (Glutose) 15 gm Q15M PRN BUCCAL DECREASED GLUCOSE; Start 12/31/16 at 18 :30 Hydromorphone HCl (Dilaudid) 0.5 mg Q4H PRN IV PAIN Last administered on 09:58; Admin Dose 0.5 MG; Start 01/01/17 at 01:30 Miscellaneous Information (Pending [facility] Order For Wound Care) This patient obregon... PRN PRN XX WOUND CARE; Start 01/01/17 at 03:00 Enoxaparin Sodium (Lovenox) 30 mg DAILY SC Last administered on 01/11/17 08:45 ; Admin Dose 30 MG; Start 01/01/17 at 14:00 Fentanyl 1 patch 1 patch Q3D TRANSDERM Last administered on 01/10/17 21:05; Admin Dose 1 PATCH; Start 01/01/17 at 20:00 Total Parenteral Nutrition 1,000 ml @ 40 mls/hr Q24H IV Last administered on 22:31; Admin Dose 40 MLS/HR; Start 01/02/17 at 21:00 Fat Emulsion Intravenous (Liposyn Ii 20%) 500 ml @ 21 mls/hr [id number] IV Last administered on 01/10/17 19:42; Admin Dose 21 MLS/HR; Start 01/02/17 at 21:00 Ondansetron HCl 4 mg 4 mg Q4H PRN IV NAUSEA AND/OR VOMITING Last administered on 01/07/17 07:03; Admin Dose 4 MG; Start 01/03/17 at 17:30 Tigecycline/ Sodium Chloride (Tygacil/NS) 100 ml @ 200 mls/hr Q12H IVPB Last administered on 01/10/17 20:49; Admin Dose 200 MLS/HR; Start 01/06/17 at 05:00 Aspirin 300 mg 300 mg DAILY [place] Last administered on 01/10/17 11:29; Admin Dose 300 MG; Start 01/06/17 at 15:30 Fluconazole/ Sodium Chloride 50 ml @ 50 mls/hr Q24H IVPB Last administered on 16:55; Admin Dose 50 MLS/HR; Start 01/07/17 at 15:30 Colistimethate Sodium 75 mg/ Sodium Chloride 100 ml @ 200 mls/hr Q24H IVPB Last administered on 01/10/17 20:44; Admin Dose 200 MLS/HR; Start 01/10/17 at 21: 00 Norepinephrine/ Dextrose (Levophed/D5W) 500 ml @ 0 mls/hr TITRATE IV ; Start 01/10/17 at 17:30 Assessment/Plan Chief Complaint/Hosp Course Assessment 1. Patient admitted with right upper lobe pneumonia as well as decubitus ulcers , currently on appropriate broad-spectrum antibiotic coverage. 2. Ascites, with bilateral abdominal drain in place draining serous fluid on a daily basis. Next 3. Bilateral pleural effusions, with recurrence. This is likely a ascites fluid tracking into pleural space. 4. Thrombocytopenia. 5. chronic ileus, patient on long-term TPN. 6. 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 7. Prior history of gastric cancer. 8. Septic shock likely secondary to pneumonia plan Plan 1. Continue vasopressor support 2. Continue wound care 3. Continue TPN 4. Continue antibiotics Palliative care evaluation today I had an extensive discussion with patient's niece at bedside. Specifically her condition and likelihood of her coming off the ventilator being very small. They were inquiring about palliative care with mechanical ventilation and hospice at home. I think this is entirely reasonable. Problems: DAMON TRINIDAD MD[facility] Jan 11, 2017 10:08
--- NOTE | 2017-01-11 10:45 | PN ---
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 sp thora, hospitalization c/b septic shock with hypotension warranting an overnight ICU stay, transferred back to floor on 01.03 , but back in ICU on 01/10/17 sec to res distress. # Aspiration pneumonia/pneumonitis, on antibiotics. Patient also with Klebsiella, Actinobacteria, enterococcus, and yeast wound abdominal infections. No fevers. Now with worsening respiratory distress, in ICU -Per infectious disease continue tigecycline and meropenem per their recommendations, discuss with him about length of treatment. -Continue fluconazole. #. Right pleural effusion, s/p US-guided thoracentesis with removal of 750 cc fluid on 12/31/2016. Chest x-ray last 72 hours however shows more bilateral pleural effusions. Worsening respiratory distress, in ICU now --follow final fluid studies, continue antibiotics. -Monitor breathing status for now, follow pulmonary recommendations. For now not recommending thoracentesis to be performed secondary to high chance of fast reaccumulation. -Follow-up pulmonary recommendations. - f/u palliative care rec's (consulted yesterday) #. Recurrent ischemic stroke: neuro on consult, MRI brain from December 31 shows: There is acute infarct in the left middle cerebral artery territory, involving the left temporal lobe, parietal, and insula. -Follow-up neurology recommendations, continue aspirin 300 mg per rectal daily. # Gastric cancer in 2011, for which she underwent extensive resection in the past, as well as chemotherapy. -Monitor for now, including drainage from abdominal tubes -On TPN as well #Multiple esophageal strictures and bowel obstructions,cont TPN. #Status post tracheostomy: Oxygen supplementation, follow-up pulmonary recommendation -Continue physical therapy consult Dispo: palliatve care team met with family yesterday, and pulm team did today as well, family apparently wants to consider home with [facility] vent and Hospice, will discuss with palliative care team about this. Problems: Subjective 24 Hr Interval Summary Free Text/Dictation Pt in ICU now, on low dose pressor support, no acute events overnight. Seen by pulm team this AM, and palliative care team yesterday. Exam/Review of Systems Vital Signs Vitals Vital Signs Date Time Temp Pulse Resp B/P Pulse Ox O2 Delivery O2 Flow Rate FiO2 01/11/17 09:15 83 16 86/66 98 01/11/17 07:30 99.2 01/11/17 05:07 30 01/10/17 16:05 Trach Collar 01/10/17 12:13 10.0 Intake and Output 01/10/17 01/10/17 01/11/17 15:00 23:00 07:00 Intake Total 480 ml 564.06 ml 305 ml Output Total 510 ml 385 ml 160 ml Balance -30 ml 179.06 ml 145 ml Exam Lying in bed trach secretions somewhat present Slightly decreased breath sounds bilaterally no mrg abd drain with dark output no rashes Results Result Diagram: 01/11/17 0503 01/11/17 0503 Results 24 hrs Laboratory Tests Test 01/10/17 12:05 01/10/17 12:55 01/10/17 17:30 01/10/17 17:37 Blood Gas Specimen Source Blood arterial Blood arterial Arterial Blood Date Drawn 01/10/2017 12:15:57 PM 01/10/2017 6:00:00 PM Arterial Blood pH (Temp corrected) 7.265 *L 7.494 H Arterial Blood pCO2 (Temp correct) 71.1 H 34.0 L Arterial Blood pO2 (Temp corrected) 72.3 L 196.4 H Arterial Blood HCO3 31.6 H 25.6 Arterial Blood Base Excess 3.0 2.4 Arterial Blood Oxygen Saturation 91.4 L 98.8 Obed Test ACCEPTAB ACCEPTAB Arterial Blood Gas Puncture Site Right Radial Right Radial Arterial Blood Carboxyhemoglobin 0.3 0.2 Arterial Blood Methemoglobin 0.4 0.5 Blood Gas A-a O2 Differential 131.1 H Oxyhemoglobin Percent 90.8 L 98.1 Total Hemoglobin 11.1 L 9.7 L Blood Gas Temperature 37.0 37.0 Blood Gas Modality TRACH COLLAR VENT - AC FiO2 40.0 30.0 Blood Gas Critical Value Read Back J VICTORIA RN Fernanda BARBER RN Blood Gas Notified Whom JLD DT Blood Gas Notified Time 01/10/2017 12:25:35 PM 01/10/2017 6:19:00 PM Bedside Glucose 90 67 L Blood Gas Respiration Rate 16.0 Blood Gas Actual Respiration Rate 16 Blood Gas Tidal Volume 450.0 Blood Gas Low PEEP Setting 5.0 Test 01/10/17 18:02 01/10/17 20:55 01/11/17 01:02 01/11/17 04:47 Bedside Glucose 246 H 88 74 78 Test 01/11/17 05:03 01/11/17 07:46 01/11/17 08:52 White Blood Count 21.7 H Red Blood Count 3.44 L Hemoglobin 11.3 L Hematocrit 32.7 L Mean Corpuscular Volume 95.1 Mean Corpuscular Hemoglobin 32.8 Mean Corpuscular Hemoglobin Concent 34.6 Red Cell Distribution Width 14.1 Platelet Count 66 #L Mean Platelet Volume Neutrophils % 89.8 H Lymphocytes % 4.0 L Monocytes % 4.6 Eosinophils % 0.3 Basophils % 0.2 Nucleated Red Blood Cells % 0.8 H Neutrophils # (Manual) 19.5 H Lymphocytes # 0.9 Monocytes # 1.0 H Eosinophils # 0.1 Basophils # 0.1 Nucleated Red Blood Cells # 0.2 H Sodium Level 139 Potassium Level 3.5 Chloride Level 110 Carbon Dioxide Level 22 Anion Gap 11 Blood Urea Nitrogen 45 H Creatinine 0.56 Glucose Level 65 #L Calcium Level 7.2 L Phosphorus Level 2.4 #L Magnesium Level 2.1 Bedside Glucose 75 79 Medications Medications Current Medications Chlorhexidine Gluconate (Peridex) 10 ml BID MM Last administered on 01/11/17 08 :36; Admin Dose 10 ML; Start 12/31/16 at 09:00 Lidocaine (Lidoderm) 1 patch NOTE TRANSDERM ; Start 12/31/16 at 00:00 Insulin Aspart (Novolog Insulin Pen) NOVOLOG *MILD* ALGORI... Q4 SC Last administered on 01/03/17 20:44; Admin Dose 1 UNIT; Start 12/31/16 at 21:00 Miscellaneous Information 1 ea NOTE XX ; Start 12/31/16 at 18:30 Glucose (Glutose) 15 gm Q15M PRN PO DECREASED GLUCOSE; Start 12/31/16 at 18:30 Glucose (Glutose) 22.5 gm Q15M PRN PO DECREASED GLUCOSE; Start 12/31/16 at 18: 30 Dextrose (D50w Syringe) 25 ml Q15M PRN IV DECREASED GLUCOSE Last administered on 01/10/17 17:40; Admin Dose 25 ML; Start 12/31/16 at 18:30 Dextrose (D50w Syringe) 50 ml Q15M PRN IV DECREASED GLUCOSE; Start 12/31/16 at 18:30 Glucagon (Glucagen) 1 mg Q15M PRN IM DECREASED GLUCOSE; Start 12/31/16 at 18:30 Glucose (Glutose) 15 gm Q15M PRN BUCCAL DECREASED GLUCOSE; Start 12/31/16 at 18 :30 Hydromorphone HCl (Dilaudid) 0.5 mg Q4H PRN IV PAIN Last administered on 09:58; Admin Dose 0.5 MG; Start 01/01/17 at 01:30 Miscellaneous Information [facility] This patient ob[place]... PRN PRN XX WOUND CARE; Start 01/01/17 at 03:00 Enoxaparin Sodium (Lovenox) 30 mg DAILY SC Last administered on 01/11/17 08:45 ; Admin Dose 30 MG; Start 01/01/17 at 14:00 Fentanyl 1 patch 1 patch Q3D TRANSDERM Last administered on 01/10/17 21:05; Admin Dose 1 PATCH; Start 01/01/17 at 20:00 Total Parenteral Nutrition 1,000 ml @ 40 mls/hr Q24H IV Last administered on 22:31; Admin Dose 40 MLS/HR; Start 01/02/17 at 21:00 Fat Emulsion Intravenous (Liposyn Ii 20%) 500 ml @ 21 mls/hr [id number] IV Last administered on 01/10/17 19:42; Admin Dose 21 MLS/HR; Start 01/02/17 at 21:00 Ondansetron HCl 4 mg 4 mg Q4H PRN IV NAUSEA AND/OR VOMITING Last administered on 01/07/17 07:03; Admin Dose 4 MG; Start 01/03/17 at 17:30 Tigecycline/ Sodium Chloride (Tygacil/NS) 100 ml @ 200 mls/hr Q12H IVPB Last administered on 01/10/17 20:49; Admin Dose 200 MLS/HR; Start 01/06/17 at 05:00 Aspirin 300 mg 300 mg DAILY TN Last administered on 01/10/17 11:29; Admin Dose 300 MG; Start 01/06/17 at 15:30 Fluconazole/ Sodium Chloride 50 ml @ 50 mls/hr Q24H IVPB Last administered on 16:55; Admin Dose 50 MLS/HR; Start 01/07/17 at 15:30 Colistimethate Sodium 75 mg/ Sodium Chloride 100 ml @ 200 mls/hr Q24H IVPB Last administered on 01/10/17 20:44; Admin Dose 200 MLS/HR; Start 01/10/17 at 21: 00 Norepinephrine 16 mg/Dextrose 500 ml @ 0 mls/hr TITRATE IV ; Start 01/10/17 at 17 :30 Potassium Phosphate/Sodium Chloride (K Phos (Meq)/NS) 254.5455 ml @ 63.636 m... ONCE ONCE IVPB ; Start 01/11/17 at 11:00; Stop 01/11/17 at 14:59; Status [place] Jan 11, 2017 10:45
[2017-01-11] MEDS: BALSAM PERU/CASTOR OIL 60 GM TUBE TOP SCH (10:49)
[2017-01-11] MEDS: ASPIRIN 300 MG SUPP PR SCH (11:30)
[2017-01-11] MEDS ORDERED: POTASSIUM PHOSPHATE 20 MEQ in SOD CHLORIDE 0.9% 250 ML IVPB ONE (12:00)
--- NOTE | 2017-01-11 14:38 | CONS ---
Date/Time of Note Date/Time of Note DATE: 01/11/17 TIME: 14:22 Assessment/Plan Assessment/Plan Chief Complaint/Hosp Course ID PROGRESS NOTE CURRENT ABX: Tygacil #7 + Diflucan + Colistin IV #2 24H INTERVAL SUMMARY * Seen in ICU on pressors again, Trach secure to Vent, family in room report she does not awaken, nonverbal * CXR 01/07: 1. Larger bilateral pleural effusions and worse appearance of the lung bases. * LABS 01/11/17 0503 01/11/17 0503 EXAM HEENT: Unremarkable NECK: trach site clear CVS: RRR, S1 and S2 CHEST: Coarse BS b/l ABD: Soft, NT, + BS EXT: No c/c/e ID ASSESSMENT 71 yo F admit with: 1. Sepsis s/p symptomatic hypotension, encephalopathy, SOB requiring transfer to ICU => stable * Low dose pressor support * Low grade temps * WBC rising on current ABX * PLT down today 65 2. Respiratory failure w/acute respiratory distress -> TNS back to ICU 3. Pneumonia with parapneumonic effusions status post thoracentesis on admission. * s/p THORA 12/31 w/WBC ~145,000, Micro (-) 4. Acute recurrent cerebrovascular accident (CVA). 5. Cardiomyopathy with ejection fraction of 40 percent. 6. History of gastric carcinoma (CA), status post multiple resection with a chemotherapy. 7. History of recent bilateral abdominal drain placement secondary to abscess. * s/p ABD Drain Cx 01/03: (+) CRKP /ACBA/Enterococcus/C.Albicans 8. 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 Cachexia. 10. Anemia (-) MRSA Nares CURRENT ABX: Tygacil #7 + Diflucan + Colistin IV #2 Vanco IV + Merrem -> DC 01/05 ID RECOMMENDATIONS 1. Poor prognosis - Hospice appropriate 2. Started on Colistin IV adjunctive due to sepsis, worsening leukocytosis 3. Respiratory cx pending . Problems: Consultation Date/Type/Reason Admit Date/Time Dec 30, 2016 at 23:12 Initial Consult Date 01/01/17 Type of Consultation: ID Referring Provider: ANA PAULINO Exam/Review of Systems Vital Signs Vitals Vital Signs Date Time Temp Pulse Resp B/P Pulse Ox O2 Delivery O2 Flow Rate FiO2 01/11/17 13:35 88/47 01/11/17 13:30 80 16 100 01/11/17 12:00 98.9 01/11/17 09:40 30 01/10/17 16:05 Trach Collar 01/10/17 12:13 10.0 Intake and Output 01/10/17 01/10/17 01/11/17 15:00 23:00 07:00 Intake Total 480 ml 564.06 ml 310.62 ml Output Total 510 ml 385 ml 160 ml Balance -30 ml 179.06 ml 150.62 ml Results Result Diagram: 01/11/17 0503 01/11/17 0503 Results 24 hrs Laboratory Tests Test 01/10/17 17:30 01/10/17 17:37 01/10/17 18:02 01/10/17 20:55 Blood Gas Specimen Source Blood arterial Arterial Blood Date Drawn 01/10/2017 6:00:00 PM Arterial Blood pH (Temp corrected) 7.494 H Arterial Blood pCO2 (Temp correct) 34.0 L Arterial Blood pO2 (Temp corrected) 196.4 H Arterial Blood HCO3 25.6 Arterial Blood Base Excess 2.4 Arterial Blood Oxygen Saturation 98.8 Obed Test ACCEPTAB Arterial Blood Gas Puncture Site Right Radial Arterial Blood Carboxyhemoglobin 0.2 Arterial Blood Methemoglobin 0.5 Oxyhemoglobin Percent 98.1 Total Hemoglobin 9.7 L Blood Gas Temperature 37.0 Blood Gas Respiration Rate 16.0 Blood Gas Actual Respiration Rate 16 Blood Gas Modality VENT - AC FiO2 30.0 Blood Gas Tidal Volume 450.0 Blood Gas Low PEEP Setting 5.0 Blood Gas Critical Value Read Back L SUNIL RN Blood Gas Notified Whom DT Blood Gas Notified Time 01/10/2017 6:19:00 PM Bedside Glucose 67 L 246 H 88 Test 01/11/17 01:02 01/11/17 04:47 01/11/17 05:03 01/11/17 07:46 Bedside Glucose 74 78 75 White Blood Count 21.7 H Red Blood Count 3.44 L Hemoglobin 11.3 L Hematocrit 32.7 L Mean Corpuscular Volume 95.1 Mean Corpuscular Hemoglobin 32.8 Mean Corpuscular Hemoglobin Concent 34.6 Red Cell Distribution Width 14.1 Platelet Count 66 #L Mean Platelet Volume Neutrophils % 89.8 H Lymphocytes % 4.0 L Monocytes % 4.6 Eosinophils % 0.3 Basophils % 0.2 Nucleated Red Blood Cells % 0.8 H Neutrophils # (Manual) 19.5 H Lymphocytes # 0.9 Monocytes # 1.0 H Eosinophils # 0.1 Basophils # 0.1 Nucleated Red Blood Cells # 0.2 H Sodium Level 139 Potassium Level 3.5 Chloride Level 110 Carbon Dioxide Level 22 Anion Gap 11 Blood Urea Nitrogen 45 H Creatinine 0.56 Glucose Level 65 #L Calcium Level 7.2 L Phosphorus Level 2.4 #L Magnesium Level 2.1 Test 01/11/17 08:52 Bedside Glucose 79 Medications Medications Current Medications Chlorhexidine Gluconate (Peridex) 10 ml BID MM Last administered on 01/11/17 08 :36; Admin Dose 10 ML; Start 12/31/16 at 09:00 Lidocaine (Lidoderm) 1 patch NOTE TRANSDERM ; Start 12/31/16 at 00:00 Insulin Aspart (Novolog Insulin Pen) NOVOLOG *MILD* ALGORI... Q4 SC Last administered on 01/03/17 20:44; Admin Dose 1 UNIT; Start 12/31/16 at 21:00 Miscellaneous Information 1 ea NOTE XX ; Start 12/31/16 at 18:30 Glucose (Glutose) 15 gm Q15M PRN PO DECREASED GLUCOSE; Start 12/31/16 at 18:30 Glucose (Glutose) 22.5 gm Q15M PRN PO DECREASED GLUCOSE; Start 12/31/16 at 18: 30 Dextrose (D50w Syringe) 25 ml Q15M PRN IV DECREASED GLUCOSE Last administered on 01/10/17 17:40; Admin Dose 25 ML; Start 12/31/16 at 18:30 Dextrose (D50w Syringe) 50 ml Q15M PRN IV DECREASED GLUCOSE; Start 12/31/16 at 18:30 Glucagon (Glucagen) 1 mg Q15M PRN IM DECREASED GLUCOSE; Start 12/31/16 at 18:30 Glucose (Glutose) 15 gm Q15M PRN BUCCAL DECREASED GLUCOSE; Start 12/31/16 at 18 :30 Hydromorphone HCl (Dilaudid) 0.5 mg Q4H PRN IV PAIN Last administered on 09:58; Admin Dose 0.5 MG; Start 01/01/17 at 01:30 Miscellaneous Information [facility] This patient ob[place]... PRN PRN XX WOUND CARE; Start 01/01/17 at 03:00 Enoxaparin Sodium (Lovenox) 30 mg DAILY SC Last administered on 01/11/17 08:45 ; Admin Dose 30 MG; Start 01/01/17 at 14:00 Fentanyl 1 patch 1 patch Q3D TRANSDERM Last administered on 01/10/17 21:05; Admin Dose 1 PATCH; Start 01/01/17 at 20:00 Total Parenteral Nutrition 1,000 ml @ 40 mls/hr Q24H IV Last administered on 22:31; Admin Dose 40 MLS/HR; Start 01/02/17 at 21:00 Fat Emulsion Intravenous (Liposyn Ii 20%) 500 ml @ 21 mls/hr [id number] IV Last administered on 01/10/17 19:42; Admin Dose 21 MLS/HR; Start 01/02/17 at 21:00 Ondansetron HCl 4 mg 4 mg Q4H PRN IV NAUSEA AND/OR VOMITING Last administered on 01/07/17 07:03; Admin Dose 4 MG; Start 01/03/17 at 17:30 Tigecycline/ Sodium Chloride (Tygacil/NS) 100 ml @ 200 mls/hr Q12H IVPB Last administered on 01/10/17 20:49; Admin Dose 200 MLS/HR; Start 01/06/17 at 05:00 Aspirin 300 mg 300 mg DAILY MD Last administered on 01/11/17 11:30; Admin Dose 300 MG; Start 01/06/17 at 15:30 Fluconazole/ Sodium Chloride 50 ml @ 50 mls/hr Q24H IVPB Last administered on 16:55; Admin Dose 50 MLS/HR; Start 01/07/17 at 15:30 Colistimethate Sodium 75 mg/ Sodium Chloride 100 ml @ 200 mls/hr Q24H IVPB Last administered on 01/10/17 20:44; Admin Dose 200 MLS/HR; Start 01/10/17 at 21: 00 Norepinephrine 16 mg/Dextrose 500 ml @ 0 mls/hr TITRATE IV Last administered on 01/11/17 10:47; Admin Dose 3.75 MLS/HR; Start 01/10/17 at 17:30 Potassium Phosphate/Sodium Chloride (K Phos (Meq)/NS) 254.5455 ml @ 63.636 m... ONCE ONCE IVPB Last administered on 01/11/17t 12:26; Admin Dose 63.636 MLS /HR; Start 01/11/17 at 12:00; Stop 01/11/17 at 15:59 KIMBERLYN WHITNEY NP Jan 11, 2017 14:33
--- NOTE | 2017-01-11 14:57 | CONS ---
Date/Time of Note Date/Time of Note DATE: 01/11/17 TIME: 14:52 Assessment/Plan Assessment/Plan Additional Assessment/Plan A conference on January 12 of January 13. I will address all palliative care specific issues at that time. Patient remains a full code. Consultation Date/Type/Reason Admit Date/Time Dec 30, 2016 at 23:12 Reason for Consultation Palliative care Hx of Present Illness 71-year-old female admitted [facility] altered with depression pneumonia. Patient is TPN dependent she is trached she lives at home with family members 24 7 caregivers. Patient is a past medical history of gastric cancer diagnosed roughly 5 years prior to this hospitalization. December 31 MRI of the brain showed acute infarct left CA involving the temporal lobe. Patient has been admitted to the intensive care unit later dependent and on pressors. Family members have been under bedside the decision maker for shunt is not here at this time. He is patient's niece make solid decisions on her behalf. Patient has left instructions with family members that her sister is not to make decisions on her level of care. Normal palliative care consultation will be done when patient's agent is available to minus other family members who will be involved with family conference. Social History Alcohol Use: none Smoking Status: Never smoker Exam/Review of Systems Vital Signs Vitals Vital Signs Date Time Temp Pulse Resp B/P Pulse Ox O2 Delivery O2 Flow Rate FiO2 01/11/17 13:35 88/47 01/11/17 13:30 80 16 100 01/11/17 12:00 98.9 01/11/17 09:40 30 01/10/17 16:05 Trach Collar 01/10/17 12:13 10.0 Intake and Output 01/10/17 01/10/17 01/11/17 15:00 23:00 07:00 Intake Total 480 ml 564.06 ml 310.62 ml Output Total 510 ml 385 ml 160 ml Balance -30 ml 179.06 ml 150.62 ml Exam Constitutional: alert Eyes: EOMI, PERRL, nl conjunctiva, nl lids, nl sclera, No fundi, disc, No icteric, No other Respiratory: clear to auscultation, normal air movement, No congested cough, No crackles/rales, No diminished breath sounds, No intercostal retraction, No labored breathing, No other, No respirations, No tactile fremitus, No wheezing Cardiovascular: nl pulses, regular rate and rhythm, No S3, No S4, No bruits, No diastolic murmur, No edema, No gallop, No irregular rhythm, No jugular venous distention (JVD), No murmurs/extra sounds, No other, No rub, No systolic murmur Neurological: lethargic Results Result Diagram: 01/11/17 0503 01/11/17 0503 Results 24 hrs Laboratory Tests Test 01/10/17 17:30 01/10/17 17:37 01/10/17 18:02 01/10/17 20:55 Blood Gas Specimen Source Blood arterial Arterial Blood Date Drawn 01/10/2017 6:00:00 PM Arterial Blood pH (Temp corrected) 7.494 H Arterial Blood pCO2 (Temp correct) 34.0 L Arterial Blood pO2 (Temp corrected) 196.4 H Arterial Blood HCO3 25.6 Arterial Blood Base Excess 2.4 Arterial Blood Oxygen Saturation 98.8 Obed Test ACCEPTAB Arterial Blood Gas Puncture Site Right Radial Arterial Blood Carboxyhemoglobin 0.2 Arterial Blood Methemoglobin 0.5 Oxyhemoglobin Percent 98.1 Total Hemoglobin 9.7 L Blood Gas Temperature 37.0 Blood Gas Respiration Rate 16.0 Blood Gas Actual Respiration Rate 16 Blood Gas Modality VENT - AC FiO2 30.0 Blood Gas Tidal Volume 450.0 Blood Gas Low PEEP Setting 5.0 Blood Gas Critical Value Read Back L SUNIL RN Blood Gas Notified Whom DT Blood Gas Notified Time 01/10/2017 6:19:00 PM Bedside Glucose 67 L 246 H 88 Test 01/11/17 01:02 01/11/17 04:47 01/11/17 05:03 01/11/17 07:46 Bedside Glucose 74 78 75 White Blood Count 21.7 H Red Blood Count 3.44 L Hemoglobin 11.3 L Hematocrit 32.7 L Mean Corpuscular Volume 95.1 Mean Corpuscular Hemoglobin 32.8 Mean Corpuscular Hemoglobin Concent 34.6 Red Cell Distribution Width 14.1 Platelet Count 66 #L Mean Platelet Volume Neutrophils % 89.8 H Lymphocytes % 4.0 L Monocytes % 4.6 Eosinophils % 0.3 Basophils % 0.2 Nucleated Red Blood Cells % 0.8 H Neutrophils # (Manual) 19.5 H Lymphocytes # 0.9 Monocytes # 1.0 H Eosinophils # 0.1 Basophils # 0.1 Nucleated Red Blood Cells # 0.2 H Sodium Level 139 Potassium Level 3.5 Chloride Level 110 Carbon Dioxide Level 22 Anion Gap 11 Blood Urea Nitrogen 45 H Creatinine 0.56 Glucose Level 65 #L Calcium Level 7.2 L Phosphorus Level 2.4 #L Magnesium Level 2.1 Test 01/11/17 08:52 Bedside Glucose 79 Medications Medications Current Medications Chlorhexidine Gluconate (Peridex) 10 ml BID MM Last administered on 01/11/17 08 :36; Admin Dose 10 ML; Start 12/31/16 at 09:00 Lidocaine (Lidoderm) 1 patch NOTE TRANSDERM ; Start 12/31/16 at 00:00 Insulin Aspart (Novolog Insulin Pen) NOVOLOG *MILD* ALGORI... Q4 SC Last administered on 01/03/17 20:44; Admin Dose 1 UNIT; Start 12/31/16 at 21:00 Miscellaneous Information 1 ea NOTE XX ; Start 12/31/16 at 18:30 Glucose (Glutose) 15 gm Q15M PRN PO DECREASED GLUCOSE; Start 12/31/16 at 18:30 Glucose (Glutose) 22.5 gm Q15M PRN PO DECREASED GLUCOSE; Start 12/31/16 at 18: 30 Dextrose (D50w Syringe) 25 ml Q15M PRN IV DECREASED GLUCOSE Last administered on 01/10/17 17:40; Admin Dose 25 ML; Start 12/31/16 at 18:30 Dextrose (D50w Syringe) 50 ml Q15M PRN IV DECREASED GLUCOSE; Start 12/31/16 at 18:30 Glucagon (Glucagen) 1 mg Q15M PRN IM DECREASED GLUCOSE; Start 12/31/16 at 18:30 Glucose (Glutose) 15 gm Q15M PRN BUCCAL DECREASED GLUCOSE; Start 12/31/16 at 18 :30 Hydromorphone HCl (Dilaudid) 0.5 mg Q4H PRN IV PAIN Last administered on 09:58; Admin Dose 0.5 MG; Start 01/01/17 at 01:30 Miscellaneous Information [facility] This patient ob[place]... PRN PRN XX WOUND CARE; Start 01/01/17 at 03:00 Enoxaparin Sodium (Lovenox) 30 mg DAILY SC Last administered on 01/11/17 08:45 ; Admin Dose 30 MG; Start 01/01/17 at 14:00 Fentanyl 1 patch 1 patch Q3D TRANSDERM Last administered on 01/10/17 21:05; Admin Dose 1 PATCH; Start 01/01/17 at 20:00 Total Parenteral Nutrition 1,000 ml @ 40 mls/hr Q24H IV Last administered on 22:31; Admin Dose 40 MLS/HR; Start 01/02/17 at 21:00 Fat Emulsion Intravenous (Liposyn Ii 20%) 500 ml @ 21 mls/hr [id number] IV Last administered on 01/10/17 19:42; Admin Dose 21 MLS/HR; Start 01/02/17 at 21:00 Ondansetron HCl 4 mg 4 mg Q4H PRN IV NAUSEA AND/OR VOMITING Last administered on 01/07/17 07:03; Admin Dose 4 MG; Start 01/03/17 at 17:30 Tigecycline/ Sodium Chloride (Tygacil/NS) 100 ml @ 200 mls/hr Q12H IVPB Last administered on 01/10/17 20:49; Admin Dose 200 MLS/HR; Start 01/06/17 at 05:00 Aspirin 300 mg 300 mg DAILY VT Last administered on 01/11/17 11:30; Admin Dose 300 MG; Start 01/06/17 at 15:30 Fluconazole/ Sodium Chloride 50 ml @ 50 mls/hr Q24H IVPB Last administered on 16:55; Admin Dose 50 MLS/HR; Start 01/07/17 at 15:30 Colistimethate Sodium 75 mg/ Sodium Chloride 100 ml @ 200 mls/hr Q24H IVPB Last administered on 01/10/17 20:44; Admin Dose 200 MLS/HR; Start 01/10/17 at 21: 00 Norepinephrine 16 mg/Dextrose 500 ml @ 0 mls/hr TITRATE IV Last administered on 01/11/17 10:47; Admin Dose 3.75 MLS/HR; Start 01/10/17 at 17:30 Potassium Phosphate/Sodium Chloride (K Phos (Meq)/NS) 254.5455 ml @ 63.636 m... ONCE ONCE IVPB Last administered on 9/2/17at 12:26; Admin Dose 63.636 MLS /HR; Start 01/11/17 at 12:00; Stop 01/11/17 at 15:59 DONNIE VAZQUEZ Jan 11, 2017 14:57
[2017-01-11] MEDS: TIGECYCLINE 50 MG in SOD CHLORIDE 0.9% 100 ML IVPB SCH (17:39)
[2017-01-11] MEDS: FLUCONAZOLE 100 MG/NS (PMX) 50 ML IVPB SCH (17:39)
--- NOTE | 2017-01-11 18:52 | CONS ---
Date/Time of Note Date/Time of Note DATE: 01/11/17 TIME: 18:52 Assessment/Plan Assessment/Plan Chief Complaint/Hosp Course LEUKOCYTOSIS REACTIVE MONITOR CLOSELY ANEMIA N-CYTIC, N- CHROMIC WITH R RDW MONITOR BLOOD COUNT CLOSELY OBSERVE FOR BLEEDING AND HEMOLYSIS THROMBOCYTOPENIA MONITOR CLOSELY AVOID MYELOSUPPRESSIVE MEDS 2 TO SEPSIS History of gastric cancer in the past status post gastrectomy as well as chemotherapy PER FAMILY- RAFAT RECENT RESTAGING WITH CT AP- NEG DECREASED URINE OUTPUT PER [facility] Acute alteration in mental status likely secondary to subacute CVA Acute respiratory distress superimposed on chronic respiratory failure Bilateral pleural effusion with underlying pneumonia and CHF Sepsis with lactic acidosis Chronic muscle wasting and cachexia History of multiple esophageal strictures and bowel obstruction 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 Reported history of hypertension Penicillin allergy Problems: Consultation Date/Type/Reason Admit Date/Time Dec 30, 2016 at 23:12 Initial Consult Date 12/31/16 Type of Consultation: hemeon Referring Provider: ANA PAULINO 24 HR Interval Summary Free Text/Dictation ALL NOTED IN ICU WITH HYPOTENSION ON PRESSOR Exam/Review of Systems Vital Signs Vitals Vital Signs Date Time Temp Pulse Resp B/P Pulse Ox O2 Delivery O2 Flow Rate FiO2 01/11/17 18:30 83 16 99/60 100 01/11/17 17:30 98.7 01/11/17 17:30 30 01/10/17 16:05 Trach Collar 01/10/17 12:13 10.0 Intake and Output 01/10/17 01/10/17 01/11/17 14:59 22:59 06:59 Intake Total 983.06 ml 305 ml Output Total 810 ml 395 ml Balance 173.06 ml -90 ml Exam Lying in bed trach secretions somewhat present Slightly decreased breath sounds bilaterally no mrg abd drain with dark output no rashes Results Result Diagram: 01/11/17 0503 01/11/17 0503 Results 24 hrs Laboratory Tests Test 01/10/17 20:55 01/11/17 01:02 01/11/17 04:47 01/11/17 05:03 Bedside Glucose 88 74 78 White Blood Count 21.7 H Red Blood Count 3.44 L Hemoglobin 11.3 L Hematocrit 32.7 L Mean Corpuscular Volume 95.1 Mean Corpuscular Hemoglobin 32.8 Mean Corpuscular Hemoglobin Concent 34.6 Red Cell Distribution Width 14.1 Platelet Count 66 #L Mean Platelet Volume Neutrophils % 89.8 H Lymphocytes % 4.0 L Monocytes % 4.6 Eosinophils % 0.3 Basophils % 0.2 Nucleated Red Blood Cells % 0.8 H Neutrophils # (Manual) 19.5 H Lymphocytes # 0.9 Monocytes # 1.0 H Eosinophils # 0.1 Basophils # 0.1 Nucleated Red Blood Cells # 0.2 H Sodium Level 139 Potassium Level 3.5 Chloride Level 110 Carbon Dioxide Level 22 Anion Gap 11 Blood Urea Nitrogen 45 H Creatinine 0.56 Glucose Level 65 #L Calcium Level 7.2 L Phosphorus Level 2.4 #L Magnesium Level 2.1 Test 01/11/17 07:46 01/11/17 08:52 01/11/17 17:35 Bedside Glucose 75 79 77 Medications Medications Current Medications Chlorhexidine Gluconate (Peridex) 10 ml BID MM Last administered on 01/11/17 08 :36; Admin Dose 10 ML; Start 12/31/16 at 09:00 Lidocaine (Lidoderm) 1 patch NOTE TRANSDERM ; Start 12/31/16 at 00:00 Insulin Aspart (Novolog Insulin Pen) NOVOLOG *MILD* ALGORI... Q4 SC Last administered on 01/03/17 20:44; Admin Dose 1 UNIT; Start 12/31/16 at 21:00 Miscellaneous Information 1 ea NOTE XX ; Start 12/31/16 at 18:30 Glucose (Glutose) 15 gm Q15M PRN PO DECREASED GLUCOSE; Start 12/31/16 at 18:30 Glucose (Glutose) 22.5 gm Q15M PRN PO DECREASED GLUCOSE; Start 12/31/16 at 18: 30 Dextrose (D50w Syringe) 25 ml Q15M PRN IV DECREASED GLUCOSE Last administered on 01/10/17 17:40; Admin Dose 25 ML; Start 12/31/16 at 18:30 Dextrose (D50w Syringe) 50 ml Q15M PRN IV DECREASED GLUCOSE; Start 12/31/16 at 18:30 Glucagon (Glucagen) 1 mg Q15M PRN IM DECREASED GLUCOSE; Start 12/31/16 at 18:30 Glucose (Glutose) 15 gm Q15M PRN BUCCAL DECREASED GLUCOSE; Start 12/31/16 at 18 :30 Hydromorphone HCl (Dilaudid) 0.5 mg Q4H PRN IV PAIN Last administered on 09:58; Admin Dose 0.5 MG; Start 01/01/17 at 01:30 [facility]isc[facility] Information [facility] This patient obregon... PRN PRN XX WOUND CARE; Start 01/01/17 at 03:00 Enoxaparin Sodium (Lovenox) 30 mg DAILY SC Last administered on 01/11/17 08:45 ; Admin Dose 30 MG; Start 01/01/17 at 14:00 Fentanyl 1 patch 1 patch Q3D TRANSDERM Last administered on 01/10/17 21:05; Admin Dose 1 PATCH; Start 01/01/17 at 20:00 Total Parenteral Nutrition 1,000 ml @ 40 mls/hr Q24H IV Last administered on 22:31; Admin Dose 40 MLS/HR; Start 01/02/17 at 21:00 Fat Emulsion Intravenous (Liposyn Ii 20%) 500 ml @ 21 mls/hr [id number] IV Last administered on 01/10/17 19:42; Admin Dose 21 MLS/HR; Start 01/02/17 at 21:00 Ondansetron HCl 4 mg 4 mg Q4H PRN IV NAUSEA AND/OR VOMITING Last administered on 01/07/17 07:03; Admin Dose 4 MG; Start 01/03/17 at 17:30 Tigecycline/ Sodium Chloride (Tygacil/NS) 100 ml @ 200 mls/hr Q12H IVPB Last administered on 01/11/17 17:39; Admin Dose 200 MLS/HR; Start 01/06/17 at 05:00 Aspirin 300 mg 300 mg DAILY IN Last administered on 01/11/17 11:30; Admin Dose 300 MG; Start 01/06/17 at 15:30 Fluconazole/ Sodium Chloride 50 ml @ 50 mls/hr Q24H IVPB Last administered on 17:39; Admin Dose 50 MLS/HR; Start 01/07/17 at 15:30 Colistimethate Sodium 75 mg/ Sodium Chloride 100 ml @ 200 mls/hr Q24H IVPB Last administered on 01/10/17 20:44; Admin Dose 200 MLS/HR; Start 01/10/17 at 21: 00 Norepinephrine/ Dextrose (Levophed/D5W) 500 ml @ 0 mls/hr TITRATE IV Last administered on 01/11/17 10:47; Admin Dose 3.75 MLS/HR; Start 01/10/17 at 17:30 RUFINO STEVENSON MD Jan 11, 2017 18:52
[2017-01-11] MEDS: FAT EMULSION 20% 500 ML IV SCH (19:44)
[2017-01-11] MEDS: TPN 1,000 ML IV SCH (21:20)
[2017-01-11] MEDS: COLISTIMETHATE 75 MG in SOD CHLORIDE 0.9% 100 ML IVPB SCH (21:21)
[2017-01-12] VITALS (89 sets, daily range): BP systolic 67–122; BP diastolic 42–79; PULSE 96–123; RESP 14–21
[2017-01-12] MEDS: INSULIN ASPART [NOVOLOG] 3 ML PEN SC SCH ×6 (01:00→21:00)
[2017-01-12] MEDS: IPRATROPIUM (HFA) 12.9 GM INHALER INH SCH ×5 (01:45→20:10)
[2017-01-12] MEDS: ALBUTEROL 18 GM INHALER INH SCH ×5 (01:45→20:10)
[2017-01-12] MEDS: DEXTROSE 50% 50 ML SYRINGE IV PRN ×2 (01:51→01:52)
[2017-01-12] MEDS: TIGECYCLINE 50 MG in SOD CHLORIDE 0.9% 100 ML IVPB SCH ×2 (04:57→16:32)
[2017-01-12 05:36] LABS: ABNORMAL IP MESSAGE 1; HEMATOCRIT 34.2 % (37.0-47.0); HEMOGLOBIN 12.6 g/dl (12.0-16.0); MEAN CORPUSCULAR HEMOGLOBIN 35.5 pg (29.0-33.0); MEAN CORPUSCULAR HGB CONC 36.8 g/dl (32.0-37.0); MEAN CORPUSCULAR VOLUME 96.3 fl (82.0-101.0); NUCLEATED RED BLOOD CELLS% 0.6 /100WBC (0.0-0.0); RED BLOOD COUNT 3.55 10^6/ul (4.20-5.40); RED CELL DISTRIBUTION WIDTH 14.5 % (11.5-14.5); WHITE BLOOD COUNT 45.2 10^3/ul (4.8-10.8)
[2017-01-12 05:54] LABS: PLATELET COUNT 48 10^3/UL (140-415); POSITIVE DIFF @See below
[2017-01-12 05:55] LABS: CALCIUM 6.8 mg/dl (8.4-10.2); CREATININE 0.56 mg/dl (0.44-1.00); POTASSIUM 3.2 mmol/L (3.5-5.1)
[2017-01-12 06:42] LABS: MAGNESIUM 1.9 mg/dl (1.7-2.5); PHOSPHORUS 3.4 mg/dl (2.5-4.9)
[2017-01-12] MEDS: CHLORHEXIDINE GLUCONATE 15 ML UD CUP MM SCH ×2 (07:51→21:21)
[2017-01-12] MEDS: ASPIRIN 300 MG SUPP PR SCH (07:52)
[2017-01-12] MEDS: ENOXAPARIN 30 MG/0.3 ML SYG SC SCH (07:56)
--- NOTE | 2017-01-12 09:19 | PN ---
Date/Time of Note Date/Time of Note DATE: 01/12/17 TIME: 09:14 Assessment/Plan VTE Prophylaxis VTE Prophylaxis Intervention: contraindicated VTE Contraindication Reason: thrombocytopenia Lines/Catheters IV Catheter Type (from Nrsg): Pardo Central line still needed: Yes Urinary Cath still in place: Yes Reason Cath still needed: urinary retention Assessment/Plan Chief Complaint/Hosp Course Assessment/Plan: 71 yo F with previous h/o gastric ca sp treatment, h/o multiple esophageal strictures and bowel obstructions which have rendered the patient TPN dependent, chronic respiratory failure sp trach placement admitted for decreased mental status, suspect from acute CVA vs toxic/metabolic encephalopathy from pneumonia. sp thora, hospitalization c/b septic shock with hypotension warranting an overnight ICU stay, transferred back to floor on 01.03 , but back in ICU on 01/10/17 sec to res distress. # Aspiration pneumonia/pneumonitis, on antibiotics,but White blood cell count is more elevated today (21-> 45). No fevers. Patient also has klebsiella, Actinobacteria, enterococcus, and yeast wound abdominal infections. Now with worsening respiratory distress, placed back in ICU 2 days ago. -Per infectious disease continue tigecycline and colistin for now per their recommendations -Will hold fluconazole today given thrombocytopenia #. Right pleural effusion, s/p US-guided thoracentesis with removal of 750 cc fluid on 12/31/2016. Chest x-ray 96 hours ago however showed more bilateral pleural effusions. Worsening respiratory distress, in ICU now --follow final fluid studies, continue antibiotics. -Monitor breathing status for now, follow pulmonary recommendations. For now not recommending thoracentesis to be performed secondary to high chance of fast reaccumulation. -Follow-up pulmonary recommendations. - f/u palliative care rec's-they are speaking with the family now #. Recurrent ischemic stroke: neuro on consult, MRI brain from December 31 shows: There is acute infarct in the left middle cerebral artery territory, involving the left temporal lobe, parietal, and insula. -Follow-up neurology recommendations, continue aspirin 300 mg per rectal daily. # Gastric cancer in 2011, for which she underwent extensive resection in the past, as well as chemotherapy. -Monitor for now, including drainage from abdominal tubes -On TPN as well #Multiple esophageal strictures and bowel obstructions,cont TPN. #Status post tracheostomy: Oxygen supplementation, follow-up pulmonary recommendation -Continue physical therapy consult #Thrombocytopenia: Unclear etiology, likely secondary to sepsis - we will order for DIC panel, hold Lovenox and fluconazole, repeat CBC today , monitor platelets very carefully, monitor for signs of any bleeding. Dispo: palliatve care team met with family 2 days ago, and pulm team did yesterday as well. Family apparently wants to consider home with [facility], will discuss with palliative care team about this. Problems: Subjective 24 Hr Interval Summary Free Text/Dictation Still on pressor support. Chest x-ray performed this morning, results pending. Patient has more elevated WBC this morning. Exam/Review of Systems Vital Signs Vitals Vital Signs Date Time Temp Pulse Resp B/P Pulse Ox O2 Delivery O2 Flow Rate FiO2 01/12/17 07:45 101 16 112/58 100 01/12/17 07:30 30 01/12/17 07:15 99.2 01/10/17 16:05 Trach Collar 01/10/17 12:13 10.0 Intake and Output 01/11/17 01/11/17 01/12/17 15:00 23:00 07:00 Intake Total 607.866 ml 570.87 ml 576 ml Output Total 750 ml 465 ml 245 ml Balance -142.134 ml 105.87 ml 331 ml Exam Lying in bed, awake trach secretions somewhat present still Slightly decreased breath sounds bilaterally no mrg abd drain with dark output no rashes Results Result Diagram: 01/12/17 0448 01/12/17 0445 Results 24 hrs Laboratory Tests Test 01/11/17 17:35 01/11/17 21:35 01/12/17 01:45 01/12/17 04:45 Bedside Glucose 77 81 69 L Sodium Level 138 Potassium Level 3.2 L Chloride Level 108 Carbon Dioxide Level 22 Anion Gap 11 Blood Urea Nitrogen 41 H Creatinine 0.56 Glucose Level 64 L Calcium Level 6.8 L Test 01/12/17 04:48 01/12/17 05:20 White Blood Count 45.2 #H Red Blood Count 3.55 L Hemoglobin 12.6 Hematocrit 34.2 L Mean Corpuscular Volume 96.3 Mean Corpuscular Hemoglobin 35.5 H Mean Corpuscular Hemoglobin Concent 36.8 Red Cell Distribution Width 14.5 Platelet Count 48 #L Mean Platelet Volume Neutrophils % Lymphocytes % Monocytes % Eosinophils % Basophils % Nucleated Red Blood Cells % 0.6 H Neutrophils # (Manual) 41.9 H Lymphocytes # Monocytes # Eosinophils # Basophils # Nucleated Red Blood Cells # Phosphorus Level 3.4 Magnesium Level 1.9 Bedside Glucose 78 Medications Medications Current Medications Chlorhexidine Gluconate (Peridex) 10 ml BID MM Last administered on 01/12/17 07 :51; Admin Dose 10 ML; Start 12/31/16 at 09:00 Lidocaine (Lidoderm) 1 patch NOTE TRANSDERM ; Start 12/31/16 at 00:00 Insulin Aspart (Novolog Insulin Pen) NOVOLOG *MILD* ALGORI... Q4 SC Last administered on 01/03/17 20:44; Admin Dose 1 UNIT; Start 12/31/16 at 21:00 Miscellaneous Information 1 ea NOTE XX ; Start 12/31/16 at 18:30 Glucose (Glutose) 15 gm Q15M PRN PO DECREASED GLUCOSE; Start 12/31/16 at 18:30 Glucose (Glutose) 22.5 gm Q15M PRN PO DECREASED GLUCOSE; Start 12/31/16 at 18: 30 Dextrose (D50w Syringe) 25 ml Q15M PRN IV DECREASED GLUCOSE Last administered on 01/12/17 01:52; Admin Dose 25 ML; Start 12/31/16 at 18:30 Dextrose (D50w Syringe) 50 ml Q15M PRN IV DECREASED GLUCOSE; Start 12/31/16 at 18:30 Glucagon (Glucagen) 1 mg Q15M PRN IM DECREASED GLUCOSE; Start 12/31/16 at 18:30 Glucose (Glutose) 15 gm Q15M PRN BUCCAL DECREASED GLUCOSE; Start 12/31/16 at 18 :30 Hydromorphone HCl (Dilaudid) 0.5 mg Q4H PRN IV PAIN Last administered on 09:58; Admin Dose 0.5 MG; Start 01/01/17 at 01:30 Miscellaneous Information (Pending [facility] Order For Wound Care) This patient obregon... PRN PRN XX WOUND CARE; Start 01/01/17 at 03:00 Enoxaparin Sodium (Lovenox) 30 mg DAILY SC Last administered on 01/12/17 07:56 ; Admin Dose 30 MG; Start 01/01/17 at 14:00 Fentanyl 1 patch 1 patch Q3D TRANSDERM Last administered on 01/10/17 21:05; Admin Dose 1 PATCH; Start 01/01/17 at 20:00 Total Parenteral Nutrition 1,000 ml @ 40 mls/hr Q24H IV Last administered on 21:20; Admin Dose 40 MLS/HR; Start 01/02/17 at 21:00 Fat Emulsion Intravenous (Liposyn Ii 20%) 500 ml @ 21 mls/hr [id number] IV Last administered on 01/11/17 19:44; Admin Dose 21 MLS/HR; Start 01/02/17 at 21:00 Ondansetron HCl 4 mg 4 mg Q4H PRN IV NAUSEA AND/OR VOMITING Last administered on 01/07/17 07:03; Admin Dose 4 MG; Start 01/03/17 at 17:30 Tigecycline/ Sodium Chloride (Tygacil/NS) 100 ml @ 200 mls/hr Q12H IVPB Last administered on 01/12/17 04:57; Admin Dose 200 MLS/HR; Start 01/06/17 at 05:00 Aspirin 300 mg 300 mg DAILY SC Last administered on 01/12/17 07:52; Admin Dose 300 MG; Start 01/06/17 at 15:30 Fluconazole/ Sodium Chloride 50 ml @ 50 mls/hr Q24H IVPB Last administered on 17:39; Admin Dose 50 MLS/HR; Start 01/07/17 at 15:30 Colistimethate Sodium 75 mg/ Sodium Chloride 100 ml @ 200 mls/hr Q24H IVPB Last administered on 01/11/17 21:21; Admin Dose 200 MLS/HR; Start 01/10/17 at 21: 00 Norepinephrine/ Dextrose (Levophed/D5W) 500 ml @ 0 mls/hr TITRATE IV Last administered on 01/11/17 10:47; Admin Dose 3.75 MLS/HR; Start 01/10/17 at 17:30 LUIS JUAN Jan 12, 2017 09:19
[2017-01-12] MEDS ORDERED: POTASSIUM CHLORIDE 250 ML IVPB ONE (09:30)
--- NOTE | 2017-01-12 09:35 | CONS ---
Date/Time of Note Date/Time of Note DATE: 01/12/17 TIME: 09:30 Assessment/Plan Assessment/Plan Chief Complaint/Hosp Course 71-year-old female admitted [facility] altered with depression pneumonia. Patient is TPN dependent she is trached she lives at home with family members 24 7 caregivers. Patient is a past medical history of gastric cancer diagnosed roughly 5 years prior to this hospitalization. December 31 MRI of the brain showed acute infarct left CA involving the temporal lobe. Patient has been admitted to the intensive care unit later dependent and on pressors. Family members have been under bedside the decision maker for shunt is not here at this time. He is patient's niece make solid decisions on her behalf. Patient has left instructions with family members that her sister is not to make decisions on her level of care. Normal palliative care consultation will be done when patient's agent is available to minus other family members who will be involved with family conference. Problems: Additional Assessment/Plan Patient still remains on low doses of dopamine, she is on 30% FiO2 family at the bedside states that she is less responsive today does not follow simple commands as prior days. Have had a conversation with patient's spokesperson at the bedside remain hopeful that she will improve. My overall impressions are that they are very realistic and primarily hope that she will not suffer. Other palliative care issues as of care to continue with current level of care will not discuss changing her CODE STATUS at this time family are not ready. Patient needs is the spokesperson for the family and the decision maker patient' s background history have discussed with sister yesterday and patient's other knees. Her understanding hopes successful quality of life were discussed once again family wants to do all efforts to prolong her life. But not allow her to suffer. Vacation will be directly with patient's agent may prognosis is marginal to poor palliative performance scale is 40%, pain and physical symptoms have been addressed ethical issues have been discussed with family member status remains full code. Consultation Date/Type/Reason Admit Date/Time Dec 30, 2016 at 23:12 Initial Consult Date 01/01/17 Type of Consultation: [facility] Referring Provider: ANA PAULINO Exam/Review of Systems Vital Signs Vitals Vital Signs Date Time Temp Pulse Resp B/P Pulse Ox O2 Delivery O2 Flow Rate FiO2 01/12/17 07:45 101 16 112/58 100 01/12/17 07:30 30 01/12/17 07:15 99.2 01/10/17 16:05 Trach Collar 01/10/17 12:13 10.0 Intake and Output 01/11/17 01/11/17 01/12/17 15:00 23:00 07:00 Intake Total 607.866 ml 570.87 ml 576 ml Output Total 750 ml 465 ml 245 ml Balance -142.134 ml 105.87 ml 331 ml Results Result Diagram: 01/12/17 0448 01/12/17 0445 Results 24 hrs Laboratory Tests Test 01/11/17 17:35 01/11/17 21:35 01/12/17 01:45 01/12/17 04:45 Bedside Glucose 77 81 69 L Sodium Level 138 Potassium Level 3.2 L Chloride Level 108 Carbon Dioxide Level 22 Anion Gap 11 Blood Urea Nitrogen 41 H Creatinine 0.56 Glucose Level 64 L Calcium Level 6.8 L Test 01/12/17 04:48 01/12/17 05:20 01/12/17 09:18 White Blood Count 45.2 #H Red Blood Count 3.55 L Hemoglobin 12.6 Hematocrit 34.2 L Mean Corpuscular Volume 96.3 Mean Corpuscular Hemoglobin 35.5 H Mean Corpuscular Hemoglobin Concent 36.8 Red Cell Distribution Width 14.5 Platelet Count 48 #L Mean Platelet Volume Neutrophils % Lymphocytes % Monocytes % Eosinophils % Basophils % Nucleated Red Blood Cells % 0.6 H Neutrophils # (Manual) 41.9 H Lymphocytes # Monocytes # Eosinophils # Basophils # Nucleated Red Blood Cells # Phosphorus Level 3.4 Magnesium Level 1.9 Bedside Glucose 78 75 Medications Medications Current Medications Chlorhexidine Gluconate (Peridex) 10 ml BID MM Last administered on 01/12/17 07 :51; Admin Dose 10 ML; Start 12/31/16 at 09:00 Lidocaine (Lidoderm) 1 patch NOTE TRANSDERM ; Start 12/31/16 at 00:00 Insulin Aspart (Novolog Insulin Pen) NOVOLOG *MILD* ALGORI... Q4 SC Last administered on 01/03/17 20:44; Admin Dose 1 UNIT; Start 12/31/16 at 21:00 Miscellaneous Information 1 ea NOTE XX ; Start 12/31/16 at 18:30 Glucose (Glutose) 15 gm Q15M PRN PO DECREASED GLUCOSE; Start 12/31/16 at 18:30 Glucose (Glutose) 22.5 gm Q15M PRN PO DECREASED GLUCOSE; Start 12/31/16 at 18: 30 Dextrose (D50w Syringe) 25 ml Q15M PRN IV DECREASED GLUCOSE Last administered on 01/12/17 01:52; Admin Dose 25 ML; Start 12/31/16 at 18:30 Dextrose (D50w Syringe) 50 ml Q15M PRN IV DECREASED GLUCOSE; Start 12/31/16 at 18:30 Glucagon (Glucagen) 1 mg Q15M PRN IM DECREASED GLUCOSE; Start 12/31/16 at 18:30 Glucose (Glutose) 15 gm Q15M PRN BUCCAL DECREASED GLUCOSE; Start 12/31/16 at 18 :30 Hydromorphone HCl (Dilaudid) 0.5 mg Q4H PRN IV PAIN Last administered on 09:58; Admin Dose 0.5 MG; Start 01/01/17 at 01:30 Miscellaneous Information [facility] This patient obregon... PRN PRN XX WOUND CARE; Start 01/01/17 at 03:00 Fentanyl 1 patch 1 patch Q3D TRANSDERM Last administered on 01/10/17 21:05; Admin Dose 1 PATCH; Start 01/01/17 at 20:00 Total Parenteral Nutrition 1,000 ml @ 40 mls/hr Q24H IV Last administered on 21:20; Admin Dose 40 MLS/HR; Start 01/02/17 at 21:00 Fat Emulsion Intravenous (Liposyn Ii 20%) 500 ml @ 21 mls/hr [id number] IV Last administered on 01/11/17 19:44; Admin Dose 21 MLS/HR; Start 01/02/17 at 21:00 Ondansetron HCl 4 mg 4 mg Q4H PRN IV NAUSEA AND/OR VOMITING Last administered on 01/07/17 07:03; Admin Dose 4 MG; Start 01/03/17 at 17:30 Tigecycline/ Sodium Chloride (Tygacil/NS) 100 ml @ 200 mls/hr Q12H IVPB Last administered on 01/12/17 04:57; Admin Dose 200 MLS/HR; Start 01/06/17 at 05:00 Aspirin 300 mg 300 mg DAILY ME Last administered on 01/12/17 07:52; Admin Dose 300 MG; Start 01/06/17 at 15:30 Fluconazole/ Sodium Chloride 50 ml @ 50 mls/hr Q24H IVPB Last administered on 17:39; Admin Dose 50 MLS/HR; Start 01/07/17 at 15:30; Status Future Hold Colistimethate Sodium 75 mg/ Sodium Chloride 100 ml @ 200 mls/hr Q24H IVPB Last administered on 01/11/17 21:21; Admin Dose 200 MLS/HR; Start 01/10/17 at 21: 00 Norepinephrine 16 mg/Dextrose 500 ml @ 0 mls/hr TITRATE IV Last administered on 01/11/17 10:47; Admin Dose 3.75 MLS/HR; Start 01/10/17 at 17:30 Potassium Chloride (KCl 40 MEQ/250 ML NS) 250 ml @ 62.5 mls/hr ONCE ONCE IVPB ; Start 01/12/17 at 09:30; Stop 01/12/17 at 13:29 DONNIE VAZQUEZ Jan 12, 2017 09:34
[2017-01-12 09:51] LABS: ANISOCYTOSIS 1+ (0-0); EOSINOPHILS % (M) 1 % (0-7); GIANT THROMBO% (M) 5 % (0-0); METAMYELOCYTES %M 1 % (0-0); MONOCYTES % (M) 2 % (0-11); PLATELET ESTIMATE DECREASED; POIKILOCYTOSIS 2+ (0-0)
[2017-01-12] MEDS: BALSAM PERU/CASTOR OIL 60 GM TUBE TOP SCH (09:53)
--- NOTE | 2017-01-12 10:09 | RADRPT ---
PROCEDURE: XR Chest. CLINICAL INDICATION: Pneumonia, CHF TECHNIQUE: AP Portable chest. COMPARISON: 01/07/2017 FINDINGS: Tracheostomy tube and right dialysis catheter remain in place. The cardiomediastinal silhouette is enlarged. The aortic arch is calcified and tortuous. No pneumot horax is seen. Edema, bilateral interstitial alveolar opacities and pleural effusions are similar i n appearance, greater on the right. The hemidiaphragms are obscured. The osseous structures are int act. IMPRESSION: Tracheostomy tube and right dialysis catheter in place. CHF. Unchanged bilateral air space opacities and pleural effusions. Physician Keisha Date Time Electronically viewed and signed by Physician Keisha on 01/12/2017 10:09 CS/
[2017-01-12 11:17] LABS: ABNORMAL IP MESSAGE 1; HEMATOCRIT 30.9 % (37.0-47.0); HEMOGLOBIN 11.8 g/dl (12.0-16.0); MEAN CORPUSCULAR HEMOGLOBIN 37.1 pg (29.0-33.0); MEAN CORPUSCULAR VOLUME 97.2 fl (82.0-101.0); NUCLEATED RED BLOOD CELLS% 0.5 /100WBC (0.0-0.0); PLATELET COUNT 40 10^3/UL (140-415); RED BLOOD COUNT 3.18 10^6/ul (4.20-5.40); RED CELL DISTRIBUTION WIDTH 14.5 % (11.5-14.5); WHITE BLOOD COUNT 45.2 10^3/ul (4.8-10.8)
[2017-01-12 11:20] LABS: MEAN CORPUSCULAR HGB CONC 38.2 g/dl (32.0-37.0); PLATELET COUNT 41 10^3/UL (140-415); POSITIVE DIFF @See below
--- NOTE | 2017-01-12 11:31 | CONS ---
Date/Time of Note Date/Time of Note DATE: 01/12/17 TIME: 11:30 Consult Date/Type/Reason Admit Date/Time Dec 30, 2016 at 23:12 Initial Consult Date 01/01/17 Type of Consultation: Pulmonary Ordering Provider: ANA PAULINO Subjective Eyes open appears comfortable no acute distress. Continues vasopressor support. Objective Vital Signs Date Time Temp Pulse Resp B/P Pulse Ox O2 Delivery O2 Flow Rate FiO2 01/12/17 11:00 105 15 91/44 98 01/12/17 09:39 30 01/12/17 07:15 99.2 01/10/17 16:05 Trach Collar 01/10/17 12:13 10.0 Intake and Output 01/11/17 01/11/17 01/12/17 15:00 23:00 07:00 Intake Total 607.866 ml 570.87 ml 576 ml Output Total 750 ml 465 ml 245 ml Balance -142.134 ml 105.87 ml 331 ml Exam GENERAL: Chronically ill-appearing lady on mechanical vent not consistently following commands. VITAL SIGNS: per chart NECK: Supple. No JVD or lymphadenopathy. Tracheostomy site clean and intact. CARDIAC EXAM: S1, S2. No added sounds or murmurs. CHEST: Diminished air entry bilaterally ABDOMEN: Soft, nontender. No guarding or rebound. EXTREMITIES: No cyanosis, clubbing or edema. NEUROLOGIC: Significant weakness. Results/Medications Result Diagram: 01/12/17 1046 01/12/17 0445 Results 24 hrs Chest x-ray Ongoing pulmonary edema and infiltrates. Laboratory Tests Test 01/11/17 17:35 01/11/17 21:35 01/12/17 01:45 01/12/17 04:45 Bedside Glucose 77 81 69 L Sodium Level 138 Potassium Level 3.2 L Chloride Level 108 Carbon Dioxide Level 22 Anion Gap 11 Blood Urea Nitrogen 41 H Creatinine 0.56 Glucose Level 64 L Calcium Level 6.8 L Test 01/12/17 04:48 01/12/17 05:20 01/12/17 09:18 01/12/17 10:46 White Blood Count 45.2 #H 45.2 H Red Blood Count 3.55 L 3.18 L Hemoglobin 12.6 11.8 L Hematocrit 34.2 L 30.9 L Mean Corpuscular Volume 96.3 97.2 Mean Corpuscular Hemoglobin 35.5 H 37.1 H Mean Corpuscular Hemoglobin Concent 36.8 38.2 H Red Cell Distribution Width 14.5 14.5 Platelet Count 48 #L 41 L Mean Platelet Volume Neutrophils % Segmented Neutrophils % (Manual) 51 Band Neutrophils % (Manual) 45 H Lymphocytes % Lymphocytes % (Manual) 1 L Monocytes % Monocytes % (Manual) 2 Eosinophils % Eosinophils % (Manual) 1 Basophils % Metamyelocytes % (manual) 1 H Nucleated Red Blood Cells % 0.6 H 0.5 H Neutrophils # (Manual) 32.2 H 41.9 H Band Neutrophils # 20.3 H Absolute Lymphocytes (Manual) 0.4 L Lymphocytes # Monocytes # Absolute Monocytes (Manual) 0.9 Eosinophils # Basophils # Metamyelocytes # 0.4 H Nucleated Red Blood Cells # Thrombocytosis 5 H Platelet Estimate DECREASED Poikilocytosis 2+ Anisocytosis 1+ Phosphorus Level 3.4 Magnesium Level 1.9 Bedside Glucose 78 75 Prothrombin Time Pending Prothrombin Time Ratio Pending INR International Normalized Ratio Pending Activated Partial Thromboplast Time Pending Thrombin Time Pending Fibrinogen Pending Plasma Fibrin Degradation Products Pending D-Dimer Pending Medications Current Medications Chlorhexidine Gluconate (Peridex) 10 ml BID MM Last administered on 01/12/17 07 :51; Admin Dose 10 ML; Start 12/31/16 at 09:00 Lidocaine (Lidoderm) 1 patch NOTE TRANSDERM ; Start 12/31/16 at 00:00 Insulin Aspart (Novolog Insulin Pen) NOVOLOG *MILD* ALGORI... Q4 SC Last administered on 01/03/17 20:44; Admin Dose 1 UNIT; Start 12/31/16 at 21:00 Miscellaneous Information 1 ea NOTE XX ; Start 12/31/16 at 18:30 Glucose (Glutose) 15 gm Q15M PRN PO DECREASED GLUCOSE; Start 12/31/16 at 18:30 Glucose (Glutose) 22.5 gm Q15M PRN PO DECREASED GLUCOSE; Start 12/31/16 at 18: 30 Dextrose (D50w Syringe) 25 ml Q15M PRN IV DECREASED GLUCOSE Last administered on 01/12/17 01:52; Admin Dose 25 ML; Start 12/31/16 at 18:30 Dextrose (D50w Syringe) 50 ml Q15M PRN IV DECREASED GLUCOSE; Start 12/31/16 at 18:30 Glucagon (Glucagen) 1 mg Q15M PRN IM DECREASED GLUCOSE; Start 12/31/16 at 18:30 Glucose (Glutose) 15 gm Q15M PRN BUCCAL DECREASED GLUCOSE; Start 12/31/16 at 18 :30 Hydromorphone HCl (Dilaudid) 0.5 mg Q4H PRN IV PAIN Last administered on 09:58; Admin Dose 0.5 MG; Start 01/01/17 at 01:30 Miscellaneous Information ([facility] This patient [place]... PRN PRN XX WOUND CARE; Start 01/01/17 at 03:00 Fentanyl 1 patch 1 patch Q3D TRANSDERM Last administered on 01/10/17 21:05; Admin Dose 1 PATCH; Start 01/01/17 at 20:00 Total Parenteral Nutrition 1,000 ml @ 40 mls/hr Q24H IV Last administered on 21:20; Admin Dose 40 MLS/HR; Start 01/02/17 at 21:00 Fat Emulsion Intravenous (Liposyn Ii 20%) 500 ml @ 21 mls/hr [id number] IV Last administered on 01/11/17 19:44; Admin Dose 21 MLS/HR; Start 01/02/17 at 21:00 Ondansetron HCl 4 mg 4 mg Q4H PRN IV NAUSEA AND/OR VOMITING Last administered on 01/07/17 07:03; Admin Dose 4 MG; Start 01/03/17 at 17:30 Tigecycline/ Sodium Chloride (Tygacil/NS) 100 ml @ 200 mls/hr Q12H IVPB Last administered on 01/12/17 04:57; Admin Dose 200 MLS/HR; Start 01/06/17 at 05:00 Aspirin 300 mg 300 mg DAILY [place] Last administered on 01/12/17 07:52; Admin Dose 300 MG; Start 01/06/17 at 15:30 Fluconazole/ Sodium Chloride 50 ml @ 50 mls/hr Q24H IVPB Last administered on 17:39; Admin Dose 50 MLS/HR; Start 01/07/17 at 15:30; Status Future Hold Colistimethate Sodium 75 mg/ Sodium Chloride 100 ml @ 200 mls/hr Q24H IVPB Last administered on 01/11/17 21:21; Admin Dose 200 MLS/HR; Start 01/10/17 at 21: 00 Norepinephrine 16 mg/Dextrose 500 ml @ 0 mls/hr TITRATE IV Last administered on 01/11/17 10:47; Admin Dose 3.75 MLS/HR; Start 01/10/17 at 17:30 Potassium Chloride (KCl 40 MEQ/250 ML NS) 250 ml @ 62.5 mls/hr ONCE ONCE IVPB Last administered on 01/12/17 09:55; Admin Dose 62.5 MLS/HR; Start 01/12/17 at 09:30; Stop 01/12/17 at 13:29 Assessment/Plan Chief Complaint/Hosp Course Assessment 1. Patient admitted with right upper lobe pneumonia as well as decubitus ulcers , currently on appropriate broad-spectrum antibiotic coverage. 2. Ascites, with bilateral abdominal drain in place draining serous fluid on a daily basis. Next 3. Bilateral pleural effusions, with recurrence. 4. Thrombocytopenia. 5. chronic ileus, patient on long-term TPN. 6. 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 7. Prior history of gastric cancer. 8. Septic shock likely secondary to pneumonia plan Plan 1. Continue vasopressor support 2. Continue wound care 3. Continue TPN 4. Continue antibiotics Continue supportive measures. Discussed with family at bedside. Critical care time 40 minutes. Problems: DAMON TRINIDAD MD, [facility] Jan 12, 2017 11:31
[2017-01-12 12:00] LABS: INR 2.22; PROTIME 24.9 Sec (12.2-14.2); PT RATIO 1.9
[2017-01-12 12:01] LABS: THROMBIN TIME 21.8 SEC (13.8-19.1)
[2017-01-12 12:14] LABS: PARTIAL THROMBOPLASTIN TIME 98.3 Sec (25.0-35.0)
[2017-01-12] MEDS ORDERED: SOD CHLORIDE 0.9% 250 ML IV* ONE (12:29)
[2017-01-12 13:11] LABS: D-DIMER 998.52 ng/ml (<460)
[2017-01-12 13:52] LABS: FIBRIN SPLIT PRODUCT <10 ug/ml (<10)
--- NOTE | 2017-01-12 16:17 | CONS ---
Date/Time of Note Date/Time of Note DATE: 01/12/17 TIME: 16:03 Assessment/Plan Assessment/Plan Chief Complaint/Hosp Course ID PROGRESS NOTE CURRENT ABX: Tygacil #8 + Diflucan + Colistin IV #2 24H INTERVAL SUMMARY * WBC rising to 45.2 w/45% BANDS on current ABX * RESPIRATORY CULTURE Preliminary Organism 1 MIXED GRAM NEGATIVE ORGANISMS QUANTITY 2+ * CXR 01/12 IMPRESSION:Tracheostomy tube and right dialysis catheter in place. CHF. Unchanged bilateral air space opacities and pleural effusions. * 01/12/17 0448 01/12/17 0445 EXAM HEENT: Unremarkable NECK: trach site clear CVS: RRR, S1 and S2 CHEST: Coarse BS b/l ABD: Soft, NT EXT: No c/c/e ID ASSESSMENT 71 yo F admit with: 1. Sepsis s/p symptomatic hypotension, encephalopathy, SOB requiring transfer to ICU => stable * Low dose pressor support * Low grade temps * WBC rising on current ABX TO 45.5 WITH 45% bands! * PLT down today 65 2. Respiratory failure w/acute respiratory distress -> TNS back to ICU 3. Pneumonia with parapneumonic effusions status post thoracentesis on admission. * s/p THORA 12/31 w/WBC ~145,000, Micro (-) * 01/11/17 RESPIRATORY CX: RESPIRATORY CULTURE Preliminary Organism 1 MIXED GRAM NEGATIVE ORGANISMS QUANTITY 2+ 4. Acute recurrent cerebrovascular accident (CVA). 5. Cardiomyopathy with ejection fraction of 40 percent. 6. History of gastric carcinoma (CA), status post multiple resection with a chemotherapy. 7. History of recent bilateral abdominal drain placement secondary to abscess. * s/p ABD Drain Cx 01/03: (+) CRKP /ACBA/Enterococcus/C.Albicans 8. 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 Cachexia. 10. Anemia (-) MRSA Nares CURRENT ABX: Tygacil #8 + Diflucan + Colistin IV #2 Vanco IV + Merrem -> DC 01/05 ID RECOMMENDATIONS 1. Poor prognosis - Hospice appropriate * There are limits to ABX Rx in addition to RISKS -- continued ABX Rx will not likely change her poor prognosis; rather will only prolong end-of-life stage and lead to development of even more aggressive MDRO. 2. She is on appropriate ABX coverage => Tygacil will cover MRSA, VRE, CRE, C.Diff and Colistin IV will cover PSAR 3. Respiratory cx pending 4. Repeat UA C&S possibly needs Cancidas instead of Diflucan 5. Not able to add empiric Vanco PO/GT . Problems: Consultation Date/Type/Reason Admit Date/Time Dec 30, 2016 at 23:12 Initial Consult Date 01/01/17 Type of Consultation: ID Referring Provider: ANA PAULINO Exam/Review of Systems Vital Signs Vitals Vital Signs Date Time Temp Pulse Resp B/P Pulse Ox O2 Delivery O2 Flow Rate FiO2 01/12/17 15:46 108 16 100 30 01/12/17 14:30 96/55 01/12/17 12:00 98.9 01/10/17 16:05 Trach Collar 01/10/17 12:13 10.0 Intake and Output 01/11/17 01/11/17 01/12/17 15:00 23:00 07:00 Intake Total 607.866 ml 570.87 ml 576 ml Output Total 750 ml 465 ml 245 ml Balance -142.134 ml 105.87 ml 331 ml Results Result Diagram: 01/12/17 1046 01/12/17 0445 Results 24 hrs Laboratory Tests Test 01/11/17 17:35 01/11/17 21:35 01/12/17 01:45 01/12/17 04:45 Bedside Glucose 77 81 69 L Sodium Level 138 Potassium Level 3.2 L Chloride Level 108 Carbon Dioxide Level 22 Anion Gap 11 Blood Urea Nitrogen 41 H Creatinine 0.56 Glucose Level 64 L Calcium Level 6.8 L Test 01/12/17 04:48 01/12/17 05:20 01/12/17 09:18 01/12/17 10:46 White Blood Count 45.2 #H 45.2 H Red Blood Count 3.55 L 3.18 L Hemoglobin 12.6 11.8 L Hematocrit 34.2 L 30.9 L Mean Corpuscular Volume 96.3 97.2 Mean Corpuscular Hemoglobin 35.5 H 37.1 H Mean Corpuscular Hemoglobin Concent 36.8 38.2 H Red Cell Distribution Width 14.5 14.5 Platelet Count 48 #L 41 L Mean Platelet Volume Neutrophils % Segmented Neutrophils % (Manual) 51 Band Neutrophils % (Manual) 45 H Lymphocytes % Lymphocytes % (Manual) 1 L Monocytes % Monocytes % (Manual) 2 Eosinophils % Eosinophils % (Manual) 1 Basophils % Metamyelocytes % (manual) 1 H Nucleated Red Blood Cells % 0.6 H 0.5 H Neutrophils # (Manual) 32.2 H 41.9 H Band Neutrophils # 20.3 H Absolute Lymphocytes (Manual) 0.4 L Lymphocytes # Monocytes # Absolute Monocytes (Manual) 0.9 Eosinophils # Basophils # Metamyelocytes # 0.4 H Nucleated Red Blood Cells # Thrombocytosis 5 H Platelet Estimate DECREASED Poikilocytosis 2+ Anisocytosis 1+ Phosphorus Level 3.4 Magnesium Level 1.9 Bedside Glucose 78 75 Prothrombin Time 24.9 #H Prothrombin Time Ratio 1.9 INR International Normalized Ratio 2.22 Activated Partial Thromboplast Time 98.3 *H Thrombin Time 21.8 H Fibrinogen 180.0 L Plasma Fibrin Degradation Products <10 D-Dimer 998.52 H D-Dimer Comment Test 01/12/17 13:45 Bedside Glucose 81 Medications Medications Current Medications Chlorhexidine Gluconate (Peridex) 10 ml BID MM Last administered on 01/12/17 07 :51; Admin Dose 10 ML; Start 12/31/16 at 09:00 Lidocaine (Lidoderm) 1 patch NOTE TRANSDERM ; Start 12/31/16 at 00:00 Insulin Aspart (Novolog Insulin Pen) NOVOLOG *MILD* ALGORI... Q4 SC Last administered on 01/03/17 20:44; Admin Dose 1 UNIT; Start 12/31/16 at 21:00 Miscellaneous Information 1 ea NOTE XX ; Start 12/31/16 at 18:30 Glucose (Glutose) 15 gm Q15M PRN PO DECREASED GLUCOSE; Start 12/31/16 at 18:30 Glucose (Glutose) 22.5 gm Q15M PRN PO DECREASED GLUCOSE; Start 12/31/16 at 18: 30 Dextrose (D50w Syringe) 25 ml Q15M PRN IV DECREASED GLUCOSE Last administered on 01/12/17 01:52; Admin Dose 25 ML; Start 12/31/16 at 18:30 Dextrose (D50w Syringe) 50 ml Q15M PRN IV DECREASED GLUCOSE; Start 12/31/16 at 18:30 Glucagon (Glucagen) 1 mg Q15M PRN IM DECREASED GLUCOSE; Start 12/31/16 at 18:30 Glucose (Glutose) 15 gm Q15M PRN BUCCAL DECREASED GLUCOSE; Start 12/31/16 at 18 :30 Hydromorphone HCl (Dilaudid) 0.5 mg Q4H PRN IV PAIN Last administered on 09:58; Admin Dose 0.5 MG; Start 01/01/17 at 01:30 Miscellaneous Information ([facility] This patient [place]... PRN PRN XX WOUND CARE; Start 01/01/17 at 03:00 Fentanyl 1 patch 1 patch Q3D TRANSDERM Last administered on 01/10/17 21:05; Admin Dose 1 PATCH; Start 01/01/17 at 20:00 Total Parenteral Nutrition 1,000 ml @ 40 mls/hr Q24H IV Last administered on 21:20; Admin Dose 40 MLS/HR; Start 01/02/17 at 21:00 Fat Emulsion Intravenous (Liposyn Ii 20%) 500 ml @ 21 mls/hr [id number] IV Last administered on 01/11/17 19:44; Admin Dose 21 MLS/HR; Start 01/02/17 at 21:00 Ondansetron HCl 4 mg 4 mg Q4H PRN IV NAUSEA AND/OR VOMITING Last administered on 01/07/17 07:03; Admin Dose 4 MG; Start 01/03/17 at 17:30 Tigecycline/ Sodium Chloride (Tygacil/NS) 100 ml @ 200 mls/hr Q12H IVPB Last administered on 01/12/17 04:57; Admin Dose 200 MLS/HR; Start 01/06/17 at 05:00 Aspirin 300 mg 300 mg DAILY [place] Last administered on 01/12/17 07:52; Admin Dose 300 MG; Start 01/06/17 at 15:30 Fluconazole/ Sodium Chloride 50 ml @ 50 mls/hr Q24H IVPB Last administered on 17:39; Admin Dose 50 MLS/HR; Start 01/07/17 at 15:30; Status Future Hold Colistimethate Sodium 75 mg/ Sodium Chloride 100 ml @ 200 mls/hr Q24H IVPB Last administered on 01/11/17 21:21; Admin Dose 200 MLS/HR; Start 01/10/17 at 21: 00 Norepinephrine/ Dextrose (Levophed/D5W) 500 ml @ 0 mls/hr TITRATE IV Last administered on 01/11/17 10:47; Admin Dose 3.75 MLS/HR; Start 01/10/17 at 17:30 KIMBERLYN WHITNEY NP Jan 12, 2017 16:16
[2017-01-12 17:17] LABS: ADD UMIC YES; UR ASCORBIC ACID NEGATIVE (NEGATIVE); UR BACTERIA FEW /HPF (NONE SEEN); UR BILIRUBIN (Dip) 1+ mg/dL (NEGATIVE); UR BLOOD (Dip) 2+ mg/dL (NEGATIVE); UR CLARITY TURBID (CLEAR); UR COLOR AMBER (YELLOW); UR GLUCOSE (Dip) 1+ mg/dL (NEGATIVE); UR KETONES (Dip) NEGATIVE (NEGATIVE); UR LEUKOCYTE ESTERASE (Dip) 2+ Leu/ul (NEGATIVE); UR NITRITE (Dip) NEGATIVE (NEGATIVE); UR NONSQUAMOUS EPITHELIAL CELL 50 /HPF (NONE SEEN); UR RBC 17 /HPF (0-5); UR SPECIFIC GRAVITY (Dip) 1.014 (1.003-1.030); UR SQUAMOUS EPITHELIAL CELL MANY /HPF (FEW); UR TOTAL PROTEIN (Dip) 2+ mg/dl (NEGATIVE); UR UROBILINOGEN (Dip) 1+ mg/dL (NEGATIVE); UR WBC CLUMPS RARE /HPF (NONE SEEN)
[2017-01-12] MEDS: TPN 1,000 ML IV SCH (21:17)
[2017-01-12] MEDS: COLISTIMETHATE 75 MG in SOD CHLORIDE 0.9% 100 ML IVPB SCH (21:18)
--- NOTE | 2017-01-12 22:22 | CONS ---
Date/Time of Note Date/Time of Note DATE: 01/12/17 TIME: 22:22 Assessment/Plan Assessment/Plan Chief Complaint/Hosp Course LEUKOCYTOSIS REACTIVE MONITOR CLOSELY ANEMIA N-CYTIC, N- CHROMIC WITH R RDW MONITOR BLOOD COUNT CLOSELY OBSERVE FOR BLEEDING AND HEMOLYSIS PRBC PRN THROMBOCYTOPENIA 2 TO SEPSIS MONITOR DIC PROFILE History of gastric cancer in the past status post gastrectomy as well as chemotherapy PER FAMILY- RAFAT RECENT RESTAGING WITH CT AP- NEG SEPSIS Acute alteration in mental status likely secondary to subacute CVA Acute respiratory distress superimposed on chronic respiratory failure Bilateral pleural effusion with underlying pneumonia and CHF Sepsis with lactic acidosis Chronic muscle wasting and cachexia History of multiple esophageal strictures and bowel obstruction 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 Reported history of hypertension Penicillin allergy Problems: Consultation Date/Type/Reason Admit Date/Time Dec 30, 2016 at 23:12 Initial Consult Date 12/31/16 Type of Consultation: hemeon Referring Provider: ANA PAULINO 24 HR Interval Summary Free Text/Dictation ALL NOTED IN ICU ON VENT PLATELET COUNT- DECREASING NO BLEEDING OM VENT Exam/Review of Systems Vital Signs Vitals Vital Signs Date Time Temp Pulse Resp B/P Pulse Ox O2 Delivery O2 Flow Rate FiO2 01/12/17 20:30 106 16 110/66 100 Mechanical Ventilator Trach Collar 01/12/17 20:00 99.1 01/12/17 17:36 30 01/10/17 12:13 10.0 Intake and Output 01/11/17 01/11/17 01/12/17 15:00 23:00 07:00 Intake Total 607.866 ml 570.87 ml 576 ml Output Total 750 ml 465 ml 245 ml Balance -142.134 ml 105.87 ml 331 ml Exam GENERAL: This is a fragile, chronically ill-appearing, elderly woman, who is in no distress , ON VENT HEENT: Head atraumatic, normocephalic. Sclerae anicteric. Buccal mucosa dry. NECK: Supple. Tracheostomy present. CHEST: Chest rise symmetrical. Breath sounds diminished at the bases. HEART: S1, S2. ABDOMEN: Soft, bowel sounds present. EXTREMITIES: Without cyanosis. Results Result Diagram: 01/12/17 1046 01/12/17 0445 Results 24 hrs Laboratory Tests Test 01/12/17 01:45 01/12/17 04:45 01/12/17 04:48 01/12/17 05:20 Bedside Glucose 69 L 78 Sodium Level 138 Potassium Level 3.2 L Chloride Level 108 Carbon Dioxide Level 22 Anion Gap 11 Blood Urea Nitrogen 41 H Creatinine 0.56 Glucose Level 64 L Calcium Level 6.8 L White Blood Count 45.2 #H Red Blood Count 3.55 L Hemoglobin 12.6 Hematocrit 34.2 L Mean Corpuscular Volume 96.3 Mean Corpuscular Hemoglobin 35.5 H Mean Corpuscular Hemoglobin Concent 36.8 Red Cell Distribution Width 14.5 Platelet Count 48 #L Mean Platelet Volume Neutrophils % Segmented Neutrophils % (Manual) 51 Band Neutrophils % (Manual) 45 H Lymphocytes % Lymphocytes % (Manual) 1 L Monocytes % Monocytes % (Manual) 2 Eosinophils % Eosinophils % (Manual) 1 Basophils % Metamyelocytes % (manual) 1 H Nucleated Red Blood Cells % 0.6 H Neutrophils # (Manual) 32.2 H Band Neutrophils # 20.3 H Absolute Lymphocytes (Manual) 0.4 L Lymphocytes # Monocytes # Absolute Monocytes (Manual) 0.9 Eosinophils # Basophils # Metamyelocytes # 0.4 H Nucleated Red Blood Cells # Thrombocytosis 5 H Platelet Estimate DECREASED Poikilocytosis 2+ Anisocytosis 1+ Phosphorus Level 3.4 Magnesium Level 1.9 Test 01/12/17 09:18 01/12/17 10:46 01/12/17 13:45 01/12/17 16:00 Bedside Glucose 75 81 White Blood Count 45.2 H Red Blood Count 3.18 L Hemoglobin 11.8 L Hematocrit 30.9 L Mean Corpuscular Volume 97.2 Mean Corpuscular Hemoglobin 37.1 H Mean Corpuscular Hemoglobin Concent 38.2 H Red Cell Distribution Width 14.5 Platelet Count 41 L Mean Platelet Volume Neutrophils % Lymphocytes % Monocytes % Eosinophils % Basophils % Nucleated Red Blood Cells % 0.5 H Neutrophils # (Manual) 41.9 H Lymphocytes # Monocytes # Eosinophils # Basophils # Nucleated Red Blood Cells # Prothrombin Time 24.9 #H Prothrombin Time Ratio 1.9 INR International Normalized Ratio 2.22 Activated Partial Thromboplast Time 98.3 *H Thrombin Time 21.8 H Fibrinogen 180.0 L Plasma Fibrin Degradation Products <10 D-Dimer 998.52 H D-Dimer Comment Urine Color SEBASTIAN Urine Clarity TURBID A Urine pH 5.0 Urine Specific [place] 1.014 Urine Ketones NEGATIVE Urine Nitrite NEGATIVE Urine Bilirubin 1+ H Urine Urobilinogen 1+ H Urine Leukocyte Esterase 2+ H Urine Microscopic RBC 17 H Urine Microscopic WBC 149 H Urine Squamous Epithelial Cells MANY A Urine Bacteria FEW A Urine Granular Casts FEW A Urine Hemoglobin 2+ H Urine Glucose 1+ H Urine Total Protein 2+ H Test 01/12/17 16:42 01/12/17 21:17 Bedside Glucose 90 75 Medications Medications Current Medications Chlorhexidine Gluconate (Peridex) 10 ml BID MM Last administered on 01/12/17 21 :21; Admin Dose 10 ML; Start 12/31/16 at 09:00 Lidocaine (Lidoderm) 1 patch NOTE TRANSDERM ; Start 12/31/16 at 00:00 Insulin Aspart (Novolog Insulin Pen) NOVOLOG *MILD* ALGORI... Q4 [place] Last administered on 01/03/17 20:44; Admin Dose 1 UNIT; Start 12/31/16 at 21:00 Miscellaneous Information 1 ea NOTE XX ; Start 12/31/16 at 18:30 Glucose (Glutose) 15 gm Q15M PRN PO DECREASED GLUCOSE; Start 12/31/16 at 18:30 Glucose (Glutose) 22.5 gm Q15M PRN PO DECREASED GLUCOSE; Start 12/31/16 at 18: 30 Dextrose (D50w Syringe) 25 ml Q15M PRN IV DECREASED GLUCOSE Last administered on 01/12/17 01:52; Admin Dose 25 ML; Start 12/31/16 at 18:30 Dextrose (D50w Syringe) 50 ml Q15M PRN IV DECREASED GLUCOSE; Start 12/31/16 at 18:30 Glucagon (Glucagen) 1 mg Q15M PRN IM DECREASED GLUCOSE; Start 12/31/16 at 18:30 Glucose (Glutose) 15 gm Q15M PRN BUCCAL DECREASED GLUCOSE; Start 12/31/16 at 18 :30 Hydromorphone HCl (Dilaudid) 0.5 mg Q4H PRN IV PAIN Last administered on 09:58; Admin Dose 0.5 MG; Start 01/01/17 at 01:30 Miscellaneous Information (Pending [facility] Order For Wound Care) This patient [place]... PRN PRN XX WOUND CARE; Start 01/01/17 at 03:00 Fentanyl 1 patch 1 patch Q3D TRANSDERM Last administered on 01/10/17 21:05; Admin Dose 1 PATCH; Start 01/01/17 at 20:00 Total Parenteral Nutrition 1,000 ml @ 40 mls/hr Q24H IV Last administered on 21:17; Admin Dose 40 MLS/HR; Start 01/02/17 at 21:00 Fat Emulsion Intravenous (Liposyn Ii 20%) 500 ml @ 21 mls/hr [id number] IV Last administered on 01/11/17 19:44; Admin Dose 21 MLS/HR; Start 01/02/17 at 21:00 Ondansetron HCl 4 mg 4 mg Q4H PRN IV NAUSEA AND/OR VOMITING Last administered on 01/07/17 07:03; Admin Dose 4 MG; Start 01/03/17 at 17:30 Tigecycline/ Sodium Chloride (Tygacil/NS) 100 ml @ 200 mls/hr Q12H IVPB Last administered on 01/12/17 16:32; Admin Dose 200 MLS/HR; Start 01/06/17 at 05:00 Aspirin 300 mg 300 mg DAILY [place] Last administered on 01/12/17 07:52; Admin Dose 300 MG; Start 01/06/17 at 15:30 Fluconazole/ Sodium Chloride 50 ml @ 50 mls/hr Q24H IVPB Last administered on 17:39; Admin Dose 50 MLS/HR; Start 01/07/17 at 15:30; Status Future Hold Colistimethate Sodium 75 mg/ Sodium Chloride 100 ml @ 200 mls/hr Q24H IVPB Last administered on 01/12/17 21:18; Admin Dose 200 MLS/HR; Start 01/10/17 at 21: 00 Norepinephrine/ Dextrose (Levophed/D5W) 500 ml @ 0 mls/hr TITRATE IV Last administered on 01/12/17 21:57; Admin Dose 22.5 MLS/HR; Start 01/10/17 at 17:30 RUFINO STEVENSON MD Jan 12, 2017 22:22
[2017-01-13] VITALS (89 sets, daily range): BP systolic 77–125; BP diastolic 39–107; PULSE 83–126; RESP 14–23
[2017-01-13] MEDS: INSULIN ASPART [NOVOLOG] 3 ML PEN SC SCH ×6 (01:00→21:00)
[2017-01-13] MEDS: DEXTROSE 50% 50 ML SYRINGE IV PRN ×2 (01:15→08:59)
[2017-01-13] MEDS: ALBUTEROL 18 GM INHALER INH SCH ×6 (01:31→21:21)
[2017-01-13] MEDS: IPRATROPIUM (HFA) 12.9 GM INHALER INH SCH ×5 (01:31→21:21)
[2017-01-13 05:31] LABS: ABNORMAL IP MESSAGE 1; HEMATOCRIT 24.9 % (37.0-47.0); HEMOGLOBIN 8.2 g/dl (12.0-16.0); MEAN CORPUSCULAR HEMOGLOBIN 33.2 pg (29.0-33.0); MEAN CORPUSCULAR HGB CONC 32.9 g/dl (32.0-37.0); MEAN CORPUSCULAR VOLUME 100.8 fl (82.0-101.0); NUCLEATED RED BLOOD CELLS% 0.3 /100WBC (0.0-0.0); RED BLOOD COUNT 2.47 10^6/ul (4.20-5.40); RED CELL DISTRIBUTION WIDTH 14.1 % (11.5-14.5); WHITE BLOOD COUNT 35.7 10^3/ul (4.8-10.8)
[2017-01-13 05:47] LABS: PLATELET COUNT 26 10^3/UL (140-415)
[2017-01-13 05:48] LABS: POSITIVE DIFF @See below
[2017-01-13] MEDS: TIGECYCLINE 50 MG in SOD CHLORIDE 0.9% 100 ML IVPB SCH ×2 (05:59→16:57)
[2017-01-13 06:19] LABS: CALCIUM 6.8 mg/dl (8.4-10.2); CREATININE 0.91 mg/dl (0.44-1.00); POTASSIUM 3.8 mmol/L (3.5-5.1)
[2017-01-13 08:03] LABS: ANISOCYTOSIS 2+ (0-0); GIANT THROMBO% (M) 1 % (0-0); MONOCYTES % (M) 2 % (0-11); PLATELET ESTIMATE NORMAL; POLYCHROMASIA 2+ (0-0)
[2017-01-13] MEDS: CHLORHEXIDINE GLUCONATE 15 ML UD CUP MM SCH ×2 (08:50→20:56)
[2017-01-13] MEDS: ASPIRIN 300 MG SUPP PR SCH (08:50)
[2017-01-13] MEDS: BALSAM PERU/CASTOR OIL 60 GM TUBE TOP SCH (08:51)
--- NOTE | 2017-01-13 09:46 | CONS ---
Date/Time of Note Date/Time of Note DATE: 01/13/17 TIME: 09:45 Consult Date/Type/Reason Admit Date/Time Dec 30, 2016 at 23:12 Initial Consult Date 01/01/17 Type of Consultation: Pulmonary Ordering Provider: ANA PAULINO Subjective Patient continues mechanical ventilation continues vasopressor support. Increased possible bloody output from drains. Low hemoglobin noted. Objective Vital Signs Date Time Temp Pulse Resp B/P Pulse Ox O2 Delivery O2 Flow Rate FiO2 01/13/17 05:52 112 16 100 30 01/13/17 03:30 98/50 Mechanical Ventilator Trach Collar 01/13/17 00:00 99.5 01/10/17 12:13 10.0 Intake and Output 01/12/17 01/12/17 01/13/17 15:00 23:00 07:00 Intake Total 753.57 ml 1487.5 ml 312.5 ml Output Total 270 ml 540 ml 408 ml Balance 483.57 ml 947.5 ml -95.5 ml Exam GENERAL: Chronically ill-appearing lady on mechanical vent not consistently following commands. VITAL SIGNS: per chart NECK: Supple. No JVD or lymphadenopathy. Tracheostomy site clean and intact. CARDIAC EXAM: S1, S2. No added sounds or murmurs. CHEST: Diminished air entry bilaterally ABDOMEN: Soft, nontender. No guarding or rebound. EXTREMITIES: No cyanosis, clubbing or edema. NEUROLOGIC: Significant weakness. Results/Medications Result Diagram: 01/13/17 0430 01/13/17 0430 Results 24 hrs Laboratory Tests Test 01/12/17 10:46 01/12/17 13:45 01/12/17 16:00 01/12/17 16:42 White Blood Count 45.2 H Red Blood Count 3.18 L Hemoglobin 11.8 L Hematocrit 30.9 L Mean Corpuscular Volume 97.2 Mean Corpuscular Hemoglobin 37.1 H Mean Corpuscular Hemoglobin Concent 38.2 H Red Cell Distribution Width 14.5 Platelet Count 41 L Mean Platelet Volume Neutrophils % Lymphocytes % Monocytes % Eosinophils % Basophils % Nucleated Red Blood Cells % 0.5 H Neutrophils # (Manual) 41.9 H Lymphocytes # Monocytes # Eosinophils # Basophils # Nucleated Red Blood Cells # Prothrombin Time 24.9 #H Prothrombin Time Ratio 1.9 INR International Normalized Ratio 2.22 Activated Partial Thromboplast Time 98.3 *H Thrombin Time 21.8 H Fibrinogen 180.0 L Plasma Fibrin Degradation Products <10 D-Dimer 998.52 H D-Dimer Comment Bedside Glucose 81 90 Urine Color SEBASTIAN Urine Clarity TURBID A Urine pH 5.0 Urine Specific [place] 1.014 Urine Ketones NEGATIVE Urine Nitrite NEGATIVE Urine Bilirubin 1+ H Urine Urobilinogen 1+ H Urine Leukocyte Esterase 2+ H Urine Microscopic RBC 17 H Urine Microscopic WBC 149 H Urine Squamous Epithelial Cells MANY A Urine Bacteria FEW A Urine Granular Casts FEW A Urine Hemoglobin 2+ H Urine Glucose 1+ H Urine Total Protein 2+ H Test 01/12/17 21:17 01/13/17 01:09 01/13/17 01:38 01/13/17 04:30 Bedside Glucose 75 32 *L 153 White Blood Count 35.7 #H Red Blood Count 2.47 #L Hemoglobin 8.2 #L Hematocrit 24.9 L Mean Corpuscular Volume 100.8 Mean Corpuscular Hemoglobin 33.2 H Mean Corpuscular Hemoglobin Concent 32.9 Red Cell Distribution Width 14.1 Platelet Count 26 #*L Mean Platelet Volume Neutrophils % Segmented Neutrophils % (Manual) 67 Band Neutrophils % (Manual) 30 H Lymphocytes % Lymphocytes % (Manual) 2 L Monocytes % Monocytes % (Manual) 2 Eosinophils % Basophils % Nucleated Red Blood Cells % 0.3 H Neutrophils # (Manual) 27.7 H Band Neutrophils # 10.7 H Absolute Lymphocytes (Manual) 0.7 L Lymphocytes # Monocytes # Absolute Monocytes (Manual) 0.7 Eosinophils # Basophils # Nucleated Red Blood Cells # Thrombocytosis 1 H Platelet Estimate NORMAL Polychromasia 2+ Anisocytosis 2+ Macrocytosis 1+ Sodium Level 135 Potassium Level 3.8 Chloride Level 104 Carbon Dioxide Level 22 Anion Gap 13 Blood Urea Nitrogen 48 H Creatinine 0.91 Glucose Level 166 # Calcium Level 6.8 L Test 01/13/17 05:05 01/13/17 08:50 01/13/17 09:16 01/13/17 09:33 Bedside Glucose 185 58 L 112 107 Medications Current Medications Chlorhexidine Gluconate (Peridex) 10 ml BID MM Last administered on 01/13/17t 08 :50; Admin Dose 10 ML; Start 12/31/16 at 09:00 Lidocaine (Lidoderm) 1 patch NOTE TRANSDERM ; Start 12/31/16 at 00:00 Insulin Aspart (Novolog Insulin Pen) NOVOLOG *MILD* ALGORI... Q4 SC Last administered on 01/03/17 20:44; Admin Dose 1 UNIT; Start 12/31/16 at 21:00 Miscellaneous Information 1 ea NOTE XX ; Start 12/31/16 at 18:30 Glucose (Glutose) 15 gm Q15M PRN PO DECREASED GLUCOSE; Start 12/31/16 at 18:30 Glucose (Glutose) 22.5 gm Q15M PRN PO DECREASED GLUCOSE; Start 12/31/16 at 18: 30 Dextrose (D50w Syringe) 25 ml Q15M PRN IV DECREASED GLUCOSE Last administered on 01/13/17 08:59; Admin Dose 25 ML; Start 12/31/16 at 18:30 Dextrose (D50w Syringe) 50 ml Q15M PRN IV DECREASED GLUCOSE Last administered on 01/13/17 01:15; Admin Dose 50 ML; Start 12/31/16 at 18:30 Glucagon (Glucagen) 1 mg Q15M PRN IM DECREASED GLUCOSE; Start 12/31/16 at 18:30 Glucose (Glutose) 15 gm Q15M PRN BUCCAL DECREASED GLUCOSE; Start 12/31/16 at 18 :30 Hydromorphone HCl (Dilaudid) 0.5 mg Q4H PRN IV PAIN Last administered on 09:58; Admin Dose 0.5 MG; Start 01/01/17 at 01:30 Miscellaneous Information (Pending Santyl Order For Wound Care) This patient obregon... PRN PRN XX WOUND CARE; Start 01/01/17 at 03:00 Fentanyl 1 patch 1 patch Q3D TRANSDERM Last administered on 01/10/17 21:05; Admin Dose 1 PATCH; Start 01/01/17 at 20:00 Total Parenteral Nutrition 1,000 ml @ 40 mls/hr Q24H IV Last administered on 21:17; Admin Dose 40 MLS/HR; Start 01/02/17 at 21:00 Fat Emulsion Intravenous (Liposyn Ii 20%) 500 ml @ 21 mls/hr [id number] IV Last administered on 01/11/17 19:44; Admin Dose 21 MLS/HR; Start 01/02/17 at 21:00 Ondansetron HCl 4 mg 4 mg Q4H PRN IV NAUSEA AND/OR VOMITING Last administered on 01/07/17 07:03; Admin Dose 4 MG; Start 01/03/17 at 17:30 Tigecycline/ Sodium Chloride (Tygacil/NS) 100 ml @ 200 mls/hr Q12H IVPB Last administered on 01/13/17 05:59; Admin Dose 200 MLS/HR; Start 01/06/17 at 05:00 Aspirin 300 mg 300 mg DAILY [place] Last administered on 01/13/17 08:50; Admin Dose 300 MG; Start 01/06/17 at 15:30 Fluconazole/ Sodium Chloride 50 ml @ 50 mls/hr Q24H IVPB Last administered on 17:39; Admin Dose 50 MLS/HR; Start 01/07/17 at 15:30; Status Future Hold Colistimethate Sodium 75 mg/ Sodium Chloride 100 ml @ 200 mls/hr Q24H IVPB Last administered on 01/12/17 21:18; Admin Dose 200 MLS/HR; Start 01/10/17 at 21: 00 Norepinephrine/ Dextrose (Levophed/D5W) 500 ml @ 0 mls/hr TITRATE IV Last administered on 01/12/17 21:57; Admin Dose 22.5 MLS/HR; Start 01/10/17 at 17:30 Assessment/Plan Chief Complaint/Hosp Course Assessment 1. Patient admitted with right upper lobe pneumonia as well as decubitus ulcers , currently on appropriate broad-spectrum antibiotic coverage. 2. Ascites, with bilateral abdominal drain in place draining serous fluid on a daily basis. Next 3. Bilateral pleural effusions, with recurrence. 4. Thrombocytopenia. 5. chronic ileus, patient on long-term TPN. 6. 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 7. Prior history of gastric cancer. 8. Septic shock likely secondary to pneumonia 9. Possible intra-abdominal bleeding given change in drain output and drop in hemoglobin. Plan 1. Continue vasopressor support, FFP and PRBCs as needed. 2. Continue wound care 3. Continue TPN 4. Continue antibiotics 5. CT abdomen. Surgical consult if needed. Continue supportive measures. Overall prognosis very poor. Problems: DAMON TRINIDAD [facility] Jan 13, 2017 09:46
--- NOTE | 2017-01-13 11:21 | CONS ---
Date/Time of Note Date/Time of Note DATE: 01/13/17 TIME: 11:14 Assessment/Plan Assessment/Plan Chief Complaint/Hosp Course ID PROGRESS NOTE CURRENT ABX: Tygacil #9 + Colistin IV #3 + Cancidas #1 + Diflucan -> DC 01/13 Vanco IV + Merrem -> DC 01/05 24H INTERVAL SUMMARY * WBC down today 35.7 bands down to 35, PLT down to 65 * Prior WBC rising to 45.2 w/45% BANDS == Colistin IV added * Urine (+)Yeast * RESPIRATORY CULTURE Preliminary (+)GNR * CXR 01/12 IMPRESSION:Tracheostomy tube and right dialysis catheter in place. CHF. Unchanged bilateral air space opacities and pleural effusions. EXAM HEENT: Unremarkable NECK: trach site clear CVS: RRR, S1 and S2 CHEST: Coarse BS b/l ABD: Soft, NT EXT: No c/c/e ID ASSESSMENT 71 yo F admit with: 1. Sepsis s/p symptomatic hypotension, encephalopathy, SOB requiring transfer to ICU => stable * Low dose pressor support * Low grade temps * WBC rising on current ABX TO 45.5 WITH 45% bands! * PLT down today 65 2. Respiratory failure w/acute respiratory distress -> TNS back to ICU 3. Pneumonia with parapneumonic effusions status post thoracentesis on admission. * s/p THORA 12/31 w/WBC ~145,000, Micro (-) * 01/11/17 RESPIRATORY CX: RESPIRATORY CULTURE Preliminary Organism 1 MIXED GRAM NEGATIVE ORGANISMS QUANTITY 2+ 4. Acute recurrent cerebrovascular accident (CVA). 5. Cardiomyopathy with ejection fraction of 40 percent. 6. History of gastric carcinoma (CA), status post multiple resection with a chemotherapy. 7. History of recent bilateral abdominal drain placement secondary to abscess. * s/p ABD Drain Cx 01/03: (+) CRKP /ACBA/Enterococcus/C.Albicans 8. 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 Cachexia. 10. Anemia (-) MRSA Nares CURRENT ABX: Tygacil #8 + Colistin IV #2 + Cancidas #1 + Diflucan -> DC 01/13 Vanco IV + Merrem -> DC 01/05 ID RECOMMENDATIONS 1. Poor prognosis - Hospice appropriate * There are limits to ABX Rx in addition to RISKS -- continued ABX Rx will not likely change her poor prognosis; rather will only prolong end-of-life stage and lead to development of even more aggressive MDRO. 2. Start Cancidas for new YEAST UTI while on Diflucan * Change FC 3. Respiratory Cx GNR => pending 4. Add empiric Flagyl IV 5. Not able to add empiric Vanco PO/GT . Problems: Consultation Date/Type/Reason Admit Date/Time Dec 30, 2016 at 23:12 Initial Consult Date 01/01/17 Type of Consultation: ID Referring Provider: ANA PAULINO Exam/Review of Systems Vital Signs Vitals Vital Signs Date Time Temp Pulse Resp B/P Pulse Ox O2 Delivery O2 Flow Rate FiO2 01/13/17 10:45 106 16 87/48 96 01/13/17 10:00 Mechanical Ventilator 01/13/17 08:00 99.9 01/13/17 05:52 30 01/10/17 12:13 10.0 Intake and Output 01/12/17 01/12/17 01/13/17 15:00 23:00 07:00 Intake Total 753.57 ml 1487.5 ml 312.5 ml Output Total 270 ml 540 ml 408 ml Balance 483.57 ml 947.5 ml -95.5 ml Results Result Diagram: 01/13/17 0430 01/13/17 0430 Results 24 hrs Laboratory Tests Test 01/12/17 13:45 01/12/17 16:00 01/12/17 16:42 01/12/17 21:17 Bedside Glucose 81 90 75 Urine Color SEBASTIAN Urine Clarity TURBID A Urine pH 5.0 Urine Specific [place] 1.014 Urine Ketones NEGATIVE Urine Nitrite NEGATIVE Urine Bilirubin 1+ H Urine Urobilinogen 1+ H Urine Leukocyte Esterase 2+ H Urine Microscopic RBC 17 H Urine Microscopic WBC 149 H Urine Squamous Epithelial Cells MANY A Urine Bacteria FEW A Urine Granular Casts FEW A Urine Hemoglobin 2+ H Urine Glucose 1+ H Urine Total Protein 2+ H Test 01/13/17 01:09 01/13/17 01:38 01/13/17 04:30 01/13/17 05:05 Bedside Glucose 32 *L 153 185 White Blood Count 35.7 #H Red Blood Count 2.47 #L Hemoglobin 8.2 #L Hematocrit 24.9 L Mean Corpuscular Volume 100.8 Mean Corpuscular Hemoglobin 33.2 H Mean Corpuscular Hemoglobin Concent 32.9 Red Cell Distribution Width 14.1 Platelet Count 26 #*L Mean Platelet Volume Neutrophils % Segmented Neutrophils % (Manual) 67 Band Neutrophils % (Manual) 30 H Lymphocytes % Lymphocytes % (Manual) 2 L Monocytes % Monocytes % (Manual) 2 Eosinophils % Basophils % Nucleated Red Blood Cells % 0.3 H Neutrophils # (Manual) 27.7 H Band Neutrophils # 10.7 H Absolute Lymphocytes (Manual) 0.7 L Lymphocytes # Monocytes # Absolute Monocytes (Manual) 0.7 Eosinophils # Basophils # Nucleated Red Blood Cells # Thrombocytosis 1 H Platelet Estimate NORMAL Polychromasia 2+ Anisocytosis 2+ Macrocytosis 1+ Sodium Level 135 Potassium Level 3.8 Chloride Level 104 Carbon Dioxide Level 22 Anion Gap 13 Blood Urea Nitrogen 48 H Creatinine 0.91 Glucose Level 166 # Calcium Level 6.8 L Test 01/13/17 08:50 01/13/17 09:16 01/13/17 09:33 Bedside Glucose 58 L 112 107 Medications Medications Current Medications Chlorhexidine Gluconate (Peridex) 10 ml BID MM Last administered on 01/13/17 08 :50; Admin Dose 10 ML; Start 12/31/16 at 09:00 Lidocaine (Lidoderm) 1 patch NOTE TRANSDERM ; Start 12/31/16 at 00:00 Insulin Aspart (Novolog Insulin Pen) NOVOLOG *MILD* ALGORI... Q4 SC Last administered on 01/03/17 20:44; Admin Dose 1 UNIT; Start 12/31/16 at 21:00 Miscellaneous Information 1 ea NOTE XX ; Start 12/31/16 at 18:30 Glucose (Glutose) 15 gm Q15M PRN PO DECREASED GLUCOSE; Start 12/31/16 at 18:30 Glucose (Glutose) 22.5 gm Q15M PRN PO DECREASED GLUCOSE; Start 12/31/16 at 18: 30 Dextrose (D50w Syringe) 25 ml Q15M PRN IV DECREASED GLUCOSE Last administered on 01/13/17 08:59; Admin Dose 25 ML; Start 12/31/16 at 18:30 Dextrose (D50w Syringe) 50 ml Q15M PRN IV DECREASED GLUCOSE Last administered on 01/13/17 01:15; Admin Dose 50 ML; Start 12/31/16 at 18:30 Glucagon (Glucagen) 1 mg Q15M PRN IM DECREASED GLUCOSE; Start 12/31/16 at 18:30 Glucose (Glutose) 15 gm Q15M PRN BUCCAL DECREASED GLUCOSE; Start 12/31/16 at 18 :30 Hydromorphone HCl (Dilaudid) 0.5 mg Q4H PRN IV PAIN Last administered on 09:58; Admin Dose 0.5 MG; Start 01/01/17 at 01:30 Miscellaneous Information (Pending Santyl Order For Wound Care) This patient obregon... PRN PRN XX WOUND CARE; Start 01/01/17 at 03:00 Fentanyl 1 patch 1 patch Q3D TRANSDERM Last administered on 01/10/17 21:05; Admin Dose 1 PATCH; Start 01/01/17 at 20:00 Total Parenteral Nutrition 1,000 ml @ 40 mls/hr Q24H IV Last administered on 21:17; Admin Dose 40 MLS/HR; Start 01/02/17 at 21:00 Fat Emulsion Intravenous (Liposyn Ii 20%) 500 ml @ 21 mls/hr [id number] IV Last administered on 01/11/17 19:44; Admin Dose 21 MLS/HR; Start 01/02/17 at 21:00 Ondansetron HCl 4 mg 4 mg Q4H PRN IV NAUSEA AND/OR VOMITING Last administered on 01/07/17 07:03; Admin Dose 4 MG; Start 01/03/17 at 17:30 Tigecycline/ Sodium Chloride (Tygacil/NS) 100 ml @ 200 mls/hr Q12H IVPB Last administered on 01/13/17 05:59; Admin Dose 200 MLS/HR; Start 01/06/17 at 05:00 Aspirin 300 mg 300 mg DAILY [place] Last administered on 01/13/17 08:50; Admin Dose 300 MG; Start 01/06/17 at 15:30 Fluconazole/ Sodium Chloride 50 ml @ 50 mls/hr Q24H IVPB Last administered on 17:39; Admin Dose 50 MLS/HR; Start 01/07/17 at 15:30; Status Future Hold Colistimethate Sodium 75 mg/ Sodium Chloride 100 ml @ 200 mls/hr Q24H IVPB Last administered on 01/12/17 21:18; Admin Dose 200 MLS/HR; Start 01/10/17 at 21: 00 Norepinephrine/ Dextrose (Levophed/D5W) 500 ml @ 0 mls/hr TITRATE IV Last administered on 01/12/17 21:57; Admin Dose 22.5 MLS/HR; Start 01/10/17 at 17:30 KIMBERLYN WHITNEY NP Jan 13, 2017 11:21
[2017-01-13] MEDS ORDERED: CASPOFUNGIN 70 MG in SOD CHLORIDE 0.9% 250 ML IVPB ONE (13:00)
[2017-01-13] MEDS ORDERED: SOD CHLORIDE 0.9% 100 ML ONE (13:02)
[2017-01-13] MEDS ORDERED: IODIXANOL LOCM 100 ML BTL ONE (13:02)
[2017-01-13] MEDS: metroNIDAZOLE 500 MG/NS (PMX) 250 MG in EVAC CONTAINER 1 BOTTLE IVPB SCH ×2 (13:30→21:51)
--- NOTE | 2017-01-13 14:33 | CONS ---
Date/Time of Note Date/Time of Note DATE: 01/13/17 TIME: 14:28 Assessment/Plan Assessment/Plan Chief Complaint/Hosp Course 71-year-old female admitted [facility] altered with depression pneumonia. Patient is TPN dependent she is trached she lives at home with family members 24 7 caregivers. Patient is a past medical history of gastric cancer diagnosed roughly 5 years prior to this hospitalization. December 31 MRI of the brain showed acute infarct left CA involving the temporal lobe. Patient has been admitted to the intensive care unit later dependent and on pressors. Family members have been under bedside the decision maker for shunt is not here at this time. He is patient's niece make solid decisions on her behalf. Patient has left instructions with family members that her sister is not to make decisions on her level of care. Normal palliative care consultation will be done when patient's agent is available to minus other family members who will be involved with family conference. Problems: Additional Assessment/Plan Discussed code status with niece the agent for LOC and GOC but the entire family have decided not to prolong her life if she continues to deteriorate. I have discussed specific Palliative Care issues but will await a full family conference to continue and answer all questions and place of care if she continues a downhill course.. Code changed to DNR Consultation Date/Type/Reason Admit Date/Time Dec 30, 2016 at 23:12 Initial Consult Date 01/01/17 Type of Consultation: Pallaitive Care Referring Provider: ANA PAULINO Exam/Review of Systems Vital Signs Vitals Vital Signs Date Time Temp Pulse Resp B/P Pulse Ox O2 Delivery O2 Flow Rate FiO2 01/13/17 12:15 110 16 100 30 01/13/17 10:45 87/48 01/13/17 10:00 Mechanical Ventilator 01/13/17 08:00 99.9 01/10/17 12:13 10.0 Intake and Output 01/12/17 01/12/17 01/13/17 15:00 23:00 07:00 Intake Total 753.57 ml 1487.5 ml 312.5 ml Output Total 270 ml 540 ml 408 ml Balance 483.57 ml 947.5 ml -95.5 ml Results Result Diagram: 01/13/17 0430 01/13/17 0430 Results 24 hrs Laboratory Tests Test 01/12/17 16:00 01/12/17 16:42 01/12/17 21:17 01/13/17 01:09 Urine Color SEBASTIAN Urine Clarity TURBID A Urine pH 5.0 Urine Specific [place] 1.014 Urine Ketones NEGATIVE Urine Nitrite NEGATIVE Urine Bilirubin 1+ H Urine Urobilinogen 1+ H Urine Leukocyte Esterase 2+ H Urine Microscopic RBC 17 H Urine Microscopic WBC 149 H Urine Squamous Epithelial Cells MANY A Urine Bacteria FEW A Urine Granular Casts FEW A Urine Hemoglobin 2+ H Urine Glucose 1+ H Urine Total Protein 2+ H Bedside Glucose 90 75 32 *L Test 01/13/17 01:38 01/13/17 04:30 01/13/17 05:05 01/13/17 08:50 Bedside Glucose 153 185 58 L White Blood Count 35.7 #H Red Blood Count 2.47 #L Hemoglobin 8.2 #L Hematocrit 24.9 L Mean Corpuscular Volume 100.8 Mean Corpuscular Hemoglobin 33.2 H Mean Corpuscular Hemoglobin Concent 32.9 Red Cell Distribution Width 14.1 Platelet Count 26 #*L Mean Platelet Volume Neutrophils % Segmented Neutrophils % (Manual) 67 Band Neutrophils % (Manual) 30 H Lymphocytes % Lymphocytes % (Manual) 2 L Monocytes % Monocytes % (Manual) 2 Eosinophils % Basophils % Nucleated Red Blood Cells % 0.3 H Neutrophils # (Manual) 27.7 H Band Neutrophils # 10.7 H Absolute Lymphocytes (Manual) 0.7 L Lymphocytes # Monocytes # Absolute Monocytes (Manual) 0.7 Eosinophils # Basophils # Nucleated Red Blood Cells # Thrombocytosis 1 H Platelet Estimate NORMAL Polychromasia 2+ Anisocytosis 2+ Macrocytosis 1+ Sodium Level 135 Potassium Level 3.8 Chloride Level 104 Carbon Dioxide Level 22 Anion Gap 13 Blood Urea Nitrogen 48 H Creatinine 0.91 Glucose Level 166 # Calcium Level 6.8 L Test 01/13/17 09:16 01/13/17 09:33 01/13/17 12:27 Bedside Glucose 112 107 76 Medications Medications Current Medications Chlorhexidine Gluconate (Peridex) 10 ml BID MM Last administered on 01/13/17t 08 :50; Admin Dose 10 ML; Start 12/31/16 at 09:00 Lidocaine (Lidoderm) 1 patch NOTE TRANSDERM ; Start 12/31/16 at 00:00 Insulin Aspart (Novolog Insulin Pen) NOVOLOG *MILD* ALGORI... Q4 SC Last administered on 01/03/17 20:44; Admin Dose 1 UNIT; Start 12/31/16 at 21:00 Miscellaneous Information 1 ea NOTE XX ; Start 12/31/16 at 18:30 Glucose (Glutose) 15 gm Q15M PRN PO DECREASED GLUCOSE; Start 12/31/16 at 18:30 Glucose (Glutose) 22.5 gm Q15M PRN PO DECREASED GLUCOSE; Start 12/31/16 at 18: 30 Dextrose (D50w Syringe) 25 ml Q15M PRN IV DECREASED GLUCOSE Last administered on 01/13/17 08:59; Admin Dose 25 ML; Start 12/31/16 at 18:30 Dextrose (D50w Syringe) 50 ml Q15M PRN IV DECREASED GLUCOSE Last administered on 01/13/17 01:15; Admin Dose 50 ML; Start 12/31/16 at 18:30 Glucagon (Glucagen) 1 mg Q15M PRN IM DECREASED GLUCOSE; Start 12/31/16 at 18:30 Glucose (Glutose) 15 gm Q15M PRN BUCCAL DECREASED GLUCOSE; Start 12/31/16 at 18 :30 Hydromorphone HCl (Dilaudid) 0.5 mg Q4H PRN IV PAIN Last administered on 09:58; Admin Dose 0.5 MG; Start 01/01/17 at 01:30 [facility] This patient obregon... PRN PRN XX WOUND CARE; Start 01/01/17 at 03:00 Fentanyl 1 patch 1 patch Q3D TRANSDERM Last administered on 01/10/17 21:05; Admin Dose 1 PATCH; Start 01/01/17 at 20:00 Total Parenteral Nutrition 1,000 ml @ 40 mls/hr Q24H IV Last administered on 21:17; Admin Dose 40 MLS/HR; Start 01/02/17 at 21:00 Fat Emulsion Intravenous (Liposyn Ii 20%) 500 ml @ 21 mls/hr [id number] IV Last administered on 01/11/17 19:44; Admin Dose 21 MLS/HR; Start 01/02/17 at 21:00 Ondansetron HCl 4 mg 4 mg Q4H PRN IV NAUSEA AND/OR VOMITING Last administered on 01/07/17 07:03; Admin Dose 4 MG; Start 01/03/17 at 17:30 Tigecycline/ Sodium Chloride (Tygacil/NS) 100 ml @ 200 mls/hr Q12H IVPB Last administered on 01/13/17 05:59; Admin Dose 200 MLS/HR; Start 01/06/17 at 05:00 Aspirin 300 mg 300 mg DAILY [place] Last administered on 01/13/17 08:50; Admin Dose 300 MG; Start 01/06/17 at 15:30 Colistimethate Sodium 75 mg/ Sodium Chloride 100 ml @ 200 mls/hr Q24H IVPB Last administered on 01/12/17 21:18; Admin Dose 200 MLS/HR; Start 01/10/17 at 21: 00 Norepinephrine 16 mg/Dextrose 500 ml @ 0 mls/hr TITRATE IV Last administered on 01/12/17 21:57; Admin Dose 22.5 MLS/HR; Start 01/10/17 at 17:30 Metronidazole 250 mg/N/A 50 ml @ 50 mls/hr Q8 IVPB Last administered on 13:30; Admin Dose 50 MLS/HR; Start 01/13/17 at 14:00 Caspofungin/ Sodium Chloride (Cancidas/NS) 250 ml @ 250 mls/hr Q24H IVPB ; Start 01/14/17 at 13:00 DONNIE VAZQUEZ Jan 13, 2017 14:33
--- NOTE | 2017-01-13 15:36 | RADRPT ---
PROCEDURE: CT Abdomen and Pelvis with and without contrast. CLINICAL INDICATION: Abdominal pain. Bloody output from drains. Evaluate for intestinal bleeding. TECHNIQUE: CT scan of the abdomen and pelvis with and without contrast was performed on a multidet margie high-resolution CT scanner. The patient was scanned both before and following the uncomplicat ed intravenous administration of 100 cc of Omnipaque 300. Coronal and sagittal reformatted images w ere obtained from the axial source images. Images were reviewed on a high-resolution PACS workstatio n. The total exam CTDI equals 7.18, 7.28 mGy and the total exam DLP equals 722.06 mGy-cm. One or more of the following dose reduction techniques were used: - Automated exposure control. - Adjustment of the mA and/or kV according to patient size. - Use of iterative reconstruction technique. COMPARISON: CT scan 12/30/2016 FINDINGS: CT abdomen: Large right and moderate left bilateral pleural effusions are identified. Dense compressive atelect asis and consolidation is seen within the lung base adjacent to the effusions. The appearances are stable over time. Worsening consolidation is seen in the right middle lobe and left lingula consist ent with developing pneumonia. This is increased since the previous study. The heart size is enlar ged with a small circumferential pericardial effusion. The liver is normal in size and diffusely fatty infiltrated without focal mass or intrahepatic bilia ry dilatation. The spleen is normal in size and homogeneous in density. The stomach is not visuali zed, likely surgically absent. Surgical clips are seen from previous cholecystectomy. Percutaneous drainage catheter is seen in place within the afferent bowel loop, stable over time. Mild thickeni ng of the wall of the upper abdominal small bowel is stable. The pancreas as visualized is normal. The biliary tree is unremarkable and there is no evidence for biliary dilatation. The adrenal glan ds are symmetric and normal. The kidneys are symmetrically unremarkable as well. No renal calculus or obstructive uropathy or mass lesion is seen. Subtle small rim enhancing collection of fluid and air and inflammatory debris is seen in the left u pper quadrant anterolateral abdominal wall, slightly improved when compared to the previous study. The aorta is of normal caliber. Aortic vascular calcifications are present. There is no retroperit maria lymphadenopathy. The kyleigh hepatis region is clear. Scattered mesenteric edema is seen throu ghout the abdomen. Scattered mild ascites is seen. Thickening of the wall of multiple loops of sma ll bowel is present. These changes are stable over time. CT pelvis: The small bowel loops situated within the pelvis are unremarkable. The pelvic organs are remarkable for severe thickening of the wall of the bladder. The bladder is decompressed secondary to a Crow catheter. The pelvic sidewalls and inguinal regions are clear. The sigmoid colon and rectum are r emarkable for severe thickening and edema of the wall of the lower Otilia's pouch. No mass or lym phadenopathy is seen. Infiltration and edema throughout the pelvic mesentery is seen. No significa nt layering free fluid is identified. No acute inflammation is identified at this time. There is a second percutaneous pigtail drainage catheter left lower quadrant region which is unchanged and unr emarkable. The surrounding osseous structures are remarkable for degenerative spondylosis of the spine. No ost eolytic or osteoblastic lesion is detected. Severe edema of the subcutaneous tissues of the abdomina l pelvic wall is seen. This is stable when compared to the prior study. IMPRESSION: 1. Percutaneous pigtail drainage catheter within a loop of bowel in the upper abdomen, likely repre senting the afferent bowel loop. The patient is status post gastrectomy. 2. There is severe thickening and edema of the wall of this loop of bowel consistent with enteritis . Small bowel hemorrhage could mimic this appearance. 3. Similarly, there is small bowel wall thickening and edema throughout other loops small bowel thr oughout the abdominal cavity, stable over time. 4. Rim enhancing fluid collection with air and debris in the left upper quadrant anterolateral abdo jam space, improved since the previous study. 5. Severe thickening of the wall of the lower sigmoid colon rectum representing a Otilia's pouch. This is stable and severe in degree. 6. Severe thickening of the wall of the bladder although the bladder is decompressed and collapsed secondary to a Crow catheter. This too is stable over time. 7. Severe third spacing and edema throughout all of the subcutaneous tissues of the body, extensive in degree yet stable since the prior study. 8. Large right and moderate left bilateral pleural effusions with dense associated compressive atel ectasis, unchanged over time. 9. Worsening consolidation within the right middle lobe and left lingula, incompletely visualized o n this study, but consistent with worsening pneumonia. 10. Generalized extensive mesenteric edema and mild ascites throughout the abdominal pelvic cavity, not significantly changed since the prior study. RPTAT: HMJB .Estrada Velez MD, MD Date Time Electronically viewed and signed by .Estrada Velez MD, MD on 01/13/2017 15:36 .B/
--- NOTE | 2017-01-13 16:08 | CONS ---
Date/Time of Note Date/Time of Note DATE: 01/13/17 TIME: 16:03 Assessment/Plan Assessment/Plan Chief Complaint/Hosp Course LEUKOCYTOSIS REACTIVE MONITOR CLOSELY ANEMIA N-CYTIC, N- CHROMIC WITH R RDW MONITOR BLOOD COUNT CLOSELY OBSERVE FOR BLEEDING AND HEMOLYSIS PRBC PRN THROMBOCYTOPENIA 2 TO SEPSIS MONITOR DIC PROFILE- neg TRANSFUSE PLATELET TODAY COAGULOPATHY TRANSFUSE FFP History of gastric cancer in the past status post gastrectomy as well as chemotherapy PER FAMILY- RAFAT RECENT RESTAGING WITH CT AP- NEG SEPSIS Acute alteration in mental status likely secondary to subacute CVA Acute respiratory distress superimposed on chronic respiratory failure Bilateral pleural effusion with underlying pneumonia and CHF Sepsis with lactic acidosis Chronic muscle wasting and cachexia History of multiple esophageal strictures 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 Exam/Review of Systems Vital Signs Vitals Vital Signs Date Time Temp Pulse Resp B/P Pulse Ox O2 Delivery O2 Flow Rate FiO2 01/13/17 14:30 95 16 103/59 100 01/13/17 14:00 Mechanical Ventilator 01/13/17 12:15 30 01/13/17 12:00 99.2 01/10/17 12:13 10.0 Intake and Output 01/12/17 01/12/17 01/13/17 15:00 23:00 07:00 Intake Total 753.57 ml 1487.5 ml 312.5 ml Output Total 270 ml 540 ml 408 ml Balance 483.57 ml 947.5 ml -95.5 ml Exam GENERAL: This is a fragile, chronically ill-appearing, elderly woman, who is in no distress. HEENT: Head atraumatic, normocephalic. Sclerae anicteric. Buccal mucosa dry. NECK: Supple. Tracheostomy present. CHEST: Chest rise symmetrical. Breath sounds diminished at the bases. HEART: S1, S2. ABDOMEN: Soft, bowel sounds present. EXTREMITIES: Without cyanosis. Results Result Diagram: 01/13/17 0430 01/13/17 043 Results 24 hrs Laboratory Tests Test 01/12/17 16:42 01/12/17 21:17 01/13/17 01:09 01/13/17 01:38 Bedside Glucose 90 75 32 *L 153 Test 01/13/17 04:30 01/13/17 05:05 01/13/17 08:50 01/13/17 09:16 White Blood Count 35.7 #H Red Blood Count 2.47 #L Hemoglobin 8.2 #L Hematocrit 24.9 L Mean Corpuscular Volume 100.8 Mean Corpuscular Hemoglobin 33.2 H Mean Corpuscular Hemoglobin Concent 32.9 Red Cell Distribution Width 14.1 Platelet Count 26 #*L Mean Platelet Volume Neutrophils % Segmented Neutrophils % (Manual) 67 Band Neutrophils % (Manual) 30 H Lymphocytes % Lymphocytes % (Manual) 2 L Monocytes % Monocytes % (Manual) 2 Eosinophils % Basophils % Nucleated Red Blood Cells % 0.3 H Neutrophils # (Manual) 27.7 H Band Neutrophils # 10.7 H Absolute Lymphocytes (Manual) 0.7 L Lymphocytes # Monocytes # Absolute Monocytes (Manual) 0.7 Eosinophils # Basophils # Nucleated Red Blood Cells # Thrombocytosis 1 H Platelet Estimate NORMAL Polychromasia 2+ Anisocytosis 2+ Macrocytosis 1+ Sodium Level 135 Potassium Level 3.8 Chloride Level 104 Carbon Dioxide Level 22 Anion Gap 13 Blood Urea Nitrogen 48 H Creatinine 0.91 Glucose Level 166 # Calcium Level 6.8 L Bedside Glucose 185 58 L 112 Test 01/13/17 09:33 01/13/17 12:27 Bedside Glucose 107 76 Medications Medications Current Medications Chlorhexidine Gluconate (Peridex) 10 ml BID MM Last administered on 01/13/17 08 :50; Admin Dose 10 ML; Start 12/31/16 at 09:00 Lidocaine (Lidoderm) 1 patch NOTE TRANSDERM ; Start 12/31/16 at 00:00 Insulin Aspart (Novolog Insulin Pen) NOVOLOG *MILD* ALGORI... Q4 SC Last administered on 01/03/17 20:44; Admin Dose 1 UNIT; Start 12/31/16 at 21:00 Miscellaneous Information 1 ea NOTE XX ; Start 12/31/16 at 18:30 Glucose (Glutose) 15 gm Q15M PRN PO DECREASED GLUCOSE; Start 12/31/16 at 18:30 Glucose (Glutose) 22.5 gm Q15M PRN PO DECREASED GLUCOSE; Start 12/31/16 at 18: 30 Dextrose (D50w Syringe) 25 ml Q15M PRN IV DECREASED GLUCOSE Last administered on 01/13/17 08:59; Admin Dose 25 ML; Start 12/31/16 at 18:30 Dextrose (D50w Syringe) 50 ml Q15M PRN IV DECREASED GLUCOSE Last administered on 01/13/17 01:15; Admin Dose 50 ML; Start 12/31/16 at 18:30 Glucagon (Glucagen) 1 mg Q15M PRN IM DECREASED GLUCOSE; Start 12/31/16 at 18:30 Glucose (Glutose) 15 gm Q15M PRN BUCCAL DECREASED GLUCOSE; Start 12/31/16 at 18 :30 Hydromorphone HCl (Dilaudid) 0.5 mg Q4H PRN IV PAIN Last administered on 09:58; Admin Dose 0.5 MG; Start 01/01/17 at 01:30 Miscellaneous Information (Pending [facility] Order For Wound Care) This patient obregon... PRN PRN XX WOUND CARE; Start 01/01/17 at 03:00 Fentanyl 1 patch 1 patch Q3D TRANSDERM Last administered on 01/10/17 21:05; Admin Dose 1 PATCH; Start 01/01/17 at 20:00 Total Parenteral Nutrition 1,000 ml @ 40 mls/hr Q24H IV Last administered on 21:17; Admin Dose 40 MLS/HR; Start 01/02/17 at 21:00 Fat Emulsion Intravenous (Liposyn Ii 20%) 500 ml @ 21 mls/hr [id number] IV Last administered on 01/11/17 19:44; Admin Dose 21 MLS/HR; Start 01/02/17 at 21:00 Ondansetron HCl 4 mg 4 mg Q4H PRN IV NAUSEA AND/OR VOMITING Last administered on 01/07/17 07:03; Admin Dose 4 MG; Start 01/03/17 at 17:30 Tigecycline/ Sodium Chloride (Tygacil/NS) 100 ml @ 200 mls/hr Q12H IVPB Last administered on 01/13/17 05:59; Admin Dose 200 MLS/HR; Start 01/06/17 at 05:00 Aspirin 300 mg 300 mg DAILY NV Last administered on 01/13/17 08:50; Admin Dose 300 MG; Start 01/06/17 at 15:30 Colistimethate Sodium 75 mg/ Sodium Chloride 100 ml @ 200 mls/hr Q24H IVPB Last administered on 01/12/17 21:18; Admin Dose 200 MLS/HR; Start 01/10/17 at 21: 00 Norepinephrine 16 mg/Dextrose 500 ml @ 0 mls/hr TITRATE IV Last administered on 01/12/17 21:57; Admin Dose 22.5 MLS/HR; Start 01/10/17 at 17:30 Metronidazole 250 mg/N/A 50 ml @ 50 mls/hr Q8 IVPB Last administered on 13:30; Admin Dose 50 MLS/HR; Start 01/13/17 at 14:00 Caspofungin/ Sodium Chloride (Cancidas/NS) 250 ml @ 250 mls/hr Q24H IVPB ; Start 01/14/17 at 13:00 RUFINO STEVENSON MD Jan 13, 2017 16:08
[2017-01-13] MEDS ORDERED: DEXTROSE 10% 1,000 ML ONE (16:31)
--- NOTE | 2017-01-13 18:50 | PN ---
Date/Time of Note Date/Time of Note DATE: 01/13/17 TIME: 18:45 Assessment/Plan VTE Prophylaxis VTE Prophylaxis Intervention: SCD's Lines/Catheters IV Catheter Type (from Nrsg): Central Line Central line still needed: Yes Urinary Cath still in place: Yes Reason Cath still needed: other (indicate) (critically ill) Assessment/Plan Assessment/Plan 71 yo F with previous h/o gastric ca sp treatment, h/o multiple esophageal strictures and bowel obstructions which have rendered the patient TPN dependent , chronic respiratory failure sp trach placement admitted for decreased mental status, suspect either from CVA (less likely as not read as acute on imaging) v toxic/metabolic encephalopathy from pneumonia. sp thora, hospitalization c/b septic shock with hypotension warranting overnight ICU stay, transferred back to floor 8.25, transferred back to the ICU 9.1 for respiratory distress # Aspiration pneumonia/pneumonitis, on antibiotics: ID helping with abx. also cont pressor support #Right pleural effusion, s/p US-guided thoracentesis with removal of 750 cc fluid on 12/31/2016 #Recurrent ischemic stroke: neuro on consult # Gastric cancer in 2011, for which she underwent extensive resection, as well as chemotherapy. #Multiple esophageal strictures and bowel obstructions,cont TPN. #Status post tracheostomy: wean O2 as tolerated #bloody output from drain sites: CT results reviewed, largely nonspecific. will consult general surgery in the AM #thrombocytopenia: likely 2/2 underlying sepsis, heme following critical care time: 30 minutes Subjective 24 Hr Interval Summary Free Text/Dictation Pt with some bloody looking output from drains Exam/Review of Systems Vital Signs Vitals Vital Signs Date Time Temp Pulse Resp B/P Pulse Ox O2 Delivery O2 Flow Rate FiO2 01/13/17 18:00 96 16 116/60 100 Mechanical Ventilator 01/13/17 17:29 30 01/13/17 16:00 98.7 01/10/17 12:13 10.0 Intake and Output 01/12/17 01/12/17 01/13/17 15:00 23:00 07:00 Intake Total 753.57 ml 1487.5 ml 312.5 ml Output Total 270 ml 540 ml 408 ml Balance 483.57 ml 947.5 ml -95.5 ml Exam trach attached to vent no mrg abd soft though dark output from drains noted no rashes +3rd spacing Results Result Diagram: 01/13/17 0430 01/13/17 0430 Results 24 hrs Laboratory Tests Test 01/12/17 21:17 01/13/17 01:09 01/13/17 01:38 01/13/17 04:30 Bedside Glucose 75 32 *L 153 White Blood Count 35.7 #H Red Blood Count 2.47 #L Hemoglobin 8.2 #L Hematocrit 24.9 L Mean Corpuscular Volume 100.8 Mean Corpuscular Hemoglobin 33.2 H Mean Corpuscular Hemoglobin Concent 32.9 Red Cell Distribution Width 14.1 Platelet Count 26 #*L Mean Platelet Volume Neutrophils % Segmented Neutrophils % (Manual) 67 Band Neutrophils % (Manual) 30 H Lymphocytes % Lymphocytes % (Manual) 2 L Monocytes % Monocytes % (Manual) 2 Eosinophils % Basophils % Nucleated Red Blood Cells % 0.3 H Neutrophils # (Manual) 27.7 H Band Neutrophils # 10.7 H Absolute Lymphocytes (Manual) 0.7 L Lymphocytes # Monocytes # Absolute Monocytes (Manual) 0.7 Eosinophils # Basophils # Nucleated Red Blood Cells # Thrombocytosis 1 H Platelet Estimate NORMAL Polychromasia 2+ Anisocytosis 2+ Macrocytosis 1+ Sodium Level 135 Potassium Level 3.8 Chloride Level 104 Carbon Dioxide Level 22 Anion Gap 13 Blood Urea Nitrogen 48 H Creatinine 0.91 Glucose Level 166 # Calcium Level 6.8 L Test 01/13/17 05:05 01/13/17 08:50 01/13/17 09:16 01/13/17 09:33 Bedside Glucose 185 58 L 112 107 Test 01/13/17 12:27 01/13/17 16:56 Bedside Glucose 76 89 Medications Medications Current Medications Chlorhexidine Gluconate (Peridex) 10 ml BID MM Last administered on 01/13/17 08 :50; Admin Dose 10 ML; Start 12/31/16 at 09:00 Lidocaine (Lidoderm) 1 patch NOTE TRANSDERM ; Start 12/31/16 at 00:00 Insulin Aspart (Novolog Insulin Pen) NOVOLOG *MILD* ALGORI... Q4 SC Last administered on 01/03/17 20:44; Admin Dose 1 UNIT; Start 12/31/16 at 21:00 Miscellaneous Information 1 ea NOTE XX ; Start 12/31/16 at 18:30 Glucose (Glutose) 15 gm Q15M PRN PO DECREASED GLUCOSE; Start 12/31/16 at 18:30 Glucose (Glutose) 22.5 gm Q15M PRN PO DECREASED GLUCOSE; Start 12/31/16 at 18: 30 Dextrose (D50w Syringe) 25 ml Q15M PRN IV DECREASED GLUCOSE Last administered on 01/13/17 08:59; Admin Dose 25 ML; Start 12/31/16 at 18:30 Dextrose (D50w Syringe) 50 ml Q15M PRN IV DECREASED GLUCOSE Last administered on 01/13/17 01:15; Admin Dose 50 ML; Start 12/31/16 at 18:30 Glucagon (Glucagen) 1 mg Q15M PRN IM DECREASED GLUCOSE; Start 12/31/16 at 18:30 Glucose (Glutose) 15 gm Q15M PRN BUCCAL DECREASED GLUCOSE; Start 12/31/16 at 18 :30 Hydromorphone HCl (Dilaudid) 0.5 mg Q4H PRN IV PAIN Last administered on 09:58; Admin Dose 0.5 MG; Start 01/01/17 at 01:30 Miscellaneous Information [facility] This patient obregon... PRN PRN XX WOUND CARE; Start 01/01/17 at 03:00 Fentanyl 1 patch 1 patch Q3D TRANSDERM Last administered on 01/10/17 21:05; Admin Dose 1 PATCH; Start 01/01/17 at 20:00 Total Parenteral Nutrition 1,000 ml @ 40 mls/hr Q24H IV Last administered on 21:17; Admin Dose 40 MLS/HR; Start 01/02/17 at 21:00 Fat Emulsion Intravenous (Liposyn Ii 20%) 500 ml @ 21 mls/hr [id number] IV Last administered on 01/11/17 19:44; Admin Dose 21 MLS/HR; Start 01/02/17 at 21:00 Ondansetron HCl 4 mg 4 mg Q4H PRN IV NAUSEA AND/OR VOMITING Last administered on 01/07/17 07:03; Admin Dose 4 MG; Start 01/03/17 at 17:30 Tigecycline/ Sodium Chloride (Tygacil/NS) 100 ml @ 200 mls/hr Q12H IVPB Last administered on 01/13/17 16:57; Admin Dose 200 MLS/HR; Start 01/06/17 at 05:00 Aspirin 300 mg 300 mg DAILY W[place] Last administered on 01/13/17 08:50; Admin Dose 300 MG; Start 01/06/17 at 15:30 Colistimethate Sodium 75 mg/ Sodium Chloride 100 ml @ 200 mls/hr Q24H IVPB Last administered on 01/12/17 21:18; Admin Dose 200 MLS/HR; Start 01/10/17 at 21: 00 Norepinephrine 16 mg/Dextrose 500 ml @ 0 mls/hr TITRATE IV Last administered on 01/12/17 21:57; Admin Dose 22.5 MLS/HR; Start 01/10/17 at 17:30 Metronidazole 250 mg/N/A 50 ml @ 50 mls/hr Q8 IVPB Last administered on 13:30; Admin Dose 50 MLS/HR; Start 01/13/17 at 14:00 Caspofungin/ Sodium Chloride (Cancidas/NS) 250 ml @ 250 mls/hr Q24H IVPB ; Start 01/14/17 at 13:00 MODESTO SANDHU MD Jan 13, 2017 18:50
[2017-01-13] MEDS: FAT EMULSION 20% 500 ML IV SCH (19:36)
[2017-01-13] MEDS: COLISTIMETHATE 75 MG in SOD CHLORIDE 0.9% 100 ML IVPB SCH (20:55)
[2017-01-13] MEDS: TPN 1,000 ML IV SCH (20:55)
[2017-01-13] MEDS: FENTAnyl PATCH 50 MCG/HR TRANSDERM SCH (21:50)
[2017-01-14] VITALS (96 sets, daily range): BP systolic 80–127; BP diastolic 48–80; PULSE 85–111; RESP 10–21
[2017-01-14] MEDS: INSULIN ASPART [NOVOLOG] 3 ML PEN SC SCH ×6 (01:00→21:00)
[2017-01-14] MEDS: ALBUTEROL 18 GM INHALER INH SCH ×6 (01:34→21:00)
[2017-01-14] MEDS: IPRATROPIUM (HFA) 12.9 GM INHALER INH SCH ×6 (01:34→21:00)
[2017-01-14] MEDS: TIGECYCLINE 50 MG in SOD CHLORIDE 0.9% 100 ML IVPB SCH (05:50)
[2017-01-14] MEDS: DEXTROSE 50% 50 ML SYRINGE IV PRN ×3 (05:51→17:40)
[2017-01-14 06:30] LABS: POTASSIUM 3.2 mmol/L (3.5-5.1)
[2017-01-14] MEDS: metroNIDAZOLE 500 MG/NS (PMX) 250 MG in EVAC CONTAINER 1 BOTTLE IVPB SCH ×3 (06:35→21:49)
[2017-01-14 06:36] LABS: MAGNESIUM 1.8 mg/dl (1.7-2.5); PHOSPHORUS 4.9 mg/dl (2.5-4.9)
[2017-01-14 06:58] LABS: ABNORMAL IP MESSAGE 1; MEAN CORPUSCULAR HEMOGLOBIN 36.4 pg (29.0-33.0); NUCLEATED RED BLOOD CELLS% 0.1 /100WBC (0.0-0.0); PLATELET COUNT 90 10^3/UL (140-415); RED BLOOD COUNT 3.02 10^6/ul (4.20-5.40); RED CELL DISTRIBUTION WIDTH 15.9 % (11.5-14.5); WHITE BLOOD COUNT 27.4 10^3/ul (4.8-10.8)
[2017-01-14 07:00] LABS: MEAN CORPUSCULAR HGB CONC 38.1 g/dl (32.0-37.0); POSITIVE DIFF @See below
--- NOTE | 2017-01-14 08:16 | RADRPT ---
PROCEDURE: XR Chest. CLINICAL INDICATION: Pneumonia, congestive heart failure TECHNIQUE: Single frontal view of the chest was obtained. COMPARISON: Chest x-ray from 01/12/2017 FINDINGS: A tracheostomy and a right internal jugular dialysis catheter are unchanged in position. There is stable cardiomegaly and small bilateral pleural effusions. There is stable moderate congestion. Underlying infiltrates cannot be excluded. IMPRESSION: No significant interval change. RPTAT: EE Physician Pam Date Time Electronically viewed and signed by Jamar Julian Physician on 01/14/2017 08:15 RA/
[2017-01-14] MEDS: CHLORHEXIDINE GLUCONATE 15 ML UD CUP MM SCH ×2 (08:29→21:05)
[2017-01-14] MEDS: BALSAM PERU/CASTOR OIL 60 GM TUBE TOP SCH (08:29)
[2017-01-14] MEDS: ASPIRIN 300 MG SUPP PR SCH (08:29)
[2017-01-14] MEDS: TPN 1,000 ML IV SCH ×2 (10:36→18:06)
[2017-01-14 10:40] LABS: HEMOGLOBIN 8.8 g/dl (12.0-16.0); MEAN CORPUSCULAR VOLUME 97.7 fl (82.0-101.0)
[2017-01-14 10:41] LABS: HEMATOCRIT 29.4 % (37.0-47.0)
[2017-01-14 10:52] LABS: ANISOCYTOSIS 1+ (0-0); EOSINOPHILS % (M) 1 % (0-7); HYPOCHROMASIA 1+ (0-0); METAMYELOCYTES %M 3 % (0-0); MONOCYTES % (M) 3 % (0-11); PLATELET ESTIMATE DECREASED; POIKILOCYTOSIS 2+ (0-0)
--- NOTE | 2017-01-14 11:04 | CONS ---
Date/Time of Note Date/Time of Note DATE: 01/14/17 TIME: 11:00 Assessment/Plan Assessment/Plan Additional Assessment/Plan Ventilator setting; AC of 16, tidal volume 450, PEEP of 5, 30% FiO2. Patient currently on Levophed at 12 mics per minute. Also on TPN. Assessment and recommendations; 1. Patient admitted with severe sepsis and CHF. 2. Prior history of gastric cancer. 3. Cirrhosis with recurrent ascites requiring bilateral abdominal drain placement. 4. History of multiple CVAs. 5. Decubitus ulcers. 6. Anemia and thrombocytopenia. Continue current supportive care. Prognosis is very poor. Patient has been appropriately made DNR status. Consultation Date/Type/Reason Admit Date/Time Dec 30, 2016 at 23:12 Initial Consult Date 01/01/17 Type of Consultation: Pulmonary/critical care Referring Provider: ANA PAULINO 24 HR Interval Summary Free Text/Dictation Patient condition remains critical. Remains hypotensive requiring Levophed for blood pressure maintenance. General exam; elderly woman, on ventilator via tracheostomy. Awake but unresponsive to any commands. This is her underlying mental status due to advanced dementia. Exam/Review of Systems Vital Signs Vitals Vital Signs Date Time Temp Pulse Resp B/P Pulse Ox O2 Delivery O2 Flow Rate FiO2 01/14/17 09:45 103 16 101/61 100 01/14/17 09:00 Mechanical Ventilator 01/14/17 08:00 99.2 01/14/17 08:00 30 01/10/17 12:13 10.0 Intake and Output 01/13/17 01/13/17 01/14/17 15:00 23:00 07:00 Intake Total 835.61 ml 1265.84 ml 610.43 ml Output Total 245 ml 420 ml 420 ml Balance 590.61 ml 845.84 ml 190.43 ml Exam HEENT exam; supple neck, positive JVD. No lymphadenopathy. Midline trachea. No thyromegaly. Patient has fair dentition. Tracheostomy in place with clean insertion site. Chest exam; scattered crackles bilaterally. S1-S2 audible, no murmurs. Regular rhythm. Abdomen exam; soft, bilateral upper quadrant drains are in place. G-tube in place. Bowel sounds are absent. Extremity exam; 2+ anasarca. 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 Results Result Diagram: 01/14/17 0525 01/14/17 0525 Results 24 hrs Laboratory Tests Test 01/13/17 12:27 01/13/17 16:56 01/13/17 21:05 01/14/17 01:01 Bedside Glucose 76 89 75 75 Test 01/14/17 04:58 01/14/17 05:25 01/14/17 05:33 01/14/17 06:33 Lab Scanned Report BLOOD TRANSFUSION White Blood Count 27.4 #H Red Blood Count 3.02 #L Hemoglobin 8.8 L Hematocrit 29.4 L Mean Corpuscular Volume 97.7 Mean Corpuscular Hemoglobin 36.4 H Mean Corpuscular Hemoglobin Concent 38.1 H Red Cell Distribution Width 15.9 H Platelet Count 90 #L Mean Platelet Volume Neutrophils % Segmented Neutrophils % (Manual) 80 H Band Neutrophils % (Manual) 14 H Lymphocytes % Monocytes % Monocytes % (Manual) 3 Eosinophils % Eosinophils % (Manual) 1 Basophils % Metamyelocytes % (manual) 3 H Nucleated Red Blood Cells % 0.1 H Neutrophils # (Manual) 23.0 H Band Neutrophils # 3.8 H Lymphocytes # Monocytes # Absolute Monocytes (Manual) 0.8 Eosinophils # Basophils # Metamyelocytes # 0.8 H Nucleated Red Blood Cells # Platelet Estimate DECREASED Hypochromasia 1+ Poikilocytosis 2+ Anisocytosis 1+ Macrocytosis 1+ Sodium Level 137 Potassium Level 3.2 L Chloride Level 105 Carbon Dioxide Level 20 L Anion Gap 15 Blood Urea Nitrogen 48 H Creatinine 1.00 Glucose Level 49 #*L Calcium Level 7.0 L Phosphorus Level 4.9 Magnesium Level 1.8 Bedside Glucose 64 L 120 Test 01/14/17 08:28 Bedside Glucose 78 Medications Medications Current Medications Chlorhexidine Gluconate (Peridex) 10 ml BID MM Last administered on 01/14/17 08 :29; Admin Dose 10 ML; Start 12/31/16 at 09:00 Lidocaine (Lidoderm) 1 patch NOTE TRANSDERM ; Start 12/31/16 at 00:00 Insulin Aspart (Novolog Insulin Pen) NOVOLOG *MILD* ALGORI... Q4 SC Last administered on 01/03/17 20:44; Admin Dose 1 UNIT; Start 12/31/16 at 21:00 Miscellaneous Information 1 ea NOTE XX ; Start 12/31/16 at 18:30 Glucose (Glutose) 15 gm Q15M PRN PO DECREASED GLUCOSE; Start 12/31/16 at 18:30 Glucose (Glutose) 22.5 gm Q15M PRN PO DECREASED GLUCOSE; Start 12/31/16 at 18: 30 Dextrose (D50w Syringe) 25 ml Q15M PRN IV DECREASED GLUCOSE Last administered on 01/14/17 05:51; Admin Dose 25 ML; Start 12/31/16 at 18:30 Dextrose (D50w Syringe) 50 ml Q15M PRN IV DECREASED GLUCOSE Last administered on 01/13/17 01:15; Admin Dose 50 ML; Start 12/31/16 at 18:30 Glucagon (Glucagen) 1 mg Q15M PRN IM DECREASED GLUCOSE; Start 12/31/16 at 18:30 Glucose (Glutose) 15 gm Q15M PRN BUCCAL DECREASED GLUCOSE; Start 12/31/16 at 18 :30 Hydromorphone HCl (Dilaudid) 0.5 mg Q4H PRN IV PAIN Last administered on 09:58; Admin Dose 0.5 MG; Start 01/01/17 at 01:30 Miscellaneous Information (Pending [facility] Order For Wound Care) This patient obregon... PRN PRN XX WOUND CARE; Start 01/01/17 at 03:00 Fentanyl 1 patch 1 patch Q3D TRANSDERM Last administered on 01/13/17 21:50; Admin Dose 1 PATCH; Start 01/01/17 at 20:00 Total Parenteral Nutrition 1,000 ml @ 40 mls/hr Q24H IV Last administered on 10:36; Admin Dose 40 MLS/HR; Start 01/02/17 at 21:00 Fat Emulsion Intravenous (Liposyn Ii 20%) 500 ml @ 21 mls/hr [id number] IV Last administered on 01/13/17 19:36; Admin Dose 21 MLS/HR; Start 01/02/17 at 21:00 Ondansetron HCl 4 mg 4 mg Q4H PRN IV NAUSEA AND/OR VOMITING Last administered on 01/07/17 07:03; Admin Dose 4 MG; Start 01/03/17 at 17:30 Tigecycline/ Sodium Chloride (Tygacil/NS) 100 ml @ 200 mls/hr Q12H IVPB Last administered on 01/14/17 05:50; Admin Dose 200 MLS/HR; Start 01/06/17 at 05:00 Aspirin 300 mg 300 mg DAILY NV Last administered on 01/14/17 08:29; Admin Dose 300 MG; Start 01/06/17 at 15:30 Colistimethate Sodium 75 mg/ Sodium Chloride 100 ml @ 200 mls/hr Q24H IVPB Last administered on 01/13/17 20:55; Admin Dose 200 MLS/HR; Start 01/10/17 at 21: 00 Norepinephrine 16 mg/Dextrose 500 ml @ 0 mls/hr TITRATE IV Last administered on 01/13/17 20:57; Admin Dose 28.12 MLS/HR; Start 01/10/17 at 17:30 Metronidazole 250 mg/N/A 50 ml @ 50 mls/hr Q8 IVPB Last administered on 06:35; Admin Dose 50 MLS/HR; Start 01/13/17 at 14:00 Caspofungin/ Sodium Chloride (Cancidas/NS) 250 ml @ 250 mls/hr Q24H IVPB ; Start 01/14/17 at 13:00 ROSMERY JUAREZ Jan 14, 2017 11:04
[2017-01-14] MEDS ORDERED: VANCOMYCIN IV PER PHARMACY XX SCH (11:30)
--- NOTE | 2017-01-14 12:19 | PN ---
DATE: 01/14/2017 SUBJECTIVE DATA: The patient is sleeping. She is on pressors. Family at bedside. OBJECTIVE DATA: VITAL SIGNS: She is afebrile, T-max 99.9, T-current 99.2. Pulse 97, respirations 16, blood pressure 100/58, saturation 100 on vent. LABORATORY AND DIAGNOSTIC DATA: WBC 27.4, H and H 8.8 and 29.4, platelets 90. BUN 48, creatinine 1.0. MICROBIOLOGY: Urine culture on January 12 growing Shahla albicans. Endotracheal aspirate growing Acinetobacter baumannii and Pseudomonas aeruginosa, multidrug-resistant organisms. Abdominal fluid culture growing klebsiella, Acinetobacter baumannii, enterococcus species, and Shahla albicans. INDWELLINGS: Trach, PEG, Crow, intra-abdominal drainage catheters, right subclavian triple-lumen catheter. ANTIMICROBIALS: Patient is on: 1. IV Cancidas. 2. Flagyl. 3. Colistin. 4. Tygacil. DIAGNOSTICS: CT of the abdomen and pelvis from January 13 revealed percutaneous pigtail drainage catheter within the loop of bowel in the upper abdomen, status post gastrectomy. There is a severe thickening and edema of the wall of this loop of bowel consistent with enteritis. Small bowel hemorrhage could mimic this appearance. There is small bowel wall thickening and edema throughout other loops of small bowel throughout the abdominal cavity, stable over time. A rim-enhancing fluid collection with air and debris within the left upper quadrant, anterolateral abdominal space, improved since the previous study. Severe thickening of the wall of the lower sigmoid colon. Rectum representing a Otilia's pouch, stable and severe in degree. Severe thickening of the wall of the bladder, although the bladder is decompressed and collapsed secondary to a Crow catheter. This is too stable over time. 3rd spacing and edema throughout all the subcutaneous tissues of the body, extensive in degree, yet stable since previous study. Large right and moderate left bilateral pleural effusions, and dense associated compressive atelectasis unchanged. Worsening consolidation within the right middle lobe and left lingula, incompletely visualized, but consistent with worsening pneumonia. Generalized extensive mesenteric edema, and mild ascites throughout the abdominal pelvic cavity not significantly changed, PHYSICAL EXAMINATION: GENERAL: This is a chronically ill-appearing, elderly woman, who is in no distress. HEENT: Head atraumatic, normocephalic. Sclerae anicteric. Buccal mucosa dry. NECK: Supple. LUNGS: Chest rise symmetrical. Breath sounds diminished at bases. HEART: S1, S2. ABDOMEN: Soft, bowel sounds hypoactive. EXTREMITIES: No cyanosis. ASSESSMENT: 1. Severe sepsis with shock. 2. Severe healthcare-associated pneumonia with pleural effusions, status post thoracentesis on admission. 3. Intra-abdominal abscesses, status post drainage catheter placement with abdominal fluid cultures growing multidrug- resistant organisms and Shahla albicans. 4. Shahla albicans urinary tract infection. 5. Chronic respiratory failure. 6. Cachexia. 7. Anemia with thrombocytopenia. 8. History of cerebrovascular accident. PLAN: The patient remains hemodynamically unstable. We are going to change Tygacil to vancomycin or Zyvox for coverage of healthcare-associated pneumonia. Continue all other antibiotics. Await for surgical evaluation. The patient is DNR status now and overall long-term prognosis is poor. Above was discussed with family at bedside. Dictated By: Nancy Mccarty NP /prachi/dot /Document#: [id number]
[2017-01-14 12:35] LABS: ALBUMIN 2.3 g/dl (3.3-4.9)
[2017-01-14] MEDS ORDERED: VANCOMYCIN 750 MG in SOD CHLORIDE 0.9% 150 ML IVPB SCH (13:00)
[2017-01-14] MEDS: CASPOFUNGIN 50 MG in SOD CHLORIDE 0.9% 250 ML IVPB SCH (13:21)
[2017-01-14 13:48] LABS: PLATELET COUNT 69 10^3/UL (140-440)
[2017-01-14 13:59] LABS: INR 1.57; PROTIME 18.9 Sec (12.2-14.2); PT RATIO 1.5
[2017-01-14 14:00] LABS: FIBRIN SPLIT PRODUCT <10 ug/ml (<10)
[2017-01-14 14:01] LABS: PARTIAL THROMBOPLASTIN TIME 47.3 Sec (25.0-35.0)
[2017-01-14 14:04] LABS: THROMBIN TIME 18.5 SEC (13.8-19.1)
--- NOTE | 2017-01-14 15:37 | PN ---
Date/Time of Note Date/Time of Note DATE: 01/14/17 TIME: 15:31 Assessment/Plan VTE Prophylaxis VTE Prophylaxis Intervention: SCD's Lines/Catheters IV Catheter Type (from Nrsg): Central Line Central line still needed: Yes Urinary Cath still in place: Yes Reason Cath still needed: other (indicate) (critically il) Assessment/Plan Assessment/Plan 71 yo F with previous h/o gastric ca sp treatment, h/o multiple esophageal strictures and bowel obstructions which have rendered the patient TPN dependent , chronic respiratory failure sp trach placement admitted for decreased mental status, suspect either from CVA (less likely as not read as acute on imaging) v toxic/metabolic encephalopathy from pneumonia. sp thora, hospitalization c/b septic shock with hypotension warranting overnight ICU stay, transferred back to floor 8.25, transferred back to the ICU 9.1 for respiratory distress. Now still septic despite broad spectrum abx, blood-tinged output from drains and j pouch, and DIC. # Aspiration pneumonia/pneumonitis, on antibiotics: ID helping with abx. also cont pressor support #Recurrent ischemic stroke: neuro on consult # Gastric cancer in 2011 sp extensive resection, as well as chemotherapy. #Multiple esophageal strictures and bowel obstruction: initially managed at OSH 11.16 cont TPN. #Status post tracheostomy: wean O2 as tolerated #bloody output from drain sites: CT results reviewed, notable for SB enteritis. gen surg and GI consulted, though given clinical instability evidenced by pressor requirement likely not stable enough for intervention #DIC: likely 2/2 underlying sepsis, heme following TPN to be managed by RD and pharmacy code status changed to DNR, prognosis poor critical care time: 30 minutes Exam/Review of Systems Vital Signs Vitals Vital Signs Date Time Temp Pulse Resp B/P Pulse Ox O2 Delivery O2 Flow Rate FiO2 01/14/17 15:00 89 16 112/57 97 Mechanical Ventilator 01/14/17 12:00 98.8 01/14/17 11:30 30 01/10/17 12:13 10.0 Intake and Output 01/13/17 01/13/17 01/14/17 15:00 23:00 07:00 Intake Total 835.61 ml 1265.84 ml 610.43 ml Output Total 245 ml 420 ml 420 ml Balance 590.61 ml 845.84 ml 190.43 ml Results Result Diagram: 01/14/17 1320 01/14/17 0525 Results 24 hrs Laboratory Tests Test 01/13/17 16:56 01/13/17 21:05 01/14/17 01:01 01/14/17 04:58 Bedside Glucose 89 75 75 Lab Scanned Report BLOOD TRANSFUSION Test 01/14/17 05:25 01/14/17 05:33 01/14/17 06:33 01/14/17 08:28 White Blood Count 27.4 #H Red Blood Count 3.02 #L Hemoglobin 8.8 L Hematocrit 29.4 L Mean Corpuscular Volume 97.7 Mean Corpuscular Hemoglobin 36.4 H Mean Corpuscular Hemoglobin Concent 38.1 H Red Cell Distribution Width 15.9 H Platelet Count 90 #L Mean Platelet Volume Neutrophils % Segmented Neutrophils % (Manual) 80 H Band Neutrophils % (Manual) 14 H Lymphocytes % Monocytes % Monocytes % (Manual) 3 Eosinophils % Eosinophils % (Manual) 1 Basophils % Metamyelocytes % (manual) 3 H Nucleated Red Blood Cells % 0.1 H Neutrophils # (Manual) 23.0 H Band Neutrophils # 3.8 H Lymphocytes # Monocytes # Absolute Monocytes (Manual) 0.8 Eosinophils # Basophils # Metamyelocytes # 0.8 H Nucleated Red Blood Cells # Platelet Estimate DECREASED Hypochromasia 1+ Poikilocytosis 2+ Anisocytosis 1+ Macrocytosis 1+ Sodium Level 137 Potassium Level 3.2 L Chloride Level 105 Carbon Dioxide Level 20 L Anion Gap 15 Blood Urea Nitrogen 48 H Creatinine 1.00 Glucose Level 49 #*L Calcium Level 7.0 L Phosphorus Level 4.9 Magnesium Level 1.8 Albumin 2.3 L Triglycerides Level Bedside Glucose 64 L 120 78 Test 01/14/17 13:19 01/14/17 13:20 01/14/17 13:54 01/14/17 14:11 Bedside Glucose 69 L 68 L 138 118 Platelet Count 69 L Prothrombin Time 18.9 #H Prothrombin Time Ratio 1.5 INR International Normalized Ratio 1.57 Activated Partial Thromboplast Time 47.3 H Thrombin Time 18.5 Fibrinogen 232.0 # Plasma Fibrin Degradation Products <10 D-Dimer 2445.00 #H D-Dimer Comment Medications Medications Current Medications Chlorhexidine Gluconate (Peridex) 10 ml BID MM Last administered on 01/14/17t 08 :29; Admin Dose 10 ML; Start 12/31/16 at 09:00 Lidocaine (Lidoderm) 1 patch NOTE TRANSDERM ; Start 12/31/16 at 00:00 Insulin Aspart (Novolog Insulin Pen) NOVOLOG *MILD* ALGORI... Q4 SC Last administered on 01/03/17 20:44; Admin Dose 1 UNIT; Start 12/31/16 at 21:00 Miscellaneous Information 1 ea NOTE XX ; Start 12/31/16 at 18:30 Glucose (Glutose) 15 gm Q15M PRN PO DECREASED GLUCOSE; Start 12/31/16 at 18:30 Glucose (Glutose) 22.5 gm Q15M PRN PO DECREASED GLUCOSE; Start 12/31/16 at 18: 30 Dextrose (D50w Syringe) 25 ml Q15M PRN IV DECREASED GLUCOSE Last administered on 01/14/17 13:22; Admin Dose 25 ML; Start 12/31/16 at 18:30 Dextrose (D50w Syringe) 50 ml Q15M PRN IV DECREASED GLUCOSE Last administered on 01/13/17 01:15; Admin Dose 50 ML; Start 12/31/16 at 18:30 Glucagon (Glucagen) 1 mg Q15M PRN IM DECREASED GLUCOSE; Start 12/31/16 at 18:30 Glucose (Glutose) 15 gm Q15M PRN BUCCAL DECREASED GLUCOSE; Start 12/31/16 at 18 :30 Hydromorphone HCl (Dilaudid) 0.5 mg Q4H PRN IV PAIN Last administered on 09:58; Admin Dose 0.5 MG; Start 01/01/17 at 01:30 Miscellaneous Information (Pending [facility] Order For Wound Care) This patient obregon... PRN PRN XX WOUND CARE; Start 01/01/17 at 03:00 Fentanyl 1 patch 1 patch Q3D TRANSDERM Last administered on 01/13/17 21:50; Admin Dose 1 PATCH; Start 01/01/17 at 20:00 Total Parenteral Nutrition (Tpn) 1,000 ml @ 40 mls/hr Q24H IV Last administered on 01/14/17 10:36; Admin Dose 40 MLS/HR; Start 01/02/17 at 21:00 Ondansetron HCl (Zofran Inj) 4 mg Q4H PRN IV NAUSEA AND/OR VOMITING Last administered on 01/07/17 07:03; Admin Dose 4 MG; Start 01/03/17 at 17:30 Aspirin 300 mg 300 mg DAILY [place] Last administered on 01/14/17 08:29; Admin Dose 300 MG; Start 01/06/17 at 15:30 Norepinephrine 16 mg/Dextrose 500 ml @ 0 mls/hr TITRATE IV Last administered on 01/13/17 20:57; Admin Dose 28.12 MLS/HR; Start 01/10/17 at 17:30 Metronidazole 250 mg/N/A 50 ml @ 50 mls/hr Q8 IVPB Last administered on 13:21; Admin Dose 50 MLS/HR; Start 01/13/17 at 14:00 Caspofungin 50 mg/ Sodium Chloride 250 ml @ 250 mls/hr Q24H IVPB Last administered on 01/14/17 13:21; Admin Dose 250 MLS/HR; Start 01/14/17 at 13:00 Vancomycin HCl 100 ml @ 100 mls/hr Q36H IVPB ; Start 01/16/17 at 01:00 Colistimethate Sodium 75 mg/ Sodium Chloride 100 ml @ 200 mls/hr Q36H IVPB ; Start 01/15/17 at 09:00 Fat Emulsion Intravenous (Liposyn Ii 20%) 250 ml @ 20.833 mls/ hr DAILY@16 IV ; Start 01/14/17 at 16:00 MODESTO SANDHU MD Jan 14, 2017 15:37
[2017-01-14] MEDS: FAT EMULSION 20% 250 ML IV SCH (16:00)
--- NOTE | 2017-01-14 18:30 | CONS ---
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 * Likely related to significant thrombocytopenia and inflammatory or ischemic process in the bowel * Sepsis * Ventilator dependent respiratory failure * History of gastric CA with no evidence of recurrence as of March 2016 multiple * Intra-abdominal surgeries/enterocutaneous fistula * CVA Plan: * Consider palliative care * Alternatively transfuse platelets whenever they drop below 50,000 and bleeding is active * I see no potential surgical or endoscopic intervention that would be of any assistance Consultation Date/Type/Reason Admit Date/Time Dec 30, 2016 at 23:12 Date of Consultation: Jan 14, 2017 Reason for Consultation GI bleeding Hx of Present Illness Unfortunate 71-year-old female with history of gastric CA for years prior, she underwent total gastrectomy plus chemotherapy and did well from several years. 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 The patient also has developed CVA, respiratory insufficiency and ended up with a tracheostomy. She has been on TPN since March when her situation deteriorated significantly. She is currently hospitalized with sepsis probably related to pulmonary source. She has had episodes of severe thrombocytopenia at which time significant bleeding is noted from several of the drainage catheters as well as the fistula in the center of her abdomen draining to a colostomy bag. The patient has required platelet transfusion as well as packed red blood cells transfusions. A CT of the abdomen showed several areas of thickened bowel suggestive of ischemic or inflammatory process. Unfortunately the condition of the patient is such that surgical intervention is not feasible and endoscopic intervention will likely not be useful as the bleeding appears to be coming from the distal small bowel. The patient is currently DNR and in my opinion should be in palliative care as her prognosis is extremely poor. Not obtainable Past Medical History Gastric CA Bowel obstruction Ischemic bowel Enterocutaneous fistula Tracheostomy Pneumonia Social History Alcohol Use: none Smoking Status: Never smoker Drug Use: none Exam/Review of Systems Vital Signs Vitals Vital Signs Date Time Temp Pulse Resp B/P Pulse Ox O2 Delivery O2 Flow Rate FiO2 01/14/17 17:30 86 18 98 30 01/14/17 17:15 110/66 01/14/17 17:00 Mechanical Ventilator 01/14/17 16:00 98.7 01/10/17 12:13 10.0 Intake and Output 01/13/17 01/13/17 01/14/17 15:00 23:00 07:00 Intake Total 835.61 ml 1265.84 ml 610.43 ml Output Total 245 ml 420 ml 420 ml Balance 590.61 ml 845.84 ml 190.43 ml Exam Constitutional: alert, other (Noncommunicative) Head: atraumatic, normocephalic Neck: other (A colostomy in place) Respiratory: crackles/rales (Laterally) Cardiovascular: regular rate and rhythm Gastrointestinal: bowel sounds, distended, firm, No ascites, No rebound or guarding, No tender Results Result Diagram: 01/14/17 1320 01/14/17 0525 Results 24 hrs Laboratory Tests Test 01/13/17 21:05 01/14/17 01:01 01/14/17 04:58 01/14/17 05:25 Bedside Glucose 75 75 Lab Scanned Report BLOOD TRANSFUSION White Blood Count 27.4 #H Red Blood Count 3.02 #L Hemoglobin 8.8 L Hematocrit 29.4 L Mean Corpuscular Volume 97.7 Mean Corpuscular Hemoglobin 36.4 H Mean Corpuscular Hemoglobin Concent 38.1 H Red Cell Distribution Width 15.9 H Platelet Count 90 #L Mean Platelet Volume Neutrophils % Segmented Neutrophils % (Manual) 80 H Band Neutrophils % (Manual) 14 H Lymphocytes % Monocytes % Monocytes % (Manual) 3 Eosinophils % Eosinophils % (Manual) 1 Basophils % Metamyelocytes % (manual) 3 H Nucleated Red Blood Cells % 0.1 H Neutrophils # (Manual) 23.0 H Band Neutrophils # 3.8 H Lymphocytes # Monocytes # Absolute Monocytes (Manual) 0.8 Eosinophils # Basophils # Metamyelocytes # 0.8 H Nucleated Red Blood Cells # Platelet Estimate DECREASED Hypochromasia 1+ Poikilocytosis 2+ Anisocytosis 1+ Macrocytosis 1+ Sodium Level 137 Potassium Level 3.2 L Chloride Level 105 Carbon Dioxide Level 20 L Anion Gap 15 Blood Urea Nitrogen 48 H Creatinine 1.00 Glucose Level 49 #*L Calcium Level 7.0 L Phosphorus Level 4.9 Magnesium Level 1.8 Albumin 2.3 L Triglycerides Level Test 01/14/17 05:33 01/14/17 06:33 01/14/17 08:28 01/14/17 13:19 Bedside Glucose 64 L 120 78 69 L Test 01/14/17 13:20 01/14/17 13:54 01/14/17 14:11 01/14/17 17:40 Platelet Count 69 L Prothrombin Time 18.9 #H Prothrombin Time Ratio 1.5 INR International Normalized Ratio 1.57 Activated Partial Thromboplast Time 47.3 H Thrombin Time 18.5 Fibrinogen 232.0 # Plasma Fibrin Degradation Products <10 D-Dimer 2445.00 #H D-Dimer Comment Bedside Glucose 68 L 138 118 71 Test 01/14/17 17:53 01/14/17 18:12 Bedside Glucose 140 111 Medications Medications Current Medications Chlorhexidine Gluconate (Peridex) 10 ml BID MM Last administered on 01/14/17 08 :29; Admin Dose 10 ML; Start 12/31/16 at 09:00 Lidocaine (Lidoderm) 1 patch NOTE TRANSDERM ; Start 12/31/16 at 00:00 Insulin Aspart (Novolog Insulin Pen) NOVOLOG *MILD* ALGORI... Q4 SC Last administered on 01/03/17 20:44; Admin Dose 1 UNIT; Start 12/31/16 at 21:00 Miscellaneous Information 1 ea NOTE XX ; Start 12/31/16 at 18:30 Glucose (Glutose) 15 gm Q15M PRN PO DECREASED GLUCOSE; Start 12/31/16 at 18:30 Glucose (Glutose) 22.5 gm Q15M PRN PO DECREASED GLUCOSE; Start 12/31/16 at 18: 30 Dextrose (D50w Syringe) 25 ml Q15M PRN IV DECREASED GLUCOSE Last administered on 01/14/17 17:40; Admin Dose 25 ML; Start 12/31/16 at 18:30 Dextrose (D50w Syringe) 50 ml Q15M PRN IV DECREASED GLUCOSE Last administered on 01/13/17 01:15; Admin Dose 50 ML; Start 12/31/16 at 18:30 Glucagon (Glucagen) 1 mg Q15M PRN IM DECREASED GLUCOSE; Start 12/31/16 at 18:30 Glucose (Glutose) 15 gm Q15M PRN BUCCAL DECREASED GLUCOSE; Start 12/31/16 at 18 :30 Hydromorphone HCl (Dilaudid) 0.5 mg Q4H PRN IV PAIN Last administered on 09:58; Admin Dose 0.5 MG; Start 01/01/17 at 01:30 Miscellaneous Information (Pending [facility] Order For Wound Care) This patient obregon... PRN PRN XX WOUND CARE; Start 01/01/17 at 03:00 Fentanyl 1 patch 1 patch Q3D TRANSDERM Last administered on 01/13/17 21:50; Admin Dose 1 PATCH; Start 01/01/17 at 20:00 Total Parenteral Nutrition (Tpn) 1,000 ml @ 40 mls/hr Q24H IV Last administered on 01/14/17 18:06; Admin Dose 40 MLS/HR; Start 01/02/17 at 21:00 Ondansetron HCl (Zofran Inj) 4 mg Q4H PRN IV NAUSEA AND/OR VOMITING Last administered on 01/07/17 07:03; Admin Dose 4 MG; Start 01/03/17 at 17:30 Aspirin 300 mg 300 mg DAILY [place] Last administered on 01/14/17 08:29; Admin Dose 300 MG; Start 01/06/17 at 15:30 Norepinephrine 16 mg/Dextrose 500 ml @ 0 mls/hr TITRATE IV Last administered on 01/14/17 18:16; Admin Dose 22.5 MLS/HR; Start 01/10/17 at 17:30 Metronidazole 250 mg/N/A 50 ml @ 50 mls/hr Q8 IVPB Last administered on 13:21; Admin Dose 50 MLS/HR; Start 01/13/17 at 14:00 Caspofungin 50 mg/ Sodium Chloride 250 ml @ 250 mls/hr Q24H IVPB Last administered on 01/14/17 13:21; Admin Dose 250 MLS/HR; Start 01/14/17 at 13:00 Vancomycin HCl 100 ml @ 100 mls/hr Q36H IVPB ; Start 01/16/17 at 01:00 Colistimethate Sodium 75 mg/ Sodium Chloride 100 ml @ 200 mls/hr Q36H IVPB ; Start 01/15/17 at 09:00 Fat Emulsion Intravenous (Liposyn Ii 20%) 250 ml @ 20.833 mls/ hr DAILY@16 IV ; Start 01/14/17 at 16:00 VENANCIO MUNOZ MD Jan 14, 2017 18:30
[2017-01-14] MEDS: DEXTROSE 5%-0.9% NACL 1,000 ML IV SCH (21:49)
--- NOTE | 2017-01-14 23:09 | CONS ---
Date/Time of Note Date/Time of Note DATE: 01/14/17 TIME: 23:08 Assessment/Plan Assessment/Plan Chief Complaint/Hosp Course LEUKOCYTOSIS REACTIVE MONITOR CLOSELY ANEMIA N-CYTIC, N- CHROMIC WITH R RDW MONITOR BLOOD COUNT CLOSELY OBSERVE FOR BLEEDING AND HEMOLYSIS PRBC PRN THROMBOCYTOPENIA 2 TO SEPSIS MONITOR DIC PROFILE- neg TRANSFUSE PLATELET as needed COAGULOPATHY TRANSFUSE FFP prn History of gastric cancer in the past status post gastrectomy as well as chemotherapy PER FAMILY- RAFAT RECENT RESTAGING WITH CT AP- NEG SEPSIS Acute alteration in mental status likely secondary to subacute CVA Acute respiratory distress superimposed on chronic respiratory failure Bilateral pleural effusion with underlying pneumonia and CHF Sepsis with lactic acidosis Chronic muscle wasting and cachexia History of multiple esophageal strictures and bowel obstruction 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 Reported history of hypertension Penicillin allergy Problems: Consultation Date/Type/Reason Admit Date/Time Dec 30, 2016 at 23:12 Initial Consult Date 12/31/16 [facility] Referring Provider: ANA PAULINO 24 HR Interval Summary Free Text/Dictation all noted in icu count reviewed Exam/Review of Systems Vital Signs Vitals Vital Signs Date Time Temp Pulse Resp B/P Pulse Ox O2 Delivery O2 Flow Rate FiO2 01/14/17 22:00 103 16 109/58 97 Mechanical Ventilator 01/14/17 20:00 99.0 01/14/17 19:27 30 01/10/17 12:13 10.0 Intake and Output 01/13/17 01/13/17 01/14/17 15:00 23:00 07:00 Intake Total 835.61 ml 1265.84 ml 610.43 ml Output Total 245 ml 420 ml 420 ml Balance 590.61 ml 845.84 ml 190.43 ml Exam GENERAL: This is a fragile, chronically ill-appearing, elderly woman, who is in no distress. HEENT: Head atraumatic, normocephalic. Sclerae anicteric. Buccal mucosa dry. NECK: Supple. Tracheostomy present. CHEST: Chest rise symmetrical. Breath sounds diminished at the bases. HEART: S1, S2. ABDOMEN: Soft, bowel sounds present. EXTREMITIES: Without cyanosis. Results Result Diagram: 01/14/17 1320 01/14/17 0525 Results 24 hrs Laboratory Tests Test 01/14/17 01:01 01/14/17 04:58 01/14/17 05:25 01/14/17 05:33 Bedside Glucose 75 64 L Lab Scanned Report BLOOD TRANSFUSION White Blood Count 27.4 #H Red Blood Count 3.02 #L Hemoglobin 8.8 L Hematocrit 29.4 L Mean Corpuscular Volume 97.7 Mean Corpuscular Hemoglobin 36.4 H Mean Corpuscular Hemoglobin Concent 38.1 H Red Cell Distribution Width 15.9 H Platelet Count 90 #L Mean Platelet Volume Neutrophils % Segmented Neutrophils % (Manual) 80 H Band Neutrophils % (Manual) 14 H Lymphocytes % Monocytes % Monocytes % (Manual) 3 Eosinophils % Eosinophils % (Manual) 1 Basophils % Metamyelocytes % (manual) 3 H Nucleated Red Blood Cells % 0.1 H Neutrophils # (Manual) 23.0 H Band Neutrophils # 3.8 H Lymphocytes # Monocytes # Absolute Monocytes (Manual) 0.8 Eosinophils # Basophils # Metamyelocytes # 0.8 H Nucleated Red Blood Cells # Platelet Estimate DECREASED Hypochromasia 1+ Poikilocytosis 2+ Anisocytosis 1+ Macrocytosis 1+ Sodium Level 137 Potassium Level 3.2 L Chloride Level 105 Carbon Dioxide Level 20 L Anion Gap 15 Blood Urea Nitrogen 48 H Creatinine 1.00 Glucose Level 49 #*L Calcium Level 7.0 L Phosphorus Level 4.9 Magnesium Level 1.8 Albumin 2.3 L Triglycerides Level Test 01/14/17 06:33 01/14/17 08:28 01/14/17 13:19 01/14/17 13:20 Bedside Glucose 120 78 69 L 68 L Platelet Count 69 L Prothrombin Time 18.9 #H Prothrombin Time Ratio 1.5 INR International Normalized Ratio 1.57 Activated Partial Thromboplast Time 47.3 H Thrombin Time 18.5 Fibrinogen 232.0 # Plasma Fibrin Degradation Products <10 D-Dimer 2445.00 #H D-Dimer Comment Test 01/14/17 13:54 01/14/17 14:11 01/14/17 17:40 01/14/17 17:53 Bedside Glucose 138 118 71 140 Test 01/14/17 18:12 01/14/17 21:04 Bedside Glucose 111 79 Medications Medications Current Medications Chlorhexidine Gluconate (Peridex) 10 ml BID MM Last administered on 01/14/17t 21 :05; Admin Dose 10 ML; Start 12/31/16 at 09:00 Lidocaine (Lidoderm) 1 patch NOTE TRANSDERM ; Start 12/31/16 at 00:00 Insulin Aspart (Novolog Insulin Pen) NOVOLOG *MILD* ALGORI... Q4 SC Last administered on 01/03/17 20:44; Admin Dose 1 UNIT; Start 12/31/16 at 21:00 Miscellaneous Information 1 ea NOTE XX ; Start 12/31/16 at 18:30 Glucose (Glutose) 15 gm Q15M PRN PO DECREASED GLUCOSE; Start 12/31/16 at 18:30 Glucose (Glutose) 22.5 gm Q15M PRN PO DECREASED GLUCOSE; Start 12/31/16 at 18: 30 Dextrose (D50w Syringe) 25 ml Q15M PRN IV DECREASED GLUCOSE Last administered on 01/14/17 17:40; Admin Dose 25 ML; Start 12/31/16 at 18:30 Dextrose (D50w Syringe) 50 ml Q15M PRN IV DECREASED GLUCOSE Last administered on 01/13/17 01:15; Admin Dose 50 ML; Start 12/31/16 at 18:30 Glucagon (Glucagen) 1 mg Q15M PRN IM DECREASED GLUCOSE; Start 12/31/16 at 18:30 Glucose (Glutose) 15 gm Q15M PRN BUCCAL DECREASED GLUCOSE; Start 12/31/16 at 18 :30 Hydromorphone HCl (Dilaudid) 0.5 mg Q4H PRN IV PAIN Last administered on 09:58; Admin Dose 0.5 MG; Start 01/01/17 at 01:30 Miscellaneous Information (Pending [facility] Order For Wound Care) This patient obregon... PRN PRN XX WOUND CARE; Start 01/01/17 at 03:00 Fentanyl 1 patch 1 patch Q3D TRANSDERM Last administered on 01/13/17 21:50; Admin Dose 1 PATCH; Start 01/01/17 at 20:00 Total Parenteral Nutrition (Tpn) 1,000 ml @ 40 mls/hr Q24H IV Last administered on 01/14/17 18:06; Admin Dose 40 MLS/HR; Start 01/02/17 at 21:00 Ondansetron HCl (Zofran Inj) 4 mg Q4H PRN IV NAUSEA AND/OR VOMITING Last administered on 01/07/17 07:03; Admin Dose 4 MG; Start 01/03/17 at 17:30 Aspirin 300 mg 300 mg DAILY [place] Last administered on 01/14/17 08:29; Admin Dose 300 MG; Start 01/06/17 at 15:30 Norepinephrine 16 mg/Dextrose 500 ml @ 0 mls/hr TITRATE IV Last administered on 01/14/17 18:16; Admin Dose 22.5 MLS/HR; Start 01/10/17 at 17:30 Metronidazole 250 mg/N/A 50 ml @ 50 mls/hr Q8 IVPB Last administered on 21:49; Admin Dose 50 MLS/HR; Start 01/13/17 at 14:00 Caspofungin 50 mg/ Sodium Chloride 250 ml @ 250 mls/hr Q24H IVPB Last administered on 01/14/17 13:21; Admin Dose 250 MLS/HR; Start 01/14/17 at 13:00 Vancomycin HCl 100 ml @ 100 mls/hr Q36H IVPB ; Start 01/16/17 at 01:00 Colistimethate Sodium 75 mg/ Sodium Chloride 100 ml @ 200 mls/hr Q36H IVPB ; Start 01/15/17 at 09:00 Fat Emulsion Intravenous 250 ml @ 20.833 mls/ hr DAILY@16 IV ; Start 01/14/17 at 16:00 Dextrose/Sodium Chloride (D5-NS) 1,000 ml @ 30 mls/hr Q24H IV Last administered on 01/14/17 21:49; Admin Dose 30 MLS/HR; Start 01/14/17 at 22:00 RUFINO STEVENSON MD Jan 14, 2017 23:09
--- NOTE | 2017-01-14 23:55 | CONS ---
DATE OF ADMISSION: 12/30/2016 DATE OF CONSULTATION: 01/14/2017 HISTORY OF PRESENT ILLNESS: Ms. Khan is a very unfortunate 71- year-old female, who is status post gastric CA in 2011, where she underwent a gastrectomy plus chemotherapy. She did well, but then developed cholelithiasis, which led to an intestinal obstruction, intestinal ischemia and necrosis related to multiple surgeries and finally resulted in what is believed to be short- gut syndrome. She was evaluated at [facility] for a possible small bowel transplant, but was deemed not to be a candidate. During that hospitalization, she had a CVA, respiratory infection, and now has a tracheostomy. She was just recently hospitalized at [facility] for 3 months with sepsis, likely to pulmonary source. She was then stable for discharge, went home, and then came back to the ER at [facility], where she has been treated with pneumonia. She then developed some bleeding from her multiple drainage catheters. This occurred today, and I was called. One of the catheters seems to be a duodenostomy tube, and the other seems to be a drain. PAST MEDICAL HISTORY: Is for gastric CA, with small bowel obstruction, ischemic bowel, with percutaneous fistula, pneumonia. PAST SURGICAL HISTORY: Total gastrectomy and small bowel resection. SOCIAL HISTORY: She is intubated and trached and lives at an assisted correction. She denies smoking, drinking, or drug use. MEDICATION: Unclear. ALLERGIES: UNCLEAR. REVIEW OF SYSTEMS: A 14-point review of systems was performed. Pertinent positives and negatives per HPI. PHYSICAL EXAMINATION: GENERAL APPEARANCE: She is an intubated, noncommunicative lady. HEENT: Her head is atraumatic, normocephalic. NECK: Supple. CHEST: Bilateral decreased breath sounds and rales. HEART: She has regular rate and rhythm. ABDOMEN: Soft, nondistended, with multiple drainage tubes in place. NEUROLOGIC: Unable to assess. PSYCHIATRIC: Unable to assess. SKIN: No rashes or lesions. LABORATORY: Today reveal a white count of 28, hematocrit of 30, and a platelet count of 90. Sodium 137, potassium 3.2, chloride 105, CO2 of 20, BUN/creatinine 48/1 and glucose of 49. A CT of the abdomen and pelvis performed yesterday reveals percutaneous pigtail catheter within a loop of small bowel in the upper abdomen, likely representing an afferent loop, severe thickening and edema of the wall of this loop, consistent with enteritis. Small bowel hemorrhage could mimic this appearance. Small bowel thickening and edema throughout the other loops of small bowel throughout the abdominal cavity, stable over time. Thickening of the left lower sigmoid and the bladder as well. Severe 3rd spacing edema. ASSESSMENT AND PLAN: Ms. Khan is an unfortunate 71-year-old female with a questionable gastrointestinal bleed. 1. She is not a surgical candidate. 2. Would treat conservatively with transfusions and correction of her thrombocytopenia and ischemic process. 3. I would consider palliative care. 4. Would recommend transfer back to [facility], as they know the patient much better at that facility. Dictated By: rFank Cosme MD /prachi/joe /Document#: [id number]
[2017-01-15] VITALS (95 sets, daily range): BP systolic 62–120; BP diastolic 43–78; PULSE 99–128; RESP 10–28
[2017-01-15] MEDS: INSULIN ASPART [NOVOLOG] 3 ML PEN SC SCH ×6 (01:00→20:39)
[2017-01-15] MEDS: ALBUTEROL 18 GM INHALER INH SCH ×6 (01:37→21:33)
[2017-01-15] MEDS: IPRATROPIUM (HFA) 12.9 GM INHALER INH SCH ×6 (01:38→21:33)
[2017-01-15 05:13] LABS: ABNORMAL IP MESSAGE 1; BASOPHIL # 0.1 10^3/ul (0.0-0.1); BASOPHILS % 0.2 % (0.0-2.0); EOSINOPHILS # 0.1 10^3/ul (0.0-0.5); EOSINOPHILS % 0.5 % (0.0-7.0); HEMATOCRIT 31.6 % (37.0-47.0); HEMOGLOBIN 10.3 g/dl (12.0-16.0); LYMPHOCYTES # 0.6 10^3/ul (0.8-2.9); LYMPHOCYTES % 2.8 % (15.0-51.0); MEAN CORPUSCULAR HEMOGLOBIN 31.3 pg (29.0-33.0); MEAN CORPUSCULAR HGB CONC 32.6 g/dl (32.0-37.0); MEAN PLATELET VOLUME 12.9 fl (7.4-10.4); MONOCYTE # 0.8 10^3/ul (0.3-0.9); MONOCYTES % 3.8 % (0.0-11.0); NEUTROPHILS % 91.8 % (39.0-77.0); NUCLEATED RED BLOOD CELLS% 0.1 /100WBC (0.0-0.0); PLATELET COUNT 33 10^3/UL (140-415); RED BLOOD COUNT 3.29 10^6/ul (4.20-5.40); RED CELL DISTRIBUTION WIDTH 15.7 % (11.5-14.5); WHITE BLOOD COUNT 20.4 10^3/ul (4.8-10.8)
[2017-01-15 05:17] LABS: POSITIVE DIFF @See below
[2017-01-15 05:29] LABS: ALBUMIN 1.9 g/dl (3.3-4.9); BILIRUBIN,DIRECT 7.6 mg/dl (0.00-0.20); BILIRUBIN,INDIRECT 1.8 mg/dl (0-1.1); BILIRUBIN,TOTAL 9.4 mg/dl (0.2-1.3); TOTAL PROTEIN 4.6 g/dl (6.1-8.1)
[2017-01-15 05:33] LABS: CALCIUM 6.9 mg/dl (8.4-10.2); POTASSIUM 3.1 mmol/L (3.5-5.1)
[2017-01-15] MEDS: metroNIDAZOLE 500 MG/NS (PMX) 250 MG in EVAC CONTAINER 1 BOTTLE IVPB SCH ×3 (05:48→22:43)
[2017-01-15] MEDS: POTASSIUM CHLORIDE 250 ML IVPB SCH ×2 (08:58→17:40)
[2017-01-15] MEDS: BALSAM PERU/CASTOR OIL 60 GM TUBE TOP SCH (09:09)
[2017-01-15] MEDS: CHLORHEXIDINE GLUCONATE 15 ML UD CUP MM SCH ×2 (09:40→20:39)
[2017-01-15] MEDS: ASPIRIN 300 MG SUPP PR SCH (09:47)
[2017-01-15] MEDS: COLISTIMETHATE 75 MG in SOD CHLORIDE 0.9% 100 ML IVPB SCH (11:40)
--- NOTE | 2017-01-15 11:59 | CONS ---
Date/Time of Note Date/Time of Note DATE: 01/15/17 TIME: 11:55 Assessment/Plan Assessment/Plan Additional Assessment/Plan Data setting; AC of 16, tidal volume 450, PEEP of 5, 30% FiO2. Patient is on Levophed at 12 mics per minute. Assessment and recommendations; 1. Patient admitted with severe CHF and severe bilateral pneumonia with history of chronic respiratory failure which is ventilator dependent. 2. Advanced dementia. Which is multi-infarct. 3. Prior history of gastric cancer. 4. Advanced cirrhosis of liver, patient draining copious amounts of fluid through bilateral upper quadrant drains. 5. Anemia and thrombocytopenia. 6. Chronic ileus, patient on long-term TPN. 7. Patient's family has appropriately signed a DNR form. Continue current supportive care. Prognosis is very poor on account of multiple comorbidities. Consultation Date/Type/Reason Admit Date/Time Dec 30, 2016 at 23:12 Initial Consult Date 01/01/17 Type of Consultation: Pulmonary/critical care Referring Provider: ANA PAULINO 24 HR Interval Summary Free Text/Dictation Patient's condition remains critical. Currently requiring Levophed at 12 mics per minute. Remains unresponsive due to advanced dementia. Also remains chronically ventilator dependent. General exam; elderly woman, on ventilator via tracheostomy, unresponsive, but awake. Exam/Review of Systems Vital Signs Vitals Vital Signs Date Time Temp Pulse Resp B/P Pulse Ox O2 Delivery O2 Flow Rate FiO2 01/15/17 08:00 30 01/15/17 08:00 107 01/15/17 08:00 99.7 19 105/59 96 Mechanical Ventilator Intake and Output 01/14/17 01/14/17 01/15/17 15:00 23:00 07:00 Intake Total 800.0 ml 780.0 ml 760.0 ml Output Total 245 ml 475 ml 505 ml Balance 555.0 ml 305.0 ml 255.0 ml Exam HEENT exam; supple neck, positive JVD. No lymphadenopathy. Midline trachea. No thyromegaly. Tracheostomy in place. Patient has fair dentition. Pupils are midsize and reactive to light. Chest exam; scattered crackles bilaterally. S1-S2 audible, no murmurs. Regular rhythm. Abdomen exam; soft, protuberant. G-tube in place. Bilateral upper quadrant drains are in place. Extremity exam; 1+ anasarca. RIDE MECHANIC exam; patient remains awake but unresponsive to any commands. Results Result Diagram: 01/15/17 0415 01/15/17 0415 Results 24 hrs Laboratory Tests Test 01/14/17 13:19 01/14/17 13:20 01/14/17 13:54 01/14/17 14:11 Bedside Glucose 69 L 68 L 138 118 Platelet Count 69 L Prothrombin Time 18.9 #H Prothrombin Time Ratio 1.5 INR International Normalized Ratio 1.57 Activated Partial Thromboplast Time 47.3 H Thrombin Time 18.5 Fibrinogen 232.0 # Plasma Fibrin Degradation Products <10 D-Dimer 2445.00 #H D-Dimer Comment Test 01/14/17 17:40 01/14/17 17:53 01/14/17 18:12 01/14/17 21:04 Bedside Glucose 71 140 111 79 Test 01/15/17 00:53 01/15/17 04:15 01/15/17 04:20 01/15/17 05:14 Bedside Glucose 76 86 White Blood Count 20.4 #H Red Blood Count 3.29 L Hemoglobin 10.3 L Hematocrit 31.6 L Mean Corpuscular Volume 96.0 Mean Corpuscular Hemoglobin 31.3 Mean Corpuscular Hemoglobin Concent 32.6 Red Cell Distribution Width 15.7 H Platelet Count 33 #L Mean Platelet Volume 12.9 H Neutrophils % 91.8 H Lymphocytes % 2.8 L Monocytes % 3.8 Eosinophils % 0.5 Basophils % 0.2 Nucleated Red Blood Cells % 0.1 H Neutrophils # (Manual) 18.7 H Lymphocytes # 0.6 L Monocytes # 0.8 Eosinophils # 0.1 Basophils # 0.1 Nucleated Red Blood Cells # 0.0 Sodium Level 135 Potassium Level 3.1 L Chloride Level 104 Carbon Dioxide Level 22 Anion Gap 12 Blood Urea Nitrogen 49 H Creatinine 1.00 Glucose Level 62 #L Calcium Level 6.9 L Total Bilirubin 9.4 H Direct Bilirubin 7.60 H Indirect Bilirubin 1.8 H Aspartate Amino Transf (AST/SGOT) 91 H Alanine Aminotransferase (ALT/SGPT) 66 Alkaline Phosphatase 134 H Total Protein 4.6 L Albumin 1.9 L Lab Scanned Report BLOOD TRANSFUSION Test 01/15/17 09:38 Bedside Glucose 74 Medications Medications Current Medications Chlorhexidine Gluconate (Peridex) 10 ml BID MM Last administered on 9/6/17at 09 :40; Admin Dose 10 ML; Start 12/31/16 at 09:00 Lidocaine (Lidoderm) 1 patch NOTE TRANSDERM ; Start 12/31/16 at 00:00 Insulin Aspart (Novolog Insulin Pen) NOVOLOG *MILD* ALGORI... Q4 SC Last administered on 01/03/17 20:44; Admin Dose 1 UNIT; Start 12/31/16 at 21:00 Miscellaneous Information 1 ea NOTE XX ; Start 12/31/16 at 18:30 Glucose (Glutose) 15 gm Q15M PRN PO DECREASED GLUCOSE; Start 12/31/16 at 18:30 Glucose (Glutose) 22.5 gm Q15M PRN PO DECREASED GLUCOSE; Start 12/31/16 at 18: 30 Dextrose (D50w Syringe) 25 ml Q15M PRN IV DECREASED GLUCOSE Last administered on 01/14/17 17:40; Admin Dose 25 ML; Start 12/31/16 at 18:30 Dextrose (D50w Syringe) 50 ml Q15M PRN IV DECREASED GLUCOSE Last administered on 01/13/17 01:15; Admin Dose 50 ML; Start 12/31/16 at 18:30 Glucagon (Glucagen) 1 mg Q15M PRN IM DECREASED GLUCOSE; Start 12/31/16 at 18:30 Glucose (Glutose) 15 gm Q15M PRN BUCCAL DECREASED GLUCOSE; Start 12/31/16 at 18 :30 Hydromorphone HCl (Dilaudid) 0.5 mg Q4H PRN IV PAIN Last administered on 09:58; Admin Dose 0.5 MG; Start 01/01/17 at 01:30 Miscellaneous Information ([facility]) This patient obregon... PRN PRN XX WOUND CARE; Start 01/01/17 at 03:00 Fentanyl 1 patch 1 patch Q3D TRANSDERM Last administered on 01/13/17 21:50; Admin Dose 1 PATCH; Start 01/01/17 at 20:00 Total Parenteral Nutrition (Tpn) 1,000 ml @ 40 mls/hr Q24H IV Last administered on 01/14/17 18:06; Admin Dose 40 MLS/HR; Start 01/02/17 at 21:00 Ondansetron HCl (Zofran Inj) 4 mg Q4H PRN IV NAUSEA AND/OR VOMITING Last administered on 01/07/17 07:03; Admin Dose 4 MG; Start 01/03/17 at 17:30 Aspirin 300 mg 300 mg DAILY [place] Last administered on 01/15/17 09:47; Admin Dose 300 MG; Start 01/06/17 at 15:30 Norepinephrine 16 mg/Dextrose 500 ml @ 0 mls/hr TITRATE IV Last administered on 01/14/17 18:16; Admin Dose 22.5 MLS/HR; Start 01/10/17 at 17:30 Metronidazole 250 mg/N/A 50 ml @ 50 mls/hr Q8 IVPB Last administered on 05:48; Admin Dose 50 MLS/HR; Start 01/13/17 at 14:00 Caspofungin 50 mg/ Sodium Chloride 250 ml @ 250 mls/hr Q24H IVPB Last administered on 01/14/17 13:21; Admin Dose 250 MLS/HR; Start 01/14/17 at 13:00 Vancomycin HCl 100 ml @ 100 mls/hr Q36H IVPB ; Start 01/16/17 at 01:00 Colistimethate Sodium 75 mg/ Sodium Chloride 100 ml @ 200 mls/hr Q36H IVPB Last administered on 01/15/17 11:40; Admin Dose 200 MLS/HR; Start 01/15/17 at 09: 00 Fat Emulsion Intravenous 250 ml @ 20.833 mls/ hr DAILY@16 IV ; Start 01/14/17 at 16:00 Dextrose/Sodium Chloride 1,000 ml @ 40 mls/hr Q24H IV Last administered on 01/14 21:49; Admin Dose 30 MLS/HR; Start 01/14/17 at 22:00 Potassium Chloride (KCl 40 MEQ/250 ML NS) 250 ml @ 62.5 mls/hr Q4H IVPB Last administered on 01/15/17 08:58; Admin Dose 62.5 MLS/HR; Start 01/15/17 at 07:00; Stop 01/15/17 at 14:59 ROSMERY JUAREZ Jan 15, 2017 11:59
--- NOTE | 2017-01-15 12:13 | CONS ---
Date/Time of Note Date/Time of Note DATE: 01/15/17 TIME: 12:11 Assessment/Plan Assessment/Plan Chief Complaint/Hosp Course 71-year-old female admitted [facility] altered with depression pneumonia. Patient is TPN dependent she is trached she lives at home with family members 24 7 caregivers. Patient is a past medical history of gastric cancer diagnosed roughly 5 years prior to this hospitalization. December 31 MRI of the brain showed acute infarct left CA involving the temporal lobe. Patient has been admitted to the intensive care unit later dependent and on pressors. Family members have been under bedside the decision maker for shunt is not here at this time. He is patient's niece make solid decisions on her behalf. Patient has left instructions with family members that her sister is not to make decisions on her level of care. Normal palliative care consultation will be done when patient's agent is available to minus other family members who will be involved with family conference. Problems: Additional Assessment/Plan Spoke with Shante this morning confirmed that she is still the decision maker for family. Some confusion on CODE STATUS last night I have had a conversation with her concerning chemical code with the use of pressors fluids reversal of cardiac arrhythmias but not cardiac arrest. She has agreed with reversing back to chemical code only without shocking. Consultation Date/Type/Reason Admit Date/Time Dec 30, 2016 at 23:12 Initial Consult Date 01/01/17 Type of Consultation: Palliative care Referring Provider: ANA PAULINO Exam/Review of Systems Vital Signs Vitals Vital Signs Date Time Temp Pulse Resp B/P Pulse Ox O2 Delivery O2 Flow Rate FiO2 01/15/17 08:00 30 01/15/17 08:00 107 01/15/17 08:00 99.7 19 105/59 96 Mechanical Ventilator Intake and Output 01/14/17 01/14/17 01/15/17 15:00 23:00 07:00 Intake Total 800.0 ml 780.0 ml 760.0 ml Output Total 245 ml 475 ml 505 ml Balance 555.0 ml 305.0 ml 255.0 ml Results Result Diagram: 01/15/17 0415 01/15/17 0415 Results 24 hrs Laboratory Tests Test 01/14/17 13:19 01/14/17 13:20 01/14/17 13:54 01/14/17 14:11 Bedside Glucose 69 L 68 L 138 118 Platelet Count 69 L Prothrombin Time 18.9 #H Prothrombin Time Ratio 1.5 INR International Normalized Ratio 1.57 Activated Partial Thromboplast Time 47.3 H Thrombin Time 18.5 Fibrinogen 232.0 # Plasma Fibrin Degradation Products <10 D-Dimer 2445.00 #H D-Dimer Comment Test 01/14/17 17:40 01/14/17 17:53 01/14/17 18:12 01/14/17 21:04 Bedside Glucose 71 140 111 79 Test 01/15/17 00:53 01/15/17 04:15 01/15/17 04:20 01/15/17 05:14 Bedside Glucose 76 86 White Blood Count 20.4 #H Red Blood Count 3.29 L Hemoglobin 10.3 L Hematocrit 31.6 L Mean Corpuscular Volume 96.0 Mean Corpuscular Hemoglobin 31.3 Mean Corpuscular Hemoglobin Concent 32.6 Red Cell Distribution Width 15.7 H Platelet Count 33 #L Mean Platelet Volume 12.9 H Neutrophils % 91.8 H Lymphocytes % 2.8 L Monocytes % 3.8 Eosinophils % 0.5 Basophils % 0.2 Nucleated Red Blood Cells % 0.1 H Neutrophils # (Manual) 18.7 H Lymphocytes # 0.6 L Monocytes # 0.8 Eosinophils # 0.1 Basophils # 0.1 Nucleated Red Blood Cells # 0.0 Sodium Level 135 Potassium Level 3.1 L Chloride Level 104 Carbon Dioxide Level 22 Anion Gap 12 Blood Urea Nitrogen 49 H Creatinine 1.00 Glucose Level 62 #L Calcium Level 6.9 L Total Bilirubin 9.4 H Direct Bilirubin 7.60 H Indirect Bilirubin 1.8 H Aspartate Amino Transf (AST/SGOT) 91 H Alanine Aminotransferase (ALT/SGPT) 66 Alkaline Phosphatase 134 H Total Protein 4.6 L Albumin 1.9 L Lab Scanned Report BLOOD TRANSFUSION Test 01/15/17 09:38 Bedside Glucose 74 Medications Medications Current Medications Chlorhexidine Gluconate (Peridex) 10 ml BID MM Last administered on 01/15/17 09 :40; Admin Dose 10 ML; Start 12/31/16 at 09:00 Lidocaine (Lidoderm) 1 patch NOTE TRANSDERM ; Start 12/31/16 at 00:00 Insulin Aspart (Novolog Insulin Pen) NOVOLOG *MILD* ALGORI... Q4 SC Last administered on 8/25/17at 20:44; Admin Dose 1 UNIT; Start 12/31/16 at 21:00 Miscellaneous Information 1 ea NOTE XX ; Start 12/31/16 at 18:30 Glucose (Glutose) 15 gm Q15M PRN PO DECREASED GLUCOSE; Start 12/31/16 at 18:30 Glucose (Glutose) 22.5 gm Q15M PRN PO DECREASED GLUCOSE; Start 12/31/16 at 18: 30 Dextrose (D50w Syringe) 25 ml Q15M PRN IV DECREASED GLUCOSE Last administered on 01/14/17 17:40; Admin Dose 25 ML; Start 12/31/16 at 18:30 Dextrose (D50w Syringe) 50 ml Q15M PRN IV DECREASED GLUCOSE Last administered on 01/13/17 01:15; Admin Dose 50 ML; Start 12/31/16 at 18:30 Glucagon (Glucagen) 1 mg Q15M PRN IM DECREASED GLUCOSE; Start 12/31/16 at 18:30 Glucose (Glutose) 15 gm Q15M PRN BUCCAL DECREASED GLUCOSE; Start 12/31/16 at 18 :30 Hydromorphone HCl (Dilaudid) 0.5 mg Q4H PRN IV PAIN Last administered on 09:58; Admin Dose 0.5 MG; Start 01/01/17 at 01:30 Miscellaneous Information (Pending [facility] Order For Wound Care) This patient obregon... PRN PRN XX WOUND CARE; Start 01/01/17 at 03:00 Fentanyl 1 patch 1 patch Q3D TRANSDERM Last administered on 01/13/17 21:50; Admin Dose 1 PATCH; Start 01/01/17 at 20:00 Total Parenteral Nutrition (Tpn) 1,000 ml @ 40 mls/hr Q24H IV Last administered on 01/14/17 18:06; Admin Dose 40 MLS/HR; Start 01/02/17 at 21:00 Ondansetron HCl (Zofran Inj) 4 mg Q4H PRN IV NAUSEA AND/OR VOMITING Last administered on 01/07/17 07:03; Admin Dose 4 MG; Start 01/03/17 at 17:30 Aspirin 300 mg 300 mg DAILY [place] Last administered on 01/15/17 09:47; Admin Dose 300 MG; Start 01/06/17 at 15:30 Norepinephrine 16 mg/Dextrose 500 ml @ 0 mls/hr TITRATE IV Last administered on 01/14/17 18:16; Admin Dose 22.5 MLS/HR; Start 01/10/17 at 17:30 Metronidazole 250 mg/N/A 50 ml @ 50 mls/hr Q8 IVPB Last administered on 05:48; Admin Dose 50 MLS/HR; Start 01/13/17 at 14:00 Caspofungin 50 mg/ Sodium Chloride 250 ml @ 250 mls/hr Q24H IVPB Last administered on 01/14/17 13:21; Admin Dose 250 MLS/HR; Start 01/14/17 at 13:00 Vancomycin HCl 100 ml @ 100 mls/hr Q36H IVPB ; Start 01/16/17 at 01:00 Colistimethate Sodium 75 mg/ Sodium Chloride 100 ml @ 200 mls/hr Q36H IVPB Last administered on 01/15/17 11:40; Admin Dose 200 MLS/HR; Start 01/15/17 at 09: 00 Fat Emulsion Intravenous 250 ml @ 20.833 mls/ hr DAILY@16 IV ; Start 01/14/17 at 16:00 Dextrose/Sodium Chloride 1,000 ml @ 40 mls/hr Q24H IV Last administered on 01/14 21:49; Admin Dose 30 MLS/HR; Start 01/14/17 at 22:00 Potassium Chloride (KCl 40 MEQ/250 ML NS) 250 ml @ 62.5 mls/hr Q4H IVPB Last administered on 01/15/17 08:58; Admin Dose 62.5 MLS/HR; Start 01/15/17 at 07:00; Stop 01/15/17 at 14:59 DONNIE VAZQUEZ Jan 15, 2017 12:13
--- NOTE | 2017-01-15 13:05 | PN ---
DATE: 01/15/2017 SUBJECTIVE DATA: No acute changes. The patient is lying comfortably in bed. She is on Levophed drip. OBJECTIVE DATA: Spiking low-grade fevers with a T-max 99.7, pulse 106, respirations 19, blood pressure 105/59, saturation 96 on 30 FiO2. LABORATORY AND DIAGNOSTIC DATA: WBC 20.4, H and H 10.3 and 31.6, platelet count 33, neutrophils 91.8. BUN 49, creatinine 1.0. MICROBIOLOGY: Abdominal fluid culture growing acinetobacter, thierry, enterococcus species and carbapenem-resistant Klebsiella pneumoniae. Endotracheal aspirate growing pseudomonas and Acinetobacter baumannii. Urine culture grew Thierry albicans. INDWELLINGS: Trach, PEG, Crow, right subclavian triple-lumen catheter, multiple intra-abdominal drainage catheters ANTIMICROBIALS: 1. Vancomycin. 2. Colistin. 3. Cancidas. 4. Flagyl. PHYSICAL EXAMINATION: GENERAL: Chronically ill-appearing, elderly woman, in no distress. HEENT: Head atraumatic, normocephalic. Sclerae anicteric. Buccal mucosa dry. NECK: Supple. Tracheostomy present. LUNGS: Chest rise symmetrical. Breath sounds diminished at the bases. HEART: S1, S2. ABDOMEN: Distended, soft. Bowel sounds hypoactive. EXTREMITIES: Trace edema. ASSESSMENT: 1. Sepsis with shock and multisystem organ failure. 2. Healthcare-associated pneumonia. 3. Urinary tract infection. 4. Multiple intra-abdominal abscesses, status post drainage catheter placement, abdominal fluid culture growing multidrug- resistant organisms. 5. Cachexia. 6. Progressive thrombocytopenia. 7. Anemia. 8. Enterocutaneous fistula. PLAN: Patient is doing poorly. She is a CHEMICAL CODE only. She is being seen by multiple consultants. They recommend palliative care treatment. The patient is also being seen by palliative care team. We will continue her on current antibiotics. Dictated By: Nancy Mccarty NP /prachi/dot /Document#: [id number]
[2017-01-15] MEDS: DEXTROSE 50% 50 ML SYRINGE IV PRN (14:11)
[2017-01-15] MEDS: CASPOFUNGIN 50 MG in SOD CHLORIDE 0.9% 250 ML IVPB SCH (14:11)
--- NOTE | 2017-01-15 15:07 | PN ---
Date/Time of Note Date/Time of Note DATE: 01/15/17 TIME: 15:05 Assessment/Plan VTE Prophylaxis VTE Prophylaxis Intervention: SCD's Lines/Catheters IV Catheter Type (from Nrsg): PICC Line Central line still needed: Yes Urinary Cath still in place: Yes Reason Cath still needed: other (indicate) (critically ill) Assessment/Plan Assessment/Plan 71 yo F with previous h/o gastric ca sp treatment, h/o multiple esophageal strictures and bowel obstructions which have rendered the patient TPN dependent , chronic respiratory failure sp trach placement admitted for decreased mental status, suspect either from CVA (less likely as not read as acute on imaging) v toxic/metabolic encephalopathy from pneumonia. sp thora, hospitalization c/b septic shock with hypotension warranting overnight ICU stay, transferred back to floor 8.25, transferred back to the ICU 9.1 for respiratory distress. Now still septic despite broad spectrum abx, blood-tinged output from drains and j pouch, and DIC. # Aspiration pneumonia/pneumonitis, on antibiotics: ID helping with abx. also cont pressor support #Recurrent ischemic stroke: sp neuro eval # Gastric cancer in 2011 sp extensive resection, as well as chemotherapy. #Multiple esophageal strictures and bowel obstruction, chronic ileus and chronic abd fluid collections: initially managed at OSH 11.16 cont TPN. #Status post tracheostomy: cont O2 as needed #bloody output from drain sites: sp GI and gen surg eval, advised palliative care v xfer to [facility] #DIC: likely 2/2 underlying sepsis, heme following TPN to be managed by RD and pharmacy code status changed to chemical code only prognosis poor CM cs for [facility] transfer per family request critical care time: 30 minutes Subjective 24 Hr Interval Summary Free Text/Dictation Pt changed from DNR to chemical code overnight? As providers here orienting offerings towards palliative care, family requesting transfer to [facility] for 2nd opinion/further evaluation. Exam/Review of Systems Vital Signs Vitals Vital Signs Date Time Temp Pulse Resp B/P Pulse Ox O2 Delivery O2 Flow Rate FiO2 01/15/17 12:15 106 18 103/65 97 01/15/17 12:00 98.6 Mechanical Ventilator 01/15/17 08:00 30 Intake and Output 01/14/17 01/14/17 01/15/17 15:00 23:00 07:00 Intake Total 800.0 ml 780.0 ml 760.0 ml Output Total 245 ml 475 ml 505 ml Balance 555.0 ml 305.0 ml 255.0 ml Exam nad, FIO2 30% on ventilator attached to trach no mrg lungs with poor breath sounds abd drains noted no rashes Results Result Diagram: 01/15/17 0415 01/15/17 0415 Results 24 hrs Laboratory Tests Test 01/14/17 17:40 01/14/17 17:53 01/14/17 18:12 01/14/17 21:04 Bedside Glucose 71 140 111 79 Test 01/15/17 00:53 01/15/17 04:15 01/15/17 04:20 01/15/17 05:14 Bedside Glucose 76 86 White Blood Count 20.4 #H Red Blood Count 3.29 L Hemoglobin 10.3 L Hematocrit 31.6 L Mean Corpuscular Volume 96.0 Mean Corpuscular Hemoglobin 31.3 Mean Corpuscular Hemoglobin Concent 32.6 Red Cell Distribution Width 15.7 H Platelet Count 33 #L Mean Platelet Volume 12.9 H Neutrophils % 91.8 H Lymphocytes % 2.8 L Monocytes % 3.8 Eosinophils % 0.5 Basophils % 0.2 Nucleated Red Blood Cells % 0.1 H Neutrophils # (Manual) 18.7 H Lymphocytes # 0.6 L Monocytes # 0.8 Eosinophils # 0.1 Basophils # 0.1 Nucleated Red Blood Cells # 0.0 Sodium Level 135 Potassium Level 3.1 L Chloride Level 104 Carbon Dioxide Level 22 Anion Gap 12 Blood Urea Nitrogen 49 H Creatinine 1.00 Glucose Level 62 #L Calcium Level 6.9 L Total Bilirubin 9.4 H Direct Bilirubin 7.60 H Indirect Bilirubin 1.8 H Aspartate Amino Transf (AST/SGOT) 91 H Alanine Aminotransferase (ALT/SGPT) 66 Alkaline Phosphatase 134 H Total Protein 4.6 L Albumin 1.9 L Lab Scanned Report BLOOD TRANSFUSION Test 01/15/17 09:38 01/15/17 12:26 01/15/17 13:56 01/15/17 14:37 Bedside Glucose 74 85 65 L 107 Medications Medications Current Medications Chlorhexidine Gluconate (Peridex) 10 ml BID MM Last administered on 01/15/17t 09 :40; Admin Dose 10 ML; Start 12/31/16 at 09:00 Lidocaine (Lidoderm) 1 patch NOTE TRANSDERM ; Start 12/31/16 at 00:00 Insulin Aspart (Novolog Insulin Pen) NOVOLOG *MILD* ALGORI... Q4 SC Last administered on 01/03/17 20:44; Admin Dose 1 UNIT; Start 12/31/16 at 21:00 Miscellaneous Information 1 ea NOTE XX ; Start 12/31/16 at 18:30 Glucose (Glutose) 15 gm Q15M PRN PO DECREASED GLUCOSE; Start 12/31/16 at 18:30 Glucose (Glutose) 22.5 gm Q15M PRN PO DECREASED GLUCOSE; Start 12/31/16 at 18: 30 Dextrose (D50w Syringe) 25 ml Q15M PRN IV DECREASED GLUCOSE Last administered on 01/15/17 14:11; Admin Dose 25 ML; Start 12/31/16 at 18:30 Dextrose (D50w Syringe) 50 ml Q15M PRN IV DECREASED GLUCOSE Last administered on 01/13/17 01:15; Admin Dose 50 ML; Start 12/31/16 at 18:30 Glucagon (Glucagen) 1 mg Q15M PRN IM DECREASED GLUCOSE; Start 12/31/16 at 18:30 Glucose (Glutose) 15 gm Q15M PRN BUCCAL DECREASED GLUCOSE; Start 12/31/16 at 18 :30 Hydromorphone HCl (Dilaudid) 0.5 mg Q4H PRN IV PAIN Last administered on 09:58; Admin Dose 0.5 MG; Start 01/01/17 at 01:30 Miscellaneous Information (Pending [facility] Order For Wound Care) This patient obregon... PRN PRN XX WOUND CARE; Start 01/01/17 at 03:00 Fentanyl 1 patch 1 patch Q3D TRANSDERM Last administered on 01/13/17 21:50; Admin Dose 1 PATCH; Start 01/01/17 at 20:00 Total Parenteral Nutrition (Tpn) 1,000 ml @ 40 mls/hr Q24H IV Last administered on 01/14/17 18:06; Admin Dose 40 MLS/HR; Start 01/02/17 at 21:00 Ondansetron HCl (Zofran Inj) 4 mg Q4H PRN IV NAUSEA AND/OR VOMITING Last administered on 01/07/17 07:03; Admin Dose 4 MG; Start 01/03/17 at 17:30 Aspirin 300 mg 300 mg DAILY DE Last administered on 01/15/17 09:47; Admin Dose 300 MG; Start 01/06/17 at 15:30 Norepinephrine 16 mg/Dextrose 500 ml @ 0 mls/hr TITRATE IV Last administered on 01/15/17 13:53; Admin Dose 33.75 MLS/HR; Start 01/10/17 at 17:30 Metronidazole 250 mg/N/A 50 ml @ 50 mls/hr Q8 IVPB Last administered on 05:48; Admin Dose 50 MLS/HR; Start 01/13/17 at 14:00 Caspofungin 50 mg/ Sodium Chloride 250 ml @ 250 mls/hr Q24H IVPB Last administered on 01/15/17 14:11; Admin Dose 250 MLS/HR; Start 01/14/17 at 13:00 Vancomycin HCl 100 ml @ 100 mls/hr Q36H IVPB ; Start 01/16/17 at 01:00 Colistimethate Sodium 75 mg/ Sodium Chloride 100 ml @ 200 mls/hr Q36H IVPB Last administered on 01/15/17 11:40; Admin Dose 200 MLS/HR; Start 01/15/17 at 09: 00 Fat Emulsion Intravenous 250 ml @ 20.833 mls/ hr DAILY@16 IV ; Start 01/14/17 at 16:00 Dextrose/Sodium Chloride (D5-NS) 1,000 ml @ 40 mls/hr Q24H IV Last administered on 01/14/17 21:49; Admin Dose 30 MLS/HR; Start 01/14/17 at 22:00 MODESTO SANDHU MD Jan 15, 2017 15:07
[2017-01-15] MEDS: FAT EMULSION 20% 250 ML IV SCH (17:40)
[2017-01-15] MEDS: HYDROmorphONE 1 MG/ML SYG IV PRN (19:46)
[2017-01-15] MEDS: DEXTROSE 5%-0.9% NACL 1,000 ML IV SCH (21:31)
[2017-01-15] MEDS: TPN 1,000 ML IV SCH (21:32)
[2017-01-15 21:56] LABS: ABNORMAL IP MESSAGE 1; BASOPHILS % 0.2 % (0.0-2.0); EOSINOPHILS # 0.1 10^3/ul (0.0-0.5); EOSINOPHILS % 0.4 % (0.0-7.0); HEMATOCRIT 30.4 % (37.0-47.0); HEMOGLOBIN 10.2 g/dl (12.0-16.0); LYMPHOCYTES # 0.3 10^3/ul (0.8-2.9); LYMPHOCYTES % 2.2 % (15.0-51.0); MEAN CORPUSCULAR HEMOGLOBIN 32.5 pg (29.0-33.0); MEAN CORPUSCULAR HGB CONC 33.6 g/dl (32.0-37.0); MEAN CORPUSCULAR VOLUME 96.8 fl (82.0-101.0); MEAN PLATELET VOLUME 10.4 fl (7.4-10.4); MONOCYTE # 0.4 10^3/ul (0.3-0.9); MONOCYTES % 3.4 % (0.0-11.0); NUCLEATED RED BLOOD CELLS% 0.2 /100WBC (0.0-0.0); RED BLOOD COUNT 3.14 10^6/ul (4.20-5.40); RED CELL DISTRIBUTION WIDTH 15.8 % (11.5-14.5); WHITE BLOOD COUNT 12.6 10^3/ul (4.8-10.8)
[2017-01-15 21:58] LABS: NEUTROPHILS % 91.9 % (39.0-77.0); PLATELET COUNT 70 10^3/UL (140-415); POSITIVE DIFF @See below
--- NOTE | 2017-01-15 23:37 | CONS ---
Date/Time of Note Date/Time of Note DATE: 01/15/17 TIME: 23:35 Assessment/Plan Assessment/Plan Chief Complaint/Hosp Course LEUKOCYTOSIS REACTIVE MONITOR CLOSELY ANEMIA N-CYTIC, N- CHROMIC WITH R RDW MONITOR BLOOD COUNT CLOSELY OBSERVE FOR BLEEDING AND HEMOLYSIS PRBC PRN THROMBOCYTOPENIA 2 TO SEPSIS MONITOR DIC PROFILE- neg TRANSFUSE PLATELET as needed COAGULOPATHY TRANSFUSE FFP prn History of gastric cancer in the past status post gastrectomy as well as chemotherapy PER FAMILY- RAFAT RECENT RESTAGING WITH CT AP- NEG SEPSIS Acute alteration in mental status likely secondary to subacute CVA Acute respiratory distress superimposed on chronic respiratory failure Bilateral pleural effusion with underlying pneumonia and CHF Sepsis with lactic acidosis Chronic muscle wasting and cachexia History of multiple esophageal strictures and bowel obstruction 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 Reported history of hypertension Penicillin allergy Problems: Consultation Date/Type/Reason Admit Date/Time Dec 30, 2016 at 23:12 Initial Consult Date 12/31/16 Type of Consultation: [facility] Referring Provider: ANA PAULINO 24 HR Interval Summary Free Text/Dictation all noted doing poorly, but family requesting transfer to [facility] for 2nd opinion/further evaluation. Exam/Review of Systems Vital Signs Vitals Vital Signs Date Time Temp Pulse Resp B/P Pulse Ox O2 Delivery O2 Flow Rate FiO2 01/15/17 22:45 108 18 90/47 95 01/15/17 22:00 Mechanical Ventilator 01/15/17 20:00 98.7 01/15/17 20:00 50 Intake and Output 01/14/17 01/14/17 01/15/17 15:00 23:00 07:00 Intake Total 800.0 ml 780.0 ml 760.0 ml Output Total 245 ml 475 ml 505 ml Balance 555.0 ml 305.0 ml 255.0 ml Exam GENERAL: This is a fragile, chronically ill-appearing, elderly woman, who is in no distress. HEENT: Head atraumatic, normocephalic. Sclerae anicteric. Buccal mucosa dry. NECK: Supple. Tracheostomy present. CHEST: Chest rise symmetrical. Breath sounds diminished at the bases. HEART: S1, S2. ABDOMEN: Soft, bowel sounds present. EXTREMITIES: Without cyanosis. Results Result Diagram: 01/15/17 2147 01/15/17 0415 Results 24 hrs Laboratory Tests Test 01/15/17 00:53 01/15/17 04:15 01/15/17 04:20 01/15/17 05:14 Bedside Glucose 76 86 White Blood Count 20.4 #H Red Blood Count 3.29 L Hemoglobin 10.3 L Hematocrit 31.6 L Mean Corpuscular Volume 96.0 Mean Corpuscular Hemoglobin 31.3 Mean Corpuscular Hemoglobin Concent 32.6 Red Cell Distribution Width 15.7 H Platelet Count 33 #L Mean Platelet Volume 12.9 H Neutrophils % 91.8 H Lymphocytes % 2.8 L Monocytes % 3.8 Eosinophils % 0.5 Basophils % 0.2 Nucleated Red Blood Cells % 0.1 H Neutrophils # (Manual) 18.7 H Lymphocytes # 0.6 L Monocytes # 0.8 Eosinophils # 0.1 Basophils # 0.1 Nucleated Red Blood Cells # 0.0 Sodium Level 135 Potassium Level 3.1 L Chloride Level 104 Carbon Dioxide Level 22 Anion Gap 12 Blood Urea Nitrogen 49 H Creatinine 1.00 Glucose Level 62 #L Calcium Level 6.9 L Total Bilirubin 9.4 H Direct Bilirubin 7.60 H Indirect Bilirubin 1.8 H Aspartate Amino Transf (AST/SGOT) 91 H Alanine Aminotransferase (ALT/SGPT) 66 Alkaline Phosphatase 134 H Total Protein 4.6 L Albumin 1.9 L Lab Scanned Report BLOOD TRANSFUSION Test 01/15/17 09:38 01/15/17 12:26 01/15/17 13:56 01/15/17 14:37 Bedside Glucose 74 85 65 L 107 Test 01/15/17 15:35 01/15/17 17:53 01/15/17 20:38 01/15/17 21:47 Bedside Glucose 84 71 92 White Blood Count 12.6 #H Red Blood Count 3.14 L Hemoglobin 10.2 L Hematocrit 30.4 L Mean Corpuscular Volume 96.8 Mean Corpuscular Hemoglobin 32.5 Mean Corpuscular Hemoglobin Concent 33.6 Red Cell Distribution Width 15.8 H Platelet Count 70 #L Mean Platelet Volume 10.4 Neutrophils % 91.9 H Lymphocytes % 2.2 L Monocytes % 3.4 Eosinophils % 0.4 Basophils % 0.2 Nucleated Red Blood Cells % 0.2 H Neutrophils # (Manual) 11.5 H Lymphocytes # 0.3 L Monocytes # 0.4 Eosinophils # 0.1 Basophils # 0.0 Nucleated Red Blood Cells # 0.0 Medications Medications Current Medications Chlorhexidine Gluconate (Peridex) 10 ml BID MM Last administered on 01/15/17 20 :39; Admin Dose 10 ML; Start 12/31/16 at 09:00 Lidocaine (Lidoderm) 1 patch NOTE TRANSDERM ; Start 12/31/16 at 00:00 Insulin Aspart (Novolog Insulin Pen) NOVOLOG *MILD* ALGORI... Q4 SC Last administered on 01/03/17 20:44; Admin Dose 1 UNIT; Start 12/31/16 at 21:00 Miscellaneous Information 1 ea NOTE XX ; Start 12/31/16 at 18:30 Glucose (Glutose) 15 gm Q15M PRN PO DECREASED GLUCOSE; Start 12/31/16 at 18:30 Glucose (Glutose) 22.5 gm Q15M PRN PO DECREASED GLUCOSE; Start 12/31/16 at 18: 30 Dextrose (D50w Syringe) 25 ml Q15M PRN IV DECREASED GLUCOSE Last administered on 01/15/17 14:11; Admin Dose 25 ML; Start 12/31/16 at 18:30 Dextrose (D50w Syringe) 50 ml Q15M PRN IV DECREASED GLUCOSE Last administered on 01/13/17 01:15; Admin Dose 50 ML; Start 12/31/16 at 18:30 Glucagon (Glucagen) 1 mg Q15M PRN IM DECREASED GLUCOSE; Start 12/31/16 at 18:30 Glucose (Glutose) 15 gm Q15M PRN BUCCAL DECREASED GLUCOSE; Start 12/31/16 at 18 :30 Hydromorphone HCl (Dilaudid) 0.5 mg Q4H PRN IV PAIN Last administered on 19:46; Admin Dose 0.5 MG; Start 01/01/17 at 01:30 Miscellaneous Information (Pending [facility] Order For Wound Care) This patient obregon... PRN PRN XX WOUND CARE; Start 01/01/17 at 03:00 Fentanyl 1 patch 1 patch Q3D TRANSDERM Last administered on 01/13/17 21:50; Admin Dose 1 PATCH; Start 01/01/17 at 20:00 Total Parenteral Nutrition (Tpn) 1,000 ml @ 40 mls/hr Q24H IV Last administered on 01/15/17 21:32; Admin Dose 40 MLS/HR; Start 01/02/17 at 21:00 Ondansetron HCl (Zofran Inj) 4 mg Q4H PRN IV NAUSEA AND/OR VOMITING Last administered on 01/07/17 07:03; Admin Dose 4 MG; Start 01/03/17 at 17:30 Aspirin 300 mg 300 mg DAILY [place] Last administered on 01/15/17 09:47; Admin Dose 300 MG; Start 01/06/17 at 15:30 Norepinephrine 16 mg/Dextrose 500 ml @ 0 mls/hr TITRATE IV Last administered on 01/15/17 13:53; Admin Dose 33.75 MLS/HR; Start 01/10/17 at 17:30 Metronidazole 250 mg/N/A 50 ml @ 50 mls/hr Q8 IVPB Last administered on 22:43; Admin Dose 50 MLS/HR; Start 01/13/17 at 14:00 Caspofungin 50 mg/ Sodium Chloride 250 ml @ 250 mls/hr Q24H IVPB Last administered on 01/15/17 14:11; Admin Dose 250 MLS/HR; Start 01/14/17 at 13:00 Vancomycin HCl 100 ml @ 100 mls/hr Q36H IVPB ; Start 01/16/17 at 01:00 Colistimethate Sodium 75 mg/ Sodium Chloride 100 ml @ 200 mls/hr Q36H IVPB Last administered on 01/15/17 11:40; Admin Dose 200 MLS/HR; Start 01/15/17 at 09: 00 Fat Emulsion Intravenous 250 ml @ 20.833 mls/ hr DAILY@16 IV Last administered on 01/15/17 17:40; Admin Dose 20.833 MLS/HR; Start 01/14/17 at 16:00 Dextrose/Sodium Chloride (D5-NS) 1,000 ml @ 40 mls/hr Q24H IV Last administered on 01/15/17 21:31; Admin Dose 40 MLS/HR; Start 01/14/17 at 22:00 RUFINO STEVENSON MD Jan 15, 2017 23:37
[2017-01-16] VITALS (103 sets, daily range): BP systolic 38–116; BP diastolic 20–76; PULSE 78–137; RESP 12–27
[2017-01-16] MEDS: INSULIN ASPART [NOVOLOG] 3 ML PEN SC SCH ×6 (00:47→21:00)
[2017-01-16] MEDS ORDERED: VANCOMYCIN 500MG/NS (PMX) 100 ML IVPB SCH (01:00)
[2017-01-16] MEDS: ALBUTEROL 18 GM INHALER INH SCH ×3 (01:17→12:39)
[2017-01-16] MEDS: IPRATROPIUM (HFA) 12.9 GM INHALER INH SCH ×3 (01:18→12:39)
[2017-01-16] MEDS ORDERED: PHENYLephrine 40 MG in DEXTROSE 5% 496 ML IV SCH (02:30)
[2017-01-16 02:56] LABS: AADO2 Arterial 256.5 mmHg (7.0-24.0); Allen Test ACCEPTAB; Arterial Base Excess -6.4 mmol/L (-3.0-3); Arterial COHb 0.3 % (0.0-3.0); Arterial Fraction of Oxyhgb 82.8 % (93.0-99.0); Arterial HCO3 19.4 mmol/L (22.0-26.0); Arterial MetHb 0.6 % (0.0-1.5); Arterial Total Hemglobin 10.7 g/dl (12.0-18.0); MODE VENT - AC
[2017-01-16] MEDS ORDERED: SOD CHLORIDE 0.9% 500 ML IV ONE (03:00)
[2017-01-16] MEDS ORDERED: ALBUMIN HUMAN 5% 250 ML IV ONE ×2 (03:30→04:30)
[2017-01-16] MEDS ORDERED: NA BICARBONATE 8.4% 50 ML SYG ONE (04:14)
[2017-01-16 04:16] LABS: ABNORMAL IP MESSAGE 1; BASOPHILS % 0.3 % (0.0-2.0); EOSINOPHILS % 0.3 % (0.0-7.0); HEMATOCRIT 29.4 % (37.0-47.0); LYMPHOCYTES # 0.2 10^3/ul (0.8-2.9); LYMPHOCYTES % 1.4 % (15.0-51.0); MEAN CORPUSCULAR HEMOGLOBIN 33.4 pg (29.0-33.0); MEAN CORPUSCULAR VOLUME 98.3 fl (82.0-101.0); MEAN PLATELET VOLUME 11.1 fl (7.4-10.4); MONOCYTE # 0.5 10^3/ul (0.3-0.9); MONOCYTES % 3.6 % (0.0-11.0); NEUTROPHILS % 88.8 % (39.0-77.0); NUCLEATED RED BLOOD CELLS% 0.1 /100WBC (0.0-0.0); RED BLOOD COUNT 2.99 10^6/ul (4.20-5.40); RED CELL DISTRIBUTION WIDTH 15.7 % (11.5-14.5); WHITE BLOOD COUNT 13.8 10^3/ul (4.8-10.8)
[2017-01-16 04:20] LABS: PLATELET COUNT 53 10^3/UL (140-415); POSITIVE DIFF @See below
[2017-01-16] MEDS ORDERED: NA BICARBONATE 8.4% 50 ML SYG IV ONE ×2 (04:30→05:30)
[2017-01-16 04:40] LABS: CALCIUM 6.8 mg/dl (8.4-10.2); CREATININE 1.07 mg/dl (0.44-1.00); MAGNESIUM 1.7 mg/dl (1.7-2.5); PHOSPHORUS 3.4 mg/dl (2.5-4.9); POTASSIUM 4.7 mmol/L (3.5-5.1)
[2017-01-16] MEDS: VASOPRESSIN 60 UNIT in DEXTROSE 5% 57 ML IV SCH ×3 (05:18→20:19)
[2017-01-16] MEDS: metroNIDAZOLE 500 MG/NS (PMX) 250 MG in EVAC CONTAINER 1 BOTTLE IVPB SCH ×3 (05:42→21:49)
[2017-01-16] MEDS: SODIUM BICARBONATE (IV ADD) 150 MEQ in SOD CHLORIDE 0.9% 850 ML IV SCH ×2 (06:02→16:36)
[2017-01-16] MEDS: PHENYLephrine 160 MG in DEXTROSE 5% 484 ML IV SCH ×2 (06:10→16:41)
[2017-01-16] MEDS: EPINEPHrine 4 MG in DEXTROSE 5% 246 ML IV SCH ×3 (06:20→19:45)
[2017-01-16 08:11] LABS: AADO2 Arterial 622.3 mmHg (7.0-24.0); Allen Test ACCEPTAB; Arterial Base Excess -4.6 mmol/L (-3.0-3); Arterial COHb 0.3 % (0.0-3.0); Arterial Fraction of Oxyhgb 87.2 % (93.0-99.0); Arterial HCO3 19.8 mmol/L (22.0-26.0); Arterial MetHb 0.4 % (0.0-1.5); Arterial Total Hemglobin 10.2 g/dl (12.0-18.0); MODE VENT - AC
[2017-01-16] MEDS: ASPIRIN 300 MG SUPP PR SCH (09:59)
--- NOTE | 2017-01-16 10:02 | CONS ---
Date/Time of Note Date/Time of Note DATE: 01/16/17 TIME: 09:58 Assessment/Plan Assessment/Plan Additional Assessment/Plan Ventilator setting; AC of 16, tidal volume 450, PEEP of 5, 100% FiO2. Patient currently on phenylephrine drip at 300 mics per minute, vasopressin 0.04 U/min. Assessment and recommendations; 1. Patient admitted with severe sepsis picture combination of severe pneumonia with superimposed congestive heart failure. 2. Cirrhosis of liver with bilateral abdominal drain placement in the past draining copious amounts of fluid every day. 3. Remote history of gastric cancer. 4. Anemia and thrombocytopenia. 5. Profound shock. 6. Severe hypoxemia. 7. Chronic ileus, patient on long-term TPN. Continue current supportive care. Prognosis is very poor. I did have a very detailed discussion the patient's niece is at bedside and answered all their questions. 35 minutes of critical care time was spent evaluating the patient. Consultation Date/Type/Reason Admit Date/Time Dec 30, 2016 at 23:12 Initial Consult Date 01/01/17 Type of Consultation: Pulmonary/critical care Referring Provider: ANA PAULINO 24 HR Interval Summary Free Text/Dictation Patient's condition remains critical. Currently on high-dose catheter support with combination vasopressin and phenylephrine drips. General exam; elderly woman, on ventilator via tracheostomy, unresponsive. Currently in no distress. Exam/Review of Systems Vital Signs Vitals Vital Signs Date Time Temp Pulse Resp B/P Pulse Ox O2 Delivery O2 Flow Rate FiO2 01/16/17 09:00 84 27 68/42 98 Mechanical Ventilator 01/16/17 08:00 97.8 01/16/17 05:18 100 Intake and Output 01/15/17 01/15/17 01/16/17 15:00 23:00 07:00 Intake Total 1063.75 ml 1212.165 ml 2308.049 ml Output Total 355 ml 510 ml 230 ml Balance 708.75 ml 702.165 ml 2078.049 ml Exam HEENT exam; supple neck, positive JVD. No lymphadenopathy. Midline trachea. No thyromegaly. Tracheostomy in place. Patient has fair dentition. Pupils are small bilaterally. Chest exam; scattered crackles bilaterally. S1-S2 audible, no murmurs. Regular rhythm. Abdomen exam; soft, bilateral upper quadrant drains are in place. Bowel sounds are absent. Abdomen is mildly distended. Extremity exam; 1+ anasarca. [employer] exam; patient remains unresponsive. Results Result Diagram: 01/16/17 0400 01/16/17 0400 Results 24 hrs Laboratory Tests Test 01/15/17 12:26 01/15/17 13:56 01/15/17 14:37 01/15/17 15:35 Bedside Glucose 85 65 L 107 84 Test 01/15/17 17:53 01/15/17 20:38 01/15/17 21:47 01/16/17 00:46 Bedside Glucose 71 92 92 White Blood Count 12.6 #H Red Blood Count 3.14 L Hemoglobin 10.2 L Hematocrit 30.4 L Mean Corpuscular Volume 96.8 Mean Corpuscular Hemoglobin 32.5 Mean Corpuscular Hemoglobin Concent 33.6 Red Cell Distribution Width 15.8 H Platelet Count 70 #L Mean Platelet Volume 10.4 Neutrophils % 91.9 H Lymphocytes % 2.2 L Monocytes % 3.4 Eosinophils % 0.4 Basophils % 0.2 Nucleated Red Blood Cells % 0.2 H Neutrophils # (Manual) 11.5 H Lymphocytes # 0.3 L Monocytes # 0.4 Eosinophils # 0.1 Basophils # 0.0 Nucleated Red Blood Cells # 0.0 Test 01/16/17 02:07 01/16/17 04:00 01/16/17 05:24 01/16/17 05:27 Blood Gas Specimen Source Blood arterial Arterial Blood Date Drawn 01/16/2017 2:45:32 AM Arterial Blood pH (Temp corrected) 7.305 L Arterial Blood pCO2 (Temp correct) 39.9 Arterial Blood pO2 (Temp corrected) 55.1 L Arterial Blood HCO3 19.4 L Arterial Blood Base Excess -6.4 L Arterial Blood Oxygen Saturation 83.6 L Obed Test ACCEPTAB Arterial Blood Gas Puncture Site Right Radial Arterial Blood Carboxyhemoglobin 0.3 Arterial Blood Methemoglobin 0.6 Blood Gas A-a O2 Differential 256.5 H Oxyhemoglobin Percent 82.8 L Total Hemoglobin 10.7 L Blood Gas Temperature 37.0 Blood Gas Respiration Rate 16.0 Blood Gas Actual Respiration Rate 17 Blood Gas Modality VENT - AC FiO2 50.0 Blood Gas Tidal Volume 450.0 Blood Gas Low PEEP Setting 5.0 Blood Gas Notified Whom MA Blood Gas Notified Time 01/16/2017 2:56:31 AM White Blood Count 13.8 H Red Blood Count 2.99 L Hemoglobin 10.0 L Hematocrit 29.4 L Mean Corpuscular Volume 98.3 Mean Corpuscular Hemoglobin 33.4 H Mean Corpuscular Hemoglobin Concent 34.0 Red Cell Distribution Width 15.7 H Platelet Count 53 #L Mean Platelet Volume 11.1 H Neutrophils % 88.8 H Lymphocytes % 1.4 L Monocytes % 3.6 Eosinophils % 0.3 Basophils % 0.3 Nucleated Red Blood Cells % 0.1 H Neutrophils # (Manual) 12.3 H Lymphocytes # 0.2 L Monocytes # 0.5 Eosinophils # 0.0 Basophils # 0.0 Nucleated Red Blood Cells # 0.0 Sodium Level 133 L Potassium Level 4.7 Chloride Level 108 Carbon Dioxide Level 18 L Anion Gap 12 Blood Urea Nitrogen 46 H Creatinine 1.07 H Glucose Level 78 Lactic Acid Level 6.1 *H Calcium Level 6.8 L Phosphorus Level 3.4 Magnesium Level 1.7 Triglycerides Level 1099 H Lab Scanned Report BLOOD TRANSFUSION Bedside Glucose 126 Test 01/16/17 07:00 Blood Gas Specimen Source Blood arterial Arterial Blood Date Drawn 01/16/2017 7:50:21 AM Arterial Blood pH (Temp corrected) 7.384 Arterial Blood pCO2 (Temp correct) 33.9 L Arterial Blood pO2 (Temp corrected) 56.8 L Arterial Blood HCO3 19.8 L Arterial Blood Base Excess -4.6 L Arterial Blood Oxygen Saturation 87.8 L Obed Test ACCEPTAB Arterial Blood Gas Puncture Site Right Radial Arterial Blood Carboxyhemoglobin 0.3 Arterial Blood Methemoglobin 0.4 Blood Gas A-a O2 Differential 622.3 H Oxyhemoglobin Percent 87.2 L Total Hemoglobin 10.2 L Blood Gas Temperature 37.0 Blood Gas Respiration Rate 16.0 Blood Gas Actual Respiration Rate 21 Blood Gas Modality VENT - AC FiO2 100.0 Blood Gas Tidal Volume 450.0 Blood Gas Low PEEP Setting 5.0 Blood Gas Notified Whom JLD Blood Gas Notified Time 01/16/2017 8:11:01 AM Medications Medications Current Medications Chlorhexidine Gluconate (Peridex) 10 ml BID MM Last administered on 01/15/17t 20 :39; Admin Dose 10 ML; Start 12/31/16 at 09:00 Lidocaine (Lidoderm) 1 patch NOTE TRANSDERM ; Start 12/31/16 at 00:00 Insulin Aspart (Novolog Insulin Pen) NOVOLOG *MILD* ALGORI... Q4 SC Last administered on 01/03/17 20:44; Admin Dose 1 UNIT; Start 12/31/16 at 21:00 Miscellaneous Information 1 ea NOTE XX ; Start 12/31/16 at 18:30 Glucose (Glutose) 15 gm Q15M PRN PO DECREASED GLUCOSE; Start 12/31/16 at 18:30 Glucose (Glutose) 22.5 gm Q15M PRN PO DECREASED GLUCOSE; Start 12/31/16 at 18: 30 Dextrose (D50w Syringe) 25 ml Q15M PRN IV DECREASED GLUCOSE Last administered on 01/15/17 14:11; Admin Dose 25 ML; Start 12/31/16 at 18:30 Dextrose (D50w Syringe) 50 ml Q15M PRN IV DECREASED GLUCOSE Last administered on 01/13/17 01:15; Admin Dose 50 ML; Start 12/31/16 at 18:30 Glucagon (Glucagen) 1 mg Q15M PRN IM DECREASED GLUCOSE; Start 12/31/16 at 18:30 Glucose (Glutose) 15 gm Q15M PRN BUCCAL DECREASED GLUCOSE; Start 12/31/16 at 18 :30 Hydromorphone HCl (Dilaudid) 0.5 mg Q4H PRN IV PAIN Last administered on 19:46; Admin Dose 0.5 MG; Start 01/01/17 at 01:30 Miscellaneous Information (Pending Santyl Order For Wound Care) This patient obregon... PRN PRN XX WOUND CARE; Start 01/01/17 at 03:00 Fentanyl 1 patch 1 patch Q3D TRANSDERM Last administered on 01/13/17 21:50; Admin Dose 1 PATCH; Start 01/01/17 at 20:00 Total Parenteral Nutrition (Tpn) 1,000 ml @ 40 mls/hr Q24H IV Last administered on 01/15/17 21:32; Admin Dose 40 MLS/HR; Start 01/02/17 at 21:00 Ondansetron HCl (Zofran Inj) 4 mg Q4H PRN IV NAUSEA AND/OR VOMITING Last administered on 01/07/17 07:03; Admin Dose 4 MG; Start 01/03/17 at 17:30 Aspirin 300 mg 300 mg DAILY CO Last administered on 01/15/17 09:47; Admin Dose 300 MG; Start 01/06/17 at 15:30 Metronidazole 250 mg/N/A 50 ml @ 50 mls/hr Q8 IVPB Last administered on 05:42; Admin Dose 50 MLS/HR; Start 01/13/17 at 14:00 Caspofungin 50 mg/ Sodium Chloride 250 ml @ 250 mls/hr Q24H IVPB Last administered on 01/15/17 14:11; Admin Dose 250 MLS/HR; Start 01/14/17 at 13:00 Vancomycin HCl 100 ml @ 100 mls/hr Q36H IVPB Last administered on 01/16/17 00: 46; Admin Dose 100 MLS/HR; Start 01/16/17 at 01:00 Colistimethate Sodium 75 mg/ Sodium Chloride 100 ml @ 200 mls/hr Q36H IVPB Last administered on 01/15/17 11:40; Admin Dose 200 MLS/HR; Start 01/15/17 at 09: 00 Fat Emulsion Intravenous 250 ml @ 20.833 mls/ hr DAILY@16 IV Last administered on 01/15/17 17:40; Admin Dose 20.833 MLS/HR; Start 01/14/17 at 16:00 Dextrose/Sodium Chloride 1,000 ml @ 40 mls/hr Q24H IV Last administered on 01/15 21:31; Admin Dose 40 MLS/HR; Start 01/14/17 at 22:00 Vasopressin 60 unit/Dextrose 60 ml @ 1.2 mls/hr Q12H IV Last administered on 05:18; Admin Dose 2.4 MLS/HR; Start 01/16/17 at 04:00 Sodium Bicarbonate 150 meq/Sodium Chloride 1,000 ml @ 100 mls/hr Q10H IV Last administered on 01/16/17 06:02; Admin Dose 100 MLS/HR; Start 01/16/17 at 06:00 Epinephrine 4 mg/ Dextrose 250 ml @ 3.75 mls/hr TITRATE IV Last administered on 01/16/17 06:20; Admin Dose 3.75 MLS/HR; Start 01/16/17 at 06:00 Phenylephrine HCl 160 mg/Dextrose 500 ml @ 18.75 mls/ hr TITRATE IV Last administered on 01/16/17t 06:10; Admin Dose 56.25 MLS/HR; Start 01/16/17 at 06:00 Norepinephrine/ Dextrose (Levophed/D5W) 250 ml @ 0.46 mls/hr TITRATE IV ; Start 01/16/17 at 06:00 ROSMERY JUAREZ Jan 16, 2017 10:02
[2017-01-16] MEDS: BALSAM PERU/CASTOR OIL 60 GM TUBE TOP SCH (10:12)
[2017-01-16] MEDS: CHLORHEXIDINE GLUCONATE 15 ML UD CUP MM SCH ×2 (10:20→20:55)
[2017-01-16] MEDS ORDERED: COLLAGENASE 30 GM TUBE TOP PRN (12:00)
[2017-01-16] MEDS ORDERED: COLLAGENASE 30 GM TUBE TOP SCH (12:30)
[2017-01-16] MEDS: NORepinephrine 32 MG in DEXTROSE 5% 218 ML IV SCH (12:58)
[2017-01-16] MEDS ORDERED: CASPOFUNGIN 35 MG in SOD CHLORIDE 0.9% 250 ML IVPB SCH (14:00)
--- NOTE | 2017-01-16 14:47 | PN ---
Date/Time of Note Date/Time of Note DATE: 01/16/17 TIME: 14:44 Assessment/Plan VTE Prophylaxis VTE Prophylaxis Intervention: SCD's Lines/Catheters IV Catheter Type (from Nrs): Central Line Central line still needed: Yes Urinary Cath still in place: Yes Reason Cath still needed: other (indicate) (critically ill) Assessment/Plan Assessment/Plan 71 yo F with previous h/o gastric ca sp treatment, h/o multiple esophageal strictures and bowel obstructions which have rendered the patient TPN dependent , chronic respiratory failure sp trach placement admitted for decreased mental status, suspect either from CVA (less likely as not read as acute on imaging) v toxic/metabolic encephalopathy from pneumonia. sp thora, hospitalization c/b septic shock with hypotension warranting overnight ICU stay, transferred back to floor 8.25, transferred back to the ICU 9.1 for respiratory distress. Now still septic despite broad spectrum abx, blood-tinged output from drains and j pouch, and DIC. Overnight pt with progressive hypotension despite increased pressors. Also on 100% FIO2 # Aspiration pneumonia/pneumonitis, on antibiotics: ID helping with abx. also cont pressor support-->suspect pt's deterioration 2/2 progression of septic shock #Recurrent ischemic stroke: sp neuro eval # Gastric cancer in 2012 sp extensive resection, as well as chemotherapy. #Multiple esophageal strictures and bowel obstruction, chronic ileus and chronic abd fluid collections: initially managed at OSH 11.16 cont TPN. #Status post tracheostomy: cont O2 as needed #bloody output from drain sites: sp GI and gen surg eval, advised palliative care v xfer to [facility] #DIC: likely 2/2 underlying sepsis, heme following TPN to be managed by RD and pharmacy Per family request, CM cs placed yesterday for possible transfer to [facility], unfortunately 2/2 insurance reasons pt cannot be transferred. Unfortunately pt also too clinically unstable at this time code status chemical code critical care time: 30 minutes Exam/Review of Systems Vital Signs Vitals Vital Signs Date Time Temp Pulse Resp B/P Pulse Ox O2 Delivery O2 Flow Rate FiO2 01/16/17 13:45 83 16 70/46 98 01/16/17 13:00 Mechanical Ventilator 01/16/17 12:00 97.7 01/16/17 08:00 100 Intake and Output 01/15/17 01/15/17 01/16/17 15:00 23:00 07:00 Intake Total 1063.75 ml 1212.165 ml 2308.049 ml Output Total 355 ml 510 ml 230 ml Balance 708.75 ml 702.165 ml 2078.049 ml Results Result Diagram: 01/16/17 0400 01/16/17 0400 Results 24 hrs Laboratory Tests Test 01/15/17 15:35 01/15/17 17:53 01/15/17 20:38 01/15/17 21:47 Bedside Glucose 84 71 92 White Blood Count 12.6 #H Red Blood Count 3.14 L Hemoglobin 10.2 L Hematocrit 30.4 L Mean Corpuscular Volume 96.8 Mean Corpuscular Hemoglobin 32.5 Mean Corpuscular Hemoglobin Concent 33.6 Red Cell Distribution Width 15.8 H Platelet Count 70 #L Mean Platelet Volume 10.4 Neutrophils % 91.9 H Lymphocytes % 2.2 L Monocytes % 3.4 Eosinophils % 0.4 Basophils % 0.2 Nucleated Red Blood Cells % 0.2 H Neutrophils # (Manual) 11.5 H Lymphocytes # 0.3 L Monocytes # 0.4 Eosinophils # 0.1 Basophils # 0.0 Nucleated Red Blood Cells # 0.0 Test 01/16/17 00:46 01/16/17 02:07 01/16/17 04:00 01/16/17 05:24 Bedside Glucose 92 Blood Gas Specimen Source Blood arterial Arterial Blood Date Drawn 01/16/2017 2:45:32 AM Arterial Blood pH (Temp corrected) 7.305 L Arterial Blood pCO2 (Temp correct) 39.9 Arterial Blood pO2 (Temp corrected) 55.1 L Arterial Blood HCO3 19.4 L Arterial Blood Base Excess -6.4 L Arterial Blood Oxygen Saturation 83.6 L Obed Test ACCEPTAB Arterial Blood Gas Puncture Site Right Radial Arterial Blood Carboxyhemoglobin 0.3 Arterial Blood Methemoglobin 0.6 Blood Gas A-a O2 Differential 256.5 H Oxyhemoglobin Percent 82.8 L Total Hemoglobin 10.7 L Blood Gas Temperature 37.0 Blood Gas Respiration Rate 16.0 Blood Gas Actual Respiration Rate 17 Blood Gas Modality VENT - AC FiO2 50.0 Blood Gas Tidal Volume 450.0 Blood Gas Low PEEP Setting 5.0 Blood Gas Notified Whom MA Blood Gas Notified Time 01/16/2017 2:56:31 AM White Blood Count 13.8 H Red Blood Count 2.99 L Hemoglobin 10.0 L Hematocrit 29.4 L Mean Corpuscular Volume 98.3 Mean Corpuscular Hemoglobin 33.4 H Mean Corpuscular Hemoglobin Concent 34.0 Red Cell Distribution Width 15.7 H Platelet Count 53 #L Mean Platelet Volume 11.1 H Neutrophils % 88.8 H Lymphocytes % 1.4 L Monocytes % 3.6 Eosinophils % 0.3 Basophils % 0.3 Nucleated Red Blood Cells % 0.1 H Neutrophils # (Manual) 12.3 H Lymphocytes # 0.2 L Monocytes # 0.5 Eosinophils # 0.0 Basophils # 0.0 Nucleated Red Blood Cells # 0.0 Sodium Level 133 L Potassium Level 4.7 Chloride Level 108 Carbon Dioxide Level 18 L Anion Gap 12 Blood Urea Nitrogen 46 H Creatinine 1.07 H Glucose Level 78 Lactic Acid Level 6.1 *H Calcium Level 6.8 L Phosphorus Level 3.4 Magnesium Level 1.7 Triglycerides Level 1099 H Lab Scanned Report BLOOD TRANSFUSION Test 01/16/17 05:27 01/16/17 07:00 01/16/17 10:11 01/16/17 12:29 Bedside Glucose 126 86 77 Blood Gas Specimen Source Blood arterial Arterial Blood Date Drawn 01/16/2017 7:50:21 AM Arterial Blood pH (Temp corrected) 7.384 Arterial Blood pCO2 (Temp correct) 33.9 L Arterial Blood pO2 (Temp corrected) 56.8 L Arterial Blood HCO3 19.8 L Arterial Blood Base Excess -4.6 L Arterial Blood Oxygen Saturation 87.8 L Obed Test ACCEPTAB Arterial Blood Gas Puncture Site Right Radial Arterial Blood Carboxyhemoglobin 0.3 Arterial Blood Methemoglobin 0.4 Blood Gas A-a O2 Differential 622.3 H Oxyhemoglobin Percent 87.2 L Total Hemoglobin 10.2 L Blood Gas Temperature 37.0 Blood Gas Respiration Rate 16.0 Blood Gas Actual Respiration Rate 21 Blood Gas Modality VENT - AC FiO2 100.0 Blood Gas Tidal Volume 450.0 Blood Gas Low PEEP Setting 5.0 Blood Gas Notified Whom JLD Blood Gas Notified Time 01/16/2017 8:11:01 AM Medications Medications Current Medications Chlorhexidine Gluconate (Peridex) 10 ml BID MM Last administered on 01/16/17t 10 :20; Admin Dose 10 ML; Start 12/31/16 at 09:00 Lidocaine (Lidoderm) 1 patch NOTE TRANSDERM ; Start 12/31/16 at 00:00 Insulin Aspart (Novolog Insulin Pen) NOVOLOG *MILD* ALGORI... Q4 SC Last administered on 01/03/17 20:44; Admin Dose 1 UNIT; Start 12/31/16 at 21:00 Miscellaneous Information 1 ea NOTE XX ; Start 12/31/16 at 18:30 Glucose (Glutose) 15 gm Q15M PRN PO DECREASED GLUCOSE; Start 12/31/16 at 18:30 Glucose (Glutose) 22.5 gm Q15M PRN PO DECREASED GLUCOSE; Start 12/31/16 at 18: 30 Dextrose (D50w Syringe) 25 ml Q15M PRN IV DECREASED GLUCOSE Last administered on 01/15/17 14:11; Admin Dose 25 ML; Start 12/31/16 at 18:30 Dextrose (D50w Syringe) 50 ml Q15M PRN IV DECREASED GLUCOSE Last administered on 01/13/17 01:15; Admin Dose 50 ML; Start 12/31/16 at 18:30 Glucagon (Glucagen) 1 mg Q15M PRN IM DECREASED GLUCOSE; Start 12/31/16 at 18:30 Glucose (Glutose) 15 gm Q15M PRN BUCCAL DECREASED GLUCOSE; Start 12/31/16 at 18 :30 Hydromorphone HCl (Dilaudid) 0.5 mg Q4H PRN IV PAIN Last administered on 19:46; Admin Dose 0.5 MG; Start 01/01/17 at 01:30 Miscellaneous Information (Pending [facility] Order For Wound Care) This patient obregon... PRN PRN XX WOUND CARE; Start 01/01/17 at 03:00 Fentanyl 1 patch 1 patch Q3D TRANSDERM Last administered on 01/13/17 21:50; Admin Dose 1 PATCH; Start 01/01/17 at 20:00 Total Parenteral Nutrition (Tpn) 1,000 ml @ 40 mls/hr Q24H IV Last administered on 01/15/17 21:32; Admin Dose 40 MLS/HR; Start 01/02/17 at 21:00 Ondansetron HCl (Zofran Inj) 4 mg Q4H PRN IV NAUSEA AND/OR VOMITING Last administered on 01/07/17 07:03; Admin Dose 4 MG; Start 01/03/17 at 17:30 Aspirin 300 mg 300 mg DAILY HI Last administered on 01/16/17 09:59; Admin Dose 300 MG; Start 01/06/17 at 15:30 Metronidazole 250 mg/N/A 50 ml @ 50 mls/hr Q8 IVPB Last administered on 05:42; Admin Dose 50 MLS/HR; Start 01/13/17 at 14:00 Vancomycin HCl 100 ml @ 100 mls/hr Q36H IVPB Last administered on 01/16/17 00: 46; Admin Dose 100 MLS/HR; Start 01/16/17 at 01:00 Colistimethate Sodium 75 mg/ Sodium Chloride 100 ml @ 200 mls/hr Q36H IVPB Last administered on 01/15/17 11:40; Admin Dose 200 MLS/HR; Start 01/15/17 at 09: 00 Fat Emulsion Intravenous 250 ml @ 20.833 mls/ hr DAILY@16 IV Last administered on 01/15/17 17:40; Admin Dose 20.833 MLS/HR; Start 01/14/17 at 16:00 ; Status Future Hold Dextrose/Sodium Chloride 1,000 ml @ 40 mls/hr Q24H IV Last administered on 01/15 21:31; Admin Dose 40 MLS/HR; Start 01/14/17 at 22:00 Vasopressin 60 unit/Dextrose 60 ml @ 1.2 mls/hr Q12H IV Last administered on 05:18; Admin Dose 2.4 MLS/HR; Start 01/16/17 at 04:00 Sodium Bicarbonate 150 meq/Sodium Chloride 1,000 ml @ 100 mls/hr Q10H IV Last administered on 01/16/17 06:02; Admin Dose 100 MLS/HR; Start 01/16/17 at 06:00 Epinephrine 4 mg/ Dextrose 250 ml @ 3.75 mls/hr TITRATE IV Last administered on 01/16/17 12:57; Admin Dose 37.5 MLS/HR; Start 01/16/17 at 06:00 Phenylephrine HCl 160 mg/Dextrose 500 ml @ 18.75 mls/ hr TITRATE IV Last administered on 01/16/17 06:10; Admin Dose 56.25 MLS/HR; Start 01/16/17 at 06:00 Norepinephrine/ Dextrose (Levophed/D5W) 250 ml @ 0.46 mls/hr TITRATE IV Last administered on 01/16/17 12:58; Admin Dose 14.06 MLS/HR; Start 01/16/17 at 06:00 Collagenase (Santyl) 1 applic DAILY TOP ; Start 01/16/17 at 12:30 Collagenase 1 applic 1 applic PRN PRN TOP WOUND CARE; Start 01/16/17 at 12:00 Caspofungin/ Sodium Chloride (Cancidas/NS) 250 ml @ 250 mls/hr Q24H IVPB Last administered on 01/16/17 14:18; Admin Dose 250 MLS/HR; Start 01/16/17 at 14:00 MODESTO SANDHU MD Jan 16, 2017 14:47
[2017-01-16] MEDS ORDERED: PHENYLephrine 20MG IN 250 ML 250 ML ONE (15:27)
[2017-01-16] MEDS ORDERED: PHENYLephrine 20MG IN 250 ML 250 ML IV SCH (16:00)
--- NOTE | 2017-01-16 16:17 | PN ---
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 * Likely related to significant thrombocytopenia and inflammatory or ischemic process in the bowel * Sepsis * Ventilator dependent respiratory failure * History of gastric CA with no evidence of recurrence as of March 2016 multiple * Intra-abdominal surgeries/enterocutaneous fistula * CVA Plan: * Consider palliative care * Alternatively transfuse platelets whenever they drop below 50,000 and bleeding is active * case discuss with Dr Garnica * further orders will depend on clinical course Subjective 24 Hr Interval Summary Free Text/Dictation * course reviewed * Patient seen and examined * patient on 4 pressors Exam/Review of Systems Vital Signs Vitals Vital Signs Date Time Temp Pulse Resp B/P Pulse Ox O2 Delivery O2 Flow Rate FiO2 01/16/17 13:45 83 16 70/46 98 01/16/17 13:00 Mechanical Ventilator 01/16/17 12:00 97.7 01/16/17 08:00 100 Intake and Output 01/15/17 01/15/17 01/16/17 15:00 23:00 07:00 Intake Total 1063.75 ml 1212.165 ml 2308.049 ml Output Total 355 ml 510 ml 230 ml Balance 708.75 ml 702.165 ml 2078.049 ml Exam Constitutional: frail, non-verbal ENMT: intubated Gastrointestinal: distended, other (colostomy ), soft Musculoskeletal: muscle weakness Neurological: unresponsive Skin: rash or lesions Results Result Diagram: 01/16/17 0400 01/16/17 0400 Results 24 hrs Laboratory Tests Test 01/15/17 17:53 01/15/17 20:38 01/15/17 21:47 01/16/17 00:46 Bedside Glucose 71 92 92 White Blood Count 12.6 #H Red Blood Count 3.14 L Hemoglobin 10.2 L Hematocrit 30.4 L Mean Corpuscular Volume 96.8 Mean Corpuscular Hemoglobin 32.5 Mean Corpuscular Hemoglobin Concent 33.6 Red Cell Distribution Width 15.8 H Platelet Count 70 #L Mean Platelet Volume 10.4 Neutrophils % 91.9 H Lymphocytes % 2.2 L Monocytes % 3.4 Eosinophils % 0.4 Basophils % 0.2 Nucleated Red Blood Cells % 0.2 H Neutrophils # (Manual) 11.5 H Lymphocytes # 0.3 L Monocytes # 0.4 Eosinophils # 0.1 Basophils # 0.0 Nucleated Red Blood Cells # 0.0 Test 01/16/17 02:07 01/16/17 04:00 01/16/17 05:24 01/16/17 05:27 Blood Gas Specimen Source Blood arterial Arterial Blood Date Drawn 01/16/2017 2:45:32 AM Arterial Blood pH (Temp corrected) 7.305 L Arterial Blood pCO2 (Temp correct) 39.9 Arterial Blood pO2 (Temp corrected) 55.1 L Arterial Blood HCO3 19.4 L Arterial Blood Base Excess -6.4 L Arterial Blood Oxygen Saturation 83.6 L Obed Test ACCEPTAB Arterial Blood Gas Puncture Site Right Radial Arterial Blood Carboxyhemoglobin 0.3 Arterial Blood Methemoglobin 0.6 Blood Gas A-a O2 Differential 256.5 H Oxyhemoglobin Percent 82.8 L Total Hemoglobin 10.7 L Blood Gas Temperature 37.0 Blood Gas Respiration Rate 16.0 Blood Gas Actual Respiration Rate 17 Blood Gas Modality VENT - AC FiO2 50.0 Blood Gas Tidal Volume 450.0 Blood Gas Low PEEP Setting 5.0 Blood Gas Notified Whom MA Blood Gas Notified Time 01/16/2017 2:56:31 AM White Blood Count 13.8 H Red Blood Count 2.99 L Hemoglobin 10.0 L Hematocrit 29.4 L Mean Corpuscular Volume 98.3 Mean Corpuscular Hemoglobin 33.4 H Mean Corpuscular Hemoglobin Concent 34.0 Red Cell Distribution Width 15.7 H Platelet Count 53 #L Mean Platelet Volume 11.1 H Neutrophils % 88.8 H Lymphocytes % 1.4 L Monocytes % 3.6 Eosinophils % 0.3 Basophils % 0.3 Nucleated Red Blood Cells % 0.1 H Neutrophils # (Manual) 12.3 H Lymphocytes # 0.2 L Monocytes # 0.5 Eosinophils # 0.0 Basophils # 0.0 Nucleated Red Blood Cells # 0.0 Sodium Level 133 L Potassium Level 4.7 Chloride Level 108 Carbon Dioxide Level 18 L Anion Gap 12 Blood Urea Nitrogen 46 H Creatinine 1.07 H Glucose Level 78 Lactic Acid Level 6.1 *H Calcium Level 6.8 L Phosphorus Level 3.4 Magnesium Level 1.7 Triglycerides Level 1099 H Lab Scanned Report BLOOD TRANSFUSION Bedside Glucose 126 Test 01/16/17 07:00 01/16/17 10:11 01/16/17 12:29 Blood Gas Specimen Source Blood arterial Arterial Blood Date Drawn 01/16/2017 7:50:21 AM Arterial Blood pH (Temp corrected) 7.384 Arterial Blood pCO2 (Temp correct) 33.9 L Arterial Blood pO2 (Temp corrected) 56.8 L Arterial Blood HCO3 19.8 L Arterial Blood Base Excess -4.6 L Arterial Blood Oxygen Saturation 87.8 L Obed Test ACCEPTAB Arterial Blood Gas Puncture Site Right Radial Arterial Blood Carboxyhemoglobin 0.3 Arterial Blood Methemoglobin 0.4 Blood Gas A-a O2 Differential 622.3 H Oxyhemoglobin Percent 87.2 L Total Hemoglobin 10.2 L Blood Gas Temperature 37.0 Blood Gas Respiration Rate 16.0 Blood Gas Actual Respiration Rate 21 Blood Gas Modality VENT - AC FiO2 100.0 Blood Gas Tidal Volume 450.0 Blood Gas Low PEEP Setting 5.0 Blood Gas Notified Whom JLD Blood Gas Notified Time 01/16/2017 8:11:01 AM Bedside Glucose 86 77 Medications Medications Current Medications Chlorhexidine Gluconate (Peridex) 10 ml BID MM Last administered on 01/16/17 10 :20; Admin Dose 10 ML; Start 12/31/16 at 09:00 Lidocaine (Lidoderm) 1 patch NOTE TRANSDERM ; Start 12/31/16 at 00:00 Insulin Aspart (Novolog Insulin Pen) NOVOLOG *MILD* ALGORI... Q4 SC Last administered on 01/03/17 20:44; Admin Dose 1 UNIT; Start 12/31/16 at 21:00 Miscellaneous Information 1 ea NOTE XX ; Start 12/31/16 at 18:30 Glucose (Glutose) 15 gm Q15M PRN PO DECREASED GLUCOSE; Start 12/31/16 at 18:30 Glucose (Glutose) 22.5 gm Q15M PRN PO DECREASED GLUCOSE; Start 12/31/16 at 18: 30 Dextrose (D50w Syringe) 25 ml Q15M PRN IV DECREASED GLUCOSE Last administered on 01/15/17 14:11; Admin Dose 25 ML; Start 12/31/16 at 18:30 Dextrose (D50w Syringe) 50 ml Q15M PRN IV DECREASED GLUCOSE Last administered on 01/13/17 01:15; Admin Dose 50 ML; Start 12/31/16 at 18:30 Glucagon (Glucagen) 1 mg Q15M PRN IM DECREASED GLUCOSE; Start 12/31/16 at 18:30 Glucose (Glutose) 15 gm Q15M PRN BUCCAL DECREASED GLUCOSE; Start 12/31/16 at 18 :30 Hydromorphone HCl (Dilaudid) 0.5 mg Q4H PRN IV PAIN Last administered on 19:46; Admin Dose 0.5 MG; Start 01/01/17 at 01:30 Miscellaneous Information (Pending Santyl Order For Wound Care) This patient obregon... PRN PRN XX WOUND CARE; Start 01/01/17 at 03:00 Fentanyl 1 patch 1 patch Q3D TRANSDERM Last administered on 01/13/17 21:50; Admin Dose 1 PATCH; Start 01/01/17 at 20:00 Total Parenteral Nutrition (Tpn) 1,000 ml @ 40 mls/hr Q24H IV Last administered on 01/15/17 21:32; Admin Dose 40 MLS/HR; Start 01/02/17 at 21:00 Ondansetron HCl (Zofran Inj) 4 mg Q4H PRN IV NAUSEA AND/OR VOMITING Last administered on 01/07/17 07:03; Admin Dose 4 MG; Start 01/03/17 at 17:30 Aspirin 300 mg 300 mg DAILY [place] Last administered on 01/16/17 09:59; Admin Dose 300 MG; Start 01/06/17 at 15:30 Metronidazole 250 mg/N/A 50 ml @ 50 mls/hr Q8 IVPB Last administered on 15:43; Admin Dose 50 MLS/HR; Start 01/13/17 at 14:00 Vancomycin HCl 100 ml @ 100 mls/hr Q36H IVPB Last administered on 01/16/17 00: 46; Admin Dose 100 MLS/HR; Start 01/16/17 at 01:00 Colistimethate Sodium 75 mg/ Sodium Chloride 100 ml @ 200 mls/hr Q36H IVPB Last administered on 01/15/17 11:40; Admin Dose 200 MLS/HR; Start 01/15/17 at 09: 00 Fat Emulsion Intravenous 250 ml @ 20.833 mls/ hr DAILY@16 IV Last administered on 01/15/17 17:40; Admin Dose 20.833 MLS/HR; Start 01/14/17 at 16:00 ; Status Future Hold Dextrose/Sodium Chloride 1,000 ml @ 40 mls/hr Q24H IV Last administered on 01/15 21:31; Admin Dose 40 MLS/HR; Start 01/14/17 at 22:00 Vasopressin 60 unit/Dextrose 60 ml @ 1.2 mls/hr Q12H IV Last administered on 05:18; Admin Dose 2.4 MLS/HR; Start 01/16/17 at 04:00 Sodium Bicarbonate 150 meq/Sodium Chloride 1,000 ml @ 100 mls/hr Q10H IV Last administered on 01/16/17 06:02; Admin Dose 100 MLS/HR; Start 01/16/17 at 06:00 Epinephrine 4 mg/ Dextrose 250 ml @ 3.75 mls/hr TITRATE IV Last administered on 01/16/17 12:57; Admin Dose 37.5 MLS/HR; Start 01/16/17 at 06:00 Phenylephrine HCl 160 mg/Dextrose 500 ml @ 18.75 mls/ hr TITRATE IV Last administered on 01/16/17 06:10; Admin Dose 56.25 MLS/HR; Start 01/16/17 at 06:00 Norepinephrine/ Dextrose (Levophed/D5W) 250 ml @ 0.46 mls/hr TITRATE IV Last administered on 01/16/17 12:58; Admin Dose 14.06 MLS/HR; Start 01/16/17 at 06:00 Collagenase (Santyl) 1 applic DAILY TOP ; Start 01/16/17 at 12:30 Collagenase 1 applic 1 applic PRN PRN TOP WOUND CARE; Start 01/16/17 at 12:00 Caspofungin 35 mg/ Sodium Chloride 250 ml @ 250 mls/hr Q24H IVPB Last administered on 01/16/17 14:18; Admin Dose 250 MLS/HR; Start 01/16/17 at 14:00 Phenylephrine HCl (Nathan-Syneph) 250 ml @ 75 mls/hr TITRATE IV ; Start 01/16/17 at 16:00; Status UNV MANAGCHELSEAOD,SAM P TONE ARTIST APPRENTICE Jan 16, 2017 16:17
--- NOTE | 2017-01-16 17:31 | PN ---
DATE: 01/16/2017 SUBJECTIVE DATA: Patient deteriorated overnight, now on multiple pressors, lethargic, in no distress. Family at bedside. VITAL SIGNS: Temperature 97.7, pulse 84, respirations 16, blood pressure 74/47, saturation 98 on vent. LABORATORY AND DIAGNOSTIC DATA: WBC 13.8. H and H 10 and 29.4, platelets 53, neutrophils 88.8, BUN 46, creatinine 1.07. Lactic acid 6.1. Indwelling trach, PEG, Crow, right subclavian triple lumen catheter, intra-abdominal drainage catheters. ANTIMICROBIALS: 1. Cancidas. 2. Vancomycin. 3. Colistin. 4. Flagyl. PHYSICAL EXAMINATION: This is a chronically ill-appearing, wasted, elderly woman, who is lethargic, in no distress. HEENT: Head atraumatic, normocephalic. Sclerae anicteric. Buccal mucosa dry. NECK: Supple. Tracheostomy present. CHEST: Rise symmetrical. Breath sounds diminished. HEART: S1, S2. ABDOMEN: Soft. Bowel sounds hypoactive. EXTREMITIES: Cyanotic, cool to touch. ASSESSMENT: 1. Severe sepsis with shock and multisystem organ failure. 2. Healthcare-associated pneumonia. 3. Urinary tract infection. 4. Status post multiple intra-abdominal abscesses drainage with abdominal fluid culture growing multidrug resistant organisms. 5. Anemia and thrombocytopenia. 6. Chronic respiratory failure and dysphagia. PLAN: Patient remains hemodynamically unstable and overall deteriorating. She is chemical code only. She is on appropriate antibiotics. Palliative Care on case. Dictated By: Nancy Mccarty NP /prachi/tran /Document#: [id number]
[2017-01-16] MEDS: DEXTROSE 50% 50 ML SYRINGE IV PRN (17:40)
[2017-01-16] MEDS: TPN 1,000 ML IV SCH (18:00)
[2017-01-16] MEDS ORDERED: ATROPINE 1 MG/10 ML SYRINGE IV PRN (20:30)
[2017-01-16] MEDS: COLISTIMETHATE 75 MG in SOD CHLORIDE 0.9% 100 ML IVPB SCH (20:55)
[2017-01-16] MEDS: FENTAnyl PATCH 50 MCG/HR TRANSDERM SCH (20:58)
[2017-01-16] MEDS: HYDROmorphONE 1 MG/ML SYG IV PRN (21:08)
[2017-01-16 21:13] LABS: ABNORMAL IP MESSAGE 1; HEMATOCRIT 28.1 % (37.0-47.0); HEMOGLOBIN 8.5 g/dl (12.0-16.0); MEAN CORPUSCULAR HEMOGLOBIN 30.6 pg (29.0-33.0); MEAN CORPUSCULAR HGB CONC 30.2 g/dl (32.0-37.0); MEAN CORPUSCULAR VOLUME 101.1 fl (82.0-101.0); MEAN PLATELET VOLUME 12.2 fl (7.4-10.4); NUCLEATED RED BLOOD CELLS% 0.3 /100WBC (0.0-0.0); RED BLOOD COUNT 2.78 10^6/ul (4.20-5.40); RED CELL DISTRIBUTION WIDTH 15.9 % (11.5-14.5); WHITE BLOOD COUNT 26.6 10^3/ul (4.8-10.8)
--- NOTE | 2017-01-16 21:21 | CONS ---
Date/Time of Note Date/Time of Note DATE: 01/16/17 TIME: 21:21 Assessment/Plan Assessment/Plan Chief Complaint/Hosp Course LEUKOCYTOSIS REACTIVE MONITOR CLOSELY ANEMIA N-CYTIC, N- CHROMIC WITH R RDW MONITOR BLOOD COUNT CLOSELY OBSERVE FOR BLEEDING AND HEMOLYSIS PRBC PRN History of gastric cancer in the past status post gastrectomy as well as chemotherapy PER FAMILY- RAFAT RECENT RESTAGING WITH CT AP- NEG POS SEPSIS Acute alteration in mental status likely secondary to subacute CVA Acute respiratory distress superimposed on chronic respiratory failure Bilateral pleural effusion with underlying pneumonia and CHF Sepsis with lactic acidosis Chronic muscle wasting and cachexia History of multiple esophageal strictures and bowel obstruction 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 Reported history of hypertension Penicillin allergy Problems: Consultation Date/Type/Reason Admit Date/Time Dec 30, 2016 at 23:12 Initial Consult Date 12/31/16 [facility] Referring Provider: ANA PAULINO Exam/Review of Systems Vital Signs Vitals Vital Signs Date Time Temp Pulse Resp B/P Pulse Ox O2 Delivery O2 Flow Rate FiO2 01/16/17 21:15 85 16 65/30 01/16/17 21:00 Mechanical Ventilator 01/16/17 20:00 97.1 01/16/17 19:00 100 01/16/17 16:45 100 Intake and Output 01/15/17 01/15/17 01/16/17 15:00 23:00 07:00 Intake Total 1063.75 ml 1212.165 ml 2308.049 ml Output Total 355 ml 510 ml 230 ml Balance 708.75 ml 702.165 ml 2078.049 ml Results Result Diagram: 01/16/17 0400 01/16/17 1818 Results 24 hrs Laboratory Tests Test 01/15/17 21:47 01/16/17 00:46 01/16/17 02:07 01/16/17 04:00 White Blood Count 12.6 #H 13.8 H Red Blood Count 3.14 L 2.99 L Hemoglobin 10.2 L 10.0 L Hematocrit 30.4 L 29.4 L Mean Corpuscular Volume 96.8 98.3 Mean Corpuscular Hemoglobin 32.5 33.4 H Mean Corpuscular Hemoglobin Concent 33.6 34.0 Red Cell Distribution Width 15.8 H 15.7 H Platelet Count 70 #L 53 #L Mean Platelet Volume 10.4 11.1 H Neutrophils % 91.9 H 88.8 H Lymphocytes % 2.2 L 1.4 L Monocytes % 3.4 3.6 Eosinophils % 0.4 0.3 Basophils % 0.2 0.3 Nucleated Red Blood Cells % 0.2 H 0.1 H Neutrophils # (Manual) 11.5 H 12.3 H Lymphocytes # 0.3 L 0.2 L Monocytes # 0.4 0.5 Eosinophils # 0.1 0.0 Basophils # 0.0 0.0 Nucleated Red Blood Cells # 0.0 0.0 Bedside Glucose 92 Blood Gas Specimen Source Blood arterial Arterial Blood Date Drawn 01/16/2017 2:45:32 AM Arterial Blood pH (Temp corrected) 7.305 L Arterial Blood pCO2 (Temp correct) 39.9 Arterial Blood pO2 (Temp corrected) 55.1 L Arterial Blood HCO3 19.4 L Arterial Blood Base Excess -6.4 L Arterial Blood Oxygen Saturation 83.6 L Obed Test ACCEPTAB Arterial Blood Gas Puncture Site Right Radial Arterial Blood Carboxyhemoglobin 0.3 Arterial Blood Methemoglobin 0.6 Blood Gas A-a O2 Differential 256.5 H Oxyhemoglobin Percent 82.8 L Total Hemoglobin 10.7 L Blood Gas Temperature 37.0 Blood Gas Respiration Rate 16.0 Blood Gas Actual Respiration Rate 17 Blood Gas Modality VENT - AC FiO2 50.0 Blood Gas Tidal Volume 450.0 Blood Gas Low PEEP Setting 5.0 Blood Gas Notified Whom MA Blood Gas Notified Time 01/16/2017 2:56:31 AM Sodium Level 133 L Potassium Level 4.7 Chloride Level 108 Carbon Dioxide Level 18 L Anion Gap 12 Blood Urea Nitrogen 46 H Creatinine 1.07 H Glucose Level 78 Lactic Acid Level 6.1 *H Calcium Level 6.8 L Phosphorus Level 3.4 Magnesium Level 1.7 Triglycerides Level 1099 H Test 01/16/17 05:24 01/16/17 05:27 01/16/17 07:00 01/16/17 10:11 Lab Scanned Report BLOOD TRANSFUSION Bedside Glucose 126 86 Blood Gas Specimen Source Blood arterial Arterial Blood Date Drawn 01/16/2017 7:50:21 AM Arterial Blood pH (Temp corrected) 7.384 Arterial Blood pCO2 (Temp correct) 33.9 L Arterial Blood pO2 (Temp corrected) 56.8 L Arterial Blood HCO3 19.8 L Arterial Blood Base Excess -4.6 L Arterial Blood Oxygen Saturation 87.8 L Obed Test ACCEPTAB Arterial Blood Gas Puncture Site Right Radial Arterial Blood Carboxyhemoglobin 0.3 Arterial Blood Methemoglobin 0.4 Blood Gas A-a O2 Differential 622.3 H Oxyhemoglobin Percent 87.2 L Total Hemoglobin 10.2 L Blood Gas Temperature 37.0 Blood Gas Respiration Rate 16.0 Blood Gas Actual Respiration Rate 21 Blood Gas Modality VENT - AC FiO2 100.0 Blood Gas Tidal Volume 450.0 Blood Gas Low PEEP Setting 5.0 Blood Gas Notified Whom JLD Blood Gas Notified Time 01/16/2017 8:11:01 AM Test 01/16/17 12:29 01/16/17 17:33 01/16/17 17:59 01/16/17 18:15 Bedside Glucose 77 41 *L 157 179 Test 01/16/17 18:18 01/16/17 20:57 01/16/17 21:01 Glucose Level 175 Bedside Glucose 121 White Blood Count Pending Red Blood Count Pending Hemoglobin Pending Hematocrit Pending Mean Corpuscular Volume Pending Mean Corpuscular Hemoglobin Pending Mean Corpuscular Hemoglobin Concent Pending Red Cell Distribution Width Pending Platelet Count Pending Mean Platelet Volume Pending Medications Medications Current Medications Chlorhexidine Gluconate (Peridex) 10 ml BID MM Last administered on 01/16/17 20 :55; Admin Dose 10 ML; Start 12/31/16 at 09:00 Lidocaine (Lidoderm) 1 patch NOTE TRANSDERM ; Start 12/31/16 at 00:00 Insulin Aspart (Novolog Insulin Pen) NOVOLOG *MILD* ALGORI... Q4 SC Last administered on 01/03/17 20:44; Admin Dose 1 UNIT; Start 12/31/16 at 21:00 Miscellaneous Information 1 ea NOTE XX ; Start 12/31/16 at 18:30 Glucose (Glutose) 15 gm Q15M PRN PO DECREASED GLUCOSE; Start 12/31/16 at 18:30 Glucose (Glutose) 22.5 gm Q15M PRN PO DECREASED GLUCOSE; Start 12/31/16 at 18: 30 Dextrose (D50w Syringe) 25 ml Q15M PRN IV DECREASED GLUCOSE Last administered on 01/15/17 14:11; Admin Dose 25 ML; Start 12/31/16 at 18:30 Dextrose (D50w Syringe) 50 ml Q15M PRN IV DECREASED GLUCOSE Last administered on 01/16/17 17:40; Admin Dose 50 ML; Start 12/31/16 at 18:30 Glucagon (Glucagen) 1 mg Q15M PRN IM DECREASED GLUCOSE; Start 12/31/16 at 18:30 Glucose (Glutose) 15 gm Q15M PRN BUCCAL DECREASED GLUCOSE; Start 12/31/16 at 18 :30 Hydromorphone HCl (Dilaudid) 0.5 mg Q4H PRN IV PAIN Last administered on 21:08; Admin Dose 0.5 MG; Start 01/01/17 at 01:30 Miscellaneous Information (Pending [facility] Order For Wound Care) This patient obregon... PRN PRN XX WOUND CARE; Start 01/01/17 at 03:00 Fentanyl 1 patch 1 patch Q3D TRANSDERM Last administered on 01/16/17 20:58; Admin Dose 1 PATCH; Start 01/01/17 at 20:00 Total Parenteral Nutrition (Tpn) 1,000 ml @ 40 mls/hr Q24H IV Last administered on 01/15/17 21:32; Admin Dose 40 MLS/HR; Start 01/02/17 at 21:00 Ondansetron HCl (Zofran Inj) 4 mg Q4H PRN IV NAUSEA AND/OR VOMITING Last administered on 01/07/17 07:03; Admin Dose 4 MG; Start 01/03/17 at 17:30 Aspirin 300 mg 300 mg DAILY [place] Last administered on 01/16/17 09:59; Admin Dose 300 MG; Start 01/06/17 at 15:30 Metronidazole 250 mg/N/A 50 ml @ 50 mls/hr Q8 IVPB Last administered on 15:43; Admin Dose 50 MLS/HR; Start 01/13/17 at 14:00 Vancomycin HCl 100 ml @ 100 mls/hr Q36H IVPB Last administered on 01/16/17 00: 46; Admin Dose 100 MLS/HR; Start 01/16/17 at 01:00 Colistimethate Sodium 75 mg/ Sodium Chloride 100 ml @ 200 mls/hr Q36H IVPB Last administered on 01/16/17 20:55; Admin Dose 200 MLS/HR; Start 01/15/17 at 09: 00 Fat Emulsion Intravenous 250 ml @ 20.833 mls/ hr DAILY@16 IV Last administered on 01/15/17 17:40; Admin Dose 20.833 MLS/HR; Start 01/14/17 at 16:00 ; Status Future Hold Dextrose/Sodium Chloride 1,000 ml @ 40 mls/hr Q24H IV Last administered on 01/15 21:31; Admin Dose 40 MLS/HR; Start 01/14/17 at 22:00 Vasopressin 60 unit/Dextrose 60 ml @ 1.2 mls/hr Q12H IV Last administered on 20:19; Admin Dose 2.4 MLS/HR; Start 01/16/17 at 04:00 Sodium Bicarbonate 150 meq/Sodium Chloride 1,000 ml @ 100 mls/hr Q10H IV Last administered on 01/16/17 16:36; Admin Dose 100 MLS/HR; Start 01/16/17 at 06:00 Epinephrine 4 mg/ Dextrose 250 ml @ 3.75 mls/hr TITRATE IV Last administered on 01/16/17 19:45; Admin Dose 37.5 MLS/HR; Start 01/16/17 at 06:00 Phenylephrine HCl 160 mg/Dextrose 500 ml @ 18.75 mls/ hr TITRATE IV Last administered on 01/16/17 16:41; Admin Dose 56.25 MLS/HR; Start 01/16/17 at 06:00 Norepinephrine/ Dextrose (Levophed/D5W) 250 ml @ 0.46 mls/hr TITRATE IV Last administered on 01/16/17 12:58; Admin Dose 14.06 MLS/HR; Start 01/16/17 at 06:00 Collagenase (Santyl) 1 applic DAILY TOP ; Start 01/16/17 at 12:30 Collagenase 1 applic 1 applic PRN PRN TOP WOUND CARE; Start 01/16/17 at 12:00 Caspofungin/ Sodium Chloride (Cancidas/NS) 250 ml @ 250 mls/hr Q24H IVPB Last administered on 01/16/17 14:18; Admin Dose 250 MLS/HR; Start 01/16/17 at 14:00 Miscellaneous Information (*Rx Drug Level Order Reminder*) 1 ONCE ONCE XX ; Start 01/17/17 at 12:00; Stop 01/17/17 at 12:01 Atropine Sulfate (Atropine (Syringe)) 0.5 mg ONCE PRN IV Sustained HR <40; Start 01/16/17 at 20:30 RUFINO STEVENSON MD Jan 16, 2017 21:21
[2017-01-16 21:26] LABS: POSITIVE DIFF @See below
[2017-01-16 21:28] LABS: PLATELET COUNT 16 10^3/UL (140-415)
[2017-01-16 21:29] LABS: ALBUMIN 1.9 g/dl (3.3-4.9); ALBUMIN/GLOBULIN RATIO 0.79; BILIRUBIN,DIRECT 9.5 mg/dl (0.00-0.20); BILIRUBIN,INDIRECT 1.4 mg/dl (0-1.1); BILIRUBIN,TOTAL 10.9 mg/dl (0.2-1.3); CREATININE 1.32 mg/dl (0.44-1.00); MAGNESIUM 1.6 mg/dl (1.7-2.5); POTASSIUM 3.9 mmol/L (3.5-5.1); TOTAL PROTEIN 4.3 g/dl (6.1-8.1)
[2017-01-16] MEDS: DEXTROSE 5%-0.9% NACL 1,000 ML IV SCH (21:50)
[2017-01-16] MEDS ORDERED: MAGNESIUM SULFATE 2 GM/50 ML 50 ML ONE (22:12)
[2017-01-16] MEDS ORDERED: MAGNESIUM SULFATE 2 GM/50 ML 50 ML IVPB ONE (22:30)
[2017-01-16 22:32] LABS: ANISOCYTOSIS 1+ (0-0); EOSINOPHILS % (M) 1 % (0-7); HYPOCHROMASIA 1+ (0-0); METAMYELOCYTES %M 5 % (0-0); MICROCYTOSIS 1+ (0-0); MONOCYTES % (M) 16 % (0-11); PLATELET ESTIMATE SIG DECREASED; POLYCHROMASIA 1+ (0-0); STOMATOCYTES 1+ (0-0)
[2017-01-17] VITALS (29 sets, daily range): BP systolic 48–76; BP diastolic 23–57; PULSE 81–87; RESP 16
[2017-01-17] MEDS: DEXTROSE 50% 50 ML SYRINGE IV PRN (00:58)
[2017-01-17] MEDS ORDERED: ALBUMIN HUMAN 5% 250 ML IV ONE (01:00)
[2017-01-17] MEDS: INSULIN ASPART [NOVOLOG] 3 ML PEN SC SCH ×2 (01:00→05:00)
[2017-01-17] MEDS: PHENYLephrine 160 MG in DEXTROSE 5% 484 ML IV SCH (01:59)
[2017-01-17] MEDS: NORepinephrine 32 MG in DEXTROSE 5% 218 ML IV SCH (02:00)
[2017-01-17] MEDS: EPINEPHrine 4 MG in DEXTROSE 5% 246 ML IV SCH (02:01)
[2017-01-17] MEDS: SODIUM BICARBONATE (IV ADD) 150 MEQ in SOD CHLORIDE 0.9% 850 ML IV SCH (02:01)
[2017-01-17] MEDS ORDERED: morphine (DRIP) 100 MG/100 ML 100 ML IV SCH (06:00)
--- NOTE | 2017-01-17 07:44 | EN ---
Date/Time of Note Date/Time of Note DATE: 01/17/17 TIME: 07:43 Event Note Medicine Medicine Event Note Pronouncement Note Patient seen and examined at the bedside. Patient non responsive to verbal commands. Patient non responsive to noxious tactile stimuli. No heart sounds appreciated on auscultation. Pupils non reactive to light. Patient pronounced at approximately 7:35AM. Family at the bedside. Primary team aware. CANDI BETTS Jan 17, 2017 07:44
--- NOTE | 2017-01-17 08:18 | DES ---
Date/Time of Note Date/Time of Note DATE: 01/17/17 TIME: 08:17 Discharge/ Summary Admission/Discharge Info Admit Date/Time Dec 30, 2016 at 23:12 Discharge Date/Time Final Diagnosis sepstic shock from pneumonia Preliminary Cause of sepstic shock from pneumonia Hx of Present Illness 71-year-old female with a history of gastric cancer back in 2011 for which she underwent extensive resection as well as chemotherapy after which she was told that she was in remission. However back in March 2006 patient developed abdominal pain again and had a prolonged hospitalization at [facility]. Then she became TPN dependent, had to get a tracheostomy which is maintained at room air and has been to multiple hospitals, long-term acute care centers, and nursing homes, until finally she was discharged home to her family with home health. Her primary caregiver is her niece who is providing the history. However a few days ago family noticed that she had some bloody drainage from a KATHERIN drain which is located in her left inguinal area. She was admitted for workup of this in [facility] and the workup did not find much. However bleeding resolved and patient was just discharged home yesterday however post discharge and the patient's family notices that her mentation had worsened. Please note that prior to this patient had suffered multiple strokes in the past , she is also status post colostomy. However she was usually alert and oriented , follow commands consistently, and even though she had extensive muscle wasting did not have any evidence of hemiparesis or hemiplegia. However yesterday post discharge, family notices that patient was going in and out of consciousness, they attributed this to medication versus hypoglycemia which she sometimes had, but symptoms did not improve. Eventually patient was reevaluated by her home health nurse who recommended transfer to the emergency room. She was seen in the emergency room here where a CAT scan of her abdomen and pelvis is concerning for significant bilateral pleural effusions and possible underlying pneumonia, her blood picture is suggestive of sepsis, and a CT of the brain is showing a subacute stroke which may be new. Physical examination is also consistent with a left upper extremity paresis and patient is being admitted for further workup and management. She is also having some respiratory distress. Patient remains a full code per family. Hospital Course 71 yo F with previous h/o gastric ca sp treatment, h/o multiple esophageal strictures and bowel obstructions which have rendered the patient TPN dependent , chronic respiratory failure sp trach placement admitted for decreased mental status, suspect either from CVA (less likely as not read as acute on imaging) v toxic/metabolic encephalopathy from pneumonia. sp thora, hospitalization c/b septic shock with hypotension warranting overnight ICU stay, transferred back to floor 8.25, transferred back to the ICU 9.1 for respiratory distress. Pt remained in septic shock septic despite broad spectrum abx. During time in the ICU pt developed blood-tinged output from drains and j pouch, and DIC. For bloody drain output, imaging revealed enteritis. Pt seen by GI and gen surg both of which advised palliative care. Despite progressively higher pressor doses pt's clinical status continued to deteriorate. Pt transitioned by her family to comfort care early in the morning 9.8. She at 735am, family at bedside at time of her passing. Pending Labs/Cultures Laboratory Tests Test 01/16/17 10:11 01/16/17 12:29 01/16/17 17:33 01/16/17 17:59 Bedside Glucose 86mg/dL (70-220) 77mg/dL (70-220) 41mg/dL (70-220) 157mg/dL (70-220) Test 01/16/17 18:15 01/16/17 18:18 01/16/17 20:57 01/16/17 21:01 Bedside Glucose 179mg/dL (70-220) 121mg/dL (70-220) Glucose Level 175mg/dl (70-220) 111mg/dl (70-220) White Blood Count 26.610^3/ul (4.8-10.8) Red Blood Count 2.7810^6/ul (4.20-5.40) Hemoglobin 8.5g/dl (12.0-16.0) Hematocrit 28.1% (37.0-47.0) Mean Corpuscular Volume 101.1fl (82.0-101.0) Mean Corpuscular Hemoglobin 30.6pg (29.0-33.0) Mean Corpuscular Hemoglobin Concent 30.2g/dl (32.0-37.0) Red Cell Distribution Width 15.9% (11.5-14.5) Platelet Count 1610^3/UL (140-415) Mean Platelet Volume 12.2fl (7.4-10.4) Neutrophils % % (39.0-77.0) Segmented Neutrophils % (Manual) 64% (39-77) Band Neutrophils % (Manual) 10% (0-4) Lymphocytes % % (15.0-51.0) Lymphocytes % (Manual) 5% (15-51) Monocytes % % (0.0-11.0) Monocytes % (Manual) 16% (0-11) Eosinophils % % (0.0-7.0) Eosinophils % (Manual) 1% (0-7) Basophils % % (0.0-2.0) Metamyelocytes % (manual) 5% (0-0) Nucleated Red Blood Cells % 0.3/100WBC (0.0-0.0) Neutrophils # (Manual) 17.710^3/ul (1.7-7.5) Band Neutrophils # 2.610^3/ul (0.0-0.6) Absolute Lymphocytes (Manual) 1.310^3/ul (0.8-2.9) Lymphocytes # 10^3/ul (0.8-2.9) Monocytes # 10^3/ul (0.3-0.9) Absolute Monocytes (Manual) 4.210^3/ul (0.3-0.9) Eosinophils # 10^3/ul (0.0-0.5) Basophils # 10^3/ul (0.0-0.1) Metamyelocytes # 1.310^3/ul (0.0-0.0) Nucleated Red Blood Cells # 10^3/ul (0.0-0.0) Platelet Estimate SIG DECREASED Polychromasia 1+ (0-0) Hypochromasia 1+ (0-0) Anisocytosis 1+ (0-0) Microcytosis 1+ (0-0) Stomatocytes 1+ (0-0) Elliptocytes 1+ (0-0) Sodium Level 137mmol/L (135-144) Potassium Level 3.9mmol/L (3.5-5.1) Chloride Level 102mmol/L (97-110) Carbon Dioxide Level 19mmol/L (21-31) Anion Gap 20 (8-16) Blood Urea Nitrogen 42mg/dl (7-20) Creatinine 1.32mg/dl (0.44-1.00) Calcium Level 6.0mg/dl (8.4-10.2) Magnesium Level 1.6mg/dl (1.7-2.5) Total Bilirubin 10.9mg/dl (0.2-1.3) Direct Bilirubin 9.50mg/dl (0.00-0.20) Indirect Bilirubin 1.4mg/dl (0-1.1) Aspartate Amino Transf (AST/SGOT) 68IU/L (15-46) Alanine Aminotransferase (ALT/SGPT) 48IU/L (13-69) Alkaline Phosphatase 101IU/L (42-121) Total Protein 4.3g/dl (6.1-8.1) Albumin 1.9g/dl (3.3-4.9) Globulin 2.40g/dl (1.3-3.2) Albumin/Globulin Ratio 0.79 Test 01/17/17 00:57 01/17/17 01:13 01/17/17 01:31 Bedside Glucose 51mg/dL (70-220) 128mg/dL (70-220) 107mg/dL (70-220) MODESTO SANDHU MD Jan 17, 2017 08:18
== END 2017-01-17 07:35 | disposition expired | DRG 870 ==
LOC: E/R 19:46 → MS4 23:12 → ICU 01-02 16:05 → MS4 01-03 17:59 → ICU 01-10 15:05
PROVIDERS: ADMIT Family Medicine; ATTEND Family Medicine
PROC: 0W993ZX Drainage of Right Pleural Cavity, Percutaneous Approach, Diagnostic (ICD-10-PCS; principal; 2016-12-31)
PROC: 5A1955Z Respiratory Ventilation, Greater than 96 Consecutive Hours (ICD-10-PCS; 2017-01-12)
PROC: 30233K1 Transfusion of Nonautologous Frozen Plasma into Peripheral Vein, Percutaneous Approach (ICD-10-PCS; 2017-01-12)
PROC: 30233R1 Transfusion of Nonautologous Platelets into Peripheral Vein, Percutaneous Approach (ICD-10-PCS; 2017-01-13)
PROC: 30233N1 Transfusion of Nonautologous Red Blood Cells into Peripheral Vein, Percutaneous Approach (ICD-10-PCS; 2017-01-14)
DX: A41.9 Sepsis, unspecified organism (principal); J69.0 Pneumonitis due to inhalation of food and vomit; I63.9 Cerebral infarction, unspecified; R65.21 Severe sepsis with septic shock; E43 Unspecified severe protein-calorie malnutrition; G92 Toxic encephalopathy; G93.41 Metabolic encephalopathy; J90 Pleural effusion, not elsewhere classified; L89.152 Pressure ulcer of sacral region, stage 2; J96.10 Chronic respiratory failure, unspecified whether with hypoxia or hypercapnia; R64 Cachexia; Z68.1 Body mass index [BMI] 19.9 or less, adult; D68.9 Coagulation defect, unspecified; B37.49 Other urogenital candidiasis; K92.2 Gastrointestinal hemorrhage, unspecified; M62.50 Muscle wasting and atrophy, not elsewhere classified, unspecified site; E83.42 Hypomagnesemia; E16.2 Hypoglycemia, unspecified; Z93.0 Tracheostomy status; D64.9 Anemia, unspecified; Z95.1 Presence of aortocoronary bypass graft; Z85.028 Personal history of other malignant neoplasm of stomach; Z93.3 Colostomy status; I10 Essential (primary) hypertension; D69.6 Thrombocytopenia, unspecified; Z51.5 Encounter for palliative care
CPT/HCPCS: 32555; 36415; 36430; 36600; 70450; 70544; 70549; 70551; 71010; 74177; 74178; 80048; 80053; 80061; 80069; 80076; 80202; 81001; 82040; 82550; 82553; 82803; 82947; 82962; 83036; 83605; 83735; 84100; 84134; 84436; 84443; 84478; 84479; 84484; 85025; 85049; 85362; 85378; 85384; 85610; 85670; 85730; 86644; 86850; 86900; 86901; 86920; 86945; 87040; 87070; 87081; 87086; 87102; 87116; 89051; 93005; 93306; 94002; 94003; 94640; 94664; 96374; 96375; 97162; 97530; J1940; J0171; J0461; J1170; J1200; J1450; J1650; J1815; J1956; J2185; J2270; J2370; J2405; J3243; J3370; J3475; J3480; J7030; J7040; J7042; J7050; J7060; J7070; P9016; P9035; P9045; P9047; P9059; Q9967